=== PATIENT | female | born 1945 | race Caucasian/White ===

== ENCOUNTER 2020-05-22 10:45 | Emergency (ER) | payer OTHER ==
[2020-05-22] MEDS ORDERED: HYDROCODONE/APAP 10/325 TAB ONE (14:13)
[2020-05-22] MEDS ORDERED: predniSONE 20 MG TAB ONE (14:14)
--- NOTE | 2020-05-22 17:17 | EDPHYS ---
Physician Documentation [facility] Name: Doretha Partida Age: 74 yrs Sex: Female : 1945 Arrival Date: 05/22/2020 Time: 10:47 Bed 25 Private MD: ED Physician Aneesh Umaña HPI: 05/22 13:47 This 74 yrs old Female presents to ER via Wheelchair with complaints of Low kb Back Pain, Knee Pain. 13:47 The patient presents with pain that is acute. The symptoms are located in the left low kb back and right low back. The pain radiates to the right leg and left leg. The problem was sustained from a chronic condition. Onset: The symptoms/episode began/occurred 4 day(s) ago. Modifying factors: The patient symptoms are alleviated by nothing, the patient symptoms are aggravated by any movement. Associated signs and symptoms: Pertinent positives: none. Severity of symptoms: At their worst the symptoms were moderate, in the emergency department the symptoms are unchanged. The patient has experienced similar episodes in the past, several times. The patient has not recently seen a physician. Pt states "I've been having sciatic pain since Friday and it keeps getting worse. I can't lay down." Pt reports she has had this pain several times in the past. States pain sometimes travels down legs. No urinary problems, incontinence, numbness, tingling. Denies injury or trauma. Historical: - Allergies: 11:36 No Known Allergies; ca1 - PMHx: 11:36 Hypertension; ca1 - PSHx: 11:36 Knee surgery; ca1 - Immunization history:: Pneumococcal vaccine is up to date, Flu vaccine is not up to date. COVID 1st shot. - Social history:: Smoking status: Patient denies any tobacco usage or history of. ROS: 13:49 Constitutional: Negative for fever, chills, and weight loss, Cardiovascular: Negative kb for chest pain, palpitations, and edema, Respiratory: Negative for shortness of breath, cough, wheezing, and pleuritic chest pain, Abdomen/GI: Negative for abdominal pain, nausea, vomiting, diarrhea, and constipation, MS/Extremity: Negative for injury and deformity, Skin: Negative for injury, rash, and discoloration, Neuro: Negative for headache, weakness, numbness, tingling, and seizure. 13:49 Back: Positive for pain at rest, pain with movement, radiated pain, of the left low back and right low back. Exam: 13:49 Constitutional: This is a well developed, well nourished patient who is awake, alert, kb and in no acute distress. Head/Face: Normocephalic, atraumatic. Chest/axilla: Normal chest wall appearance and motion. Nontender with no deformity. No lesions are appreciated. Cardiovascular: Regular rate and rhythm with a normal S1 and S2. No gallops, murmurs, or rubs. Normal PMI, no JVD. No pulse deficits. Respiratory: Lungs have equal breath sounds bilaterally, clear to auscultation and percussion. No rales, rhonchi or wheezes noted. No increased work of breathing, no retractions or nasal flaring. Abdomen/GI: Soft, non-tender, with normal bowel sounds. No distension or tympany. No guarding or rebound. No evidence of tenderness throughout. Skin: Warm, dry with normal turgor. Normal color with no rashes, no lesions, and no evidence of cellulitis. MS/ Extremity: Pulses equal, no cyanosis. Neurovascular intact. Full, normal range of motion. Neuro: Awake and alert, GCS 15, oriented to person, place, time, and situation. Cranial nerves II-XII grossly intact. Motor strength 5/5 in all extremities. Sensory grossly intact. Cerebellar exam normal. Normal gait. 13:49 Back: pain, that is moderate, of the left low back and right low back, ROM is painful, normal spinal alignment noted, CVA tenderness, is absent, vertebral tenderness, is not appreciated. Vital Signs: 11:31 BP 158 / 61; Pulse 94; Resp 16 S; Temp 99.6(TE); Pulse Ox 98% on R/A; Weight 100.7 kg ca1 (R); Height 5 ft. 4 in. (162.56 cm) (R); Pain 10/10; 14:05 BP 160 / 95; Pulse 82; Resp 17; Pulse Ox 100% on R/A; tw2 11:31 Body Mass Index 38.11 (100.70 kg, 162.56 cm) ca1 MDM: 13:37 Patient medically screened. kb 13:47 Data reviewed: vital signs, nurses notes. Data interpreted: Pulse oximetry: on room air kb is 98 %. Interpretation: normal. Counseling: I had a detailed discussion with the patient and/or guardian regarding: the historical points, exam findings, and any diagnostic results supporting the discharge/admit diagnosis, the need for outpatient follow up, a family practitioner, to return to the emergency department if symptoms worsen or persist or if there are any questions or concerns that arise at home. Administered Medications: 14:00 Drug: [place] 10 mg-325 mg 1 tabs {Note: RASS 0.} Route: PO; tw2 14:07 Follow up: Response: No adverse reaction; RASS: Alert and Calm (0) tw2 14:00 Drug: predniSONE 40 mg Route: PO; tw2 14:09 Follow up: Response: No adverse reaction tw2 Disposition: 18:18 Co-signature as Attending Physician, Aneesh Umaña MD. [facility] Disposition: 05/22/20 13:50 Discharged to Home. Impression: Sciatica, left side, Sciatica, right side. - Condition is Stable. - Discharge Instructions: Sciatica, [id number], Back Exercises, [id number]. - Prescriptions for Prednisone 20 mg Oral Tablet - take 1 tablet by ORAL route once daily for 5 days; 5 tablet. Cyclobenzaprine 10 mg Oral Tablet - take 1 tablet by ORAL route every 8 hours As needed; 21 tablet. - Medication Reconciliation Form, Thank You Letter, Antibiotic Education, Prescription Opioid Use form. - Follow up: Emergency Department; When: As needed; Reason: Worsening of condition. Follow up: Private Physician; When: 2 - 3 days; Reason: Recheck today's complaints, Continuance of care, Re-evaluation by your physician. Signatures: Raquel Cabral, ADAMA-C ADAMA-Agnes Paez, BRANNON RN tw2 Aneesh Uamña MD MD nm2 Tara Ruiz RN RN ca1 Corrections: (The following items were deleted from the chart) 13:51 13:47 Pt states "I've been having sciatic pain since Friday and it keeps getting worse. kb I can't lay down." Pt reports she has had this pain several times in the past. States pain sometimes travels down legs. No urinary problems, incontinence, numbness, tingling. kb 14:08 13:50 05/22/2020 13:50 Discharged to Home. Impression: Sciatica, left side; Sciatica, tw2 right side. Condition is Stable. Forms are Medication Reconciliation Form, Thank You Letter, Antibiotic Education, Prescription Opioid Use. Follow up: Emergency Department; When: As needed; Reason: Worsening of condition. Follow up: Private Physician; When: 2 - 3 days; Reason: Recheck today's complaints, Continuance of care, Re-evaluation by your physician. kb
--- NOTE | 2020-05-22 17:17 | ER ---
Nurse's Notes [facility] Name: Doretha Partida Age: 74 yrs Sex: Female : 1945 Arrival Date: 05/22/2020 Time: 10:47 Bed 25 Private MD: Diagnosis: Sciatica, left side;Sciatica, right side Presentation: 05/22 11:31 Chief complaint: Patient states: I got sciatica, both sides on lower back. Haven't ca1 slept for days, hurt so back. Had this problem for a long time, but worse in the past week. [place]o. lower back radiating to the side of the legs sometimes. Bilateral knee pain, swelling on the R knee, been that way for quite sometime, had knee shots before. Denies injury. Denies urinary S/S. Coronavirus screen: Client denies travel out of the [place] in the last 14 days. At this time, the client does not indicate any symptoms associated with coronavirus-19. Ebola Screen: Patient negative for fever greater than or equal to 101.5 degrees Fahrenheit, and additional compatible Ebola Virus Disease symptoms Patient denies exposure to infectious person. Patient denies travel to an Ebola-affected area in the 21 days before illness onset. No symptoms or risks identified at this time. Initial Sepsis Screen: Does the patient meet any 2 criteria? No. Patient's initial sepsis screen is negative. Does the patient have a suspected source of infection? No. Patient's initial sepsis screen is negative. Risk Assessment: Do you want to hurt yourself or someone else? Patient reports no desire to harm self or others. Onset of symptoms was May 22, 2020. 11:31 Method Of Arrival: Wheelchair ca1 11:31 Acuity: SLY 3 ca1 Historical: - Allergies: 11:36 No Known Allergies; ca1 - PMHx: 11:36 Hypertension; ca1 - PSHx: 11:36 Knee surgery; ca1 - Immunization history:: Pneumococcal vaccine is up to date, Flu vaccine is not up to date. COVID 1st shot. - Social history:: Smoking status: Patient denies any tobacco usage or history of. Screenin:08 Abuse screen: Denies threats or abuse. Nutritional screening: No deficits noted. tw2 Tuberculosis screening: No symptoms or risk factors identified. Fall Risk None identified. Assessment: 13:35 General: Appears in no apparent distress. uncomfortable, obese, well groomed, Behavior tw2 is calm, cooperative, appropriate for age. Pain: Complains of pain in left leg and right leg and right low back and left low back. Neuro: Level of Consciousness is awake, alert, obeys commands, Oriented to person, place, time, situation. Cardiovascular: Patient's skin is warm and dry. Respiratory: Airway is patent Respiratory effort is even, unlabored, Respiratory pattern is regular, symmetrical. Musculoskeletal: Circulation, motion, and sensation intact. Range of motion: intact in all extremities, Reports pain in back, right leg and left leg. 14:07 Reassessment: Patient appears in no apparent distress at this time. No changes from tw2 previously documented assessment. Patient and/or family updated on plan of care and expected duration. Pain level reassessed. Patient is alert, oriented x 3, equal unlabored respirations, skin warm/dry/pink. Vital Signs: 11:31 BP 158 / 61; Pulse 94; Resp 16 S; Temp 99.6(TE); Pulse Ox 98% on R/A; Weight 100.7 kg ca1 (R); Height 5 ft. 4 in. (162.56 cm) (R); Pain 10/10; 14:05 BP 160 / 95; Pulse 82; Resp 17; Pulse Ox 100% on R/A; tw2 11:31 Body Mass Index 38.11 (100.70 kg, 162.56 cm) ca1 ED Course: 10:47 Patient arrived in ED. ag5 11:35 Triage completed. ca1 11:36 Arm band placed on right wrist. ca1 13:30 Raquel Cabral FNP-C is PHCP. kb 13:31 Aneesh Umaña MD is Attending Physician. kb 13:32 Bed in low position. Call light in reach. Pulse ox on. NIBP on. tw2 13:36 Raquel Cabral FNP-C is PHCP. kb 13:36 Aneesh Umaña MD is Attending Physician. kb 13:54 Agnes Rice, BRANNON is Primary Nurse. tw2 14:08 No provider procedures requiring assistance completed. Patient did not have IV access tw2 during this emergency room visit. Administered Medications: 14:00 Drug: [place] 10 mg-325 mg 1 tabs {Note: RASS 0.} Route: PO; tw2 14:07 Follow up: Response: No adverse reaction; RASS: Alert and Calm (0) tw2 14:00 Drug: predniSONE 40 mg Route: PO; tw2 14:09 Follow up: Response: No adverse reaction tw2 Outcome: 13:50 Discharge ordered by . christine 14:06 Discharged to home via wheelchair. tw2 14:06 Condition: stable 14:06 Discharge instructions given to patient, Instructed on discharge instructions, follow up and referral plans. no drinking with medication, no driving heavy equipment, medication usage, Demonstrated understanding of instructions, follow-up care, medications, Prescriptions given X 2. 14:08 Patient left the ED. tw2 Signatures: Raquel Cabral, CARDIAC REHABILITATION SPECIALIST-C ADAMA-Agnes Paez RN RN tw2 Tara Ruiz RN RN ca1 Yelitza Wolfe 5
[2020-05-22 17:39] VITALS: TEMP 99.6
[2020-05-22 17:40] VITALS: BP 160/95; O2SAT 100
== END 2020-05-22 14:08 | disposition home or self-care (01) ==
LOC: ER 10:45
DX: M54.32 Sciatica, left side (principal); M54.31 Sciatica, right side
CPT/HCPCS: 99283; J7512

== ENCOUNTER 2020-06-07 11:30 | Inpatient (IN) | payer OTHER ==
[2020-06-07] MEDS ORDERED: FAMOTIDINE 20 MG/2 ML VIAL IV ONE (13:59)
[2020-06-07] MEDS ORDERED: ONDANSETRON 4 MG/2 ML VIAL ONE ×3 (13:59→20:48)
[2020-06-07 14:00] LABS: Absolute Lymphocytes (CBC) 0.2 K/uL (0.7-4.9); Hematocrit 33.3 % (36.0-45.0); Lymphocytes % 0.7 % (15.3-44.8); RBC Red Blood Cell Count 4.27 M/uL (3.86-4.86)
[2020-06-07 14:02] LABS: Protime INR 1.25
[2020-06-07] MEDS ORDERED: FENTANYL CITR 100 MCG/2 ML ONE (14:29)
[2020-06-07] MEDS ORDERED: NA CHLORIDE 0.9% 500 ML ONE ×2 (14:29→14:50)
[2020-06-07 14:31] LABS: ALT/SGPT 20 U/L (12-78); AST/SGOT 22 U/L (15-37); Albumin 2.3 g/dL (3.4-5.0); Bilirubin Direct 0.7 mg/dL (0-0.2); Glucose Level 172 mg/dL (74-106); Lipase 545 U/L (73-393); NT PRO-BNP 4662 pg/mL (<450); Potassium 4.4 mmol/L (3.5-5.1); Protein, Total 8.8 g/dL (6.4-8.2); Sodium Level 134 mmol/L (136-145); Troponin (Emerg Dept Use Only) < 0.02 ng/mL (0.0-0.045)
[2020-06-07 14:34] LABS: Bicarbonate 7 mmol/L (21-32); Magnesium 3.6 mg/dL (1.8-2.4)
--- NOTE | 2020-06-07 14:39 | RAD REPORT ---
EXAM DESCRIPTION: RAD - Chest Single View - 06/07/2020 2:14 pm CLINICAL HISTORY: difficulty swallowing COMPARISON: None TECHNIQUE: AP portable chest image was obtained 06/07/2020 2:14 pm . FINDINGS: Lung volumes are low. Under penetrated technique and body habitus affects further limit th e examination. Lung base interstitial opacification is present. In the absence of a comparison early right lung base infiltrate cannot be excluded. No significant failure or volume overload. Heart and vasculature are normal. No measurable pleural effusion and no pneumothorax. No acute bony abnormality seen. No acute aortic findings suspected. IMPRESSION: Right base infiltrate verse is shallow inspiration linear atelectasis.
[2020-06-07] MEDS ORDERED: CEFTRIAXONE/SWI 1gm 1 GM/10 ML SYR ONE (14:50)
[2020-06-07] MEDS ORDERED: NA CHLORIDE 0.9% 2,000 ML ONE (14:50)
[2020-06-07 15:11] LABS: Urine Bacteria LOADED /HPF (<20)
[2020-06-07 15:19] LABS: Blood Morphology Comment NOT SEEN (NOT SEEN); Platelet Estimate INCR
[2020-06-07 15:20] LABS: Alkaline Phosphatase 1150 U/L (45-117); BUN Blood Urea Nitrogen 157 mg/dL (7-18)
[2020-06-07 15:22] LABS: Urine Blood 2+ (NEG); Urine Glucose NEGATIVE (NEG); Urine Protein 3+ (NEG); Urine Specific Gravity >1.030 (1.005-1.030); Urine pH 5.5 (5.0-7.0)
--- NOTE | 2020-06-07 15:40 | RAD REPORT ---
EXAM DESCRIPTION: CT - Chest Abd Pelvis Wo Con - 06/07/2020 3:05 pm CLINICAL HISTORY: N/V, acute kidney failure, chest pain, abdominal pain COMPARISON: Chest Single View dated 06/07/2020 TECHNIQUE: During dynamic enhancement using 100 milliliters nonionic IV contrast, axial 5 millimeter thick images of the chest, abdomen and pelvis were obtained. Biphasic technique was utilized through the abdomen. Oral contrast was administered. All CT scans are performed using dose optimization technique as appropriate and may include automated exposure control or mA/KV adjustment according to patient size. FINDINGS: The lungs are clear of mass and infiltrate. Patient has minimal scarring or linear atelect asis in the inferior lingula and right middle lobe base. No pneumothorax or pleural effusion. No david st wall mass or abnormal axillary lymphadenopathy seen. Mediastinal and hilar regions show no mass o r lymphadenopathy. No significant cardiac finding. The liver, spleen and pancreas show no significant findings. Gallbladder is well filled but not dila nichole. Gallstones can be occult. No pericholecystic fluid or definitive gallbladder wall thickening. No biliary tree dilatation. No hydronephrosis of either kidney. No obstructing or nonobstructing calculi. No gross evidence for a renal mass. Isodense masses and pyelonephritis are not excluded on a noncontrast study. No adrenal a bnormalities. Urinary bladder is fully contracted around a Mobley catheter. Uterus is absent. Ovaries are absent or atrophic. No adnexal mass. Pelvic floor laxity is present. No dilated bowel loops or focal ball bowel wall thickening. No free air, free fluid or inflammatory stranding. No hernia, mass or bulky lymphadenopathy. No significant bone or vascular finding. Patient does have disc and bony degenerative changes spanni ng L2-L5. IMPRESSION: CT chest imaging shows no mass, lymphadenopathy or other significant finding. CT abdomen and pelvis imaging shows no acute or emergent finding. Isodense masses and pyelonephritis cannot be excluded on a noncontrast study. Gallbladder is distended but not dilated. Stones can be occult on CT imaging. Biliary tree is normal size. Concerns for an acute gallbladder process can be addressed with follow-up sonography.
[2020-06-07] MEDS ORDERED: PIPER/TAZO/NS 3.375gm 3.375 GM/100 ML BAG ONE (16:16)
[2020-06-07] MEDS ORDERED: METRONIDAZOLE 500mg IVPB 500 MG/100 ML BAG IV ONE ×2 (16:16→21:08)
--- NOTE | 2020-06-07 16:46 | EDPHYS ---
Physician Documentation [facility] Name: Doretha Partida Age: 74 yrs Sex: Female : 1945 Arrival Date: 06/07/2020 Time: 11:32 Bed 5 Private MD: ED Physician Aneesh Umaña HPI: 06/07 13:40 This 74 yrs old Female presents to ER via Wheelchair with complaints of cp Difficulty Swallowing. 13:40 The patient presents to the emergency department with nausea, with "dry heaves", cp vomiting, that is continuous, described as bilious. Onset: The symptoms/episode began/occurred 2 week(s) ago. Possible causes: unknown. Associated signs and symptoms: Pertinent positives: anorexia, Pertinent negatives: constipation, diarrhea, fever, GI bleeding. Severity of symptoms: in the emergency department the symptoms are unchanged despite home interventions. Historical: - Allergies: 11:46 Codeine; ss - PMHx: 11:46 Hypertension; ss - PSHx: 11:46 Knee surgery; Hysterectomy; ss - Immunization history:: Flu vaccine is up to date. - Social history:: Smoking status: Patient denies any tobacco usage or history of. ROS: 13:50 Constitutional: Positive for poor PO intake, Negative for body aches, chills, fever. cp 13:50 Eyes: Negative for injury, pain, redness, and discharge. cp 13:50 ENT: Positive for difficulty swallowing, Negative for ear pain, sore throat, difficulty handling secretions. 13:50 Cardiovascular: Negative for chest pain, edema, palpitations. 13:50 Respiratory: Negative for cough, shortness of breath, wheezing. 13:50 Abdomen/GI: Positive for abdominal pain, nausea and vomiting, anorexia, Negative for diarrhea, constipation, hematemesis, black/tarry stool, rectal bleeding. 13:50 Back: Positive for radiated pain. 13:50 : Negative for urinary symptoms. 13:50 Neuro: Negative for altered mental status, headache. 13:50 All other systems are negative. Exam: 13:54 ECG was reviewed by the Attending Physician. cp 13:57 Constitutional: The patient appears in no acute distress, alert, awake, cp non-diaphoretic, non-toxic, well developed, well nourished, uncomfortable. 13:57 Head/Face: Normocephalic, atraumatic. cp 13:57 Eyes: Periorbital structures: appear normal, Conjunctiva: normal, no exudate, no injection, Sclera: no appreciated abnormality, Lids and lashes: appear normal, bilaterally. 13:57 ENT: External ear(s): are unremarkable, Nose: is normal, Mouth: Lips: moist, Oral mucosa: moist, Posterior pharynx: Airway: no evidence of obstruction, patent. 13:57 Neck: ROM/movement: is normal, is supple, without pain, no range of motions limitations. 13:57 Chest/axilla: Inspection: normal, Palpation: is normal, no crepitus, no tenderness. 13:57 Cardiovascular: Rate: tachycardic, Rhythm: regular, Edema: is not appreciated, JVD: is not appreciated. 13:57 Respiratory: mild respiratory distress is noted, Respirations: labored breathing, that is mild, intercostal retractions, are absent, Breath sounds: are clear throughout, no decreased breath sounds, no stridor, no wheezing. 13:57 Abdomen/GI: Inspection: abdomen appears normal, Bowel sounds: active, all quadrants, Palpation: soft, in all quadrants, moderate abdominal tenderness, in the right upper quadrant, voluntary guarding, is elicited in the right upper quadrant. 13:57 Back: pain, that is moderate, ROM is painful, with all movement. 13:57 Skin: cellulitis, is not appreciated, no rash present. 13:57 Neuro: Orientation: to person, place \\T\\ time. Mentation: is normal, Cerebellar function: is grossly normal, Motor: moves all fours, strength is normal, Sensation: is normal. Vital Signs: 11:47 BP 104 / 56; Pulse 100; Resp 20; Temp 97.6; Pulse Ox 100% ; Weight 98.88 kg; Height 5 ss ft. 4 in. (162.56 cm); Pain 10/10; 14:00 BP 97 / 70; Pulse 100; Resp 24; Pulse Ox 100% on R/A; sv 15:19 BP 136 / 60; Pulse 106; Resp 28; Pulse Ox 98% on 2 lpm NC; sv 16:00 BP 132 / 37; Pulse 98; Resp 19; Pulse Ox 98% on 2 lpm NC; sv 16:05 Pain 7/10; sv 17:19 BP 110 / 45; Pulse 102 MON; Resp 21; Pulse Ox 100% on 2 lpm NC; sv 18:04 BP 104 / 52; Pulse 109; Resp 17; Pulse Ox 100% on R/A; sv 19:00 BP 119 / 96; Pulse 104; Resp 19; Pulse Ox 100% on R/A; wh 11:47 Body Mass Index 37.42 (98.88 kg, 162.56 cm) ss 17:19 Sinus tachycardia sv 15:19 Sony PA wanted pt on O2. sv MDM: 13:27 Patient medically screened. ma2 14:00 Differential diagnosis: Nonspecific abd pain, gastritis, cholecystitis, pancreatitis, cp viral gastroenteritis, gastroenteritis. 17:25 Data reviewed: vital signs, nurses notes, lab test result(s), EKG, radiologic studies, cp CT scan, plain films, ultrasound. 17:25 Test interpretation: by ED physician or midlevel provider: ECG, plain radiologic cp studies. 17:45 Physician consultation: Lamonte Posada MD was contacted at 17:45, regarding consult, cp patient's condition, would like admission per Dr. Fred Pulliam DO. 06/07 13:40 Order name: Basic Metabolic Panel 06/07 13:40 Order name: CBC with Diff cp 06/07 13:40 Order name: LFT's cp 06/07 13:40 Order name: Magnesium cp 06/07 13:40 Order name: NT PRO-BNP; Complete Time: 15:22 cp 06/07 14:39 Interpretation: NT PRO-BNP 4662; Reviewed. 06/07 13:40 Order name: PT-INR; Complete Time: 14:30 cp 06/07 13:40 Order name: Troponin (emerg Dept Use Only); Complete Time: 15:22 cp 06/07 13:40 Order name: XRAY Chest (1 view); Complete Time: 15:22 cp 06/07 13:40 Order name: EKG; Complete Time: 13:40 cp 06/07 13:40 Order name: Cardiac monitoring; Complete Time: 14:08 cp 06/07 13:40 Order name: EKG - Nurse/Tech; Complete Time: 13:48 cp 06/07 13:40 Order name: IV Saline Lock; Complete Time: 13:49 cp 06/07 13:40 Order name: Labs collected and sent; Complete Time: 13:49 cp 06/07 13:40 Order name: O2 Per Protocol; Complete Time: 13:49 06/07 13:40 Order name: O2 Sat Monitoring; Complete Time: 13:49 06/07 13:40 Order name: Lipase; Complete Time: 15:22 06/07 17:23 Interpretation: Abnormal: LIP 545. 06/07 13:40 Order name: Basic Metabolic Panel; Complete Time: 15:22 EDDE 06/07 15:22 Interpretation: Normal except: NA 134; CO2 7; GLUC 172; CRE 8.48; GFR 5; CA 7.5; BUN cp 157. 06/07 13:40 Order name: CBC with Automated Diff EDDE 06/07 14:31 Interpretation: Normal except: WBC 35.40; HGB 10.8; HCT 33.3; MCV 77.9; MCH 25.2; PLT cp 626; RDW 16.0; JOSE% 95.0; LYM% 0.7; NEUT A 33.6; LYMA 0.2. 06/07 13:40 Order name: Liver (Hepatic) Function; Complete Time: 15:22 [facility] 06/07 16:32 Interpretation: Normal except: BILID 0.7; TP 8.8; ALB 2.3; GLOB 6.5; A/G 0.4; ALK 1150. 06/07 13:40 Order name: Magnesium; Complete Time: 15:22 [facility] 06/07 14:11 Order name: Urine Dipstick-Ancillary (obtain specimen); Complete Time: 14:23 06/07 14:11 Order name: Urine Microscopic Only; Complete Time: 15:22 06/07 15:23 Interpretation: Normal except: UBACT LOADED; URBC 5-10; UWBC TNTC. 06/07 14:14 Order name: Manual Differential [facility] 06/07 14:25 Order name: Blood Culture Adult (2) 06/07 14:25 Order name: Procalcitonin 06/07 14:25 Order name: Lactate 06/07 14:25 Order name: Blood Culture [facility] 06/07 14:25 Order name: Procalcitonin; Complete Time: 15:55 EDDE 06/07 15:55 Interpretation: Abnormal: Procalcitonin 5.92. 06/07 14:25 Order name: Lactate; Complete Time: 15:22 EDDE 06/07 15:23 Interpretation: Within normal limits: LAC 1.5. cp 06/07 14:31 Order name: Urine Dipstick--Ancillary (enter results); Complete Time: 15:24 bd 06/07 15:24 Interpretation: Normal except: USPGR >1.030; UKET 1+; UBLD 2+; UPROT 3+; UESTR 3+. 06/07 14:38 Order name: Mobley; Complete Time: 14:39 cp 06/07 14:41 Order name: CT Chest Abdomen Pelvis W/O Contrast; Complete Time: 15:55 cp 06/07 17:40 Interpretation: Report reviewed. 06/07 15:12 Order name: Urine Culture EDDE 06/07 16:01 Order name: US Abdomen Limited; Complete Time: 17:22 cp 06/07 16:01 Order name: NPO; Complete Time: 16:05 06/07 16:44 Order name: COVID-19 : Document "Date of Symptom Onset" if Symptomatic. 06/07 17:31 Order name: ABG 06/07 18:03 Order name: ABG Arterial Blood Gas EDDE 06/07 18:18 Order name: SARS-COV-2 RT PCR EDDE 06/08 04:13 Order name: Glucose, Ancillary Testing EDDE 06/08 05:06 Order name: CBC with Automated Diff EDDE 06/08 05:46 Order name: Comprehensive Metabolic Panel EDDE 06/08 05:46 Order name: Phosphorus EDDE 06/08 07:01 Order name: Gram Stain--Aerobic Bottle EDMS 06/08 07:01 Order name: Gram Stain--Anaerobic Bottle EDMS 06/08 07:05 Order name: Gram Stain--Aerobic Bottle EDMS 06/08 07:05 Order name: Gram Stain--Anaerobic Bottle EDMS 06/08 12:07 Order name: Glucose, Ancillary Testing EDMS EC:54 Rhythm is regular. MN interval is normal. QRS interval is prolonged at 136 msec. QT cp interval is normal. Interpreted by me. Reviewed by me. Administered Medications: 13:49 Drug: Zofran (Ondansetron) 4 mg Route: IVP; Site: right antecubital; hb 14:08 Follow up: Response: No adverse reaction sv 13:49 Drug: Pepcid 20 mg Route: IVP; Site: right antecubital; hb 14:08 Follow up: Response: No adverse reaction sv 14:15 Drug: fentaNYL (PF) 25 mcg Route: IVP; Site: left antecubital; sv 15:20 Follow up: Response: No adverse reaction; No change in condition; Pain is unchanged, sv physician notified; RASS: Agitated (+2) 14:30 CANCELLED (Physician Discretion): NS 0.9% 500 ml IV at 500 ml/hr continuous cp 14:40 Drug: NS 0.9% (30 ml/kg) 30 ml/kg Route: IV; Rate: bolus; Site: right antecubital; sv 19:40 Follow up: Response: No adverse reaction; IV Status: Completed infusion wh 14:40 Drug: Rocephin 1 grams Route: IV; Rate: calculated rate; Site: right antecubital; sv 14:42 Follow up: Response: No adverse reaction; IV Status: Completed infusion; IV Intake: 10mlsv 15:27 Drug: fentaNYL (PF) 50 mcg {Note: rass2.} Route: IVP; Site: right antecubital; sv 16:05 Follow up: Pain 7/10 Adult; Response: No adverse reaction; Pain is decreased; RASS: sv Restless (+1) 16:04 Drug: Flagyl 500 mg Volume: 100 ml; Route: IVPB; Rate: 200 ml/hr; Infused Over: 30 sv mins; Site: right antecubital; 17:00 Follow up: Response: No adverse reaction; IV Status: Completed infusion; IV Intake: sv 100ml 16:40 Drug: Zofran (Ondansetron) 4 mg Route: IVP; Site: right antecubital; sv 17:00 Follow up: Response: No adverse reaction; No change in condition sv 16:58 CANCELLED (Physician Discretion): morphine 2 mg IM once; RASS on ADMIN: Combtv4, Very sv Agttd3, Agttd2, Rstlss1, AlertClm0, Drwsy-1, Lt Sdtn-2, Mod Sdtn-3, Dp Sdtn-4, UnArsble-5 16:59 Drug: Phenergan 25 mg Route: IVP; Site: right antecubital; sv 17:30 Follow up: Response: No adverse reaction; Marked relief of symptoms; Nausea is decreasedsv 16:59 Drug: morphine 2 mg {Note: rass2.} Route: IVP; Site: right antecubital; sv 17:30 Follow up: Response: No adverse reaction; Pain is decreased; RASS: Restless (+1) sv 17:58 Drug: Zosyn 3.375 grams Route: IVPB; Infused Over: 60 mins; Site: right hand; ss 19:40 Follow up: Response: No adverse reaction; IV Status: Completed infusion wh 17:58 Drug: Sodium Bicarbonate 1 amp Route: IVP; Site: right hand; ss 18:40 Follow up: Response: No adverse reaction sv 17:58 Drug: Sodium Bicarbonate 50 mEq Route: IVP; Site: right hand; ss 18:40 Follow up: Response: No adverse reaction sv 21:18 CANCELLED (Physician Discretion): Reglan 10 mg IVP once; over 1 to 2 minutes cp Disposition: 06/07/20 16:46 Hospitalization ordered by Fred Pulliam for Inpatient Admission. Preliminary diagnosis are Acute kidney failure, Other sepsis, Urinary tract infection, site not specified, Dehydration. - Bed requested for Telemetry/MedSurg (Inpatient). - Status is Inpatient Admission. sv - Condition is Fair. - Problem is new. - Symptoms have improved. Addendum: 06/30/2020 02:12 Co-signature as Attending Physician, Aneesh Umaña MD. m a2 Signatures: Dispatcher [employer] EDMS Alyssia Bhatia Stephanie, RN RN Kylah Blevins RN RN ss Sony Marquez PA PA cp Terri Rodgers RN RN Santiago Longoria RN RN ja1 Aneesh Umaña MD MD nd2 Bridget Alegria RN Corrections: (The following items were deleted from the chart) 06/07 14:30 14:11 NS 0.9% 500 ml IV at 500 ml/hr continuous ordered. cp cp 14:31 14:30 Normal except: WBC 35.40; HGB 10.8; HCT 33.3; MCV 77.9; MCH 25.2; PLT 626; RDW cp 16.0; JOSE% 95.0; LYM% 0.7. cp 14:31 14:31 Normal except: WBC 35.40; HGB 10.8; HCT 33.3; MCV 77.9; MCH 25.2; PLT 626; RDW cp 16.0; JOSE% 95.0; LYM% 0.7; NEUT A 33.6. cp 14:39 14:39 Normal except: NA 134; CO2 7; GLUC 172; CRE 8.48; GFR 5. cp cp 15:22 14:39 Normal except: NA 134; CO2 7; GLUC 172; CRE 8.48; GFR 5; CA 7.5. cp cp 16:32 14:40 Normal except: BILID 0.7; TP 8.8; ALB 2.3; GLOB 6.5; A/G 0.4. cp cp 16:58 16:58 morphine 2 mg IM once; RASS on ADMIN: Combtv4, Very Agttd3, Agttd2, Rstlss1, sv AlertClm0, Drwsy-1, Lt Sdtn-2, Mod Sdtn-3, Dp Sdtn-4, UnArsble-5 ordered. sv 17:30 16:46 Hospitalization Ordered by Fred Pulliam DO for Inpatient Admission. Preliminary bd diagnosis is Acute kidney failure; Other sepsis; Urinary tract infection, site not specified; Dehydration. Bed requested for Telemetry/MedSurg (Inpatient). Status is Inpatient Admission. Condition is Fair. Problem is new. Symptoms have improved. cp 21:18 21:09 Reglan 10 mg IVP once; over 1 to 2 minutes ordered. cp cp 06/08 11:45 06/07 17:30 06/07/2020 16:46 Hospitalization Ordered by Fred Pulliam DO for Inpatient ja1 Admission. Preliminary diagnosis is Acute kidney failure; Other sepsis; Urinary tract infection, site not specified; Dehydration. Bed requested for [facility]UST ER HOLD. Status is Inpatient Admission. Condition is Fair. Problem is new. Symptoms have improved. bd 06/08 13:31 11:45 06/07/2020 16:46 Hospitalization Ordered by Fred Pulliam DO for Inpatient sv Admission. Preliminary diagnosis is Acute kidney failure; Other sepsis; Urinary tract infection, site not specified; Dehydration. Bed requested for Telemetry/MedSurg (Inpatient). Status is Inpatient Admission. Condition is Fair. Problem is new. Symptoms have improved. ja1
--- NOTE | 2020-06-07 16:46 | ER ---
Nurse's Notes [facility] Name: Doretha Partida Age: 74 yrs Sex: Female : 1945 Arrival Date: 06/07/2020 Time: 11:32 Bed 5 Private MD: Diagnosis: Acute kidney failure;Other sepsis;Urinary tract infection, site not specified;Dehydration Presentation: 06/07 11:47 Chief complaint: Patient states: 2 weeks of N/V when trying to eat. Feels like ss something is stuck in lower throat area. Vomits all liquids she tries to drink. No fever. Coronavirus screen: Client denies travel out of the [place] in the last 14 days. At this time, the client does not indicate any symptoms associated with coronavirus-19. Ebola Screen: Patient denies travel to an Ebola-affected area in the 21 days before illness onset. Initial Sepsis Screen: Does the patient meet any 2 criteria? HR > 90 bpm. No. Patient's initial sepsis screen is negative. Does the patient have a suspected source of infection? Yes: Other: throat pain/possible blockage. Risk Assessment: Do you want to hurt yourself or someone else? Patient reports no desire to harm self or others. Onset of symptoms was May 25, 2020. 11:47 Method Of Arrival: Wheelchair ss 11:47 Acuity: SLY 3 ss Historical: - Allergies: 11:46 Codeine; ss - PMHx: 11:46 Hypertension; ss - PSHx: 11:46 Knee surgery; Hysterectomy; ss - Immunization history:: Flu vaccine is up to date. - Social history:: Smoking status: Patient denies any tobacco usage or history of. Screenin:34 Abuse screen: Denies threats or abuse. Denies injuries from another. Nutritional sv screening: No deficits noted. Tuberculosis screening: No symptoms or risk factors identified. Fall Risk None identified. Assessment: 13:40 General: Appears uncomfortable, obese, well groomed, well developed, well nourished, sv Behavior is cooperative, appropriate for age, fussy, restless. Pain: Complains of pain in back Pain currently is 10 out of 10 on a pain scale. Quality of pain is described as throbbing, Pain began 2-3 days ago. Is continuous, Aggravated by increased activity, repositioning, Noted to be moaning, restless, grunting. Neuro: Level of Consciousness is awake, alert, obeys commands, Oriented to person, place, time, situation, Moves all extremities. Full function Speech is normal. Cardiovascular: Patient's skin is warm and dry. Rhythm is sinus tachycardia. Respiratory: Reports shortness of breath Airway is patent Respiratory effort is even, unlabored, Respiratory pattern is symmetrical, tachypnea. GI: Abdomen is obese. Derm: Skin is normal. Musculoskeletal: Range of motion: intact in all extremities. 14:15 Reassessment: Patient appears in no apparent distress at this time. No changes from sv previously documented assessment. Patient and/or family updated on plan of care and expected duration. Pain level reassessed. Patient is alert, oriented x 3, equal unlabored respirations, skin warm/dry/pink. 15:27 Reassessment: Patient appears in no apparent distress at this time. No changes from sv previously documented assessment. Patient and/or family updated on plan of care and expected duration. Pain level reassessed. Patient is alert, oriented x 3, equal unlabored respirations, skin warm/dry/pink. 16:04 Reassessment: Patient appears in no apparent distress at this time. Patient and/or sv family updated on plan of care and expected duration. Pain level reassessed. Patient is alert, oriented x 3, equal unlabored respirations, skin warm/dry/pink. 16:35 Reassessment: Pt c/o nausea. Informed Sony IRIZARRY, medication order received. sv 16:46 Reassessment: Ultrasound at the bedside. sv 17:50 Reassessment: Faith and Mary from RT attempted to place pt on BIPAP. Pt not able to sv tolerate it. Sony PA at bedside and said ok to not place it. ABG drawn prior to placement. 18:03 Reassessment: Patient appears in no apparent distress at this time. No changes from sv previously documented assessment. Patient and/or family updated on plan of care and expected duration. Pain level reassessed. Patient is alert, oriented x 3, equal unlabored respirations, skin warm/dry/pink. 19:15 Reassessment: Patient appears in no apparent distress at this time. Patient and/or wh family updated on plan of care and expected duration. Pain level reassessed. Patient is alert, oriented x 3, equal unlabored respirations, skin warm/dry/pink. Vital Signs: 11:47 BP 104 / 56; Pulse 100; Resp 20; Temp 97.6; Pulse Ox 100% ; Weight 98.88 kg; Height 5 ss ft. 4 in. (162.56 cm); Pain 10/10; 14:00 BP 97 / 70; Pulse 100; Resp 24; Pulse Ox 100% on R/A; sv 15:19 BP 136 / 60; Pulse 106; Resp 28; Pulse Ox 98% on 2 lpm NC; sv 16:00 BP 132 / 37; Pulse 98; Resp 19; Pulse Ox 98% on 2 lpm NC; sv 16:05 Pain 7/10; sv 17:19 BP 110 / 45; Pulse 102 MON; Resp 21; Pulse Ox 100% on 2 lpm NC; sv 18:04 BP 104 / 52; Pulse 109; Resp 17; Pulse Ox 100% on R/A; sv 19:00 BP 119 / 96; Pulse 104; Resp 19; Pulse Ox 100% on R/A; wh 11:47 Body Mass Index 37.42 (98.88 kg, 162.56 cm) ss 17:19 Sinus tachycardia sv 15:19 Sony IRIZARRY wanted pt on O2. sv ED Course: 11:32 Patient arrived in ED. rg4 11:46 Arm band placed on. ss 11:50 Triage completed. ss 13:27 Aneesh Umaña MD is Attending Physician. ma2 13:31 Sony Marquez PA is PHCP. cp 13:34 Kristyn Cormier, BRANNON is Primary Nurse. sv 13:34 Patient has correct armband on for positive identification. Bed in low position. Call sv light in reach. Door closed. Head of bed elevated. 13:45 Inserted saline lock: 22 gauge in right antecubital area, using aseptic technique. sv ,using aseptic technique. diffusics Blood collected. Flushed right antecubital with 5 ml normal saline. 14:08 Basic Metabolic Panel Sent. sv 14:08 CBC with Diff Sent. sv 14:08 LFT's Sent. sv 14:08 Magnesium Sent. sv 14:08 XRAY Chest (1 view) Sent. sv 14:14 XRAY Chest (1 view) In Process Unspecified. EDMS 14:23 Mobley cath inserted, using sterile technique, 16 Fr., by al, balloon inflated, to sv gravity drainage, urine specimen collected. returned cloudy urine. Patient tolerated well. 14:40 Lactate Sent. sv 14:40 Procalcitonin Sent. sv 14:40 Blood Culture Adult (2) Sent. sv 15:04 CT Chest Abdomen Pelvis W/O Contrast In Process Unspecified. EDMS 15:19 Awaiting lab results, Awaiting radiology results. sv 16:45 Fred Pulliam DO is Hospitalizing Provider. cp 16:52 US Abdomen Limited In Process Unspecified. EDMS 17:50 Inserted saline lock: 22 gauge in right hand, using aseptic technique. ,using aseptic sv technique. diffusics. 17:58 ABG Sent. ss 18:01 No provider procedures requiring assistance completed. Patient admitted, IV remains in sv place. intact. 19:19 Primary Nurse role handed off by Kristyn Cormier RN sv 19:38 Bridget Alegria RN is Primary Nurse. 06/08 07:25 Primary Nurse role handed off by Bridget Alegria RN em1 Administered Medications: 06/07 13:49 Drug: Zofran (Ondansetron) 4 mg Route: IVP; Site: right antecubital; hb 14:08 Follow up: Response: No adverse reaction sv 13:49 Drug: Pepcid 20 mg Route: IVP; Site: right antecubital; hb 14:08 Follow up: Response: No adverse reaction sv 14:15 Drug: fentaNYL (PF) 25 mcg Route: IVP; Site: left antecubital; sv 15:20 Follow up: Response: No adverse reaction; No change in condition; Pain is unchanged, sv physician notified; RASS: Agitated (+2) 14:30 CANCELLED (Physician Discretion): NS 0.9% 500 ml IV at 500 ml/hr continuous cp 14:40 Drug: NS 0.9% (30 ml/kg) 30 ml/kg Route: IV; Rate: bolus; Site: right antecubital; sv 19:40 Follow up: Response: No adverse reaction; IV Status: Completed infusion 14:40 Drug: Rocephin 1 grams Route: IV; Rate: calculated rate; Site: right antecubital; sv 14:42 Follow up: Response: No adverse reaction; IV Status: Completed infusion; IV Intake: 10mlsv 15:27 Drug: fentaNYL (PF) 50 mcg {Note: rass2.} Route: IVP; Site: right antecubital; sv 16:05 Follow up: Pain 7/10 Adult; Response: No adverse reaction; Pain is decreased; RASS: sv Restless (+1) 16:04 Drug: Flagyl 500 mg Volume: 100 ml; Route: IVPB; Rate: 200 ml/hr; Infused Over: 30 sv mins; Site: right antecubital; 17:00 Follow up: Response: No adverse reaction; IV Status: Completed infusion; IV Intake: sv 100ml 16:40 Drug: Zofran (Ondansetron) 4 mg Route: IVP; Site: right antecubital; sv 17:00 Follow up: Response: No adverse reaction; No change in condition sv 16:58 CANCELLED (Physician Discretion): morphine 2 mg IM once; RASS on ADMIN: Combtv4, Very sv Agttd3, Agttd2, Rstlss1, AlertClm0, Drwsy-1, Lt Sdtn-2, Mod Sdtn-3, Dp Sdtn-4, UnArsble-5 16:59 Drug: Phenergan 25 mg Route: IVP; Site: right antecubital; sv 17:30 Follow up: Response: No adverse reaction; Marked relief of symptoms; Nausea is decreasedsv 16:59 Drug: morphine 2 mg {Note: rass2.} Route: IVP; Site: right antecubital; sv 17:30 Follow up: Response: No adverse reaction; Pain is decreased; RASS: Restless (+1) sv 17:58 Drug: Zosyn 3.375 grams Route: IVPB; Infused Over: 60 mins; Site: right hand; ss 19:40 Follow up: Response: No adverse reaction; IV Status: Completed infusion wh 17:58 Drug: Sodium Bicarbonate 1 amp Route: IVP; Site: right hand; ss 18:40 Follow up: Response: No adverse reaction sv 17:58 Drug: Sodium Bicarbonate 50 mEq Route: IVP; Site: right hand; ss 18:40 Follow up: Response: No adverse reaction sv 21:18 CANCELLED (Physician Discretion): Reglan 10 mg IVP once; over 1 to 2 minutes cp Intake: 14:42 IV: 10ml; Total: 10ml. sv 17:00 IV: 100ml; Total: 110ml. sv Outcome: 16:46 Decision to Hospitalize by Provider. cp 18:02 Admitted to ER Hold. Please see [facility] for further documentation. sv 18:02 Condition: stable 18:02 Instructed on the need for admit. 06/08 13:31 Patient left the ED. sv Signatures: Dispatcher [employer] Kristyn Gamboa RN RN sv Nikko Posada em1 Kylah Blevins RN RN ss Sony Marquez PA PA cp Terri Rodgers RN RN hb Garcia, Rubi rg4 Bridget Alegria RN RN Aneesh Umaña MD MD ma2
[2020-06-07] MEDS: HEPARIN 5000 UNIT/ML 1 ML VIAL SQ SCH (17:00)
--- NOTE | 2020-06-07 17:07 | P.HP ---
Certification for Inpatient With expected LOS: >2 Midnights Practitioner: I am a practitioner with admitting privileges, knowledge of patient current condition, hospital course, and medical plan of care. Services: Services provided to patient in accordance with Admission requirements found in Title 42 Section 412.3 of the Code of Federal Regulations Patient History Date of Service: 06/07/20 Reason for admission: HARSHAD, sepsis, volume depletion, suspected cholecystitis, metabolic acidemia. History of Present Illness: 74 y o female pt who was evaluated in the Ed for episode of n/v and abd pain for the past 2 weeks. she has been unable to keep food and water down for the past 2 weeks and has had severe and diffuse abd pain. she attested to fever chills and malaise. work up in the Ed revealed severe HARSHAD with creatinine of 8.4, metabolic acidemia with bicarb of 7 and she also had elevated WBC of 35 and mod anemia. she was deemed to be septic and she was started on empiric antibiotics and IV fluid as per sepsis protocol. she was admitted for inpt care. Imaging done did show sludge and small stones in the gallbladder depicting gallstone cholecystitis. Review of Systems General: Fever, Chills, Malaise Eyes: Unremarkable ENT: Unremarkable Respiratory: Unremarkable Cardiovascular: Unremarkable Gastrointestinal: Nausea, Vomiting, Abdominal Pain Genitourinary: Unremarkable Musculoskeletal: Unremarkable Neurological: Unremarkable Physical Examination - Physical Exam General: Alert, Oriented x3, Moderate distress HEENT: Atraumatic, Normocephalic, PERRLA Neck: Supple Respiratory: Clear to auscultation bilaterally Cardiovascular: No edema, Regular rate/rhythm, Normal S1 S2 Gastrointestinal: Tenderness (generalized but marked in right upper quadrant.) Musculoskeletal: No clubbing Neurological: Normal speech, Normal strength at 5/5 x4 extr, Sensation intact, Cranial nerves 3-12 intact - Studies Laboratory Data (last 24 hrs) 06/07/20 13:46: PT 14.4 H, INR 1.25 06/07/20 13:46: WBC 35.40 H*, Hgb 10.8 L, Hct 33.3 L, Plt Count 626 H 06/07/20 13:46: Sodium 134 L, Potassium 4.4, BUN 157 H, Creatinine 8.48 H*, Glucose 172 H, Magnesium 3.6 H*, Total Bilirubin 1.0, AST 22, ALT 20, Alkaline Phosphatase 1150 H, Lipase 545 H Assessment and Plan - Plan 1.Abd pain/cholecystitis-imaging with US did show gallstone/sludge in gall bladder. she has been started on empiric antibiotic of flagyl and cefepime. we will also start pain control with morphine. we will monitor her symptomatology. surgeon to be consulted. 2.Metabolic acidemia-bicarb is low at 7. this episode is deemed due to poor bicarb generation from harshad eopisode and loss from n/v episode. we will start sodium bicarb IV and monitor level in am. 3.Sepsis-deemed due to cholecystitis episode. we will continue empiric antibiotics and monitor her sepsis parameters. 4.HARSHAD-severe stage 3 harshad noted on labs. we do not have prior labs.w neymar will hydrate as we think she has ischemic atn/sepsis associated atn. we will contuld nephrology for input. we willd ose meds for eGFR and avoid nephrotoxin exposure. 5.N/V-due to sepsis/cholecystitis episode. we will have prn antiemetics on board. 6.Volume depletion-due to sepsis/cholcystitis. we will hydrate with IV fluid and monitor. - Advance Directives Does patient have a Living Will: No Does patient have a Durable POA for Healthcare: No
[2020-06-07] MEDS ORDERED: PROMETHAZINE INJ 25 MG/ML AMP ONE ×2 (17:08→21:31)
[2020-06-07] MEDS ORDERED: MORPHINE 2 MG/ML SYR ONE (17:09)
--- NOTE | 2020-06-07 17:16 | RAD REPORT ---
EXAM DESCRIPTION: US - Abdomen Exam Limited - 06/07/2020 4:52 pm CLINICAL HISTORY: ABD PAIN COMPARISON: Chest Abd Pelvis Wo Con dated 06/07/2020 FINDINGS: Well filled gallbladder shows small amount of layering sludge and small gallstones. Wall t hickness is upper normal. No pericholecystic fluid. No common duct stone or biliary tree dilatation identified. IMPRESSION: Sludge and small gallstones are seen in the distended but nondilated gallbladder. Wall thickness is upper normal. No pericholecystic fluid. Findings are not definitive for, but are suggestive of, acute cholecystitis. Correlation is needed wi th clinical presentation.
[2020-06-07] MEDS ORDERED: SODIUM BICARB 50 MEQ/50ML VIAL ONE ×2 (17:48→18:09)
[2020-06-07 17:51] LABS: Arterial Blood Carboxyhemoglob 0.8 % (0-1.5); Blood Gas Oxyhemoglobin 95.7 % (94-97); Blood O2 Saturation 97.7 % (92-98.5)
[2020-06-07] MEDS: D5W 1,000 ML with NA BICARB 8.4% 150 MEQ IV SCH ×2 (18:00)
[2020-06-07 18:08] VITALS: BMI 37.0
[2020-06-07] MEDS ORDERED: HEPARIN 5000 UNIT/ML 1 ML VIAL ONE (18:49)
[2020-06-07] MEDS: ONDANSETRON 4 MG/2 ML VIAL IV PRN (20:36)
[2020-06-07] MEDS ORDERED: PANTOPRAZOLE 40 MG INJ IVP ONE (21:20)
[2020-06-07] MEDS ORDERED: PROMETHAZINE INJ 25 MG/ML AMP IV ONE (21:20)
[2020-06-07] MEDS ORDERED: SODIUM CHLORIDE 0.9% 10ML INJ IV PRN (21:20)
[2020-06-07] MEDS ORDERED: PANTOPRAZOLE 40 MG INJ ONE (21:31)
[2020-06-08] MEDS: HEPARIN 5000 UNIT/ML 1 ML VIAL SQ SCH ×3 (01:00→17:00)
[2020-06-08] MEDS: METRONIDAZOLE 500mg IVPB 500 MG/100 ML BAG IV SCH ×3 (01:00→17:00)
[2020-06-08] MEDS ORDERED: HEPARIN 5000 UNIT/ML 1 ML VIAL ONE ×2 (01:04→08:40)
[2020-06-08] MEDS: MORPHINE 2 MG/ML SYR IV PRN ×2 (02:05→17:02)
[2020-06-08] MEDS ORDERED: MORPHINE 2 MG/ML SYR ONE (02:19)
[2020-06-08 05:00] LABS: Absolute Lymphocytes (CBC) 0.4 K/uL (0.7-4.9); Basophils % 0.3 % (0-1.3); Hematocrit 25.9 % (36.0-45.0); Lymphocytes % 1.5 % (15.3-44.8); MPV 8.8 fL (7.6-11.3); RBC Red Blood Cell Count 3.41 M/uL (3.86-4.86)
[2020-06-08] MEDS: D5W 1,000 ML with NA BICARB 8.4% 150 MEQ IV SCH ×6 (05:30→23:05)
[2020-06-08 05:42] LABS: Albumin 1.8 g/dL (3.4-5.0); Bilirubin Total 0.7 mg/dL (0.2-1.0); Potassium 3.1 mmol/L (3.5-5.1); Protein, Total 7.1 g/dL (6.4-8.2)
[2020-06-08 05:45] LABS: Phosphorus 8.6 mg/dL (2.5-4.9)
[2020-06-08] MEDS ORDERED: CALCIUM GLUC 10% INJ 4.65 MEQ in NA CHLORIDE 0.9% 100 ML IV ONE (05:54)
[2020-06-08] MEDS ORDERED: CALCIUM GLUCONATE 1 GM IVPB 0 GM/0 ML BAG IV ONE (06:16)
--- NOTE | 2020-06-08 07:10 | P.PN ---
Subjective Date of Service: 06/08/20 Chief Complaint: HARSHAD, sepsis, volume depletion, suspected cholecystitis, metabolic acidemia. Subjective: Improving Physical Examination - Vital Signs Temperature: 97.6 F Blood Pressure: 114/54 Pulse: 105 Respirations: 16 Pulse Ox (%): 100 - Physical Exam General: Alert, Oriented x3, Moderate distress HEENT: Atraumatic, Normocephalic Neck: Supple Respiratory: Clear to auscultation bilaterally Cardiovascular: Regular rate/rhythm, Normal S1 S2 Gastrointestinal: Tenderness (globally.) Musculoskeletal: No clubbing, No swelling Neurological: Normal speech, Normal strength at 5/5 x4 extr, Cranial nerves 3-12 intact - Studies Laboratory Data (last 24 hrs) 06/07/20 13:46: PT 14.4 H, INR 1.25 06/07/20 13:46: WBC 35.40 H*, Hgb 10.8 L, Hct 33.3 L, Plt Count 626 H 06/07/20 13:46: Sodium 134 L, Potassium 4.4, BUN 157 H, Creatinine 8.48 H*, Glucose 172 H, Magnesium 3.6 H*, Total Bilirubin 1.0, AST 22, ALT 20, Alkaline Phosphatase 1150 H, Lipase 545 H Assessment And Plan - Plan 1.Abd pain/cholecystitis-imaging with US did show gallstone/sludge in gall bladder. she has been started on empiric antibiotic of flagyl and cefepime. we will also start pain control with morphine. we will monitor her symptomatology. surgeon consulted for possible surgical intervention. 2.Metabolic acidemia-bicarb is better at 13 today. this episode is deemed due to poor bicarb generation from harshad episode and loss from n/v episode. we will continue sodium bicarb IV and monitor closely. 3.Sepsis-deemed due to cholecystitis episode. improving clinical parameters. we will continue empiric antibiotics and monitor her sepsis parameters. 4.HARSHAD-severe stage 3 harshad noted on labs. creatinine improved to 7.5 from 8.3 we will hydrate as we think she has ischemic atn/sepsis associated atn. nephrology consulted for input, recommendations noted. we will continue to dose meds for eGFR and avoid nephrotoxin exposure. 5.N/V-Improved. deemed due to sepsis/cholecystitis episode. we will continue prn antiemetics. 6.Volume depletion-due to sepsis/cholecystitis. we will continue to hydrate with IV fluid and monitor volume status closely. awaiting surgeon's input as per possible surgical intervention. Discharge Plan: Home
[2020-06-08] MEDS ORDERED: PNEUMOCOCCAL VACCINE 0.5 ML IMVAC ONE (08:00)
[2020-06-08] MEDS ORDERED: INFLUENZA VACCINE (for 3y+) 0.5 ML DOSE IMVAC ONE (08:00)
[2020-06-08] MEDS ORDERED: METRONIDAZOLE 500mg IVPB 500 MG/100 ML BAG IV ONE (08:23)
[2020-06-08] MEDS ORDERED: CEFEPIME/SWI 1gm 10 ML ONE (08:23)
[2020-06-08] MEDS ORDERED: CALCIUM GLUCONATE 1 GM IVPB 1 GM/50 ML BAG IV ONE (08:23)
[2020-06-08] MEDS ORDERED: CEFEPIME/SWI 1gm 10 ML IVP SCH (09:00)
[2020-06-08] MEDS ORDERED: CEFEPIME 1 GM/VIAL IV SCH (09:00)
[2020-06-08] MEDS: ONDANSETRON 4 MG/2 ML VIAL IV PRN (12:45)
[2020-06-08] MEDS ORDERED: ONDANSETRON 4 MG/2 ML VIAL ONE (12:49)
--- NOTE | 2020-06-08 19:17 | CON ---
Date of Consultation: 06/08/2020 Reason For Consultation: Electrolyte imbalance, acidosis. History Of Present Illness: This is a pleasant 74-year-old female with significant past medical history of hypertension, hyperlipidemia, coronary artery disease status post cardiac cath, peripheral vascular disease, the patient was in her regular state of health till 2 weeks ago when started having nausea and vomiting and chills. For that reason reported to the hospital. Upon arrival to the hospital, the patient was found to have severe acidosis with elevation in creatinine and low bicarb with severe leukocytosis. For that reason, the patient was admitted. The patient admits that she has been taking ibuprofen tablet daily for the last 2 to 3 years. There is no IV contrast. Upon arrival to hospital, the patient was found to have leukocytosis, WBC of 22, and has creatinine of 8.4 with bicarb of 7. Marginal hyperglycemia. For that reason patient was admitted. The workup showed also hyperphosphatemia. The patient was started on IV hydration. The patient had urine output of 400 but milky urine. Past Medical History: Includes, 1. Hypertension since 1997. 2. Coronary artery disease status post cardiac cath x2. Follow up with Dr. Li. 3. PAD status post angioplasty. Reviewing the record for the patient, the patient back in 2016 creatinine 0.7. Again, at that time, GFR within normal limit. According to the patient had lab 1 month ago at [facility]. There is no mention for any kidney disease seen by Cardiology for that. 4. CKD 5. Peripheral vascular disease. Allergies: CODEINE. Family History: Positive for hypertension. Surgical History: Positive for coronary artery, cardiac cath and angiogram. Social History: Denies smoking. Denies drinking. Denies drugs abuse. Home Medications: Include omeprazole, levothyroxine, amlodipine, and hydrochlorothiazide. Current Medications: Include cefepime, metronidazole, heparin, IV fluid. Review of Systems: Head and Neck: No red eye. No ear pain. GI: Has nausea, vomiting. : No polyuria, no dysuria, no hematuria. 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 Respiratory: No shortness of breath. Cardiovascular: No chest pain. Endocrine: No polydipsia. Skin: No rash. Neuro: Has low back pain. Musculoskeletal: Has right knee pain and low back pain. Physical Examination: Vital Signs: When I saw the patient, blood pressure 146/66, pulse of 109 afebrile. The patient had urine output of 400. Chest: Clear to auscultation. Heart: S1, S2 regular. Abdomen: Soft, nontender. Extremities: No edema. Neurologic: Alert and oriented x3. No focal. No tremor. Laboratory Data: For the patient, sodium 143, potassium 3.1, bicarb 13. BUN 142, creatinine 7.5, GFR of 5. Calcium 6.4, phosphorous 8.6. Urinalysis; wbc's packed, +3 protein. ABG; pH 7.16, CO2 14, O2 139, base access -22. CT of abdomen and pelvis were done yesterday without contrast showing no hydronephrosis, no obstruction. Urinary bladder fully contracted. Assessment And Plan: 1. Renal failure, look to me more chronic supported with the hyperphosphatemia and acidosis and anemia and the severe high BUN that did not improve significantly with the IV hydration, possible patient being uremic symptoms. 2. I had long discussion with the patient regarding the etiology of the disease with the absence of any diabetes, mostly the acute kidney injury secondary to progression of disease secondary to contrast-induced nephropathy, secondary to her nonsteroid intake. 3. I am going to go ahead and consult surgery for placement of PermCath to initiate renal replacement therapy. Patient verbalized understanding and agreed if it is needed. We will follow up the lab tomorrow. 4. I am going to start the patient on IV hydration. We will start the patient on bicarb drip and we will follow up. 5. I going to send for full serology including serum protein electrophoresis to evaluate if the patient had any other causes. 6. We will monitor the patient closely. 7. Hold hydrochlorothiazide. Hold PPI. 8. Acidosis secondary to renal failure. We will start the patient on IV bicarb and we will follow up. 9. Anemia of chronic kidney disease with presence of acute kidney injury. We will send for the workup. We will consider start LINDY or IV iron depending on the lab evaluation. 10. Hypocalcemia secondary most to hyperparathyroidism secondary. I am going to go ahead and start the patient on calcium carbonate and we will monitor. We will send for PTH. 11. Cholecystitis. Continue antibiotic. We will follow up with Surgery and Primary. 12. Hypertension, controlled, optimal. Keep holding any hydrochlorothiazide. Thank you Dr. Leon for allowing us to participate in the care of your patient. Time spent discussing with the patient, examining the patient, exam [id number], placing order, discussing with staff and other consulting include including Cardiology and Primary 75 minutes. JESSICA Voice ID: [id number] Report ID: [id number] EDIE
[2020-06-09] MEDS: METRONIDAZOLE 500mg IVPB 500 MG/100 ML BAG IV SCH ×3 (00:22→17:00)
[2020-06-09] MEDS: HEPARIN 5000 UNIT/ML 1 ML VIAL SQ SCH ×3 (00:23→17:00)
[2020-06-09] MEDS: ONDANSETRON 4 MG/2 ML VIAL IV PRN ×3 (02:17→15:08)
[2020-06-09] MEDS: D5W 1,000 ML with NA BICARB 8.4% 150 MEQ IV SCH ×4 (03:34→16:00)
[2020-06-09 06:21] LABS: Absolute Lymphocytes (CBC) 0.5 K/uL (0.7-4.9); Basophils % 0.7 % (0-1.3); Hematocrit 25.1 % (36.0-45.0); Lymphocytes % 2.5 % (15.3-44.8); MPV 8.7 fL (7.6-11.3); RBC Red Blood Cell Count 3.36 M/uL (3.86-4.86)
[2020-06-09 06:34] LABS: Urine Protein/Creatinine Ratio 9.04 ratio (<0.15)
[2020-06-09 07:11] LABS: ALT/SGPT 16 U/L (12-78); AST/SGOT 23 U/L (15-37); Albumin 1.8 g/dL (3.4-5.0); Alkaline Phosphatase 779 U/L (45-117); BUN Blood Urea Nitrogen 146 mg/dL (7-18); Bicarbonate 22 mmol/L (21-32); Bilirubin Total 0.7 mg/dL (0.2-1.0); Creatine Phosphokinase 162 U/L (26-192); Ferritin 321.3 ng/mL (8-388); Glucose Level 183 mg/dL (74-106); Phosphorus 8.4 mg/dL (2.5-4.9); Sodium Level 144 mmol/L (136-145); Thyroid Stimulating Hormone 0.928 uIU/mL (0.360-3.740); Transferrin 107 mg/dL (200-360)
[2020-06-09 07:12] LABS: Folic Acid, (Folate) > 20.0 ng/mL (3.1-17.5); Uric Acid 18.5 mg/dL (2.6-6.0)
[2020-06-09 07:15] LABS: Potassium 2.9 mmol/L (3.5-5.1)
[2020-06-09] MEDS: CALCIUM CARBONATE CHEW 500MG TAB PO SCH ×3 (07:30→16:30)
[2020-06-09] MEDS ORDERED: POTASSIUM CL 40 MEQ in NA CHLORIDE 0.9% 500 ML IV SCH (08:00)
--- NOTE | 2020-06-09 08:16 | P.PN ---
Subjective Date of Service: 06/09/20 Chief Complaint: HARSHAD, sepsis, volume depletion, suspected cholecystitis, metabolic acidemia. Subjective: Improving Physical Examination - Vital Signs Temperature: 97.8 F Blood Pressure: 160/59 Pulse: 95 Respirations: 18 Pulse Ox (%): 95 - Physical Exam General: Alert, Oriented x3 HEENT: Atraumatic, Normocephalic Neck: Supple Respiratory: Clear to auscultation bilaterally Cardiovascular: Regular rate/rhythm, Normal S1 S2 Gastrointestinal: Soft and benign Neurological: Normal speech, Normal strength at 5/5 x4 extr, Cranial nerves 3-12 intact - Studies Microbiology Data (last 24 hrs): 06/07/20 14:27 Clean Catch Urine [place]way Count - Final >100,000 CFU/ML. 06/07/20 14:27 Clean Catch Urine - Final Escherichia Coli Assessment And Plan - Plan 1.Abd pain/cholecystitis-imaging with US did show gallstone/sludge in gall bladder. she has been started on empiric antibiotic of flagyl and cefepime. we will continue pain control with morphine. we will monitor her symptomatology. surgeon consulted for possible surgical intervention. 2.Metabolic acidemia-bicarb is better at 26 today. this episode is deemed due to poor bicarb generation from harshad episode and loss from n/v episode. we will continue sodium bicarb IV and monitor closely. 3.Sepsis-deemed due to cholecystitis episode. improving clinical parameters. we will continue empiric antibiotics and monitor her sepsis parameters. 4.HARSHAD-severe stage 3 harshad noted on labs. creatinine is stuck at 7.5. nephrology consulted for input, recommendations noted. may need dialysis. we will continue to dose meds for eGFR and avoid nephrotoxin exposure. 5.N/V-Improved. deemed due to sepsis/cholecystitis episode. we will continue prn antiemetics. 6.Volume depletion-due to sepsis/cholecystitis. we will continue to hydrate with IV fluid and monitor volume status closely. 7. Hypokalemia: Potassium is very low at 2.9 this am. repletion ordered. we will follow levels closely. awaiting surgeon's input as per possible surgical intervention.
[2020-06-09 08:29] LABS: Rheumatoid Factor POS (NEG)
[2020-06-09] MEDS: CEFEPIME/SWI 1gm 10 ML IVP SCH (09:00)
--- NOTE | 2020-06-09 10:34 | RAD REPORT ---
EXAM DESCRIPTION: US - Renal Ultrasound-Complete - 06/09/2020 9:19 am CLINICAL HISTORY: HARSHAD Flank pain COMPARISON: Abdomen Exam Limited dated 06/07/2020 FINDINGS: Both kidneys are normal in size, shape and echotexture. The right kidney measures 11.3 x 6.8 x 5.2 cm. No hydronephrosis, focal mass or perinephric fluid. The left kidney measures 10.7 x 7.2 x 5.1 cm. No hydronephrosis, focal mass or perinephric fluid. The urinary bladder is incompletely distended without gross abnormality seen. IMPRESSION: Unremarkable renal sonogram.
[2020-06-09] MEDS ORDERED: Ringers Lactate 1,000 ML IV ONE (10:45)
[2020-06-09] MEDS ORDERED: NS 0.9% VIAL 10 ML ONE (10:49)
[2020-06-09] MEDS ORDERED: LIDOCAINE 1% MPF 30 ML VIAL ONE (10:50)
[2020-06-09] MEDS ORDERED: HEPARIN 5000 UNIT/ML 1 ML VIAL ONE (10:50)
[2020-06-09] MEDS ORDERED: NA CHLORIDE 0.9% 100 ML IV ONE (10:50)
[2020-06-09] MEDS ORDERED: propofoL 200 MG/20 ML VIAL IV ONE ×2 (10:52→11:29)
[2020-06-09] MEDS ORDERED: LIDOCAINE 1% MPF 2 ML AMPULE ONE (10:53)
[2020-06-09] MEDS ORDERED: ONDANSETRON 4 MG/2 ML VIAL ONE (11:10)
--- NOTE | 2020-06-09 11:24 | P.BOP ---
Preoperative diagnosis: Acute renal failure Postoperative diagnosis: same Primary procedure: 1. placement of tunneled hemodialysis catheter Secondary procedure: 2. interpretation of fluoroscopy Other procedure(s): 3. right neck ultrasound Estimated blood loss: <10cc Specimen: none Findings: as above Anesthesia: General Complications: None Transferred to: Recovery Room Condition: Good
[2020-06-09] MEDS ORDERED: Phenylephrine HCl 10 MG/ML 1 ML VIAL ONE (11:37)
--- NOTE | 2020-06-09 11:38 | CON ---
Date of Consultation: 06/08/2020 Diagnosis: Acute kidney failure. The patient was seen in the ER on 06/08/2020. History Of Present Illness: This is the case of a 74-year-old patient, comes today to the hospital w ith malaise, nausea, vomiting. She was seen in the ER, diagnosed with an acute renal disease and als o leukocytosis. Also an ultrasound of the abdomen was done and shows gallstones. Surgical consult w as obtained for gallstones. The patient does state she has been like that for about 2 weeks. She nguyen s been nauseous too. She never had any problem with the kidneys before. She denies any hematuria, a lthough she has a history of recurrent UTIs in the past. She denies any jaundice. Denies any recent traveling out of the country. Denies any family member sick at home. Denies eating anything out of the usual. Past Medical History: Includes hypertension; coronary artery disease, status post angioplasty in 201 6. Allergies: CODEINE. Family History: Hypertension. Social History: She does not smoke. She does not drink alcohol. Review of Systems: See H and P. Physical Examination: General: The patient is awake, alert, not vomiting at this moment. HEENT: Pupils are equal and reactive. No jaundice. Neck: Supple. Chest: Clear. Abdomen: Soft and depressible. No guarding or rebound. Mild generalized tenderness, mainly upper a bdomen and lower. No Khoury signs. Rectal: Deferred. Pelvis: Deferred. Breasts: Deferred. Extremities: Good capillary refill. Laboratory Data: Blood work shows a WBC count of 22.7, hemoglobin of 8.6. Platelets of 457. INR is 1.25, potassium 3.1, bicarb is 13.1, creatinine is 7.54, BUN is 142, glucose 128. Total bili is nor mal. AST, ALT normal. Alkaline phosphate 898. Ultrasound of the abdomen interpreted by Dr. Bran as sludge, small gallstones. No pericholecystic fluid. CAT scan of the abdomen and pelvis interpre nichole by Dr. Bran as pyelonephritis cannot be excluded. The gallbladder is distended. Biliary tree normal size. Assessment: 1.A 74-year-old patient comes to us with nausea, malaise, diagnosed with acute renal failure. Renal doctor has not seen the patient yet. I assume that they will call me for placement of a hemodialysi s catheter if they believe it is needed. So, I went ahead and explained to the patient the benefits, alternatives, and risks of hemodialysis catheter placement in case the renal doctor decides to ask f or it with benefits, alternatives, and risks including, but not limited to infection, bleeding, damag e to adjacent structures, anesthesia complication, pneumothorax, hemothorax, DVTs, PE, NE, and even d eath. She also understands this is a temporary catheter, it should be removed as soon as the renal d octor asks them to do so or find a permanent access with vascular surgeons in [place] of they decide to continue hemodialysis thus to number problem. 2.Although she has no Khoury sign, this fluid overload also may change the appearance of the gallbla dder. We did not see any pericholecystic fluid, but at the same time, it is hard to rule out cholecy stitis at the same time at this moment, so we going to keep the patient n.p.o., stabilize the patient clinically and then depending on what the renal doctor state trying to establish some priorities if we are going to the help with the kidneys first and then eventually may have to address the issue of the gallbladder. The patient will be in antibiotics and nothing to eat. MARTI/MODL Voice ID: [id number] Report ID: [id number]
--- NOTE | 2020-06-09 11:54 | OP ---
Date of Procedure: 06/09/2020 Surgeon: Lamonte Posada MD Preoperative Diagnosis: Acute renal failure. Postoperative Diagnosis: Acute renal failure. Procedures: 1.Placement of a tunneled hemodialysis catheter. 2.Interpretation of fluoroscopy. 3.Right neck ultrasound. Estimated Blood Loss: Less than 10 cc. Implant: HemoSplit hemodialysis catheter on the right jugular vein. Anesthesia: MAC plus local. Findings: A compressible right jugular vein. Indications: This is a case of a 74-year-old patient, comes to us with multiple problems, but she ne eded immediate dialysis, so they asked for a hemodialysis catheter right away, so benefits, alternati ves and risks of hemodialysis catheter placement were discussed with the patient with benefit, altern atives and risks including, but not limited to infection, bleeding, damage to adjacent structures, an esthesia complication, DVTs, PEs, pericarditis, breaking of the catheter, pneumothorax, hemothorax, M I and even . She also understands this may not relieve symptoms. She might need more than one surgical intervention. She understood, signed a consent. Description Of Proecdure: The patient was brought to the operating room, placed in supine position. Anesthesia was done without complication. A time-out was called. Right neck and chest were prepped and draped in sterile fashion. We proceeded to do an ultrasound of the right neck area. We noticed the patient to have a compressible jugular vein. So, using that as a guidance, we proceeded to intr oduce an 18-gauge needle in that jugular vein. Guidewire was passed through guiding the fluoroscopy into the superior vena cava. Needle was removed. We proceeded then to make an incision in the upper chest, tunneled the catheter through that area to meet the new incision in the neck region. Under f luoroscopy, we put dilators and introducer sheath, peeled the introducer sheath after the catheter wa s in and the guidewire was out. We checked the area. Excellent backflow and inflow. The line was f lushed with heparinized solution. The subcutaneous tissue was closed with 3-0 chromic. The catheter was fixated to the skin using 3-0 nylon. The patient tolerated the procedure well. The patient bro ught back from Trendelenburg position to normal position. The patient was in stable condition. She is on her way to recovery and a chest x-ray will be ordered stat. HM/MODL Voice ID: [id number] Report ID: [id number]
[2020-06-09] MEDS ORDERED: ALBUTEROL 2.5 MG/3 ML NEB SOL ONE (12:01)
--- NOTE | 2020-06-09 12:10 | RAD REPORT ---
EXAM DESCRIPTION: RAD - Fluoroscopy <1 Hour - 06/09/2020 12:05 pm CLINICAL HISTORY: Venous catheter insertion. DIALYSIS CATH PLACMENT COMPARISON: BREAST/AXILLA, LIMITED dated 03/26/2017 FINDINGS: Fluoroscopic imaging is submitted from placement of a venous catheter. Details of the pro cedure not available. Fluoroscopy time: 0.4 minutes
--- NOTE | 2020-06-09 12:28 | RAD REPORT ---
EXAM DESCRIPTION: RAD - Chest Single View - 06/09/2020 12:19 pm CLINICAL HISTORY: s/p HD cath Chest pain. COMPARISON: Chest Single View dated 06/07/2020 FINDINGS: Portable technique limits examination quality. Right-sided venous catheter has tip in the SVC. No postprocedure pneumothorax. The heart is upper porter it normal in size. Mild interstitial pulmonary edema. IMPRESSION: No postprocedure pneumothorax is evident.
[2020-06-10] MEDS: HEPARIN 5000 UNIT/ML 1 ML VIAL SQ SCH ×3 (00:05→16:52)
[2020-06-10] MEDS: METRONIDAZOLE 500mg IVPB 500 MG/100 ML BAG IV SCH ×2 (00:06→08:36)
[2020-06-10 06:22] LABS: Absolute Lymphocytes (CBC) 0.7 K/uL (0.7-4.9); Basophils % 0.6 % (0-1.3); Hematocrit 29.4 % (36.0-45.0); Lymphocytes % 4.7 % (15.3-44.8); MPV 8.8 fL (7.6-11.3); RBC Red Blood Cell Count 3.85 M/uL (3.86-4.86)
[2020-06-10] MEDS: CALCIUM CARBONATE CHEW 500MG TAB PO SCH ×3 (07:30→16:30)
[2020-06-10 07:36] LABS: Albumin 1.8 g/dL (3.4-5.0); Magnesium 2.5 mg/dL (1.8-2.4); Phosphorus 5.7 mg/dL (2.5-4.9); Potassium 3.1 mmol/L (3.5-5.1)
[2020-06-10] MEDS: ONDANSETRON 4 MG/2 ML VIAL IV PRN ×2 (08:36→15:14)
[2020-06-10] MEDS: CEFEPIME/SWI 1gm 10 ML IVP SCH (09:00)
--- NOTE | 2020-06-10 09:29 | P.PN ---
Subjective Date of Service: 06/10/20 Chief Complaint: HARSHAD, sepsis, volume depletion, suspected cholecystitis, metabolic acidemia. Subjective: Improving, Doing well Physical Examination - Vital Signs Temperature: 99.4 F Blood Pressure: 145/67 Pulse: 105 Respirations: 20 Pulse Ox (%): 95 - Studies Microbiology Data (last 24 hrs): 06/07/20 14:30 Blood - Blood Aerobic Blood Culture - Final Escherichia Coli 06/07/20 14:30 Blood - Blood Blood Culture Gram Stain - Final 06/07/20 14:30 Blood - Blood Anaerobic Blood Culture - Final Escherichia Coli 06/07/20 14:30 Blood - Blood Gram Stain - Final 06/07/20 14:15 Blood - Blood Aerobic Blood Culture - Final Escherichia Coli 06/07/20 14:15 Blood - Blood Blood Culture Gram Stain - Final 06/07/20 14:15 Blood - Blood Anaerobic Blood Culture - Final Escherichia Coli 06/07/20 14:15 Blood - Blood Gram Stain - Final 06/07/20 14:27 Clean Catch Urine [place] Count - Final >100,000 CFU/ML. 06/07/20 14:27 Clean Catch Urine - Final Escherichia Coli Assessment & Plan Discharge Plan: Home Plan to discharge in: Greater than 2 days Physician Review Additional Text: Physical exam: Patient alert, cooperative. No significant distress noted. Heart: Regular rate rhythm Lungs: clear Abdomen: No significant abdominal pain. Extremities: Good aeration motion to the upper lower extremities. No focal deficits noted. Impression: Sepsis secondary to UTI and bacteremia, urine/blood cultures positive for E coli Nausea, vomiting secondary to acute renal failure with metabolic acidosis now end-stage renal disease on hemodialysis Cholelithiasis with possible cholecystitis CAD Hypertension GERD Anemia of chronic disease Plan: Sepsis secondary to UTI and bacteremia, urine/blood cultures positive for E coli: Sepsis resolved. Will deescalate antibiotics. Discontinue Flagyl. Will change cefepime to Rocephin. Obtain repeat blood and urine culture results. If negative will consider D escalating to oral medication. Nausea, vomiting secondary to acute renal failure with metabolic acidosis now end-stage renal disease on hemodialysis: Hemodialysis catheter now in place. Patient received dialysis yesterday. Anticipate dialysis again today. Nausea improved. Will discuss with nephrology. Will start with clear liquid diet today then advance as tolerated. Anticipate no need for surgical intervention of questionable cholecystitis. This was discussed in detail with surgery. Patient will likely require long-term dialysis. Cholelithiasis with possible cholecystitis: Will start clear liquid diet then advance as tolerated. Case discussed with surgery. Anticipate no need for surgical intervention. CAD: Continue aspirin. Patient on DVT prophylaxis. Hypertension: Will start carvedilol with parameters in place. Patient previous ly on hydrochlorothiazide and Norvasc. GERD: Will provide Protonix. Anemia chronic disease: Will monitor closely. Time Spent Managing Pts Care (In Minutes): 55
[2020-06-10] MEDS ORDERED: EPOETIN 4,000 UNIT/ML VIAL IV SCH (11:30)
[2020-06-10] MEDS ORDERED: SOD FERRIC GLUC COMPLX/SUCROSE 125 MG in NA CHLORIDE 0.9% 250 ML IV SCH (12:00)
--- NOTE | 2020-06-10 12:34 | PN ---
Date of Progress Note: 06/10/2020 Subjective: The patient was admitted with acute kidney injury, severe acidosis. The patient was initiated on dialysis. The patient had dialysis yesterday. No event. Scheduled for another dialysis today. Physical Examination: Vital Signs: Blood pressure 145/67, pulse of 105, afebrile. The patient is oliguric, urine output only 250. Chest: Clear to auscultation. Heart: S1, S2. Systolic murmur. Abdomen: Soft, nontender. Extremities: Trace edema. Neurologic: Alert, no focality. Laboratory Data: WBC 15.5, H and H 9.8/29.4, platelet 426. Sodium 144, potassium 3.1, bicarb 24, BUN down to 74, creatinine 4.7, calcium 8.6, phosphorus 5.7, magnesium 2.5, albumin 1.8. Corrected calcium is 10.2. PTH 437. Current urinalysis, PC ratio of 9 g. Rheumatoid factor is positive. Rest of serology is still pending. Serum protein electrophoresis is still pending. Iron saturation of 11, ferritin 322. Current Medications: Include: 1. Ceftriaxone. 2. Heparin. 3. Calcium carbonate 1000 with each meal. 4. Carvedilol. 5. Zofran. 6. Pantoprazole. 7. Tramadol. Assessment And Plan: 1. Acute kidney injury, nephrotic range of proteinuria, normal size kidney, possible secondary to nonsteroidal use to rule out any autoimmune disease given the positive rheumatoid factor, positive history of lupus. I am going to go ahead and discontinue aspirin and we will proceed with the kidney biopsy next week. Discussed with the patient risks, benefits, alternative. I agree. We will follow up serology. 2. Anemia of iron deficiency anemia/chronic kidney disease with the presence of nephrotic range of proteinuria. Light chain disease needs to be ruled out. I am going to go ahead and start the patient on IV iron and we will start the patient on LINDY. We will monitor the patient. 3. Acidosis secondary to renal failure, recovered, resolved. Discontinue bicarb drip. 4. Secondary hyperparathyroidism with the presence of marginal hypercalcemia, decreased calcium carbonate. Start the patient on calcitriol and we will follow up. 5. Nephrotic range of proteinuria. Waiting for the workup. 6. Urinary tract infection secondary to Escherichia coli complicated with bacteremia. We will follow up repeated blood culture before we proceed with the kidney biopsy. Time spent discussing with the patient, examining the patient, exam [id number], placing order, discussing with staff and other consulting include Primary 45 minutes. JESSICA Voice ID: [id number] Report ID: [id number]
[2020-06-10] MEDS: CALCITROL 0.25 MCG CAP PO SCH (15:04)
[2020-06-10] MEDS: TRAMADOL HCL 50 MG TAB PO PRN (15:04)
[2020-06-10] MEDS: carvediloL 3.125 MG TAB PO SCH (18:08)
[2020-06-10] MEDS: MORPHINE 2 MG/ML SYR IV PRN (21:42)
[2020-06-11] MEDS: HEPARIN 5000 UNIT/ML 1 ML VIAL SQ SCH ×3 (00:35→18:29)
[2020-06-11] MEDS: TRAMADOL HCL 50 MG TAB PO PRN (02:36)
[2020-06-11] MEDS: MORPHINE 2 MG/ML SYR IV PRN (04:21)
[2020-06-11 06:34] LABS: Absolute Lymphocytes (CBC) 0.6 K/uL (0.7-4.9); Basophils % 0.5 % (0-1.3); Hematocrit 29.5 % (36.0-45.0); Lymphocytes % 4.8 % (15.3-44.8); MPV 8.3 fL (7.6-11.3); RBC Red Blood Cell Count 3.84 M/uL (3.86-4.86)
[2020-06-11] MEDS: carvediloL 3.125 MG TAB PO SCH (06:34)
[2020-06-11] MEDS: PANTOPRAZOLE 40MG TABLET PO SCH (06:34)
[2020-06-11 06:54] LABS: Magnesium 2.5 mg/dL (1.8-2.4); Phosphorus 3.9 mg/dL (2.5-4.9); Potassium 3.1 mmol/L (3.5-5.1)
--- NOTE | 2020-06-11 07:37 | P.PN ---
Subjective Date of Service: 06/11/20 Primary Care Provider: none, Nephrology-Dr. Keenan Chief Complaint: HARSHAD, sepsis, volume depletion, suspected cholecystitis, metabolic acidemia. Subjective: Improving, Doing well (No significant nausea or vomiting. Tolerated clear liquid diet.) Physical Examination - Vital Signs Temperature: 98.3 F Blood Pressure: 157/70 Pulse: 93 Respirations: 18 Pulse Ox (%): 95 - Studies Microbiology Data (last 24 hrs): 06/07/20 14:30 Blood - Blood Aerobic Blood Culture - Final Escherichia Coli 06/07/20 14:30 Blood - Blood Blood Culture Gram Stain - Final 06/07/20 14:30 Blood - Blood Anaerobic Blood Culture - Final Escherichia Coli 06/07/20 14:30 Blood - Blood Gram Stain - Final 06/07/20 14:15 Blood - Blood Aerobic Blood Culture - Final Escherichia Coli 06/07/20 14:15 Blood - Blood Blood Culture Gram Stain - Final 06/07/20 14:15 Blood - Blood Anaerobic Blood Culture - Final Escherichia Coli 06/07/20 14:15 Blood - Blood Gram Stain - Final Assessment & Plan Discharge Plan: Home Plan to discharge in: Greater than 2 days Physician Review Additional Text: Initial chief complaint: 74-year-old female presented with nausea, vomiting secondary to sepsis- UTI/bacteremia and acute renal failure with metabolic acidosis/nephrotic range proteinuria now end-stage renal disease. Physical exam: Patient alert, cooperative. No significant distress noted. Chest: Dialysis catheter in place Heart: Regular rate rhythm Lungs: Clear to auscultation Abdomen: No significant abdominal pain. Extremities: Good aeration motion to the upper lower extremities. No focal deficits noted. Impression: Sepsis secondary to UTI and bacteremia, urine/blood cultures positive for E coli Nausea, vomiting secondary to acute renal failure with metabolic acidosis, nephrotic range proteinuria, and possible injury related to nonsteroidal anti- inflammatory use now end-stage renal disease on hemodialysis Cholelithiasis with possible cholecystitis CAD Hypertension GERD Positive rheumatoid factor Anemia of chronic disease with iron deficiency Hypothyroidism Plan: Sepsis secondary to UTI and bacteremia, urine/blood cultures positive for E coli: Sepsis appears resolved. White count improved. Antibiotics de escalated yesterday. Now on IV Rocephin. If blood culture and urine culture negative by tomorrow then can transition to oral medication. Patient will need 14 day treatment of antibiotic therapy. Patient now with end-stage renal disease on hemodialysis. Nephrotic range proteinuria. Continue dialysis. Nephrology plans for renal biopsy on Friday to rule out other etiology. Case management to work on outpatient dialysis. Patient tolerate advance as tolerated. Anticipate no further surgical intervention. Possible discharge later this week after biopsy(Friday). I will turn the service over to the hospitalist team tomorrow. I will go plan of care with him. Nausea, vomiting secondary to acute renal failure with metabolic acidosis, nephrotic range proteinuria, and possible injury related to nonsteroidal anti- inflammatory use now end-stage renal disease on hemodialysis : Hemodialysis catheter now in place. Continue dialysis. Spoke with nephrology at length. Acute renal injury may be multifactorial. Patient did use some nonsteroidal anti-inflammatories. Rheumatoid factor positive. Nephrology plans for renal biopsy on Friday. Hold aspirin until that time. Continue outpatient dialysis process. Anticipate discharge after Friday. Continue with Nephrology recommendations. Cholelithiasis with possible cholecystitis: Doubt cholecystitis at this time. Patient tolerated clear liquid diet. Will advance diet to full liquid then GI soft. Case discussed with surgery. Anticipate no need for surgical intervention. This can likely be addressed as an outpatient. CAD: Hold aspirin in anticipation for renal biopsy on Friday. Patient on DVT prophylaxis. Hypertension: Carvedilol started. Increase carvedilol for better blood pressure control. Patient previously on hydrochlorothiazide and Norvasc. GERD: Continue Protonix. Anemia chronic disease: Will monitor closely. Positive rheumatoid factor: Titer 1-16. Workup pending. Patient to have renal biopsy. Anemia of chronic disease with iron deficiency: Patient receiving IV iron. Maintain hemoglobin above 7.0 Hypothyroidism: Continue medication Time Spent Managing Pts Care (In Minutes): 55
[2020-06-11] MEDS ORDERED: CEFTRIAXONE/SWI 1gm 1 GM/10 ML SYR IVP SCH (09:00)
[2020-06-11] MEDS ORDERED: ASPIRIN EC 81 MG TAB PO SCH (09:00)
[2020-06-11] MEDS: CALCIUM CARBONATE CHEW 500MG TAB PO SCH ×3 (10:35→16:30)
[2020-06-11] MEDS: LEVOTHYROXINE SOD 0.075 MG TAB PO SCH (10:35)
[2020-06-11 14:54] LABS: HIV AG/AB 4TH GEN Non-reactive (Non-reactive)
[2020-06-11 16:43] LABS: Hepatitis C Virus RNA (PCR)log <1.18 log IU/mL
[2020-06-11] MEDS: carvediloL 6.25 MG TAB PO SCH (18:28)
[2020-06-11 20:01] LABS: HBsAG Nonreactive (Nonreactive)
--- NOTE | 2020-06-11 22:10 | PN ---
Date of Progress Note: 06/11/2020 Subjective: The patient was admitted with acute kidney injury. The patient had normal kidney function last month. The patient has severe acidosis, was started on dialysis, tolerated very well. Serology showing possibility of rheumatoid arthritis, positive rheumatoid factor. The patient was started on dialysis. Physical Examination: Vital Signs: When I saw the patient, blood pressure of 132/78, pulse of 88, afebrile. Chest: Clear to auscultation. Heart: S1, S2. Systolic murmur. Abdomen: Soft, nontender. Extremities: No edema. Neurologic: Alert and oriented x3. No focality. Laboratory Data: WBC 13, H and H 9.9/29.5. Sodium 142, potassium 3.1, bicarb 25, BUN 45, creatinine 3.4 after dialysis. Current Medications: 1. Ceftriaxone. 2. Heparin. 3. Calcium carbonate. 4. Carvedilol. 5. Zofran. 6. Pantoprazole. 7. Tramadol. Assessment And Plan: 1. Acute kidney injury secondary to nonsteroidal use, nonoliguric with severe acidosis. Continue dialysis 3 times a week. We will monitor the patient. Plan for kidney biopsy given the finding of nephrotic range of proteinuria and positive rheumatoid factor. Plan for biopsy this week as the patient is being on aspirin. We stopped aspirin on Friday. We will follow up. 2. Hypertension, not controlled. Switch the patient on nifedipine. Adjust other blood pressure medications and we will monitor after dialysis. 3. Acidosis secondary to renal failure, recovered, resolved. Discontinue bicarb. 4. Secondary hyperparathyroidism. We will start the patient on calcitriol. 5. Hyperkalemia, recovered, resolved after dialysis. 6. Urinary tract infection. Continue current antibiotic. Time spent discussing with the patient, examining the patient, exam [id number], placing order, discussing with staff and other consulting include Primary 45 minutes. MATTHEW/JEAN PAUL Voice ID: [id number] Report ID: [id number] EDIE
[2020-06-12] MEDS: HEPARIN 5000 UNIT/ML 1 ML VIAL SQ SCH ×3 (01:12→17:06)
[2020-06-12] MEDS: PANTOPRAZOLE 40MG TABLET PO SCH (05:38)
[2020-06-12] MEDS: carvediloL 6.25 MG TAB PO SCH (05:39)
[2020-06-12 06:05] LABS: Absolute Lymphocytes (CBC) 1.2 K/uL (0.7-4.9); Basophils % 1.3 % (0-1.3); Hematocrit 27.1 % (36.0-45.0); Lymphocytes % 7.6 % (15.3-44.8); MPV 8.9 fL (7.6-11.3); RBC Red Blood Cell Count 3.49 M/uL (3.86-4.86)
[2020-06-12 06:20] LABS: Albumin 1.7 g/dL (3.4-5.0); Magnesium 2.3 mg/dL (1.8-2.4); Potassium 3.9 mmol/L (3.5-5.1)
[2020-06-12 07:51] LABS: Blood Morphology Comment NOT SEEN (NOT SEEN); Platelet Estimate ADEQ
--- NOTE | 2020-06-12 08:06 | P.PN ---
Subjective Date of Service: 06/12/20 Primary Care Provider: none, Nephrology-Dr. Keenan Chief Complaint: HARSHAD, sepsis, volume depletion, suspected cholecystitis, metabolic acidemia. Subjective: No new changes, Improving, Doing well Physical Examination - Vital Signs Temperature: 99.3 F Blood Pressure: 193/80 Pulse: 91 Respirations: 18 Pulse Ox (%): 94 Assessment & Plan Discharge Plan: Home Plan to discharge in: Greater than 2 days Physician Review Additional Text: Initial chief complaint: 74-year-old female presented with nausea, vomiting secondary to sepsis-UTI/bacteremia and acute renal failure with metabolic acidosis/nephrotic range proteinuria now end-stage renal disease. Physical exam: Patient alert, cooperative. No significant distress noted. Chest: Dialysis catheter in place Heart: Regular rate rhythm Lungs: Clear to auscultation Abdomen: No significant abdominal pain. Extremities: Good aeration motion to the upper lower extremities. No focal deficits noted. Impression: Sepsis secondary to UTI and bacteremia, urine/blood cultures positive for E coli Nausea, vomiting secondary to acute renal failure with metabolic acidosis, nephrotic range proteinuria, and possible injury related to nonsteroidal anti- inflammatory use now end-stage renal disease on hemodialysis Cholelithiasis with possible cholecystitis CAD Hypertension GERD Positive rheumatoid factor Anemia of chronic disease with iron deficiency Hypothyroidism Plan: Sepsis secondary to UTI and bacteremia, urine/blood cultures positive for E coli: Sepsis resolved. Repeat blood culture an urine culture negative. Will discontinue Rocephin. Change to Augmentin. Will continue with Augmentin for 14 day treatment. Patient now with end-stage renal disease on hemodialysis. Nephrotic range proteinuria noted. Continue dialysis. Nephrology plans for renal biopsy on Friday to rule out other etiology. Case management to work on outpatient dialysis. Continue to advance diet. No evidence of cholecystitis. Anticipate no further surgical intervention. Possible discharge as early as Friday after biopsy and if outpatient dialysis can be arranged. I will turn the service over to the hospitalist team tomorrow. I will go plan of care with him. Nausea, vomiting secondary to acute renal failure with metabolic acidosis, nephrotic range proteinuria, and possible injury related to nonsteroidal anti- inflammatory use now end-stage renal disease on hemodialysis : Hemodialysis catheter now in place. Continue dialysis. Spoke with nephrology at length yesterday. Acute renal injury may be multifactorial. Patient did use some nonsteroidal anti-inflammatories. Rheumatoid factor positive. There is a family history of lupus. Nephrology plans for renal biopsy on Friday. Hold aspirin until that time. Continue outpatient dialysis process. Anticipate discharge Friday after biopsy and if outpatient dialysis arranged. Continue with Nephrology recommendations. Cholelithiasis with possible cholecystitis: Doubt cholecystitis at this time. Advanced diet to GI soft. Case discussed with surgery. Anticipate no need for surgical intervention. This can likely be addressed as an outpatient. CAD: Hold aspirin in anticipation for renal biopsy on Friday. Patient on DVT prophylaxis. Hypertension: Will increase carvedilol for better blood pressure control. Will consider adding Norvasc if blood pressure still not well controlled. GERD: Continue Protonix. Anemia chronic disease: Will monitor closely. Positive rheumatoid factor: Titer 1-16. Family history of lupus. Workup pending. Patient to have renal biopsy. Anemia of chronic disease with iron deficiency: Patient receiving IV iron. Maintain hemoglobin above 7.0 Hypothyroidism: Continue medication Time Spent Managing Pts Care (In Minutes): 55
[2020-06-12] MEDS: AMOX/K CLAV 500 MG TAB PO SCH ×2 (09:23→17:05)
[2020-06-12] MEDS: CALCIUM CARBONATE CHEW 500MG TAB PO SCH ×3 (09:24→17:05)
[2020-06-12] MEDS: LEVOTHYROXINE SOD 0.075 MG TAB PO SCH (09:25)
[2020-06-12] MEDS: TRAMADOL HCL 50 MG TAB PO PRN (11:38)
[2020-06-12 12:36] LABS: Vitamin D 1,25-Dihydroxy Total 20 pg/mL (18-72); Vitamin D,1,25-OH2, D2 <8 pg/mL
[2020-06-12] MEDS: CALCITROL 0.25 MCG CAP PO SCH (14:45)
[2020-06-12] MEDS: carvediloL 12.5 MG TAB PO SCH (17:05)
--- NOTE | 2020-06-12 19:03 | PN ---
Date of Progress Note: 06/12/2020 Reason For Consult: 1.Renal failure. 2.Gallbladder disease. Subjective: Patient is doing well. No complaint. No vomiting. Tolerating liquid diet. No abdomin al pain at this moment. From the renal standpoint, patient is receiving dialysis and the catheter is functional and working well. Objective: CHEST: Clear. ABDOMEN: Soft and depressible. No Khoury signs. EXTREMITIES: Good capillary refill. Laboratory Data: WBC count is still elevated but lower than before. Plan: Continue the diet. Continue medical optimization. She understands the pros and cons of lapar oscopic possible open cholecystectomy. This was explained to her before, although obviously she pref erred, this medical treatment is done first before proceeding with the gallbladder. We will try to d o so as long as clinically she continues improving. HM/MODL Voice ID: [id number] Report ID: [id number]
[2020-06-12 22:22] LABS: Albumin, (SPE) 2.2 g/dL (3.8-4.8); Alpha-1-Globulins 0.7 g/dL (0.2-0.3); Alpha-2-Globulins 0.9 g/dL (0.5-0.9); Gamma Globulins 1.5 g/dL (0.8-1.7); INTERPRETATION REPORT
--- NOTE | 2020-06-12 23:30 | PN ---
Date of Progress Note: 06/12/2020 Chief Complaint: Acute kidney injury, severe. Subjective: The patient developed new onset of acute kidney injury. On previous occasions, she was found to have normal kidney function. The patient is undergoing workup for possible glomerulonephrit is. She was found to have positive rheumatoid factor. The patient is started on dialysis to control severe metabolic changes including hyperazotemia and severe acidosis. Review of Systems: Denies PND or orthopnea. Physical Examination: Lungs: Diminished breath sounds at bases. Heart: S1, S2. Abdomen: Soft, benign. Extremities: No edema. Impression And Plan: 1.Acute on chronic kidney injury. The patient likely developed acute kidney injury due to nonsteroi kirk anti-inflammatory medication. The patient has severe acidosis. Dialysis is started 3 times per week. My plan is to arrange for renal biopsy. The patient was found to have nephrotic range protein uria, positive rheumatoid factor. The patient needs to be rule out for glomerulonephritis and due to the fact that she was taking nonsteroidal anti-inflammatory medications, differential diagnosis will include interstitial acute allergic nephritis and possibly minimal change disease. 2.Hypertension, is not well controlled. The patient was started on nifedipine. Adjust medication a ccording to blood pressure. 3.Acidosis secondary to renal failure, resolving. The patient was started on bicarbonate tablet. C urrently, bicarbonate level has improved in response to dialysis. Continue dialysis and tablets were stopped. 4.Secondary hyperparathyroidism. The patient will start calcitriol. Re-evaluate vitamin D level. 5.Urinary tract infection. Continue antibiotics. ROXY/JEAN PAUL Voice ID: [id number] Report ID: [id number]
[2020-06-13] MEDS: HEPARIN 5000 UNIT/ML 1 ML VIAL SQ SCH ×3 (01:38→16:01)
[2020-06-13 08:07] LABS: Absolute Lymphocytes (CBC) 0.8 K/uL (0.7-4.9); Basophils % 0.6 % (0-1.3); Hematocrit 33.6 % (36.0-45.0); Lymphocytes % 6.9 % (15.3-44.8); MPV 8.6 fL (7.6-11.3); RBC Red Blood Cell Count 4.24 M/uL (3.86-4.86)
[2020-06-13 08:14] LABS: Magnesium 2.3 mg/dL (1.8-2.4); Phosphorus 3.1 mg/dL (2.5-4.9); Potassium 3.5 mmol/L (3.5-5.1)
[2020-06-13] MEDS: PANTOPRAZOLE 40MG TABLET PO SCH (10:34)
[2020-06-13] MEDS: carvediloL 12.5 MG TAB PO SCH ×2 (10:34→18:24)
[2020-06-13] MEDS: AMOX/K CLAV 500 MG TAB PO SCH ×2 (10:35→16:01)
[2020-06-13] MEDS: CALCIUM CARBONATE CHEW 500MG TAB PO SCH ×3 (10:35→16:00)
[2020-06-13] MEDS: LEVOTHYROXINE SOD 0.075 MG TAB PO SCH (10:38)
--- NOTE | 2020-06-13 11:07 | PN ---
Date of Progress Note: 06/13/2020 Diagnosis: Acute cholecystitis. History Of Present Illness: This is a case of a 74-year-old patient with multiple medical problems i ncluding also renal failure, cholecystitis. For the renal failure, she received a catheter. For cho lecystitis she has been receiving IV antibiotics and she is doing better. No nausea, no vomiting. N o abdominal pain at this time. Objective: Chest: Clear. Abdomen: Soft and depressible. No Khoury signs. Neck: Catheter intact with no ecchymosis. Plan: Continue diet. They are still working on the medical workup, so this gallbladder may be done electively or unless clinically she deteriorates. HM/MODL Voice ID: [id number] Report ID: [id number]
--- NOTE | 2020-06-13 14:09 | P.PN ---
Subjective Date of Service: 06/13/20 Chief Complaint: HARSHAD, sepsis, volume depletion, suspected cholecystitis, metabolic acidemia. Subjective: No new changes, Improving Continues to have mild abdominal pain. Is passing gas, having BM, and urinating regularly. Otherwise in no pain and feeling ready for biopsy tomorrow. Review of Systems Gastrointestinal: Abdominal Pain, As per HPI Physical Examination - Vital Signs Temperature: 97.0 F Blood Pressure: 170/71 Pulse: 91 Respirations: 18 Pulse Ox (%): 92 - Physical Exam General: Alert, In no apparent distress, Oriented x3, Cooperative HEENT: Atraumatic, Normocephalic, PERRLA, Mucous membr. moist/pink, EOMI Neck: Supple, 2+ carotid pulse no bruit, JVD not distended, No Thyromegaly, No LAD Respiratory: Clear to auscultation bilaterally, Normal air movement Cardiovascular: No edema, Normal pulses, Regular rate/rhythm, Normal S1 S2, No gallops, No rubs, No murmurs Capillary refill: <2 Seconds Gastrointestinal: Normal bowel sounds, Hypoactive, Soft and benign, Non- distended, No ascites, No masses, No rebound, No guarding Musculoskeletal: No clubbing, No swelling, No contractures, No erythema, No tenderness, No warmth Integumentary: No rashes, No breakdown, No significant lesion, No tendernes s/swelling, No erythema, No warmth, No cyanosis Neurological: Normal speech, Sensation intact, Normal affect Lymphatics: No axilla or inguinal lymphadenopathy Assessment & Plan - Plan Sepsis secondary to UTI and bacteremia: Sepsis resolved. Continue with Augmentin for 14 day treatment. ESRD on hemodialysis with nephrotic range proteinuria: Continue dialysis. Nephrology plans for renal biopsy on Friday to rule out other etiology. Positive rheumatoid factor found. FHx of lupus. Case management to work on outpatient dialysis. Anticipate discharge Friday after biopsy and if outpatient dialysis arranged. Continue with Nephrology recommendations. Cholelithiasis with possible cholecystitis: Doubt cholecystitis at this time. Advanced diet to GI soft. Case discussed with surgery. Anticipate no need for surgical intervention. This can likely be addressed as an outpatient. CAD: Hold aspirin in anticipation for renal biopsy on Friday. Patient on DVT prophylaxis. Hypertension: Continue medications. Add norvasc if not well controlled. GERD: Continue Protonix. Anemia chronic disease: Will monitor closely. Anemia of chronic disease with iron deficiency: Patient received IV iron. Maintain hemoglobin above 7.0 Hypothyroidism: Continue medication Discharge plan: Social work consult placed for home care needs. Physical therapy consult placed for ambulation assessment. Discharge Plan: Home Plan to discharge in: 48 Hours - Advance Directives Does patient have a Living Will: No Does patient have a Durable POA for Healthcare: No Critical Care: No Time Spent Managing PTS Care (In Minutes): 55
[2020-06-13] MEDS ORDERED: SOD FERRIC GLUC COMPLX/SUCROSE 125 MG in NA CHLORIDE 0.9% 250 ML IV SCH (22:00)
[2020-06-14] MEDS: HEPARIN 5000 UNIT/ML 1 ML VIAL SQ SCH ×3 (01:00→17:00)
--- NOTE | 2020-06-14 01:59 | PN ---
Date of Progress Note: 06/13/2020 Subjective: The patient was admitted with acute kidney injury secondary to nonsteroidal, but found to have nephrotic range of proteinuria. The patient's serology is still pending. The patient's last aspirin was Friday. The patient is going to be scheduled for biopsy on Friday. The patient denied any nausea, any vomiting, still has good urine output. Physical Examination: Vital Signs: Blood pressure 135/61, pulse of 84. Earlier today, blood pressure was up to 170. Chest: Clear to auscultation. Heart: S1, S2. Systolic murmur. Abdomen: Soft, nontender. Extremities: No edema. Laboratory Data: WBC 11.2, H and H 10.6/33.6. Sodium 139, potassium 3.5, bicarb 25, BUN 31, creatinine 2.62 and this is after dialysis, calcium 8.5, phosphorus 3.1, magnesium 2.3, albumin of 2. Serum protein electrophoresis negative for monoclonal PTH 403. TSH 0.9. Vitamin D of 20. PC ratio of 9. Serology positive for rheumatoid factor. The rest of the serology was negative. Complement is still pending. Hepatitis was negative. HIV was negative. Current Medications: The patient on include: 1. Amoxicillin. 2. Epogen. 3. Heparin. 4. Calcium carbonate. 5. Carvedilol. 6. Pantoprazole. 7. Levothyroxine. 8. Tramadol. 9. Calcitriol. Assessment And Plan: 1. Acute kidney injury, possible secondary to nonsteroidal use, nonoliguric, no hyperkalemia. Currently was uremic. Tolerated dialysis. Given that, I am going to continue the patient on dialysis. We will arrange for dialysis tomorrow and we will monitor the patient. 2. Hyperkalemia, resolved. 3. Urinary tract infection with bacteremia secondary to Escherichia coli, sensitive to Augmentin. Agree with Augmentin. 4. 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 Plan for biopsy. Light chain disease has been ruled out. 5. Anemia of chronic kidney disease with iron deficiency anemia. Started the patient on LINDY. We will start the patient also on IV iron and we will follow up the patient closely. 6. Hypertension, controlled, optimal. Continue current medication. Keep holding any ISSA inhibitor or ARB given that the patient still in acute state. 7. Secondary hyperparathyroidism with hypocalcemia, corrected. Continue calcitriol. 8. Acidosis secondary to renal failure, recovered, resolved. Time spent discussing with the patient, examining the patient, exam [id number], placing order, discussing with staff and other consulting include Primary 45 minutes. JESSICA Voice ID: [id number] Report ID: [id number] [facility]
[2020-06-14] MEDS: carvediloL 12.5 MG TAB PO SCH ×2 (06:00→18:21)
[2020-06-14] MEDS: PANTOPRAZOLE 40MG TABLET PO SCH (06:30)
[2020-06-14 06:32] LABS: Albumin 2.1 g/dL (3.4-5.0); Potassium 4.2 mmol/L (3.5-5.1)
[2020-06-14] MEDS: CALCIUM CARBONATE CHEW 500MG TAB PO SCH ×3 (07:30→18:21)
[2020-06-14] MEDS: AMOX/K CLAV 500 MG TAB PO SCH ×2 (08:00→18:20)
--- NOTE | 2020-06-14 08:35 | P.PN ---
Subjective Date of Service: 06/14/20 Chief Complaint: HARSHAD, sepsis, volume depletion, suspected cholecystitis, metabolic acidemia. Subjective: No new changes, Improving, Doing well Abdominal pain has resolved. Sleeping well, using restroom, able to ambulate a little with assistance. NPO today for biopsy. Physical Examination - Vital Signs Temperature: 97.7 F Blood Pressure: 134/61 Pulse: 91 Respirations: 18 Pulse Ox (%): 94 - Physical Exam General: Alert, In no apparent distress, Oriented x3, Cooperative HEENT: Atraumatic, Normocephalic, PERRLA, Mucous membr. moist/pink, EOMI Neck: Supple, 2+ carotid pulse no bruit, JVD not distended, No Thyromegaly, No LAD Respiratory: Clear to auscultation bilaterally, Normal air movement Cardiovascular: Normal pulses, Regular rate/rhythm, Normal S1 S2, No gallops, No rubs, No murmurs Capillary refill: <2 Seconds Gastrointestinal: Normal bowel sounds, Soft and benign, Non-distended, No ascite s, No tenderness, No masses, No rebound, No guarding Musculoskeletal: No clubbing, No swelling, No contractures, No erythema, No tenderness, No warmth Integumentary: No rashes, No breakdown, No significant lesion, No tenderness/swelling, No erythema, No warmth, No cyanosis Neurological: Normal speech, Normal tone, Sensation intact, Cranial nerves 3-12 intact, Normal affect, Abnormal gait, Abnormal strength Lymphatics: No axilla or inguinal lymphadenopathy Assessment & Plan - Plan Sepsis secondary to UTI and bacteremia: Sepsis resolved. Continue with Augmentin for 14 day treatment. 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 Positive rheumatoid factor found. FHx of lupus. Case management arranging outpatient dialysis. Discharge dependent on biopsy and arrangement of outpatient dialysis. Continue with Nephrology recommendations. Cholelithiasis: Case discussed with surgery. Anticipate no need for surgical intervention. CAD: Hold aspirin in anticipation for renal biopsy on Friday. Patient on DVT prophylaxis. Hypertension: Continue medications. GERD: Continue Protonix. Anemia of chronic disease with iron deficiency: Patient started on LINDY and will receive IV iron. Continue with nephrology recommendations. Hypothyroidism: Continue medication Discharge plan: Social work consult placed for home care needs. Physical therapy consult placed for ambulation assessment. Discharge Plan: Home Plan to discharge in: 24 Hours - Advance Directives Does patient have a Living Will: No Does patient have a Durable POA for Healthcare: No - Code Status/Comfort Care Code Status Assessed: Yes (full code) Critical Care: No Time Spent Managing PTS Care (In Minutes): 55
[2020-06-14] MEDS: LEVOTHYROXINE SOD 0.075 MG TAB PO SCH (12:28)
[2020-06-14] MEDS: CALCITROL 0.25 MCG CAP PO SCH (12:28)
[2020-06-14] MEDS: TRAMADOL HCL 50 MG TAB PO PRN (13:13)
--- NOTE | 2020-06-14 15:40 | PN ---
Date of Progress Note: 06/14/2020 Subjective: The patient was admitted with acute kidney injury, unknown etiology, positive rheumatoid factor, nephrotic range of proteinuria, only insulting factor. The patient has been on nonsteroid, which does not explain the nephrotic range of proteinuria. The patient was initiated on dialysis. The patient tolerated the dialysis, acidosis resolved, hyperkalemia resolved. The patient is still nonoliguric. The patient's last aspirin dose was Friday, scheduled for kidney biopsy this Friday. Physical Examination: Vital Signs: Blood pressure 134/61, pulse of 91, afebrile. Chest: Clear to auscultation. Heart: S1, S2. Systolic murmur. Abdomen: Soft, nontender. Extremity: No edema. Neurological: Alert and oriented x3. No focal. No tremor. Laboratory Data: WBC 11.2, H and H of 10.6/33.6. Sodium 138, potassium 4.2, bicarb 26, BUN 40, creatinine 3.1, GFR of 40, calcium 8.2, phosphorus 4, albumin 2.1, corrected calcium is 8.8. Current Medications: The patient on include; 1. Augmentin. 2. Heparin. 3. IV iron. 4. Epogen. 5. Carvedilol 12.5 b.i.d. 6. Calcium carbonate. 7. Pantoprazole. 8. Levothyroxine 75 mcg daily. 9. Tramadol. Assessment And Plan: 1. Acute kidney injury, unknown etiology. I am going to continue the patient on dialysis 3 times a week. Waiting for kidney biopsy. 2. Hypertension, controlled, optimal. 3. Acidosis, resolved. No need for sodium bicarb. 4. Secondary hyperparathyroidism with hypocalcemia. Continue calcium carbonate. Calcium normalized. 5. Anemia of chronic kidney disease/iron deficiency anemia. Continue IV iron. Continue LINDY. 6. Nephrotic range of proteinuria, positive for rheumatoid factor. Waiting for kidney biopsy. We will follow up. Time spent discussing with the patient, examining the patient, exam [id number], placing order, discussing with staff and other consulting include Primary 45 minutes. JESSICA Voice ID: [id number] Report ID: [id number] [facility]
[2020-06-15] MEDS: HEPARIN 5000 UNIT/ML 1 ML VIAL SQ SCH ×2 (01:58→09:00)
[2020-06-15 06:00] LABS: Absolute Lymphocytes (CBC) 0.8 K/uL (0.7-4.9); Basophils % 0.9 % (0-1.3); Hematocrit 29.2 % (36.0-45.0); Lymphocytes % 8.6 % (15.3-44.8); MPV 9.2 fL (7.6-11.3); RBC Red Blood Cell Count 3.68 M/uL (3.86-4.86)
[2020-06-15] MEDS: PANTOPRAZOLE 40MG TABLET PO SCH (06:00)
[2020-06-15] MEDS: carvediloL 12.5 MG TAB PO SCH ×2 (06:00→17:16)
[2020-06-15] MEDS: CALCIUM CARBONATE CHEW 500MG TAB PO SCH ×3 (07:30→17:17)
[2020-06-15] MEDS: ONDANSETRON 4 MG/2 ML VIAL IV PRN ×2 (08:13→17:53)
[2020-06-15] MEDS ORDERED: CETIRIZINE HCL 5 MG TABLET PO PRN (08:44)
--- NOTE | 2020-06-15 08:51 | P.PN ---
Subjective Date of Service: 06/15/20 Chief Complaint: HARSHAD, sepsis, volume depletion, suspected cholecystitis, metabolic acidemia. Subjective: No new changes, Doing well Patient reporting 8/10 left flank pain. Also having sinus drainage with a lot of phlegm. Also reports nausea. Review of Systems ENT: Nose Discharge, Nose Congestion, As per HPI Gastrointestinal: Nausea Genitourinary: Other (flank pain ) Physical Examination - Vital Signs Temperature: 97.1 F Blood Pressure: 161/78 Pulse: 96 Respirations: 16 Pulse Ox (%): 95 - Physical Exam General: Alert, In no apparent distress, Oriented x3, Cooperative HEENT: Atraumatic, Normocephalic, PERRLA, Mucous membr. moist/pink, EOMI Neck: Supple, 2+ carotid pulse no bruit, JVD not distended, No Thyromegaly, No LAD Respiratory: Clear to auscultation bilaterally, Normal air movement Cardiovascular: No edema, Normal pulses, Regular rate/rhythm, Normal S1 S2, No gallops, No rubs, No murmurs Capillary refill: <2 Seconds Gastrointestinal: Normal bowel sounds, Soft and benign, Non-distended, No ascite s, No tenderness, No masses, No rebound, No guarding, Other (tenderness over left flank ) Musculoskeletal: No clubbing, No swelling, No contractures, No erythema, No tenderness, No warmth Integumentary: No rashes, No breakdown, No significant lesion, No tenderness/swelling, No erythema, No warmth, No cyanosis Neurological: Normal speech, Normal tone, Cranial nerves 3-12 intact, Normal affect Assessment & Plan - Plan Sepsis secondary to UTI and bacteremia: Sepsis resolved. Continue with Augmentin for 14 day treatment. 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 Positive rheumatoid factor found. FHx of lupus. Case management arranging outpatient dialysis for Friday at 3:45pm. Continue with Nephrology recommendations. Cholelithiasis: Case discussed with surgery. Anticipate no need for surgical intervention. CAD: Hold aspirin in anticipation for renal biopsy on Friday. Patient on DVT prophylaxis. Hypertension: Continue medications. GERD: Continue Protonix. Anemia of chronic disease with iron deficiency: Patient started on LINDY and will receive IV iron. Continue with nephrology recommendations. Hypothyroidism: Continue medication Discharge Plan: Home Plan to discharge in: 24 Hours - Advance Directives Does patient have a Living Will: No Does patient have a Durable POA for Healthcare: No - Code Status/Comfort Care Code Status Assessed: Yes (full code ) Critical Care: No Time Spent Managing PTS Care (In Minutes): 55
[2020-06-15] MEDS: AMOX/K CLAV 500 MG TAB PO SCH ×2 (11:38→17:16)
[2020-06-15] MEDS: LEVOTHYROXINE SOD 0.075 MG TAB PO SCH (11:38)
--- NOTE | 2020-06-15 12:51 | PN ---
Date of Progress Note: 06/15/2020 Subjective: The patient was admitted with acute kidney injury, unknown etiology. The patient found to be nephrotic range proteinuria. The patient was initiated on dialysis. The patient is scheduled for kidney biopsy tomorrow as an explain nephrotic range of proteinuria with acute kidney injury. Objective: Vital Signs: Blood pressure 140/64, pulse of 96, afebrile. Chest: Clear to auscultation. Heart: S1 and S2. Systolic murmur. Abdomen: Soft, nontender. Extremities: No edema. Neurologic: Alert, oriented x3. No focal. Laboratory Data: WBC 9.8, H and H 9.5/29.2, platelet of 253. Sodium 136, potassium 4, bicarb 25, BUN 26, creatinine 2.8 this is after dialysis yesterday. Calcium 8.5, PC ratio of 9 g. Rheumatoid factor was positive. The rest of the serology and immunology was negative. Current Medications: The patient on it's include: 1. Cetirizine. 2. IV iron. 3. Epogen. 4. Carvedilol 12.5 b.i.d. 5. Zofran. 6. Pantoprazole. 7. Levothyroxine. 8. Calcitriol. Assessment/plan: 1. Acute kidney injury with nephrotic range of proteinuria, normal sized kidney, possible secondary to focal segmental glomerulosclerosis secondary to nonsteroidal use. Again, the patient had nephrotic range proteinuria with acute kidney injury. We going to proceed with a biopsy tomorrow. The patient being off aspirin since last Friday. We will follow up the biopsy. The patient is going to be okay from the renal standpoint to be discharged after biopsy if there is no hematuria for the next 4 hours after biopsy. 2. Secondary hyperparathyroidism. We will continue calcitriol. 3. Acidosis secondary to renal failure, resolved. 4. Hypertension, controlled, optimal. Continue current medication. Time spent discussing with the patient, examining the patient, exam [id number], placing order, discussing with staff and other consulting include Primary 45 minutes. JESSICA Voice ID: [id number] Report ID: [id number] [facility]
[2020-06-15] MEDS: MORPHINE 2 MG/ML SYR IV PRN (20:36)
[2020-06-15] MEDS: NEPRO SHAKE 237 ML CAN PO SCH (20:37)
[2020-06-16] MEDS: PANTOPRAZOLE 40MG TABLET PO SCH (05:46)
[2020-06-16] MEDS: carvediloL 12.5 MG TAB PO SCH ×2 (05:46→17:10)
[2020-06-16 08:59] LABS: Protime INR 1.08
[2020-06-16] MEDS ORDERED: MIDAZOLAM HCL 2 MG/2 ML INJ ONE (09:24)
[2020-06-16] MEDS ORDERED: FENTANYL CITR 100 MCG/2 ML ONE (09:24)
[2020-06-16] MEDS ORDERED: NA CHLORIDE 0.9% 500 ML ONE (09:25)
[2020-06-16] MEDS ORDERED: FLUMAZENIL 0.1 MG/ML (5 mL VIAL) IV ONE (09:25)
[2020-06-16] MEDS ORDERED: NALOXONE 0.4 MG/ML VIAL ONE (09:25)
[2020-06-16] MEDS: LEVOTHYROXINE SOD 0.075 MG TAB PO SCH (10:47)
[2020-06-16] MEDS: AMOX/K CLAV 500 MG TAB PO SCH ×2 (10:47→17:08)
[2020-06-16] MEDS: CALCIUM CARBONATE CHEW 500MG TAB PO SCH ×3 (10:47→16:30)
[2020-06-16] MEDS: NEPRO SHAKE 237 ML CAN PO SCH (10:48)
--- NOTE | 2020-06-16 11:40 | P.DS ---
Admission Date: 06/07/20 Discharge Date: 06/16/20 Disposition: ROUTINE DISCHARGE Reason for Admission: HARSHAD, sepsis, volume depletion, suspected cholecystitis, metabolic acidemia. Consultations: nephrology, surgery Procedures: renal biopsy, dialysis catheter placement - Problems (1) Sepsis secondary to UTI Current Visit: Yes Status: Resolved (2) UTI (urinary tract infection) Current Visit: Yes Status: Acute Qualifiers: Urinary tract infection type: acute cystitis Hematuria presence: without hematuria Qualified Code(s): N30.00 - Acute cystitis without hematuria (3) Hypothyroidism Current Visit: Yes Status: Chronic Qualifiers: Hypothyroidism type: acquired Qualified Code(s): E03.9 - Hypothyroidism, unspecified (4) ESRD (end stage renal disease) on dialysis Current Visit: Yes Status: Acute (5) Cholelithiasis Current Visit: Yes Status: Acute Qualifiers: Cholelithiasis location: gallbladder Cholecystitis presence: with cholecystitis Cholecystitis acuity: unspecified acuity Biliary obstruction: without biliary obstruction Qualified Code(s): K80.10 - Calculus of gallbladder with chronic cholecystitis without obstruction (6) CAD (coronary artery disease) Current Visit: Yes Status: Chronic Qualifiers: Coronary Disease-Associated Artery/Lesion type: [place] artery [place] vs. transplanted heart: [place] heart Associated angina: without angina Qualified Code(s): I25.10 - Atherosclerotic heart disease of [place] coronary artery without angina pectoris (7) Hypertension Current Visit: Yes Status: Chronic Qualifiers: Hypertension type: essential hypertension Qualified Code(s): I10 - Essential (primary) hypertension (8) GERD (gastroesophageal reflux disease) Current Visit: Yes Status: Chronic Qualifiers: Esophagitis presence: esophagitis presence not specified Qualified Code(s): K21.9 - Gastro-esophageal reflux disease without esophagitis (9) Rheumatoid factor positive Current Visit: Yes Status: Acute (10) Anemia of chronic disease Current Visit: Yes Status: Chronic Brief History of Present Illness: 74 yo female pt with CAD, HTN, GERd, and hypothyroidism here for nausea vomiting and severe diffuse abdominal pain and unable to tolerate food and water for the past 2 weeks. she reported fever chills and malaise. Labs revealed severe HARSHAD with creatinine of 8.4, metabolic acidemia with bicarb of 7, elevated WBC of 35 and anemia. she was deemed to be septic and she was started on empiric antibiotics and IV fluid as per sepsis protocol. she was admitted for inpt care. Imaging showed sludge and small stones in the gallbladder depicting gallstone cholecystitis. Hospital Course: Sepsis secondary to UTI and bacteremia, urine/blood cultures positive for E coli: Sepsis resolved and repeat blood cultures and urine cultures were negat nancy. Patient is on day 5 of 14 days of Augmentin and will go home with Augmentin ESRD on hemodialysis, nephrotic range proteinuria, positive rheumatoid factor: Patient was noted to have nephrotic range proteinuria. Also found to have positive rheumatoid factor and family history of lupus. Workup pending. Nephrology was consulted and patient had a renal biopsy done on 06/16. Results will be discussed on an outpatient basis. Dialysis catheter was placed by surgery and patient has been receiving dialysis while admitted. Case management has set up outpatient dialysis on a MW schedule. Patient also started on calcitriol for secondary hyperparathyroidism. Cholelithiasis: Saw surgery. Will wait to do anything surgically until patient is medically stable. Will be addressed outpatient with possible elective cholecystectomy. CAD: Aspirin was held for renal biopsy and can be resumed outpatient. Hypertension: Patient's blood pressure currently stable on new carvedilol dose. Will discontinue norvasc. Will discontinue hydrochlorothiazide per nephrology recommendations. GERD: Protonix was held per nephrology recommendations. Can restart outpatient. Anemia of chronic disease with iron deficiency: Patient received IV iron and LINDY while admitted. Hypothyroidism: Continue medication Time Spent Managing Pts Care (In Minutes): 55 Vital Signs/Physical Exam: Temp Pulse Resp BP Pulse Ox 96.9 F 81 16 120/56 L 97 06/16/20 08:00 06/16/20 08:00 06/16/20 08:00 06/16/20 08:00 06/16/20 08:00 General: Alert, In no apparent distress, Oriented x3, Cooperative HEENT: Atraumatic, Normocephalic, PERRLA, Mucous membr. moist/pink, EOMI, Sclerae nonicteric Neck: Supple, 2+ carotid pulse no bruit, JVD not distended, No Thyromegaly, No LAD Respiratory: Clear to auscultation bilaterally, Normal air movement Cardiovascular: No edema, Normal pulses, Regular rate/rhythm, Normal S1 S2, No gallops, No rubs, No murmurs Capillary refill: <2 Seconds Gastrointestinal: Normal bowel sounds, Soft and benign, Non-distended, No ascites, No tenderness, No masses, No rebound, No guarding Musculoskeletal: No clubbing, No swelling, No contractures, No erythema, No tenderness, No warmth Integumentary: No rashes, No breakdown, No significant lesion, No tenderness/swelling, No erythema, No warmth, No cyanosis Neurological: Normal speech, Normal tone, Sensation intact, Cranial nerves 3-12 intact, Normal affect Urinary: Dialysis catheter Laboratory Data at Discharge: WBC 9.80 K/uL (4.3-10.9) 06/15/20 05:10 Hgb 9.5 g/dL (12.0-15.0) L 06/15/20 05:10 Hct 29.2 % (36.0-45.0) L 06/15/20 05:10 Plt Count 253 K/uL (152-406) 06/15/20 05:10 PT 12.4 SECONDS (9.5-12.5) 06/16/20 08:43 INR 1.08 06/16/20 08:43 APTT 23.7 SECONDS (24.3-36.9) L 06/16/20 08:43 Sodium 136 mmol/L (136-145) 06/15/20 05:10 Potassium 4.0 mmol/L (3.5-5.1) 06/15/20 05:10 BUN 26 mg/dL (7-18) H 06/15/20 05:10 Creatinine 2.89 mg/dL (0.55-1.3) H 06/15/20 05:10 Glucose 109 mg/dL (74-106) H 06/15/20 05:10 Uric Acid 18.5 mg/dL (2.6-6.0) H 06/09/20 05:29 Phosphorus 4.0 mg/dL (2.5-4.9) 06/14/20 05:57 Magnesium 2.3 mg/dL (1.8-2.4) 06/13/20 07:40 Total Bilirubin 0.7 mg/dL (0.2-1.0) 06/09/20 05:29 AST 23 U/L (15-37) 06/09/20 05:29 ALT 16 U/L (12-78) 06/09/20 05:29 Alkaline Phosphatase 779 U/L (45-117) H 06/09/20 05:29 Lipase 545 U/L (73-393) H 06/07/20 13:46 Home Medications: Levothyroxine Sodium [Unithroid] 75 mcg PO DAILY 06/07/20 Omeprazole [Prilosec] 40 mg PO DAILY 06/07/20 Amox/Clavulanate [Augmentin 500-125 mg Tab*] 250 mg PO BIDWM #18 tab 06/16/20 Calcitrol [Rocaltrol*] 0.25 mcg PO Q48H #15 cap 06/16/20 Calcium Carbonate [Tums Regular*] 500 mg PO AC #30 tab 06/16/20 Epoetin [Retacrit] 4,000 unit IV EVERY HD vial 06/16/20 Pantoprazole [Protonix Tab*] 40 mg PO DAILYAC tab 06/16/20 carvediloL [Coreg*] 12.5 mg PO BID 6AM 6PM 30 Days tab 06/16/20 New Medications: Amox/Clavulanate [Augmentin 500-125 mg Tab*] 250 mg PO BIDWM #18 tab carvediloL [Coreg*] 12.5 mg PO BID 6AM 6PM 30 Days tab Calcitrol [Rocaltrol*] 0.25 mcg PO Q48H #15 cap Calcium Carbonate [Tums Regular*] 500 mg PO AC #30 tab Physician Discharge Instructions: STOP taking hydrochlorthiazide and norvasc. Continue to monitor blood pressure at home. Follow up with museum security chief. Follow up with nephrology outpatient for renal biopsy results. Hemodialysis scheduled for Friday, Friday, and Fridays. Follow up with surgery outpatient for possible elective removal of gallbladder. Take all doses of Augmentin (the antibiotic) even if feeling better. Diet: Regular Followup: NONE,NONE [Primary Care Provider] - Time spent managing pt's care (in minutes): 70
--- NOTE | 2020-06-16 11:43 | RAD REPORT ---
EXAM DESCRIPTION: CT - Renal Biopsy CT - 06/16/2020 10:21 am CLINICAL HISTORY: HARSHAD COMPARISON: Abdomen Exam Limited dated 06/07/2020; Chest Abd Pelvis Wo Con dated 06/07/2020 TECHNIQUE: Patient presents for image guided renal biopsy due to abnormal renal function. The procedure, risks and alternatives to the procedure were discussed with the patient in detail. Aft er answering all questions both oral and written consent were obtained. Time out procedure was perfor med. The patient had no contraindicated allergy or medication history. Patient had been sufficiently off a nticoagulation to allow the procedure to proceed. IV access and physiologic monitors were in place. Prior imaging studies were reviewed. The patient wa s placed prone on the CT table. Preliminary images were obtained in identified lower pole right kidne y access site. The patient was pre-medicated with 1 milligram Versed and 100 micrograms fentanyl. Posterior right flank skin was prepped and draped in the usual sterile fashion. Skin and deeper tissu es were anesthetized with 1% lidocaine. Under CT guidance a 17 gauge introducer needle was advanced. Tip was placed at the posteroinferior margin of the right kidney. An 18 gauge 2 centimeter long biops y needle was advanced through through the introducer needle. There were two 2 centimeter long core bi opsies obtained. All obtained material was given to pathology for histologic assessment. Introducer n eedle was removed. Direct pressure was applied to the puncture site. Post biopsy imaging showed only minimal amounts of hemorrhage along the posterior margin of the kidney. Vital signs were monitored throughout the procedure. Patient was stable throughout the procedure. Conscious sedation time was 45 minutes. IMPRESSION: CT-guided biopsy of the right kidney was performed as detailed. Patient tolerated procedure well and there were no immediate complications. [facility] for continued care.
[2020-06-16] MEDS: MORPHINE 2 MG/ML SYR IV PRN (14:56)
[2020-06-16] MEDS: CALCITROL 0.25 MCG CAP PO SCH (17:07)
[2020-06-16 17:11] VITALS: BP 110/56
[2020-06-16 17:41] VITALS: TEMP 97
[2020-06-16 17:45] LABS: Urine Appearance TURBID; Urine Blood 3+ (NEG); Urine Color RED; Urine Glucose NEGATIVE (NEG); Urine Protein 3+ (NEG); Urine Specific Gravity 1.015 (1.005-1.030); Urine Urobilinogen 0.2 mg/dL (0.2-1.0)
[2020-06-16 17:57] VITALS: O2SAT 94
[2020-06-16 18:12] LABS: Urine Bilirubin NEGATIVE (NEG)
[2020-06-16 18:13] LABS: Urine Amorphous Sediment 1+ /HPF (NONE SEEN); Urine Bacteria <20 /HPF (<20)
== END 2020-06-16 18:26 | disposition home or self-care (01) | DRG 871 ==
LOC: ER 11:30 → ERHOLD 16:59 → 2ND 06-08 13:07
PROVIDERS: ADMIT Internal Medicine Nephrology; ATTEND Hospitalist
PROC: 02HV33Z Insertion of Infusion Device into Superior Vena Cava, Percutaneous Approach (ICD-10-PCS; 2020-06-09)
PROC: BW4FZZZ Ultrasonography of Neck (ICD-10-PCS; 2020-06-09)
PROC: 5A1D70Z Performance of Urinary Filtration, Intermittent, Less than 6 Hours Per Day (ICD-10-PCS; 2020-06-09)
PROC: 0JH63XZ Insertion of Tunneled Vascular Access Device into Chest Subcutaneous Tissue and Fascia, Percutaneous Approach (ICD-10-PCS; principal; 2020-06-09 11:00)
PROC: 0T903ZX Drainage of Right Kidney, Percutaneous Approach, Diagnostic (ICD-10-PCS; 2020-06-16)
DX: A41.51 Sepsis due to Escherichia coli [E. coli] (principal); N18.6 End stage renal disease; E87.2 Acidosis; I12.0 Hypertensive chronic kidney disease with stage 5 chronic kidney disease or end stage renal disease; N30.00 Acute cystitis without hematuria; K80.10 Calculus of gallbladder with chronic cholecystitis without obstruction; N17.9 Acute kidney failure, unspecified; E86.9 Volume depletion, unspecified; E78.5 Hyperlipidemia, unspecified; I25.10 Atherosclerotic heart disease of native coronary artery without angina pectoris; D63.1 Anemia in chronic kidney disease; E21.1 Secondary hyperparathyroidism, not elsewhere classified; E87.6 Hypokalemia; R73.9 Hyperglycemia, unspecified; K21.9 Gastro-esophageal reflux disease without esophagitis; D63.8 Anemia in other chronic diseases classified elsewhere; D50.9 Iron deficiency anemia, unspecified; E03.9 Hypothyroidism, unspecified; M05.9 Rheumatoid arthritis with rheumatoid factor, unspecified; E87.5 Hyperkalemia; T39.395A Adverse effect of other nonsteroidal anti-inflammatory drugs [NSAID], initial encounter; Z99.2 Dependence on renal dialysis; Z79.899 Other long term (current) drug therapy; Z88.5 Allergy status to narcotic agent; Z90.710 Acquired absence of both cervix and uterus; Z79.890 Hormone replacement therapy; Z20.822 Contact with and (suspected) exposure to COVID-19
CPT/HCPCS: 36415; 51702; 71045; 71250; 74176; 76000; 76705; 76770; 80048; 80053; 80069; 80076; 81001; 81003; 81015; 82550; 82570; 82607; 82652; 82728; 82746; 82805; 82947; 83520; 83540; 83605; 83690; 83735; 83880; 83970; 84100; 84145; 84156; 84165; 84443; 84466; 84484; 84550; 85025; 85610; 85730; 86021; 86038; 86160; 86225; 86317; 86430; 86704; 86706; 87040; 87077; 87086; 87088; 87186; 87205; 87340; 87389; 87522; 88108; 88300; 90935; 93005; 94660; 97116; 97161; 99285; C1752; C9113; J0610; J0692; J0696; J1644; J2001; J2250; J2270; J2310; J2370; J2405; J2543; J2550; J2704; J3010; J3480; J7030; J7040; J7120; Q5105; U0003

== ENCOUNTER 2020-06-21 09:29 | Emergency (ER) | payer OTHER ==
[2020-06-21 10:34] LABS: Absolute Lymphocytes (CBC) 0.9 K/uL (0.7-4.9); Basophils % 1.1 % (0-1.3); MPV 9.6 fL (7.6-11.3); RBC Red Blood Cell Count 3.67 M/uL (3.86-4.86)
[2020-06-21] MEDS ORDERED: ONDANSETRON 4 MG/2 ML VIAL ONE (10:46)
[2020-06-21] MEDS ORDERED: NA CHLORIDE 0.9% 250 ML ONE (10:46)
[2020-06-21] MEDS ORDERED: MORPHINE 2 MG/ML SYR ONE (10:46)
[2020-06-21 12:01] LABS: Albumin 2.7 g/dL (3.4-5.0); Bilirubin Direct 0.2 mg/dL (0-0.2); Bilirubin Total 0.5 mg/dL (0.2-1.0); Protein, Total 8.5 g/dL (6.4-8.2)
[2020-06-21 12:03] LABS: Potassium 5.7 mmol/L (3.5-5.1)
--- NOTE | 2020-06-21 13:01 | RAD REPORT ---
EXAM DESCRIPTION: CT - Abdomen Pelvis W Contrast - 06/21/2020 12:36 pm CLINICAL HISTORY: Abdominal pain. COMPARISON: 06/07/2020 TECHNIQUE: Computed axial tomography of the abdomen and pelvis was obtained. 100 cc Isovue-300 is ad ministered intravenously. Oral contrast was given. All CT scans are performed using dose optimization technique as appropriate and may include automated exposure control or mA/KV adjustment according to patient size. FINDINGS: The liver, spleen, pancreas, adrenals and left kidney appear grossly normal. 3 x 2 centimeter subacute hematoma abuts the inferior aspect of the right kidney. Borderline gallbladder distention Hysterectomy The appendix is normal caliber. There is no evidence of diverticulitis Small hiatal hernia IMPRESSION: 3 x 2 centimeter subacute hematoma abuts the inferior aspect of the right kidney. Patien t is status post renal biopsy. Borderline gallbladder distention
[2020-06-21 14:24] LABS: Urine Bacteria >50 /HPF (<20); Urine RBC 20-50 /HPF (NONE SEEN)
--- NOTE | 2020-06-21 14:44 | ER ---
Nurse's Notes [facility] Name: Doretha Partida Age: 74 yrs Sex: Female : 1945 Arrival Date: 06/21/2020 Time: 09:36 Bed 18 Private MD: Diagnosis: Generalized abdominal pain;Nausea and vomiting Presentation: 06/21 09:37 Chief complaint: EMS states: Pt c/o abdominal and back pain, also reports N/V, ph hospitalized recently for similar complaint, hx of kidney and gall stones, also has hx of kidney failure and is on dialysis, M,W,F, was not dialyzed today, VSS. Coronavirus screen: Client denies travel out of the [place] in the last 14 days. At this time, the client does not indicate any symptoms associated with coronavirus-19. The client reports previous COVID testing was negative. results are located within the EHR/EMR. Ebola Screen: No symptoms or risks identified at this time. Initial Sepsis Screen: Does the patient meet any 2 criteria? No. Patient's initial sepsis screen is negative. Does the patient have a suspected source of infection? No. Patient's initial sepsis screen is negative. Risk Assessment: Do you want to hurt yourself or someone else? Patient reports no desire to harm self or others. Onset of symptoms was June 21, 2020. 09:37 Method Of Arrival: EMS: [facility] 09:37 Acuity: SLY 3 ph Historical: - Allergies: 09:41 Codeine; ph - PMHx: 09:41 Hypertension; Kidney stones; ESRD; Gallstones; Dialysis, M,W,F; ph - Immunization history:: Adult Immunizations unknown. - Social history:: Smoking status: Patient denies any tobacco usage or history of. Screenin:41 Abuse screen: Denies threats or abuse. Denies injuries from another. Nutritional ph screening: No deficits noted. Tuberculosis screening: No symptoms or risk factors identified. Fall Risk None identified. Assessment: 09:41 General: Appears in no apparent distress. uncomfortable, Behavior is calm, cooperative, ph appropriate for age, Denies fever. Pain: Complains of pain in abdomen Pain radiates to low back area Pain currently is 8 out of 10 on a pain scale. Neuro: Level of Consciousness is awake, alert, obeys commands, Oriented to person, place, time, situation. Cardiovascular: Capillary refill < 3 seconds in bilateral fingers Patient's skin is warm and dry. Dialysis shunt: in the anterior aspect of right upper chest. Respiratory: Airway is patent Respiratory effort is even, unlabored. GI: Abdomen is non-distended, Reports lower abdominal pain, upper abdominal pain, nausea, vomiting, Patient currently denies diarrhea. Derm: Skin is intact, is healthy with good turgor, Skin is pink, warm \T\ dry. Musculoskeletal: Circulation, motion, and sensation intact. 10:54 Reassessment: Patient appears in no apparent distress at this time. Patient and/or ph family updated on plan of care and expected duration. Pain level reassessed. Patient is alert, oriented x 3, equal unlabored respirations, skin warm/dry/pink. Pt completed PI contrast at 1050, CT notified. 11:56 Reassessment: Patient appears in no apparent distress at this time. Patient and/or ph family updated on plan of care and expected duration. Pain level reassessed. Patient is alert, oriented x 3, equal unlabored respirations, skin warm/dry/pink. 13:47 Reassessment: Patient appears in no apparent distress at this time. Patient and/or ph family updated on plan of care and expected duration. Pain level reassessed. Patient is alert, oriented x 3, equal unlabored respirations, skin warm/dry/pink. Vital Signs: 09:37 BP 128 / 57; Pulse 88; Resp 18; Temp 98.4; Pulse Ox 100% on R/A; Weight 86.18 kg; ph Height 5 ft. 4 in. (162.56 cm); Pain 8/10; 10:36 BP 132 / 63; Pulse 87; Resp 17; Pulse Ox 100% on R/A; ph 11:57 BP 127 / 98; Pulse 79; Resp 18; Pulse Ox 100% on R/A; ph 13:30 BP 139 / 45; Pulse 97; Resp 18; Pulse Ox 100% on R/A; ph 14:45 BP 137 / 50; Pulse 81; Resp 18; Temp 98.0; Pulse Ox 99% on R/A; ph 09:37 Body Mass Index 32.61 (86.18 kg, 162.56 cm) ph [place] Coma Score: 10:22 Eye Response: spontaneous(4). Verbal Response: oriented(5). Motor Response: obeys jr8 commands(6). Total: 15. ED Course: 09:36 Patient arrived in ED. em1 09:37 Herlinda Velasquez RN is Primary Nurse. ph 09:38 Gabe Mariscal PA is PHCP. jr8 09:38 Kalyan Jacob MD is Attending Physician. jr8 09:40 Triage completed. ph 09:41 Arm band placed on Patient placed in an exam room, on pulse oximetry. ph 09:41 Patient has correct armband on for positive identification. Bed in low position. Call ph light in reach. Side rails up X2. Pulse ox on. NIBP on. Door closed. Noise minimized. Warm blanket given. 10:20 Inserted saline lock: 22 gauge in right forearm, using aseptic technique. ph 13:15 CT Abd/Pelvis - PO Contrast Only Sent. sv 13:58 Urine Dipstick--Ancillary (enter results) Sent. sv 15:04 No provider procedures requiring assistance completed. IV discontinued, intact, ph bleeding controlled, No redness/swelling at site. Pressure dressing applied. Administered Medications: 10:35 Drug: Zofran (Ondansetron) 4 mg Route: IVP; Site: right forearm; ph 12:13 Follow up: Response: No adverse reaction ph 10:35 Drug: NS 0.9% 250 ml Route: IV; Rate: bolus; Site: right forearm; ph 12:12 Follow up: Response: No adverse reaction; IV Status: Completed infusion ph 10:36 Drug: morphine 2 mg Route: IVP; Site: right forearm; ph 12:13 Follow up: Response: No adverse reaction ph Outcome: 14:44 Discharge ordered by . jr8 15:04 Discharged to home ambulatory. ph 15:04 Condition: good 15:04 Discharge instructions given to patient, Instructed on discharge instructions, follow up and referral plans. medication usage, Demonstrated understanding of instructions, follow-up care, medications, Prescriptions given X 2. 15:05 Patient left the ED. ph Signatures: Kristyn Cormier, RN Nikko Ramirez em1 Gabe Mariscal PA PA jr8 Herlinda Velasquez RN RN ph
--- NOTE | 2020-06-21 14:45 | EDPHYS ---
Physician Documentation [facility] Name: Doretha Partida Age: 74 yrs Sex: Female : 1945 Arrival Date: 06/21/2020 Time: 09:36 Bed 18 Private MD: ED Physician Kalyan Jacob HPI: 06/21 10:11 This 74 yrs old Female presents to ER via EMS with complaints of abdominal jr8 pain. 10:11 The patient presents with abdominal pain that is diffuse, Pain most prominent in RLQ jr8 and LLQ. Onset: The symptoms/episode began/occurred 4 day(s) ago. Associated signs and symptoms: Pertinent positives: nausea and vomiting. The symptoms are described as dull, vague. Severity of pain: in the emergency department the pain is a 8 / 10. The patient has experienced a previous episode, last week, Discharged 06/16/20 for same complaint. Patient reports Abd pain with back pain. She states she was admitted to hospital last week (DC 06/16) for similar issue. PMHx: ESRD with dialysis MWF. Last dialysis was Friday. She reports she received a kidney biopsy on Friday but does not have results. Current abd pain more prominent on RLQ and LLQ with green colored vomit. She reports mild dizziness but no LOC. . Historical: - Allergies: 09:41 Codeine; ph - PMHx: 09:41 Hypertension; Kidney stones; ESRD; Gallstones; Dialysis, M,W,F; ph - Immunization history:: Adult Immunizations unknown. - Social history:: Smoking status: Patient denies any tobacco usage or history of. ROS: 10:20 Respiratory: Negative for shortness of breath, cough, wheezing, and pleuritic chest jr8 pain, Neuro: Negative for headache, weakness, numbness, tingling, and seizure. 10:20 Constitutional: Positive for weight loss, Reports 30 pound weight loss in 3 weeks. 10:20 Abdomen/GI: Positive for abdominal pain, nausea and vomiting. 10:20 Back: Positive for flank pain, bilaterally. 10:20 MS/extremity: Positive for tenderness, BLE. Exam: 10:22 Chest/axilla: Normal chest wall appearance and motion. Nontender with no deformity. jr8 No lesions are appreciated. Cardiovascular: Regular rate and rhythm with a normal S1 and S2. No gallops, murmurs, or rubs. Normal PMI, no JVD. No pulse deficits. Respiratory: Lungs have equal breath sounds bilaterally, clear to auscultation and percussion. No rales, rhonchi or wheezes noted. No increased work of breathing, no retractions or nasal flaring. Neuro: Awake and alert, GCS 15, oriented to person, place, time, and situation. Cranial nerves II-XII grossly intact. Motor strength 5/5 in all extremities. Sensory grossly intact. Cerebellar exam normal. Normal gait. 10:22 MS/ Extremity: Pulses equal, no cyanosis. Neurovascular intact. Skin intact Full, normal range of motion. BLE pain elicited with palpation. 10:22 Eyes: Conjunctiva: pale, bilaterally. 10:22 ENT: Mouth: Oral mucosa: Pale, Gums: Pale. 10:22 Chest/axilla: Inspection: normal. 10:22 Cardiovascular: Rate: normal, actual rate is 88 bpm, Rhythm: regular, Pulses: Pulses are 2+ in right radial artery, right dorsalis pedis artery, left radial artery and left dorsalis pedis artery. 10:22 Respiratory: the patient does not display signs of respiratory distress, Respirations: normal, Breath sounds: are clear throughout. 10:22 Abdomen/GI: Inspection: obese Bowel sounds: normal, in all quadrants, Palpation: moderate abdominal tenderness, in the right upper quadrant and left upper quadrant, severe abdominal tenderness, in the right lower quadrant and left lower quadrant, rebound tenderness, is appreciated in the left lower quadrant, Indicators: McBurney's point is tender, Khoury's sign is negative, Rovsing's sign is positive. 10:22 Back: CVA tenderness, that is moderate, is noted on the right. 12:39 ECG was reviewed by the Attending Physician. jr8 Vital Signs: 09:37 BP 128 / 57; Pulse 88; Resp 18; Temp 98.4; Pulse Ox 100% on R/A; Weight 86.18 kg; ph Height 5 ft. 4 in. (162.56 cm); Pain 8/10; 10:36 BP 132 / 63; Pulse 87; Resp 17; Pulse Ox 100% on R/A; ph 11:57 BP 127 / 98; Pulse 79; Resp 18; Pulse Ox 100% on R/A; ph 13:30 BP 139 / 45; Pulse 97; Resp 18; Pulse Ox 100% on R/A; ph 14:45 BP 137 / 50; Pulse 81; Resp 18; Temp 98.0; Pulse Ox 99% on R/A; ph 09:37 Body Mass Index 32.61 (86.18 kg, 162.56 cm) ph [place] Coma Score: 10:22 Eye Response: spontaneous(4). Verbal Response: oriented(5). Motor Response: obeys jr8 commands(6). Total: 15. MDM: 09:38 Patient medically screened. jr8 10:31 Data reviewed: vital signs, nurses notes, old medical records, lab test result(s), jr8 radiologic studies. Data interpreted: surveillance monitor: rate is 88 beats/min, rhythm is normal sinus rhythm, Pulse oximetry: on room air is 100 %. Interpretation: normal. 14:42 ED course: Patient to be dialyzed on Friday. No ECG changes or s/s consistent with jr8 severe hyperkalemia. Patient still on Abx sensative for current UTI. Pain improved and no vomiting at this point. Will d/c home to f/u PCP. Patient good with plan . 06/21 09:59 Order name: Basic Metabolic Panel; Complete Time: 12:07 8 06/21 09:59 Order name: CBC with Diff; Complete Time: 12:01 [facility] 06/21 09:59 Order name: Hepatic Function; Complete Time: 12:07 jr8 06/21 09:59 Order name: Lipase; Complete Time: 12:07 [facility] 06/21 10:01 Order name: Urine Microscopic Only; Complete Time: 14:37 8 06/21 13:53 Order name: Urine Dipstick--Ancillary (enter results) em1 06/21 09:59 Order name: IV Saline Lock; Complete Time: 10:36 jr8 06/21 09:59 Order name: Labs collected and sent; Complete Time: 10:36 8 06/21 10:07 Order name: CT Abd/Pelvis - PO Contrast Only [facility] 06/21 12:01 Order name: EKG; Complete Time: 12:02 jr8 06/21 13:01 Order name: CT; Complete Time: 13:02 EDTX 06/21 10:01 Order name: Urine Dipstick-Ancillary (obtain specimen); Complete Time: 13:52 jr8 06/21 12:01 Order name: EKG - Nurse/Tech; Complete Time: 12:12 jr8 EC:39 Rate is 81 beats/min. Rhythm is regular, Normal Sinus Rhythm. Left axis deviation jr8 noted. ID interval is normal at 134 msec. QRS interval is prolonged at 144 msec. QT interval is normal at 418 msec. No Q waves. T waves are Normal. No ST changes noted. Clinical impression: No evidence of ischemia and LBBB. Interpreted by me. Reviewed by me. Administered Medications: 10:35 Drug: Zofran (Ondansetron) 4 mg Route: IVP; Site: right forearm; ph 12:13 Follow up: Response: No adverse reaction ph 10:35 Drug: NS 0.9% 250 ml Route: IV; Rate: bolus; Site: right forearm; ph 12:12 Follow up: Response: No adverse reaction; IV Status: Completed infusion ph 10:36 Drug: morphine 2 mg Route: IVP; Site: right forearm; ph 12:13 Follow up: Response: No adverse reaction ph Disposition: 15:22 Co-signature as Attending Physician, Kalyan Jacob MD I agree with the assessment and kdr plan of care. Disposition: 06/21/20 14:44 Discharged to Home. Impression: Generalized abdominal pain, Nausea and vomiting. - Condition is Stable. - Discharge Instructions: Abdominal Pain, Adult, Nausea and Vomiting, Adult. - Prescriptions for Zofran 4 mg Oral Tablet - take 1 tablet by ORAL route every 12 hours As needed; 20 tablet. Tramadol 50 mg Oral Tablet - take 1 tablet by ORAL route every 8 hours as needed; 12 tablet. - Medication Reconciliation Form, Thank You Letter, Antibiotic Education, Prescription Opioid Use form. - Follow up: Private Physician; When: 2 - 3 days; Reason: Recheck today's complaints, Continuance of care, Re-evaluation by your physician. - Problem is new. - Symptoms have improved. Signatures: Dispatcher [employer] EDMS Kalyan Jacob MD MD kdr Roszak, Josh, PA PA jr8 Herlinda Velasquez RN RN ph Corrections: (The following items were deleted from the chart) 15:05 14:44 06/21/2020 14:44 Discharged to Home. Impression: Generalized abdominal pain; ph Nausea and vomiting. Condition is Stable. Forms are Medication Reconciliation Form, Thank You Letter, Antibiotic Education, Prescription Opioid Use. Follow up: Private Physician; When: 2 - 3 days; Reason: Recheck today's complaints, Continuance of care, Re-evaluation by your physician. Problem is new. Symptoms have improved. jr8
[2020-06-21 18:11] LABS: Urine Blood 3+ (NEG); Urine Glucose NEGATIVE (NEG); Urine Protein 3+ (NEG); Urine Specific Gravity >1.030 (1.005-1.030); Urine pH 5.5 (5.0-7.0)
[2020-06-22 10:11] VITALS: BP 137/50; TEMP 98; O2SAT 99
== END 2020-06-21 15:05 | disposition home or self-care (01) ==
LOC: ER 09:29
DX: R11.2 Nausea with vomiting, unspecified (principal); I12.0 Hypertensive chronic kidney disease with stage 5 chronic kidney disease or end stage renal disease; N18.6 End stage renal disease; Z99.2 Dependence on renal dialysis; Z88.5 Allergy status to narcotic agent
CPT/HCPCS: 96365; 93005; 87088; 85025; 87086; 80048; 36415; 80076; 83690; 74177; 96375; 99284; 96366; J2270; J7050; J2405; 81003; 81015

== ENCOUNTER 2020-07-16 13:11 | Inpatient (IN) | payer OTHER ==
--- OUTSIDE RECORDS SUMMARY | 2020-07-16 13:13 | XMS REPORT | Continuity of Care Document ---
:1945 Author Organization [facility] t Address [address] [place] [address] Dr. Shahid [address] [place] [id number] Care Team Providers Name Role Phone GWYN Attending Clinician Unavailable YANCI Admitting Clinician Unavailable Problems This patient has no known problems. Allergies, Adverse Reactions, Alerts This patient has no known allergies or adverse reactions. Medications This patient has no known medications. Procedures This patient has no known procedures. Encounters Start End Encounter Admission Attending Care Care Encounter Source Date/Time Date/Time Type Type Clinicians Facility Department ID 2020-06-23 2020-06-26 Outpatient [facility] [id number] [place] 00:00:00 00:00:[address] Results This patient has no known results.
[2020-07-16] MEDS ORDERED: ONDANSETRON 4 MG/2 ML VIAL ONE ×2 (13:49→19:59)
[2020-07-16] MEDS ORDERED: MEPERIDINE HCL 25 MG/ML SYR ONE (13:49)
--- NOTE | 2020-07-16 14:09 | RAD REPORT ---
EXAM DESCRIPTION: CT - Stone Protocol - 07/16/2020 1:57 pm CLINICAL HISTORY: Abdominal pain. COMPARISON: June 21, 2020 TECHNIQUE: Computed axial tomography of the abdomen pelvis was obtained without oral or IV contrast. Lack of IV and oral contrast limits evaluation of solid organs, bowel, and vessels. Coronal reformat nichole images were obtained and reviewed. All CT scans are performed using dose optimization technique as appropriate and may include automated exposure control or mA/KV adjustment according to patient size. FINDINGS: A renal calculus is not seen. An ureteral calculus is not noted. A bladder calculus is not present. No hydronephrosis. The small right perirenal hematoma has mostly resolved. Air is present w ithin the bladder. The liver, spleen, pancreas and adrenals appear grossly normal There is no evidence of diverticulitis. Mild gallbladder distention. Small umbilical hernia. Trace amount of pelvic ascites . Small hiatal hernia IMPRESSION: Negative for a genitourinary calculus Air within the bladder may be secondary to recent instrumentation. Infection can also result this geraldo earance. Mild gallbladder distention
[2020-07-16 15:16] LABS: Urine Blood 3+ (Negative); Urine Glucose NEGATIVE (Negative); Urine Protein 3+ (NEG); Urine Specific Gravity 1.025 (1.005-1.030)
[2020-07-16 15:35] LABS: Urine Bacteria >50 /HPF (<20); Urine RBC >50 /HPF (NONE SEEN)
[2020-07-16 15:38] LABS: Absolute Lymphocytes (CBC) 0.5 K/uL (0.7-4.9); Basophils % 0.9 % (0-1.3); Hematocrit 24.9 % (36.0-45.0); Lymphocytes % 6.5 % (15.3-44.8); MPV 7.8 fL (7.6-11.3); RBC Red Blood Cell Count 3.08 M/uL (3.86-4.86)
[2020-07-16 15:52] LABS: Albumin 2.1 g/dL (3.4-5.0); Bilirubin Direct 0.2 mg/dL (0-0.2); Bilirubin Total 0.4 mg/dL (0.2-1.0); Potassium 3.4 mmol/L (3.5-5.1); Protein, Total 6.9 g/dL (6.4-8.2)
[2020-07-16] MEDS ORDERED: CEFTRIAXONE/SWI 1gm 1 GM/10 ML SYR ONE (16:07)
--- NOTE | 2020-07-16 16:12 | EDPHYS ---
Physician Documentation [facility] Name: Doretha Partida Age: 74 yrs Sex: Female : 1945 Arrival Date: 07/16/2020 Time: 13:21 Bed 18 Private MD: ED Physician Ezequiel Mills HPI: 07/16 13:24 This 74 yrs old Female presents to ER via Unassigned with complaints of left rn flank pain and abd pain. 13:24 The patient complains of pain in the left mid back. The pain radiates to the abdomen. rn Onset: The symptoms/episode began/occurred yesterday. Modifying factors: The symptoms are alleviated by nothing. the symptoms are aggravated by nothing. Associated signs and symptoms: Pertinent positives: dysuria, urinary frequency, nausea, Pertinent negatives: fever. Severity of pain: At its worst the pain was moderate in the emergency department the pain is unchanged. The patient has experienced similar episodes in the past. The patient has not recently seen a physician. Historical: - Allergies: 13:26 Codeine; bw 13:26 Morphine; bw - PMHx: 13:26 Dialysis, M,W,F; ESRD; GALLSTONES; Hypertension; Kidney stones; bw - Immunization history:: Adult Immunizations up to date. - Social history:: Smoking status: Patient denies any tobacco usage or history of. - Family history:: not pertinent. - Hospitalizations: : No recent hospitalization is reported. ROS: 13:24 Constitutional: Negative for fever, chills, and weight loss, Eyes: Negative for injury, rn pain, redness, and discharge, Neck: Negative for injury, pain, and swelling, Cardiovascular: Negative for chest pain, palpitations, and edema, Respiratory: Negative for shortness of breath, cough, wheezing, and pleuritic chest pain, Abdomen/GI: + lower abd pain and nausea Back: + left flank pain : + dysuria and increased frequency MS/Extremity: Negative for injury and deformity, Skin: Negative for injury, rash, and discoloration, Neuro: Negative for headache, weakness, numbness, tingling, and seizure. Exam: 13:24 Constitutional: Overweight woman, moaning Head/Face: Normocephalic, atraumatic. Eyes: rn Periorbital areas with no swelling, redness, or edema. Chest/axilla: + left chest with dialysis catheter Cardiovascular: Regular rate and rhythm. No pulse deficits. Respiratory: + tachypnea Abdomen/GI: soft, + suprapubic and LLQ tenderness, no rebound or masses Skin: Warm, dry MS/ Extremity: Pulses equal, no cyanosis. Neuro: Awake and alert, GCS 15 Vital Signs: 13:21 BP 153 / 61; Pulse 86; Resp 24; Temp 97.8; Pulse Ox 100% on R/A; bw 15:01 BP 153 / 62; Pulse 72; Resp 18; Pulse Ox 97% ; bw 16:30 BP 116 / 41; Pulse 82; Resp 18; Pulse Ox 98% ; bw 19:57 BP 130 / 43; Pulse 89; Resp 17; Temp 98; Pulse Ox 100% on R/A; rv MDM: 13:21 Patient medically screened. rn 16:10 Differential diagnosis: nephrolithiasis, pyelonephritis, UTI, diverticulitis. rn Differential diagnosis: pancreatitis, ruptured AAA, dissecting AAA. Data reviewed: vital signs, nurses notes. Counseling: I had a detailed discussion with the patient and/or guardian regarding: the historical points, exam findings, and any diagnostic results supporting the discharge/admit diagnosis, lab results, radiology results, the need for further work-up and treatment in the hospital. Response to treatment: the patient's symptoms have mildly improved after treatment, and as a result, I will admit patient. Admission orders: after a detailed discussion of the patient's condition and case, the admit orders are written by me. ED course: Pt improved after pain medication, ct shows cystitis, urine confirms that, vitals stable, still with nausea and concerned she would bounce back, and patient do not feel good about going home, will admit to Dr. Walker for IV abx and is supposed to get dialysis tomorrow. . 07/16 13:22 Order name: Basic Metabolic Panel rn 07/16 13:22 Order name: CBC with Diff rn 07/16 13:22 Order name: Hepatic Function rn 07/16 13:22 Order name: Lipase rn 07/16 13:22 Order name: Urine Culture rn 07/16 13:22 Order name: Urine Microscopic Only; Complete Time: 16:00 rn 07/16 13:23 Order name: Basic Metabolic Panel; Complete Time: 16:00 EDMS 07/16 13:23 Order name: CBC with Automated Diff EDTX 07/16 13:23 Order name: Liver (Hepatic) Function; Complete Time: 16:00 EDTX 07/16 13:23 Order name: Lipase; Complete Time: 16:00 EDTX 07/16 14:58 Order name: Urine Dipstick--Ancillary (enter results); Complete Time: 15:29 eb 07/16 16:20 Order name: COVID-19 : Document "Date of Symptom Onset" if Symptomatic. sv 07/16 16:56 Order name: CBC Smear Scan EDTX 07/16 13:22 Order name: IV Saline Lock; Complete Time: 13:57 rn 07/16 13:22 Order name: Labs collected and sent; Complete Time: 15:47 rn 07/16 13:22 Order name: CT Stone Protocol; Complete Time: 14:12 rn 07/16 13:22 Order name: Urine Dipstick-Ancillary (obtain specimen); Complete Time: 15:41 rn 07/16 17:18 Order name: SARS-COV-2 RT PCR EDTX 07/16 18:06 Order name: CONS Physician Consult EDTX 07/16 18:06 Order name: Renal EDTX 07/16 18:06 Order name: CBC with Automated Diff EDTX 07/16 18:06 Order name: CBC with Automated Diff [facility] 07/16 18:06 Order name: Comprehensive Metabolic Panel EDTX 07/16 18:06 Order name: Comprehensive Metabolic Panel [facility] Administered Medications: 13:55 Drug: Demerol 25 mg Route: IVP; Site: right antecubital; bw 16:48 Follow up: Response: No adverse reaction bw 13:56 Drug: Zofran (Ondansetron) 4 mg Route: IVP; Site: right antecubital; bw 16:48 Follow up: Response: No adverse reaction bw 16:00 Drug: Rocephin (cefTRIAXone) 1 grams Route: IV; Rate: calculated rate; Site: right bw antecubital; 16:32 Follow up: IV Status: Completed infusion bw 16:47 Follow up: Response: No adverse reaction bw Disposition: 07/16/20 16:12 Hospitalization ordered by Luiz Walker for Observation. Preliminary diagnosis are Urinary tract infection, site not specified, End stage renal disease. - Bed requested for Telemetry/MedSurg (observation). - Status is Observation. rv - Condition is Stable. - Problem is new. - Symptoms have improved. Signatures: Dispatcher [employer] EDTX Jacque Lopez, RN Ezequiel Villanueva MD MD rn Vicente, Ronaldo, RN RN rv John, BRANNON Herzog RN Corrections: (The following items were deleted from the chart) 16:36 16:20 CORONAVIRUS ordered. EDTX EDTX 19:06 16:12 Hospitalization Ordered by Luiz Walker MD for Observation. Preliminary diagnosis is Urinary tract infection, site not specified; End stage renal disease. Bed requested for Telemetry/MedSurg (observation). Status is Observation. Condition is Stable. Problem is new. Symptoms have improved. rn 19:58 19:06 07/16/2020 16:12 Hospitalization Ordered by Luiz Walker MD for Observation. rv Preliminary diagnosis is Urinary tract infection, site not specified; End stage renal disease. Bed requested for Telemetry/MedSurg (observation). Status is Observation. Condition is Stable. Problem is new. Symptoms have improved. mw
--- NOTE | 2020-07-16 16:12 | ER ---
Nurse's Notes [facility] Name: Doretha Partida Age: 74 yrs Sex: Female : 1945 Arrival Date: 07/16/2020 Time: 13:21 Bed 18 Private MD: Diagnosis: Urinary tract infection, site not specified;End stage renal disease Presentation: 07/16 13:21 Chief complaint: EMS states: pt presents with severe abd pain beginning this AM. bw Urinary pain with upper and lower abd pain. N/V. Coronavirus screen: At this time, unable to obtain information related to travel outside the [place] At this time, the client does not indicate any symptoms associated with coronavirus-19. Ebola Screen: No symptoms or risks identified at this time. Initial Sepsis Screen: Does the patient meet any 2 criteria? No. Patient's initial sepsis screen is negative. Does the patient have a suspected source of infection? No. Patient's initial sepsis screen is negative. Risk Assessment: Do you want to hurt yourself or someone else? Patient reports no desire to harm self or others. Onset of symptoms was July 16, 2020 at 09:00. 13:21 Method Of Arrival: EMS: [facility] 13:21 Acuity: SLY 3 bw Triage Assessment: 13:26 General: Appears distressed, uncomfortable, Behavior is cooperative, appropriate for bw age. Pain: Complains of pain in abdomen and left mid back. EENT: No signs and/or symptoms were reported regarding the EENT system. Neuro: No deficits noted. Cardiovascular: No deficits noted. Respiratory: No deficits noted. GI: Abdomen is flat, non-distended, Bowel sounds present X 4 quads. Abd is soft Abdomen is tender to palpation. : Reports inability to void, pain urgency. Derm: No signs and/or symptoms reported regarding the dermatologic system. Historical: - Allergies: 13:26 Codeine; bw 13:26 Morphine; bw - PMHx: 13:26 Dialysis, M,W,F; ESRD; GALLSTONES; Hypertension; Kidney stones; bw - Immunization history:: Adult Immunizations up to date. - Social history:: Smoking status: Patient denies any tobacco usage or history of. - Family history:: not pertinent. - Hospitalizations: : No recent hospitalization is reported. Screenin:01 Abuse screen: Denies threats or abuse. Nutritional screening: No deficits noted. bw Tuberculosis screening: No symptoms or risk factors identified. Fall Risk None identified. Assessment: 13:30 GI:. bw 15:01 Reassessment: Patient appears in no apparent distress at this time. Patient and/or bw family updated on plan of care and expected duration. Pain level reassessed. Patient is alert, oriented x 3, equal unlabored respirations, skin warm/dry/pink. see Triage Assessment. 16:30 Reassessment: Patient appears in no apparent distress at this time. Patient and/or bw family updated on plan of care and expected duration. Pain level reassessed. Patient is alert, oriented x 3, equal unlabored respirations, skin warm/dry/pink. no needs or concerns voiced at this time. Vital Signs: 13:21 BP 153 / 61; Pulse 86; Resp 24; Temp 97.8; Pulse Ox 100% on R/A; bw 15:01 BP 153 / 62; Pulse 72; Resp 18; Pulse Ox 97% ; bw 16:30 BP 116 / 41; Pulse 82; Resp 18; Pulse Ox 98% ; bw 19:57 BP 130 / 43; Pulse 89; Resp 17; Temp 98; Pulse Ox 100% on R/A; rv ED Course: 13:21 Patient arrived in ED. bw 13:21 Ezequiel Mills MD is Attending Physician. rn 13:26 Triage completed. bw 13:47 Arm band placed on right wrist. bw 13:52 Rosenda Lopez, RN is Primary Nurse. bw 13:57 CT Stone Protocol In Process Unspecified. EDMS 15:01 Patient has correct armband on for positive identification. Bed in low position. Call bw light in reach. Side rails up X2. Pulse ox on. NIBP on. Warm blanket given. 15:01 No provider procedures requiring assistance completed. Inserted saline lock: 20 gauge bw in right antecubital area, using aseptic technique. 15:47 Basic Metabolic Panel Sent. bw 15:47 CBC with Diff Sent. bw 15:47 Hepatic Function Sent. bw 15:47 Lipase Sent. bw 16:11 Luiz Walker MD is Hospitalizing Provider. rn 16:28 COVID-19 : Document "Date of Symptom Onset" if Symptomatic. Sent. bw 16:35 COVID swab sent to lab. jp3 19:58 IV is patent, with fluids infusing freely, with good blood return, Patient admitted, IV rv remains in place. Administered Medications: 13:55 Drug: Demerol 25 mg Route: IVP; Site: right antecubital; bw 16:48 Follow up: Response: No adverse reaction bw 13:56 Drug: Zofran (Ondansetron) 4 mg Route: IVP; Site: right antecubital; bw 16:48 Follow up: Response: No adverse reaction bw 16:00 Drug: Rocephin (cefTRIAXone) 1 grams Route: IV; Rate: calculated rate; Site: right bw antecubital; 16:32 Follow up: IV Status: Completed infusion bw 16:47 Follow up: Response: No adverse reaction Outcome: 16:12 Decision to Hospitalize by Provider. rn 19:58 Admitted to Med/surg accompanied by tech, via stretcher, room 229, Other sbar Report rv called to [facility] 19:58 Condition: good 19:58 Instructed on the need for admit. 19:58 Patient left the ED. rv Signatures: Dispatcher [employer] EDEzequiel Tom MD MD rn Vicente, Ronaldo, RN RN Reese Neely 3 Rosenda Lopez RN RN
--- NOTE | 2020-07-16 16:43 | P.HP ---
Certification for Inpatient With expected LOS: >2 Midnights Patient will require the following post-hospital care: None Practitioner: I am a practitioner with admitting privileges, knowledge of patient current condition, hospital course, and medical plan of care. Services: Services provided to patient in accordance with Admission requirements found in Title 42 Section 412.3 of the Code of Federal Regulations Patient History Date of Service: 07/16/20 Reason for admission: Abdominal pain History of Present Illness: 74 yr old female with hx of HTN , , Recent ARF on CKD intiated on dialysis since 2 months , on HD MWF , last dialysis was 2 days ago , follows with [facility] , Anemia of CKD, presented for worsneing right lower quadrant abdominal pain , with nausea and vomiting , + flank pain , no dysuria or hematuria . Denies any recent instrumentation or carter placement except for hospitalization more than 1 month ago +fever and chills , no cough Noted with cystitis from presumed recent instrumentation on CT abdomen . she is being admitted for cystitis with intractable vomiting Allergies codeine Allergy (Verified 06/07/20 18:12) Hives Home Medications: Levothyroxine Sodium [Unithroid] 75 mcg PO DAILY 06/07/20 Omeprazole [Prilosec] 40 mg PO DAILY 06/07/20 Amox/Clavulanate [Augmentin 500-125 mg Tab*] 250 mg PO BIDWM #18 tab 06/16/20 Calcitrol [Rocaltrol*] 0.25 mcg PO Q48H #15 cap 06/16/20 Calcium Carbonate [Tums Regular*] 500 mg PO AC #30 tab 06/16/20 Epoetin [Retacrit] 4,000 unit IV EVERY HD vial 06/16/20 Pantoprazole [Protonix Tab*] 40 mg PO DAILYAC tab 06/16/20 carvediloL [Coreg*] 12.5 mg PO BID 6AM 6PM 30 Days tab 06/16/20 - Past Medical/Surgical History -: HTN -: Knee surgery -: Hysterectomy Physical Examination - Physical Exam General: Alert, In no apparent distress, Oriented x3 HEENT: Atraumatic, Normocephalic, PERRLA Respiratory: Clear to auscultation bilaterally, Diminished Cardiovascular: No edema, Normal pulses, Regular rate/rhythm, Normal S1 S2 Gastrointestinal: Normal bowel sounds, Soft and benign, Non-distended, Tenderness (RLQ, no suprapubic tenderness) Musculoskeletal: No clubbing, No swelling Integumentary: No rashes, No breakdown Neurological: Normal gait, Normal speech, Cranial nerves 3-12 intact External genitalia: No edema, No lesions - Studies Laboratory Data (last 24 hrs) 07/16/20 15:20: WBC 7.30, Hgb 8.5 L, Hct 24.9 L, Plt Count 262 07/16/20 15:20: Sodium 137, Potassium 3.4 L, BUN 12, Creatinine 1.94 H, Glucose 80, Total Bilirubin 0.4, AST 14 L, ALT 10 L, Alkaline Phosphatase 295 H, Lipase 110 Imagings Data: All CT scans are performed using dose optimization technique as appropriate and may include automated exposure control or mA/KV adjustment according to patient size. FINDINGS: A renal calculus is not seen. An ureteral calculus is not noted. A bladder calculus is not present. No hydronephrosis. The small right perirenal hematoma has mostly resolved. Air is present within the bladder. The liver, spleen, pancreas and adrenals appear grossly normal There is no evidence of diverticulitis. Mild gallbladder distention. Small umbilical hernia. Trace amount of pelvic ascites . Small hiatal hernia IMPRESSION: Negative for a genitourinary calculus Air within the bladder may be secondary to recent instrumentation. Infection can also result this appearance. Mild gallbladder distention Assessment and Plan - Problems (Diagnosis) (1) ESRD (end stage renal disease) on dialysis Current Visit: No Status: Acute (2) UTI (urinary tract infection) Current Visit: No Status: Acute Qualifiers: (3) Anemia of chronic disease Current Visit: No Status: Chronic (4) CAD (coronary artery disease) Current Visit: No Status: Chronic Qualifiers: (5) Hypertension Current Visit: No Status: Chronic Qualifiers: - Advance Directives Does patient have a Living Will: No Does patient have a Durable POA for Healthcare: No Physician Review: Patient Assessed, Agree with Above Assessment and Plan Physician Review Additional Text: PLAN -Admit to observation -IV anti-emetics as needed -start empirical antibiotics with Rocephin -follow urine cx -volume status controlled , -follow plan for weaning off dialysis per her renal team -Reid baird today Time Spent Managing Pts Care (In Minutes): 55
[2020-07-16 16:56] LABS: Blood Morphology Comment NOT SEEN (NOT SEEN); Platelet Estimate ADEQ; White Blood Cell Scan OK (OK)
[2020-07-16] MEDS ORDERED: ACETAMINOPHEN 500 MG TAB PO PRN (18:01)
[2020-07-16] MEDS ORDERED: ALBUTEROL 2.5 MG/3 ML NEB SOL NEB PRN (18:01)
[2020-07-16] MEDS ORDERED: LORAZEPAM 0.5 MG TABLET PO PRN (18:03)
[2020-07-16] MEDS ORDERED: HYDRALAZINE HCL 20 MG/ML VIAL IV PRN (18:03)
[2020-07-16] MEDS ORDERED: POTASSIUM CL SA 10 MEQ TAB PO ONE (18:09)
[2020-07-16] MEDS ORDERED: EPOETIN 4,000 UNIT/ML VIAL IV SCH (18:15)
[2020-07-16] MEDS: MORPHINE 2 MG/ML SYR IV PRN (19:48)
[2020-07-16] MEDS: ONDANSETRON 4 MG/2 ML VIAL IV PRN (19:49)
[2020-07-16] MEDS ORDERED: MORPHINE 2 MG/ML SYR ONE (19:59)
[2020-07-16] MEDS: HEPARIN 5000 UNIT/ML 1 ML VIAL SQ SCH (21:19)
[2020-07-16] MEDS ORDERED: CALCITROL 0.25 MCG CAP PO ONE (22:00)
[2020-07-16] MEDS: FAMOTIDINE 20 MG TAB PO SCH (22:20)
[2020-07-17 00:27] VITALS: BMI 28.4
[2020-07-17] MEDS: PANTOPRAZOLE 40MG TABLET PO SCH (05:36)
[2020-07-17 06:21] LABS: Albumin 1.8 g/dL (3.4-5.0); Bilirubin Total 0.3 mg/dL (0.2-1.0); Potassium 3.5 mmol/L (3.5-5.1); Protein, Total 6.5 g/dL (6.4-8.2)
[2020-07-17] MEDS ORDERED: CEFTRIAXONE 1 GM/NS 50 ML 1 GM/50 ML BAG IV SCH (09:00)
[2020-07-17] MEDS: HEPARIN 5000 UNIT/ML 1 ML VIAL SQ SCH ×2 (09:02→20:16)
[2020-07-17] MEDS: ASPIRIN EC 81 MG TAB PO SCH (09:02)
[2020-07-17] MEDS: CEFTRIAXONE/SWI 1gm 1 GM/10 ML SYR IV SCH (09:02)
[2020-07-17] MEDS: FAMOTIDINE 20 MG TAB PO SCH (09:02)
[2020-07-17] MEDS: MORPHINE 2 MG/ML SYR IV PRN ×2 (09:03→23:12)
[2020-07-17 09:11] LABS: Absolute Lymphocytes (CBC) 0.9 K/uL (0.7-4.9); Basophils % 0.8 % (0-1.3); Hematocrit 22.9 % (36.0-45.0); Lymphocytes % 13.9 % (15.3-44.8); MPV 8.1 fL (7.6-11.3); RBC Red Blood Cell Count 2.82 M/uL (3.86-4.86)
[2020-07-17] MEDS: NA CHLORIDE 0.9% 1,000 ML IV SCH ×3 (09:11→23:05)
[2020-07-17 09:33] VITALS: O2SAT 93
--- NOTE | 2020-07-17 10:12 | RAD REPORT ---
EXAM DESCRIPTION: RAD - Chest Single View - 07/17/2020 10:03 am CLINICAL HISTORY: htn, shortness of breath COMPARISON: June 09 TECHNIQUE: AP portable chest image was obtained 07/17/2020 10:03 am . FINDINGS: Lung volumes are low, similar to comparison. Stranding in each base could be atelectasis, scarring or a combination. Pattern is not substantially different. No measurable failure or volume ov erload findings. Since the prior examination the right-sided dialysis catheter has been replaced with a left-sided catheter. Long and short arm of the catheter in the distal SVC. Heart and vasculature are normal. No measurable pleural effusion and no pneumothorax. No acute bony abnormality seen. No acute aortic findings suspected. IMPRESSION: Chronic lung parenchymal changes are present similar to June 09. No acute cardiopulmonary finding seen.
--- NOTE | 2020-07-17 15:10 | P.PN ---
Subjective Date of Service: 07/17/20 Chief Complaint: Abdominal pain Subjective: Improving, Doing well Physical Examination - Vital Signs Temperature: 97.7 F Blood Pressure: 100/39 Pulse: 79 Respirations: 20 Pulse Ox (%): 93 - Studies Laboratory Data (last 24 hrs) 07/16/20 15:20: WBC 7.30, Hgb 8.5 L, Hct 24.9 L, Plt Count 262 07/16/20 15:20: Sodium 137, Potassium 3.4 L, BUN 12, Creatinine 1.94 H, Glucose 80, Total Bilirubin 0.4, AST 14 L, ALT 10 L, Alkaline Phosphatase 295 H, Lipase 110 Assessment & Plan Discharge Plan: Home Plan to discharge in: 24 Hours Physician Review Additional Text: Physical exam: Patient alert, cooperative. No significant distress noted. Heart: Regular rate and rhythm Lungs: Clear to auscultation Abdomen: Soft nontender nondistended Extremities: Good range of motion Impression: UTI, gram-negative rods noted on culture End-stage renal disease on hemodialysis Anemia of chronic disease CAD Plan: UTI, gram-negative rods noted on culture: Continue antibiotic therapy. Await urine culture results. Will monitor closely. Nephrology plans for 12-hour urine collection. Anticipate improvement over the next 24 hours. Likely home tomorrow once culture results have finalized. End-stage renal disease on hemodialysis: Patient to have dialysis today. Spoke with nephrology. Nephrology wants 12-hour urine collection. We will start this as soon as possible. Likely home discharge tomorrow. Anemia of chronic disease: We will monitor closely. CAD : Continue medication. Time Spent Managing Pts Care (In Minutes): 55
[2020-07-17] MEDS ORDERED: EPOETIN ALFA 10,000 UNIT/ML VIAL SQ SCH (22:00)
[2020-07-17] MEDS ORDERED: EPOETIN ALFA-EPBX 10,000 UNIT/ML VIAL ONE (23:19)
[2020-07-17] MEDS: ONDANSETRON 4 MG/2 ML VIAL IV PRN (23:21)
--- NOTE | 2020-07-18 02:02 | CON ---
Date of Consultation: 07/17/2020 Chief Complaint: Acute on chronic kidney injury. History Of Present Illness: The patient has been dialysis dependent and last dialysis was done on Friday. The patient has had progressively worse weakness and urinary discomfort, dysuria. She came to emergency room and was found to have urinary tract infection. Creatinine level is ranging from 1.8 to 2.1. The patient is due for dialysis today, although lab work reveals some improvement of renal function and new baseline creatinine at this point is ranging up to 2.2. Dialysis is on hold. 24-hours urine collection was ordered and plan is to check 12 hours urine collection as well as creatinine clearance. The patient is on antibiotics for urinary tract infection. She denies hematuria. She had episodes of dysuria and back pain associated with malaise and low-grade fever. She denies cough or chills. Review of Systems: Constitutional: Denies syncope. Eyes: Denies vision changes. Ears, Nose, Mouth, and Throat: Denies sore throat or earache. Respiratory: Denies PND or orthopnea. Cardiovascular: Denies chest pain or palpitation. GI: Denies nausea or vomiting. : She has some lower urinary tract symptoms. Denies hematuria. All other systems reviewed and all are negative. Past Medical History: Acute kidney injury, chronic kidney disease stage 3, hypertension, osteoarthritis, knee surgery, hysterectomy, secondary hyperparathyroidism, hypothyroidism, anemia in CKD . Physical Examination: General: The patient is awake, alert, follows commands. Eyes: Anicteric sclerae. EOMI. Ears, Nose, Mouth, and Throat: Oral mucosa moist. No pallor. Neck: Supple. No bruits. Lungs: Diminished breath sounds at bases. Heart: S1, S2. Abdomen: Soft, benign. Extremities: No edema. Laboratory Data: WBC 7.3, hemoglobin 8.5, platelet count 262. Sodium 137, potassium 3.4, BUN is 12, creatinine 1.94, glucose 80. CT scan was performed to assess for obstructive uropathy. Renal calculus is not seen and ureteral calculus is not noted. Bladder calculus is not present. There is no hydronephrosis. Impression And Plan: 1. CT scan is negative for calculus. Continue treatment for urinary tract infection according to urine culture. 2. End-stage renal disease/ HARSHAD on CKD. Dialysis on hold. The patient at this point is recovering from acute kidney injury. Previously, she was diagnosed with end-stage renal disease, although renal function is improving and acute kidney injury is resolving. The patient will have blood work tomorrow morning and plan is to hold dialysis. The patient may need to have procedure done to remove the hemodialysis catheter during this admission and to check blood culture for possible line infection. 3. Coronary artery disease. The patient is asymptomatic. The patient has chronic coronary artery disease. Continue cholesterol-lowering medications. Monitor blood pressure and adjust pressure medication accordingly. 4. Anemia in chronic kidney disease. Continue LINDY. The patient may need to be screened for GI bleeding. ROXY/JEAN PAUL Voice ID: [id number] Report ID: [id number] EDIE
[2020-07-18 05:55] LABS: Absolute Lymphocytes (CBC) 0.7 K/uL (0.7-4.9); Basophils % 0.8 % (0-1.3); Hematocrit 21.6 % (36.0-45.0); Lymphocytes % 8.9 % (15.3-44.8); MPV 7.8 fL (7.6-11.3); RBC Red Blood Cell Count 2.64 M/uL (3.86-4.86)
[2020-07-18] MEDS: PANTOPRAZOLE 40MG TABLET PO SCH (05:59)
[2020-07-18 06:07] LABS: Magnesium 1.7 mg/dL (1.8-2.4); Potassium 3.3 mmol/L (3.5-5.1)
[2020-07-18] MEDS: FAMOTIDINE 20 MG TAB PO SCH (07:44)
[2020-07-18] MEDS: ASPIRIN EC 81 MG TAB PO SCH (08:44)
[2020-07-18] MEDS: CEFTRIAXONE/SWI 1gm 1 GM/10 ML SYR IV SCH (08:44)
[2020-07-18] MEDS: HEPARIN 5000 UNIT/ML 1 ML VIAL SQ SCH (08:45)
[2020-07-18] MEDS ORDERED: NEPRO SHAKE 237 ML CAN PO SCH (09:00)
[2020-07-18] MEDS ORDERED: AMOX/K CLAV 500 MG TAB PO SCH (09:00)
--- NOTE | 2020-07-18 09:04 | P.DS ---
Admission Date: 07/18/20 Discharge Date: 07/18/20 Primary Care Provider: none; Nephrology-Dr. Henriquez Disposition: ROUTINE DISCHARGE Discharge Condition: GOOD Reason for Admission: Abdominal pain Consultations: Nephrology-Dr. Henriquez Procedures: COVID: Negative CT AB: FINDINGS: A renal calculus is not seen. An ureteral calculus is not noted. A bladder calculus is not present. No hydronephrosis. The small right perirenal hematoma has mostly resolved. Air is present within the bladder. The liver, spleen, pancreas and adrenals appear grossly normal There is no evidence of diverticulitis. Mild gallbladder distention. Small umbilical hernia. Trace amount of pelvic ascites . Small hiatal hernia IMPRESSION: Negative for a genitourinary calculus Air within the bladder may be secondary to recent instrumentation. Infection can also result this appearance. Mild gallbladder distention CXR: FINDINGS: Lung volumes are low, similar to comparison. Stranding in each base could be atelectasis, scarring or a combination. Pattern is not substantially different. No measurable failure or volume overload findings. Since the prior examination the right-sided dialysis catheter has been replaced with a left- sided catheter. Long and short arm of the catheter in the distal SVC. Heart and vasculature are normal. No measurable pleural effusion and no pneumothorax. No acute bony abnormality seen. No acute aortic findings suspected. IMPRESSION: Chronic lung parenchymal changes are present similar to June 09. No acute cardiopulmonary finding seen. Medical Problem List: UTI, urine culture positive for Klebseilla oyxtoca End-stage renal disease on hemodialysis Anemia of chronic disease with iron deficiency CAD GERD with Hiatal hernia Brief History of Present Illness: 74-year-old female with history of hypertension, end-stage renal disease on hemodialysis, anemia of chronic disease presented with right quadrant abdominal pain with nausea and vomiting. Flank pain noted. Patient found to have UTI. Patient was admitted for treatment. Hospital Course: Patient presented with abdominal pain, nausea and vomiting. Patient found to have a UTI. Urine culture was positive for Klebsiella. Patient responded to IV antibiotic therapy. At discharge she is without significant abdominal pain, nausea and vomiting. This has been transitioned to oral medication. At discharge she will continue with Augmentin 500 mg daily for 5 more days. UTI prevention will be provided. Patient with end-stage renal disease on hemodialysis. 12-hour urine collection obtained. Patient will continue with hemodialysis as directed. Patient with anemia of chronic disease. Iron deficiency also noted. At discharge patient will continue with multivitamin with iron daily. Recommend to recheck CBC in 1 to 2 weeks to monitor her progress. Further adjustment in medication can be done by nephrology. At discharge she will continue with her current medications of Calcitrol 0.25 mcg daily. Patient with GERD and hiatal hernia. At discharge she may continue with Prilosec 40 mg daily. Patient with chronic pain. At discharge she may continue with tramadol 50 mg 3 times a day as needed for pain. Vital Signs/Physical Exam: Temp Pulse Resp BP Pulse Ox 99.9 F 88 18 134/60 93 07/18/20 04:00 07/18/20 04:00 07/18/20 04:00 07/18/20 04:00 07/18/20 04:00 General: Alert, In no apparent distress, Oriented x3, Cooperative HEENT: Atraumatic Neck: Supple Respiratory: Clear to auscultation bilaterally, Normal air movement Cardiovascular: Normal pulses, Regular rate/rhythm Gastrointestinal: Normal bowel sounds, Soft and benign, Non-distended, No tenderness, No masses, No rebound, No guarding Musculoskeletal: No erythema, No tenderness, No warmth Integumentary: No tenderness/swelling Neurological: Normal speech, Normal strength at 5/5 x4 extr, Normal tone, Normal affect Laboratory Data at Discharge: WBC 8.10 K/uL (4.3-10.9) D 07/18/20 05:36 Hgb 7.3 g/dL (12.0-15.0) L* 07/18/20 05:36 Hct 21.6 % (36.0-45.0) L 07/18/20 05:36 Plt Count 283 K/uL (152-406) 07/18/20 05:36 Sodium 133 mmol/L (136-145) L 07/18/20 05:36 Potassium 3.3 mmol/L (3.5-5.1) L 07/18/20 05:36 BUN 15 mg/dL (7-18) 07/18/20 05:36 Creatinine 2.18 mg/dL (0.55-1.3) H 07/18/20 05:36 Glucose 74 mg/dL (74-106) 07/18/20 05:36 Magnesium 1.7 mg/dL (1.8-2.4) L D 07/18/20 05:36 Total Bilirubin 0.3 mg/dL (0.2-1.0) 07/17/20 05:40 AST 13 U/L (15-37) L 07/17/20 05:40 ALT 8 U/L (12-78) L 07/17/20 05:40 Alkaline Phosphatase 272 U/L (45-117) H 07/17/20 05:40 Lipase 110 U/L (73-393) 07/16/20 15:20 Home Medications: Omeprazole [Prilosec] 40 mg PO DAILY 07/16/20 Promethazine HCl 25 mg PO Q6H PRN 07/16/20 calcitrioL [Rocaltrol] 1 tab PO DAILY 07/16/20 traMADol HCL [Ultram*] 50 mg PO Q8H PRN 07/16/20 Amox/Clavulanate [Augmentin 500-125 mg Tab*] 500 mg PO DAILY #5 tab 07/18/20 Multivitamin with Iron [Daily Vitamin + Iron] 1 each PO DAILY #90 tablet 07/18/20 New Medications: Amox/Clavulanate [Augmentin 500-125 mg Tab*] 500 mg PO DAILY #5 tab Multivitamin with Iron [Daily Vitamin + Iron] 1 each PO DAILY #90 tablet Physician Discharge Instructions: Patient presented with abdominal pain, nausea and vomiting. Patient found to have a UTI. Urine culture was positive for Klebsiella. Patient responded to IV antibiotic therapy. At discharge she is without significant abdominal pain, nausea and vomiting. This has been transitioned to oral medication. At discharge she will continue with Augmentin 500 mg daily for 5 more days. UTI prevention will be provided. Patient with end-stage renal disease on hemodialysis. 12-hour urine collection obtained. Patient will continue with hemodialysis as directed. Patient with anemia of chronic disease. Iron deficiency also noted. At discharge patient will continue with multivitamin with iron daily. Recommend to recheck CBC in 1 to 2 weeks to monitor her progress. Further adjustment in medication can be done by nephrology. At discharge she will continue with her current medications of Calcitrol 0.25 mcg daily. Patient with GERD and hiatal hernia. At discharge she may continue with Prilosec 40 mg daily. Patient with chronic pain. At discharge she may continue with tramadol 50 mg 3 times a day as needed for pain. Diet: Renal Activity: Ad reji Followup: NONE,NONE [Primary Care Provider] - Time spent managing pt's care (in minutes): 55
[2020-07-18] MEDS: NA CHLORIDE 0.9% 1,000 ML IV SCH (09:40)
[2020-07-18] MEDS ORDERED: POTASSIUM CL SA 10 MEQ TAB PO ONE (12:14)
[2020-07-18] MEDS ORDERED: EPOETIN ALFA-EPBX 10,000 UNIT/ML VIAL SQ ONE (13:00)
[2020-07-18 14:30] VITALS: BP 138/62; TEMP 97.3
--- NOTE | 2020-07-18 15:28 | PN ---
Date of Progress Note: 07/18/2020 Subjective: The patient was admitted with acute kidney injury, required dialysis. The patient start ed weaning of dialysis. The patient did not receive dialysis on Friday. The patient came with nause a and vomiting, gastroenteritis. Physical Examination: Vital Signs: Blood pressure 115/53, pulse of 89, afebrile. The patient had good urine output of 500 . Chest: Clear to auscultation. Heart: S1, S2. Regular. Abdomen: Soft. Mild tenderness. No guarding or rebound. Extremities: No edema. Neuro: Alert. No focality. Laboratory Data: WBC 8.1, H and H 7.3/21.6. Sodium 133, potassium 3.3, bicarb 24, BUN 15, creatinin e 2.1, GFR of 22, calcium 7.2, magnesium 1.7. Current Medications: The patient on include; 1.Aspirin. 2.Augmentin. 3.Epogen. 4.Heparin. 5.Hydralazine. 6.Tylenol. 7.Lorazepam. Assessment And Plan: 1.Acute kidney injury, on recovery. We will keep holding dialysis, discontinue IV fluid. The patie nt cleared from the Renal standpoint for discharge planning. We will hold dialysis even on Friday. We will repeat lab on Friday. If kidney function continued to be stable, we will remove hemodialysis catheter. 2.Hypokalemia. We will supplement. 3.Gastroenteritis. Continue symptomatic treatment. 4.Hypertension, controlled, optimal. Continue current medication. The patient cleared from the Renal standpoint for discharge planning. MATTHEW/JEAN PAUL Voice ID: [id number] Report ID: [id number]
[2020-07-18] MEDS ORDERED: CALCITROL 0.25 MCG CAP PO SCH (19:00)
== END 2020-07-18 13:01 | disposition home or self-care (01) | DRG 689 ==
LOC: ER 13:11 → ERHOLD 18:02 → 2ND 19:49 → OBSVTOIN 07-18 08:19
PROVIDERS: ADMIT Internal Medicine; ATTEND Family Medicine
DX: N39.0 Urinary tract infection, site not specified (principal); N18.6 End stage renal disease; I12.0 Hypertensive chronic kidney disease with stage 5 chronic kidney disease or end stage renal disease; N17.9 Acute kidney failure, unspecified; E44.0 Moderate protein-calorie malnutrition; K52.9 Noninfective gastroenteritis and colitis, unspecified; I25.10 Atherosclerotic heart disease of native coronary artery without angina pectoris; K21.9 Gastro-esophageal reflux disease without esophagitis; K44.9 Diaphragmatic hernia without obstruction or gangrene; E87.6 Hypokalemia; D50.9 Iron deficiency anemia, unspecified; D63.1 Anemia in chronic kidney disease; B96.89 Other specified bacterial agents as the cause of diseases classified elsewhere; Z88.5 Allergy status to narcotic agent; Z99.2 Dependence on renal dialysis; Z79.890 Hormone replacement therapy; Z68.28 Body mass index [BMI] 28.0-28.9, adult; Z79.899 Other long term (current) drug therapy; Z90.710 Acquired absence of both cervix and uterus; Z20.822 Contact with and (suspected) exposure to COVID-19
CPT/HCPCS: 36415; 71045; 74176; 76377; 80048; 80053; 80076; 81003; 81015; 83690; 83735; 85025; 87077; 87086; 87088; 87186; 96365; 96375; 99285; G0378; J0696; J1644; J2175; J2270; J2405; J7030; Q5105; Q5106; U0003

== ENCOUNTER 2020-08-11 09:20 | Day surgery (SDC) | payer OTHER ==
[2020-08-11 09:42] VITALS: O2SAT 100
[2020-08-11] MEDS ORDERED: Ringers Lactate 1,000 ML IV ONE (09:47)
[2020-08-11] MEDS ORDERED: LIDOCAINE 1% W/EPI 1:100,000 10 ML VIAL ONE (10:46)
[2020-08-11] MEDS: BUPIVACAINE 0.5% PF 10 ML VIAL ONE ×2 (10:48→11:33)
--- NOTE | 2020-08-11 11:39 | P.OP ---
Preoperative diagnosis: Return of Renal Function Postoperative diagnosis: Return of Renal Function Primary procedure: Removal of LEFT IJ tunnelled hemodialysis catheter Anesthesia: MAC + Local Estimated blood loss: <1cc Specimen: catheter for ID only Findings: as above Complications: None Transferred to: Recovery Room Condition: Good
[2020-08-11] MEDS ORDERED: FENTANYL CITR 100 MCG/2 ML ONE (11:40)
[2020-08-11] MEDS ORDERED: MIDAZOLAM HCL 2 MG/2 ML INJ ONE (11:41)
[2020-08-11] MEDS ORDERED: propofoL 200 MG/20 ML VIAL IV ONE (11:41)
[2020-08-11] MEDS ORDERED: LIDOCAINE 1% MPF 5 ML VIAL ONE (11:41)
[2020-08-11 15:03] VITALS: BP 120/49; TEMP 97.2
--- NOTE | 2020-08-11 22:08 | OP ---
Date of Procedure: 08/11/2020 Surgeon: Mustapha Hernandez MD, Preoperative Diagnosis: Return and mandaen of renal function and no longer needing hemodialysis. Postoperative Diagnosis: Return and mandaen of renal function and no longer needing hemodialysis . Procedure Performed: Removal of a left internal jugular tunneled hemodialysis catheter. Anesthesia: MAC plus local with 1% lidocaine with epinephrine. Estimated Blood Loss: Less than 1 cc. Specimen: Catheter for ID. Findings: As above. Complications: None. Disposition: The patient was transferred to the recovery room in good condition. Procedure In Detail: After informed consent was obtained, the patient was brought to the operating r oom, prepped and draped in the usual sterile fashion after adequate anesthesia was achieved. All sut ures were removed from previous insertion and at the insertion site of the previously placed left int ernal jugular tunneled hemodialysis catheter. Gentle traction was applied and I used an iris scissor to dissect the cuff circumferentially around the exit site of the catheter on the chest wall. The c atheter was then brought into the field and pressure was held. Patient was placed in steep Trendelen vivien position. Catheter was removed. At this point, pressure was held for 3 minutes. Patient was p ositioned back in neutral position and a single interrupted suture was placed into the exit site afte r irrigating the area copiously with warm saline, and then a sterile dressing was placed over top. T he patient was placed in the sitting up position. Pressure was held for an additional 2 minutes. No evidence of bleeding was appreciated. Sterile dressing was inspected and found to have good hemosta sis without additional pressure. There were no hemostatic measures required. The patient tolerated the procedure well without any evidence of complication and transferred to PACU in good condition. A ll counts were correct at the end of the case. TK/MODL Voice ID: [id number] Report ID: [id number]
== END 2020-08-11 13:20 | disposition home or self-care (01) ==
LOC: OR 09:20
PROVIDERS: ATTEND Surgery
PROC: 05PYX3Z Removal of Infusion Device from Upper Vein, External Approach (ICD-10-PCS; principal; 2020-08-11 11:00)
DX: Z45.2 Encounter for adjustment and management of vascular access device (principal); Z20.822 Contact with and (suspected) exposure to COVID-19
CPT/HCPCS: 36415; 84132; 88300; 36589; U0003; J2704; J2250; J3010; J7120

== ENCOUNTER 2020-08-19 08:04 | Emergency (ER) | payer OTHER ==
--- OUTSIDE RECORDS SUMMARY | 2020-08-19 08:06 | XMS REPORT | Continuity of Care Document ---
:1945 Author Organization [facility] t Address [address] [place] [address] Care Team Providers Name Role Phone Janine VILLA Primary Care Physician Lita Attending Clinician Unavailable Nicholas VILLA, T. Attending Clinician Yanci VILLA Attending Clinician Starr VILLA Attending Clinician Balaji Lind Attending Clinician Dayron VILLA Attending Clinician Jose Antonio VILLA, V. Attending Clinician Christie Le Attending Clinician Lyssa VILLA Attending Clinician YANCI Admitting Clinician Unavailable Payers Payer Name Policy Type Policy Effective Date Expiration Date Sour ce Number MEDICAREMEDICARE PART [id number] 2008 Landen Sherman AND 00:00:00 Alevism [id number] 2008- [place], [place] [id number] 2017 [place] MEDICARE 00:00:00 Alevism [id number] 04/[address] Condition Condition Condition Status Onset Resolution Last Treating Co mments Source Name Details Category Date Date Treatment Clinician Date Complicati Complicati Disease Active 2020- H robbie on of on of 06-23 [facility] vascular vascular 00:00: st dialysis dialysis 00 catheter catheter Hyponatrem Hyponatrem Disease Active H robbie ia ia 06-23 Methodi 00:00: st 00 Mechanical Mechanical Disease Active Overview : [facility] complicati complicati 06-23 Formattin Methodi on of on of 00:00: g of this st vascular vascular 00 note dialysis dialysis might be catheter catheter different from the original. Added automatic ally from request for surgery [id number] Allergies, Adverse Reactions, Alerts Allergy Allergy Status Severity Reaction(s) Onset Inactive Treating Comm ents Source Name Type Date Date Clinician Sully Wright Active Itching [place] ty to 06-23 [facility] adverse 00:00: st reaction 00 s to drug Social History Social Habit Start Date Stop Date Quantity Comments Source History SDOH [facility] Alcohol Std Drinks History SDOH [facility] Alcohol Binge Tobacco use and 2020-06-27 2020-06-27 Never used Jose R Zhao ethodist exposure 00:00:00 00:00:00 Alcohol intake 2020-06-27 2020-06-27 Lifetime Odell Me thodist 00:00:00 00:00:00 non-drinker (finding) History SDOH 2020-06-23 2020-06-23 1 [facility] Alcohol Frequency 00:00:00 00:00:00 [birth year] Jose R Zhao ethodist 00:00:00 00:00:00 Smoking Status Start Date Stop Date Source Never smoker [facility] Methodis t Medications Ordered Filled Start Stop Current Ordering Indication Dosage Frequency Signature Comments Components Source Medication Medication Date Date Medication? Clinician (SIG) Name Name amLODIPine No 10mg QD Take 1 [place] (NORVASC) 06-27-08 tablet (10 Met hodi 10 mg 00:00: 23:59 mg total) st tablet 00 :00 by mouth daily for 30 days. ondansetron No 4mg Q12H Take 4 mg Jose R (ZOFRAN) 4 06-26- by mouth Meth shyam MG tablet 20:27: 00:[address] 48 :00 (twelve) hours as needed for nausea or vomiting. carvediloL No 12.5mg Q.5D Take 12.5 Odell (COREG) 06-26-08 mg by Methodi 12.5 MG 20:27: 00:[address] tablet 48 :00 (two) times a day with meals. amoxicillin 2020-2020- No 1{tbl} Q.5D Take 1 [place] -pot 06-26-08 tablet by [facility] clavulanate 20:27: 00:[address] (AUGMENTIN) 48 :00 (two) 250-125 mg times a per tablet day. levothyroxi 0 Yes 75ug QD Take 75 [place] ston ne 3-08 mcg by Methodi (SYNTHROID) 20:27: mouth st 75 mcg 44 daily. tablet omeprazole Yes 40mg QD Take 40 mg [place] (PriLOSEC) 3-08 by mouth Metho di 40 MG 20:27: daily. st capsule 44 metoclopram Yes 5mg Q.[id number] Take 5 mg Odell regino 06-26 [id number] by mouth 3 Met hodi (REGLAN) 5 20:27: 3D (three) st MG tablet 44 times a day. meclizine 0 Yes 25mg Q.25D Take 25 mg [place] (ANTIVERT) 3-08 by mouth 4 Met hodi 25 mg 20:27: (four) st tablet 44 times a day as needed for dizziness. calcitrioL Yes .25ug QD Take 0.25 [place] (ROCALTROL) 3-08 mcg by Method i 0.25 MCG 20:27: mouth st capsule 44 daily. traMADoL 0 2020- No acute pain 50mg Q8H Take 50 mg Odell (ULTRAM) 50 06-26- by mouth Met hodi mg tablet 17:49: 00:[address] 18 :00 (eight) hours as needed for moderate pain .acute pain. amLODIPine 2020-0 2020- No 5mg QD Take 5 mg [place] (NORVASC) 5 06-26-05 by mouth Met hodi mg tablet 11:50: 00:[address] 49 :00 amoxicillin 2020-0 2020- No 500mg Q.[id number] Take 500 Odell (AMOXIL) 06-26-05 [id number] mg by Met hodi 500 MG 11:50: 00:[address] capsule 49 :00 (three) times a day. amoxicillin 2020- No 1{tbl} QD Take 1 [place] -pot 06-26-05 tablet by Methodi clavulanate 11:50: 00:[address] (AUGMENTIN) 49 :00 daily. 500-125 mg Disp per tablet 06/18/20 18 day supply calcitrioL 2020- No .25ug QD Take 0.25 Odell (ROCALTROL) 06-26 03-05 mcg by Metho di 0.25 MCG 11:50: 00:[address] capsule 49 :00 daily. carvediloL 2020- No 12.5mg Q.5D Take 12.5 Odell (COREG) - 03-05 mg by Methodi 12.5 MG 11:50: 00:[address] tablet 49 :00 (two) times a day with meals. hydroCHLORO 2020- No 25mg QD Take 25 mg Odell thiazide 06-26-05 by mouth Method i (HYDRODIURI 11:50: 00:[address] L) 25 MG 49 :00 tablet losartan 2020- No 100mg QD Take 100 [place] (COZAAR) 06-26-05 mg by Methodi 100 MG 11:50: 00:[address] tablet 49 :00 daily. metoclopram 2020- No 5mg Q.25D Take 5 mg Odell regino 06-26-05 by mouth 4 [facility] (REGLAN) 5 11:50: 00:00 (four) st MG tablet 49 :00 times a day. metoprolol 2020- No 100mg QD Take 100 [place] succinate 06-26 03-05 mg by Methodi XL 11:50: 00:[address] (TOPROL-XL) 49 :00 daily. 100 mg 24 hr tablet prochlorper 2020- No 10mg Q8H Take 10 mg Odell azine 06-26-05 by mouth Methodi (COMPAZINE) 11:50: 00:[address] 10 MG 49 :00 (eight) tablet hours as needed for nausea or vomiting. carvediloL 2020-2020- No 25mg Q.5D Take 1 [place] (COREG) 25 3-08 04-07 tablet (25 Me thodi MG tablet 00:00: 23:59 mg total) st 00 :00 by mouth 2 (two) times a day with meals for 30 days. traMADoL 2020- No acute pain 50mg Q8H Take 1 Odell (ULTRAM) 50 06-26 tablet (50 M ethodi mg tablet 00:00: 23:59 mg total) st 00 :00 by mouth every 8 (eight) hours as needed for moderate pain for up to 10 days .acute pain. Vital Signs Vital Name Observation Time Observation Value Comments Source Systolic blood 2020-06-26 17:45:00 133 mm[Hg] Zarina n Alevism pressure Diastolic blood 2020-06-26 17:45:00 64 mm[Hg] Katiana Martinez pressure Heart rate 2020-06-26 17:45:00 79 /min Jose R Martinez Respiratory rate 2020-06-26 17:45:00 24 /min Britney Martinez Body temperature 2020-06-26 14:40:00 36.5 Claudine Britney Martinez Oxygen saturation in 2020-06-26 11:49:18 95 /min Jose R Martinez Arterial blood by Pulse oximetry Body weight 2020-06-26 07:00:00 83.915 kg Jose R Martinez BMI 2020-06-26 07:00:00 31.76 kg/m2 Jose R Martinez Body height 2020-06-23 21:00:00 162.6 cm Jose R Martinez Procedures Procedure Date / Time Performing Clinician Source Performed OR [place] < 1 HOUR 2020-06-26 10:36:00 David Omalley NC AN ELECTIVE 2020-06-26 10:20:38 Octavio Le ethodist SUPRAGLOTTIC AIRWAY INSERTION, TUNNELED 2020-06-26 09:37:00 David Omalley CENTRAL VENOUS CATHETER WITH PORT, WITHOUT FLUOROSCOPIC GUIDANCE HEMODIALYSIS 2020-06-26 09:32:43 David Omalley PROTHROMBIN TIME WITH INR 2020-06-26 04:26:00 David Omalley PARTIAL THROMBOPLASTIN 2020-06-26 04:26:00 David Omalley Alevism TIME (PTT) BASIC METABOLIC PANEL 2020-06-26 04:26:00 Chucky Lind Alevism Balaji HC COMPLETE BLD COUNT 2020-06-26 04:26:00 Chucky Lind Alevism W/AUTO DIFF Balaji ABO AND RH CONFIRMATION 2020-06-26 04:26:00 David Omalley Alevism ESTIMATED GFR 2020-06-26 04:26:00 Chucky Lind Pavel ethodist Balaji TYPE AND SCREEN 2020-06-25 14:17:00 David Omalley Meth odist XR NECK SOFT TISSUE 2020-06-25 09:00:00 Celso Keenan Alevism BASIC METABOLIC PANEL 2020-06-25 04:05:00 Chucky Lind Alevism Balaji HC COMPLETE BLD COUNT 2020-06-25 04:05:00 Chucky Lind Alevism W/AUTO DIFF Balaji ESTIMATED GFR 2020-06-25 04:05:00 Chucky Lind Pavel ethodist Balaji HEPATITIS B SURFACE 2020-06-24 14:22:00 Niurka Mccord Alevism ANTIGEN HEPATITIS B SURFACE 2020-06-24 14:22:00 Niurka Mccord Alevism ANTIBODY HEMODIALYSIS 2020-06-24 13:48:38 Niurka Mccord Met hodist XR CHEST 1 VW PORTABLE 2020-06-23 23:27:43 David Omalley on Alevism AMYLASE LEVEL 2020-06-23 21:54:00 Shreya Jordan Alevism LIPASE LEVEL 2020-06-23 21:54:00 Shreya Jordan Alevism COMPREHENSIVE METABOLIC 2020-06-23 21:54:00 Shreya Jordan Alevism PANEL ESTIMATED GFR 2020-06-23 21:54:00 Shreya Jordan Alevism COVID-19 QUALITATIVE PCR 2020-06-23 19:00:00 Maninder Petersonist HC COMPLETE BLD COUNT 2020-06-23 17:09:00 Maninder Peterson Alevism W/AUTO DIFF PROTHROMBIN TIME WITH INR 2020-06-23 17:09:00 Maninder Peterson PARTIAL THROMBOPLASTIN 2020-06-23 17:09:00 Maninder Peterson TIME (PTT) BASIC METABOLIC PANEL 2020-06-23 17:09:00 Maninder Peterson ESTIMATED GFR 2020-06-23 17:09:00 Maninder Peterson ethodist ECG 12-LEAD 2020-06-23 17:05:40 Maninder Peterson ethodist ECG ED PRELIMINARY 2020-06-23 16:57:05 Maninder Peterson INTERPRETATION Plan of Care Planned Activity Planned Date Details Comments Source Future Scheduled 2020-11-19 INFLUENZA VACCINE Zarina shook Alevism Test 00:00:00 [code = INFLUENZA VACCINE] Future Scheduled 1993-11-02 COLONOSCOPY SCREENING Landen garcia Alevism Test 00:00:00 [code = COLONOSCOPY SCREENING] Future Scheduled 1993-11-02 SHINGLES VACCINES (#1) H robbie Alevism Test 00:00:00 [code = SHINGLES VACCINES (#1)] Future Scheduled 1961-11-02 Hepatitis C screening Landen garcia Alevism Test 00:00:00 (procedure) [code = 235752212] Future Scheduled 1961 COVID-19 VACCINE (1) Chito cruz Alevism Test 00:00:00 [code = COVID-19 VACCINE (1)] Future Scheduled 1949[birth year]11-02 65+ PNEUMOCOCCAL Jose R Alevism Test 00:00:00 VACCINE (1 of 4 - PCV13) [code = 65+ PNEUMOCOCCAL VACCINE (1 of 4 - PCV13)] Encounters Start End Encounter Admission Attending Care Care Encounter Source Date/Time Date/Time Type Type Clinicians Facility Department ID 2020-06-23 2020-06-26 Outpatient [facility] [id number] [facility] 00:00:00 00:00:[address] Results Test Description Test Time Test Comments Results Result Sourc e Comments OR [place] < 1 Hour [facility] [address] 13:51:00 06/26/2020 1:54 PM CST EXAMINATION: OR [place] < 1 HOURCLINICAL HISTORY: Intraoperative fluoroscopyIMPRESSION: Fluoroscopy was provided. No radiologist present. Please see procedure report for discussion of procedure, findings and fluoroscopic time.[facility] [id number] Airway Octavio Le n 8 06/26/2020 10:20 Alevism 10:20:38 AMAirway Location: OR Performed by: SBA BUSINESS DEVELOPMENT OFFICER/AAAnesthesiologis t: Garett Brady V., MDResident/SBA BUSINESS DEVELOPMENT OFFICER/AA: Octavio Le RAuthorized by: Garett Brady MD Urgency: ElectiveDifficult Airway: No Preoxygenated with 100% O2: Yes C-spine Precautions Maintained Throughout: Yes Mask Ventilation: Not attemptedFinal Airway Type: Supraglottic airwayFinal LMA: UniqueLMA Size: 4Number of Attempts at Approach: 1 Soft Tissue Intact, able to ventilate with no leak and minimal peak inspiratory pressures XR Neck Soft Interface, [facility] Tissue [address] 10:15:23 Incoming - 06/25/2020 10:18 AM CST EXAMINATION: XR NECK SOFT TISSUECLINICAL HISTORY: location of the dialysis cathCOMPARISON: NoneIMPRESSION:2 views were obtained.Right jugular dialysis catheter with tips in the superior vena cava.No prevertebral soft tissue thickening.There is 1 to 2 mm degenerative anterolisthesis of C3 on C4, C4 on C5, and C5 on C6, with mild disc height loss at C4-5 and C5-6 with small anterior endplate osteophytes.[id number] 2 XR Chest 1 Vw Interface, [facility] Portable [address] 00:02:34 Incoming - 06/24/2020 12:05 AM CST EXAMINATION: XR CHEST 1 PORTABLEINDICATION: ESRD evaluate for fluid overloadCOMPARISON: NoneIMPRESSION:Heart is enlarged.Right-sided central venous catheter tips overlie the SVC.Mild central vascular congestion.No visible effusion or pneumothorax.[facility] ECG 12 lead 2020-06-23 17:45:47 Test Item Value Reference Range Interpretation Comme nts Ventricular rate (test code = 253) 88 Atrial rate (test code = 255) 88 NC interval (test code = 266) 120 QRSD interval (test code = 260) 142 QT interval (test code = 264) 400 QTC interval (test code = 265) 484 P axis 1 (test code = 267) -50 QRS axis 1 (test code = 268) -15 T wave axis (test code = 270) 92 EKG impression (test code = 273) Unusual P axis, possible ectopic a trial rhythm-Left bundle branch block-No previous ECGs available- Jose R [facility] [place] Preliminary Interpretation - Not an [id number] 16:57:05 Test Item Value Reference Range Interpretation Comments STEPHANIE (test code = STEPHANIE) Maninder Peterson III, MD 06/24/2020 1:43 AMECG ED Preliminary Interpretation - Not an OrderPerformed by: Maninder Peterson III, MDAuthorized by: Maninder Peterson III, MD ECG reviewed by ED Physician in the absence of a community relations coordinator: yes Interpretation: Interpretation: abnormal Quality: Tracing quality: Limited by artifactRate: ECG rate: 88 ECG rate assessment: normal Rhythm: Rhythm: sinus rhythm Ectopy: Ectopy: none QRS: QRS axis: Normal QRS intervals: WideConduction: Conduction: abnormal Abnormal conduction: complete LBBB ST segments: ST segments: Non-specificT waves: T waves: non-specific Lab Interpretation Abnormal (test code = 50918-3) Jose R Martinez
[2020-08-19] MEDS ORDERED: MORPHINE 4 MG/ML SYR ONE ×2 (10:51→16:55)
[2020-08-19] MEDS ORDERED: ONDANSETRON 4 MG/2 ML VIAL ONE ×2 (10:51→16:55)
[2020-08-19 11:16] LABS: Absolute Lymphocytes (CBC) 0.8 K/uL (0.7-4.9); Basophils % 0.5 % (0-1.3); Lymphocytes % 9.4 % (15.3-44.8); MPV 8.3 fL (7.6-11.3); RBC Red Blood Cell Count 3.08 M/uL (3.86-4.86)
[2020-08-19 11:35] LABS: Albumin 2.3 g/dL (3.4-5.0); Bilirubin Direct 0.2 mg/dL (0-0.2); Bilirubin Total 0.4 mg/dL (0.2-1.0); Protein, Total 6.9 g/dL (6.4-8.2)
--- NOTE | 2020-08-19 13:33 | RAD REPORT ---
EXAM DESCRIPTION: US - Abdomen Exam Limited - 08/19/2020 12:55 pm CLINICAL HISTORY: RUQ pain COMPARISON: Stone Protocol dated 07/16/2020 FINDINGS: No gallstones are identified. Patient has a small to moderate amount of sludge layering in the dependent portion of the gallbladder. Small punctate stones or polyps could be masked by the slu dge. There is no wall thickening or pericholecystic fluid. No common duct stone or biliary tree dilatation identified. IMPRESSION: Small to moderate amount of sludge layering in the gallbladder lumen. The sludge could p otentially mask small stones or polyps. No other gallbladder or biliary tree finding.
--- NOTE | 2020-08-19 14:52 | RAD REPORT ---
EXAM DESCRIPTION: CT - Stone Protocol - 08/19/2020 2:29 pm CLINICAL HISTORY: FLANK PAIN COMPARISON: Stone Protocol dated 07/16/2020; Abdomen Pelvis W Contrast dated 06/21/2020 TECHNIQUE: Axial 5 mm thick images were obtained without oral or IV contrast. The [id number] span s the entirety of the system including uppermost abdomen and lung bases. All CT scans are performed using dose optimization technique as appropriate and may include automated exposure control or mA/KV adjustment according to patient size. FINDINGS: No hydronephrosis is present and no obstructing ureteral calculi. No suspicious renal mass es. Isodense masses and pyelonephritis are not excluded on a stone protocol CT scan. No significant a drenal finding. Partially filled urinary bladder shows no wall thickening. No suspicion for mass. No abnormal perinephric stranding seen. Liver and spleen show no suspicious findings. No gallbladder or biliary tree abnormality. No mass of the pancreas seen. There is a trace amount of stranding in the peripancreatic fat of the body and paris l. No suspicious bowel findings. Atrophic uterus or uterine remnant shows no suspicious findings. Ovarie s are atrophic or absent. No evidence for ovarian mass. No hernia, mass or bulky lymphadenopathy noted. No free air, free fluid or inflammatory stranding. No significant bony abnormality. IMPRESSION: No hydronephrosis, obstructing calculus or acute abnormality seen. Isodense masses, cystitis and pyelonephritis are not excluded on stone protocol technique. There is a trace amount of stranding adjacent to the pancreatic body and tail suggesting mild pancrea titis. Pancreatitis does not match the provided clinical history but correlation can be made with any relevant laboratory abnormalities and clinical findings.
[2020-08-19] MEDS ORDERED: NA CHLORIDE 0.9% 1,000 ML ONE (15:37)
[2020-08-19 15:45] LABS: Urine Blood Trace-intact (Negative); Urine Glucose Negative (Negative); Urine Protein 2+ (Negative); Urine pH 5.5 (5.0-7.0)
--- NOTE | 2020-08-19 16:11 | ER ---
Nurse's Notes [facility] Name: Doretha Partida Age: 74 yrs Sex: Female : 1945 Arrival Date: 08/19/2020 Time: 08:06 Bed 17 Private MD: Diagnosis: Other acute pancreatitis-Gallstone pancreatitis;Urinary tract infection, site not specified Presentation: 08/19 08:13 Chief complaint: Patient states: burning with urination and urgency that began today at aa5 0400. Pt also c/o right low back pain radiating to RLQ. 08:13 Coronavirus screen: At this time, the client does not indicate any symptoms associated aa5 with coronavirus-19. Ebola Screen: Patient negative for fever greater than or equal to 101.5 degrees Fahrenheit, and additional compatible Ebola Virus Disease symptoms. Initial Sepsis Screen: Does the patient meet any 2 criteria? No. Patient's initial sepsis screen is negative. Does the patient have a suspected source of infection? No. Patient's initial sepsis screen is negative. Risk Assessment: Do you want to hurt yourself or someone else? Patient reports no desire to harm self or others. Onset of symptoms was August 19, 2020. 08:13 Acuity: SLY 3 aa5 08:13 Method Of Arrival: Wheelchair aa5 Historical: - Allergies: 08:13 Codeine; aa5 - PMHx: 08:13 ESRD; GALLSTONES; Hypertension; Kidney stones; aa5 08:17 Hx of Dialysis but no longer needs dialysis.; aa5 - PSHx: 08:19 Dialysis catheter placed and removed; aa5 - Immunization history:: Adult Immunizations unknown. - Social history:: Smoking status: Patient denies any tobacco usage or history of. Screenin:07 Abuse screen: Denies threats or abuse. Nutritional screening: decreased appetite . rb3 Tuberculosis screening: No symptoms or risk factors identified. Fall Risk None identified. Assessment: 09:07 General: Appears in no apparent distress. comfortable, Behavior is calm, cooperative, rb3 Denies fever. Pain: Complains of pain in right low back Pain radiates to right lower quadrant. Neuro: Level of Consciousness is awake, alert, obeys commands, Oriented to person, place, time, situation. Cardiovascular: Patient's skin is warm and dry. Respiratory: Airway is patent Respiratory effort is even, unlabored, Respiratory pattern is regular, symmetrical. GI: Reports nausea, vomiting. : Reports burning with urination, urgency. 10:00 Reassessment: Patient appears in no apparent distress at this time. No changes from rb3 previously documented assessment. 11:00 Reassessment: Patient appears in no apparent distress at this time. Patient and/or rb3 family updated on plan of care and expected duration. Pain level reassessed. Patient is alert, oriented x 3, equal unlabored respirations, skin warm/dry/pink. 11:40 Reassessment: Patient appears in no apparent distress at this time. Pt. resting with rb3 eyes closed, respirations are even, unlabored. 12:39 Reassessment: Patient appears in no apparent distress at this time. Patient and/or rb3 family updated on plan of care and expected duration. Pain level reassessed. Patient is alert, oriented x 3, equal unlabored respirations, skin warm/dry/pink. US is at the pt. bedside. Patient states feeling better. 13:30 Reassessment: Patient appears in no apparent distress at this time. No changes from rb3 previously documented assessment. 14:08 Reassessment: Assisted to the bedside commode. rb3 14:15 Reassessment: Pt. unable to urinate at this time. Was given water to drink. Provider rb3 notified. No new orders received at this time. 15:00 Reassessment: Patient appears in no apparent distress at this time. Asked the pt. to rb3 try to urinate but she asked if she could have a little more time because she just finished drinking water. Provider notified. 16:00 Reassessment: Patient appears in no apparent distress at this time. Patient and/or rb3 family updated on plan of care and expected duration. Pain level reassessed. Patient is alert, oriented x 3, equal unlabored respirations, skin warm/dry/pink. 16:30 Reassessment: Pt. requested pain medication. Provider notified. Received verbal order rb3 for Morphine 4 mg IVP x once and Zofran 4 mg IVP x once. 100% verbal read back. 17:30 Reassessment: Patient appears in no apparent distress at this time. Patient and/or rb3 family updated on plan of care and expected duration. Pain level reassessed. Patient is alert, oriented x 3, equal unlabored respirations, skin warm/dry/pink. Patient states feeling better. 18:29 Reassessment: Patient appears in no apparent distress at this time. No changes from rb3 previously documented assessment. 21:22 Reassessment: REPORT GIVEN TO [facility]. rv Vital Signs: 08:13 BP 121 / 94; Pulse 71; Resp 18 S; Temp 97.8(O); Pulse Ox 99% on R/A; Weight 74.84 kg aa5 (R); Height 5 ft. 4 in. (162.56 cm) (R); 10:57 BP 124 / 70; Pulse 96; Resp 16; Pulse Ox 99% ; rb3 11:41 BP 130 / 58; Pulse 85; Resp 14; Pulse Ox 100% ; rb3 12:30 BP 127 / 54; Pulse 83; Resp 15; Pulse Ox 100% ; rb3 13:30 BP 131 / 68; Pulse 86; Resp 13; Pulse Ox 100% ; rb3 15:00 BP 125 / 53; Pulse 92; Resp 15; Pulse Ox 100% ; rb3 16:00 BP 126 / 51; Pulse 87; Resp 13; Pulse Ox 100% ; rb3 17:00 BP 127 / 51; Pulse 89; Resp 13; Pulse Ox 100% ; rb3 18:00 BP 137 / 67; Pulse 97; Resp 16; Pulse Ox 100% ; rb3 19:00 BP 115 / 41; Pulse 96; Resp 14; Pulse Ox 97% on R/A; rv 20:00 BP 108 / 64; Pulse 99; Resp 15; Pulse Ox 99% on R/A; rv 21:00 BP 133 / 56; Pulse 97; Resp 16; Pulse Ox 100% on R/A; rv 08:13 Body Mass Index 28.32 (74.84 kg, 162.56 cm) aa5 ED Course: 08:06 Patient arrived in ED. am2 08:13 Arm band placed on. aa5 08:19 Triage completed. aa5 09:07 Patient has correct armband on for positive identification. Bed in low position. Call rb3 light in reach. Side rails up X 1. cafeteria monitor on. Pulse ox on. NIBP on. Warm blanket given. 09:08 Ramiro Parry NP is PHCP. pm1 09:08 Ezequiel Mills MD is Attending Physician. pm1 09:12 Ngoc De Los Santos is Primary Nurse. kg 09:40 Missed attempt(s): 22 gauge in right antecubital area. Bleeding controlled, band aid rb3 applied, catheter tip intact. 10:40 Inserted saline lock: 20 gauge in right forearm, using aseptic technique. ,using rb3 aseptic technique. inserted by Edward HendersonCash Controller. Unable to collect the labs from the IV, lab has been contacted to come. 10:52 Bladder scan completed. 162 ml noted. Provider notified, no new orders received at this rb3 time. 12:55 US Abdomen Limited In Process Unspecified. EDMS 14:29 CT Stone Protocol In Process Unspecified. EDMS 15:46 Straight cath inserted, using sterile technique, 16 Fr. Specimen obtained. Returned rb3 cloudy urine. Patient tolerated well. 16:20 [facility]'s [facility] to [phone]. 18:12 Dr. Hernandez called to do Doc to Doc with EDIE Wilcox, pt provider. tt3 20:43 Followed up to check on admin approval information. Spoke with Angela and she stated tt3 she would look into it and call back. 20:55 [facility] Supervisor at [facility] called back and gave admin tt3 approval. She stated it was okay to use [facility] as the approval provider. The pt is going to [facility] Room 684. The accepting physician is Dr. Hernandez. Nurse to call report to . Information was passed on to Mukul Gayle RN, primary nurse and ADAMA Wilcox, pt provider. 21:23 No provider procedures requiring assistance completed. IV is patent, with fluids rv infusing freely, Patient transferred, IV remains in place. Administered Medications: 10:47 Drug: morphine 4 mg Route: IVP; Site: right forearm; rb3 11:00 Follow up: Response: No adverse reaction rb3 10:47 Drug: Zofran (Ondansetron) 4 mg Route: IVP; Site: right forearm; rb3 11:00 Follow up: Response: No adverse reaction rb3 15:30 Drug: NS 0.9% 1000 ml Route: IV; Rate: 100 ml/hr; Site: right forearm; rb3 21:23 Follow up: IV Status: Infusion continued upon transfer rv 16:34 Drug: Zosyn (piperacillin-tazobactam) 3.375 grams Route: IVPB; Infused Over: 60 mins; rb3 Site: right forearm; 17:02 Follow up: Response: No adverse reaction; IV Status: Completed infusion rb3 16:43 Drug: morphine 4 mg Route: IVP; Site: right forearm; rb3 17:02 Follow up: Response: No adverse reaction; Pain is decreased rb3 16:43 Drug: Zofran (Ondansetron) 4 mg Route: IVP; Site: right forearm; rb3 17:02 Follow up: Response: No adverse reaction rb3 Outcome: 16:10 ER care complete, transfer ordered by . pm1 21:23 Transferred by ground EMS to [facility], Transfer form completed. X-rays rv sent w/ patient. 21:23 Condition: good 21:23 Instructed on the need for transfer. 21:53 Patient left the ED. rv Addendum: 08/28/2020 11:25 Addendum: Culture Results: Positive urine culture. Pt was d/c'd from [facility] a a5 08/24/20, pt denies urinary s/s and reports she received antibiotics at [facility]. No need for prescription of antibiotics per [employer]. Signatures: Dispatcher [employer] EDMS Sandra Kee RN RN aa5 Ramiro Parry NP [employer] pm1 Alina Barron am2 Daniela Chen Ronaldo, RN RN rv Aron Galicia tt3 Alessandra Emmanuel RN RN rb3 Ngoc De Los Santos kg Corrections: (The following items were deleted from the chart) 08/19 08:17 08:13 PMHx: Dialysis, M,W,F; aa5 aa5 08:19 08:13 Allergies: Morphine; aa5 aa5
--- NOTE | 2020-08-19 16:11 | EDPHYS ---
Physician Documentation [facility] Name: Doretha Partida Age: 74 yrs Sex: Female : 1945 Arrival Date: 08/19/2020 Time: 08:06 Bed 17 Private MD: ED Physician Ezequiel Mills HPI: 08/19 09:16 This 74 yrs old Female presents to ER via Wheelchair with complaints of Flank pm1 Pain, Dysuria. 09:16 The patient complains of pain in the right mid back. The pain radiates to the right pm1 lower quadrant. Onset: The symptoms/episode began/occurred this morning, at 04:00. Modifying factors: The symptoms are alleviated by nothing. the symptoms are aggravated by nothing. Associated signs and symptoms: Pertinent positives: dysuria, nausea, vomiting, Pertinent negatives: diarrhea, fever. Severity of pain: in the emergency department the pain is actually worse. The patient has experienced similar episodes in the past, a few times, today's symptoms are similar, to previous to pain with her gallbladder and UTIs. The patient has not recently seen a physician. Historical: - Allergies: 08:13 Codeine; aa5 - PMHx: 08:13 ESRD; GALLSTONES; Hypertension; Kidney stones; aa5 08:17 Hx of Dialysis but no longer needs dialysis.; aa5 - PSHx: 08:19 Dialysis catheter placed and removed; aa5 - Immunization history:: Adult Immunizations unknown. - Social history:: Smoking status: Patient denies any tobacco usage or history of. ROS: 09:16 Constitutional: Negative for fever, chills, and weight loss, Neck: Negative for injury, pm1 pain, and swelling, Cardiovascular: Negative for chest pain, palpitations, and edema, Respiratory: Negative for shortness of breath, cough, wheezing, and pleuritic chest pain. 09:16 MS/Extremity: Negative for injury and deformity, Skin: Negative for injury, rash, and discoloration, Neuro: Negative for headache, weakness, numbness, tingling, and seizure. 09:16 Abdomen/GI: Positive for abdominal pain, nausea and vomiting, of the right lower quadrant, Negative for diarrhea, constipation. 09:16 Back: Positive for flank pain, on the right. 09:16 : Positive for burning with urination. Exam: 09:16 Constitutional: This is a well developed, well nourished patient who is awake, alert, pm1 and in no acute distress. Head/Face: Normocephalic, atraumatic. 09:16 Back: No spinal tenderness. No costovertebral tenderness. Full range of motion. Skin: Warm, dry with normal turgor. Normal color with no rashes, no lesions, and no evidence of cellulitis. MS/ Extremity: Pulses equal, no cyanosis. Neurovascular intact. Full, normal range of motion. 09:16 Cardiovascular: Exam negative for acute changes, Rate: normal, Rhythm: regular, Pulses: no pulse deficits are appreciated, Edema: is not appreciated. 09:16 Respiratory: Exam negative for acute changes, respiratory distress, shortness of breath. 09:16 Abdomen/GI: Inspection: abdomen appears normal, Palpation: soft, in all quadrants, mild abdominal tenderness, in the epigastric area. 09:16 Neuro: Exam negative for acute changes, Orientation: is normal, Mentation: is normal, Motor: is normal, moves all fours, Sensation: is normal, no obvious gross deficits. Vital Signs: 08:13 BP 121 / 94; Pulse 71; Resp 18 S; Temp 97.8(O); Pulse Ox 99% on R/A; Weight 74.84 kg aa5 (R); Height 5 ft. 4 in. (162.56 cm) (R); 10:57 BP 124 / 70; Pulse 96; Resp 16; Pulse Ox 99% ; rb3 11:41 BP 130 / 58; Pulse 85; Resp 14; Pulse Ox 100% ; rb3 12:30 BP 127 / 54; Pulse 83; Resp 15; Pulse Ox 100% ; rb3 13:30 BP 131 / 68; Pulse 86; Resp 13; Pulse Ox 100% ; rb3 15:00 BP 125 / 53; Pulse 92; Resp 15; Pulse Ox 100% ; rb3 16:00 BP 126 / 51; Pulse 87; Resp 13; Pulse Ox 100% ; rb3 17:00 BP 127 / 51; Pulse 89; Resp 13; Pulse Ox 100% ; rb3 18:00 BP 137 / 67; Pulse 97; Resp 16; Pulse Ox 100% ; rb3 19:00 BP 115 / 41; Pulse 96; Resp 14; Pulse Ox 97% on R/A; rv 20:00 BP 108 / 64; Pulse 99; Resp 15; Pulse Ox 99% on R/A; rv 21:00 BP 133 / 56; Pulse 97; Resp 16; Pulse Ox 100% on R/A; rv 08:13 Body Mass Index 28.32 (74.84 kg, 162.56 cm) aa5 MDM: 09:09 Patient medically screened. pm1 15:15 Counseling: I had a detailed discussion with the patient and/or guardian regarding: the pm1 historical points, exam findings, and any diagnostic results supporting the discharge/admit diagnosis, lab results, radiology results, the need to transfer to another facility, [facility] does not immediately have the required specialist, No GI present to address patient's gallbladder pancreatitis. 15:15 Data reviewed: vital signs. pm1 18:22 Physician consultation: Rufina Hernandez was contacted at 18:23, regarding regarding pm1 transfer, patient's condition, and will see patient. 08/19 08:37 Order name: Urine Culture rn 08/19 08:37 Order name: Urine Microscopic Only; Complete Time: 16:48 rn 08/19 09:15 Order name: Basic Metabolic Panel; Complete Time: 11:48 pm1 08/19 09:15 Order name: CBC with Diff; Complete Time: 11:48 pm1 08/19 09:15 Order name: Hepatic Function; Complete Time: 11:48 pm1 08/19 09:15 Order name: Lipase; Complete Time: 11:48 pm1 08/19 11:51 Order name: US Abdomen Limited; Complete Time: 13:42 pm1 08/19 13:51 Order name: CT Stone Protocol; Complete Time: 15:02 pm1 08/19 15:45 Order name: Urine Dipstick-Ancillary; Complete Time: 15:56 EDAR 08/19 17:30 Order name: SARS-COV-2 RT PCR; Complete Time: 17:38 EDAR 08/19 08:37 Order name: Urine Dipstick-Ancillary (obtain specimen); Complete Time: 15:49 rn 08/19 09:15 Order name: IV Saline Lock; Complete Time: 10:52 pm1 08/19 09:15 Order name: Labs collected and sent; Complete Time: 11:21 pm1 08/19 09:21 Order name: Bladder Scanner; Complete Time: 10:51 pm1 05/01 15:15 Order name: NPO; Complete Time: 15:49 pm1 Administered Medications: 10:47 Drug: morphine 4 mg Route: IVP; Site: right forearm; rb3 11:00 Follow up: Response: No adverse reaction rb3 10:47 Drug: Zofran (Ondansetron) 4 mg Route: IVP; Site: right forearm; rb3 11:00 Follow up: Response: No adverse reaction rb3 15:30 Drug: NS 0.9% 1000 ml Route: IV; Rate: 100 ml/hr; Site: right forearm; rb3 21:23 Follow up: IV Status: Infusion continued upon transfer rv 16:34 Drug: Zosyn (piperacillin-tazobactam) 3.375 grams Route: IVPB; Infused Over: 60 mins; rb3 Site: right forearm; 17:02 Follow up: Response: No adverse reaction; IV Status: Completed infusion rb3 16:43 Drug: morphine 4 mg Route: IVP; Site: right forearm; rb3 17:02 Follow up: Response: No adverse reaction; Pain is decreased rb3 16:43 Drug: Zofran (Ondansetron) 4 mg Route: IVP; Site: right forearm; rb3 17:02 Follow up: Response: No adverse reaction rb3 Disposition: 08/19/20 16:10 Transfer ordered to Other Acute Care Facility. Diagnosis are Other acute pancreatitis - Gallstone pancreatitis, Urinary tract infection, site not specified. - Reason for transfer: Specialty. - Accepting physician is MD. - Condition is Stable. - Problem is new. - Symptoms have improved. Addendum: 08/21/2020 19:58 Co-signature as Attending Physician, Ezequiel Mills MD. r n Signatures: Dispatcher [employer] EDMS Ezequiel Mills MD MD rn Calderon, Audri, RN RN aa5 Ramiro Parry, BRUSH FILLER HAND BRUSH FILLER HAND pm1 Diego Gayle RN RN rv Alessandra Emmanuel, RN RN rb3 Corrections: (The following items were deleted from the chart) 08/19 08:17 08:13 PMHx: Dialysis, M,W,F; aa5 aa5 08:19 08:13 Allergies: Morphine; aa5 aa5 09:40 09:15 Stone Protocol+CT.RAD.BRZ ordered. EDMS EDMS 16:49 15:33 CORONAVIRUS+MR.LAB.BRZ ordered. EDMS EDMS 16:50 16:10 08/19/2020 16:10 Transfer ordered to Other Acute Care Facility. Diagnosis is pm1 Other acute pancreatitis - Gallstone pancreatitis. Reason for transfer: Specialty. Accepting physician is MD. Condition is Stable. Problem is new. Symptoms have improved. pm1 21:53 16:50 08/19/2020 16:10 Transfer ordered to Other Acute Care Facility. Diagnosis is rv Other acute pancreatitis - Gallstone pancreatitis; Urinary tract infection, site not specified. Reason for transfer: Specialty. Accepting physician is MD. Condition is Stable. Problem is new. Symptoms have improved. pm1
[2020-08-19] MEDS ORDERED: PIPER/TAZO/NS 3.375gm 3.375 GM/100 ML BAG ONE (16:31)
[2020-08-19 16:48] LABS: Urine Amorphous Sediment 3+ /HPF (NONE SEEN); Urine Bacteria >50 /HPF (<20)
[2020-08-19 22:10] VITALS: TEMP 97.8
[2020-08-19 22:26] VITALS: BP 133/56; O2SAT 100
== END 2020-08-19 21:53 ==
LOC: ER 08:04
DX: K85.10 Biliary acute pancreatitis without necrosis or infection (principal); N39.0 Urinary tract infection, site not specified; Z20.822 Contact with and (suspected) exposure to COVID-19; I12.0 Hypertensive chronic kidney disease with stage 5 chronic kidney disease or end stage renal disease; N18.6 End stage renal disease; Z88.5 Allergy status to narcotic agent; Z87.442 Personal history of urinary calculi
CPT/HCPCS: 96365; 96361; 87088; 85025; 87086; 80048; 36415; 80076; 83690; 76377; 74176; 76705; 51702; 96375; 99285; U0003; J2543; J7030; J2405 ×2; 81003; 81015; 87077; 87186

== ENCOUNTER 2020-09-06 06:54 | Emergency (ER) | payer OTHER ==
--- OUTSIDE RECORDS SUMMARY | 2020-09-06 06:58 | XMS REPORT | Continuity of Care Document ---
:1945 Author Organization [facility] t Address [address] [place] [address] Care Team Providers Name Role Phone Janine VILLA Primary Care Physician David VILLA, Domingo Attending Clinician Aly Norton MD Attending Clinician Blessing Mars MD Attending Clinician Ankit VILLA, AKristen Attending Clinician Joey Longoria CRNA Attending Clinician Lita Attending Clinician Unavailable Nicholas VILLA, T. Attending Clinician Yanci VILLA Attending Clinician Starr VILLA Attending Clinician Balaji Lind Attending Clinician Dayron VILLA Attending Clinician Jose Antonio VILLA, VKristen Attending Clinician Christie Le Attending Clinician Lyssa VILLA Attending Clinician DAVID Admitting Clinician Unavailable YANCI Admitting Clinician Unavailable Payers Payer Name Policy Type Policy Effective Date Expiration Date Sour ce Number MEDICAREMEDICARE PART [id number] 2008 Landen Sherman AND 00:00:00 Yazdanism [id number] 2008- [place] [facility] [place] COMM[facility]CIAL MISCMISC [id number] 2017 [place] MEDICARE 00:00:00 Yazdanism [id number] 04/2017-PresentCommerc ial Problems Condition Condition Condition Status Onset Resolution Last Treating Co mments Source Name Details Category Date Date Treatment Clinician Date Severe Severe Disease Active [place] acute acute 08-20 [facility] pancreatit pancreatit 00:00: st is is 00 Complicati Complicati Disease Active [place] on of on of 06-23 [facility] vascular vascular 00:00: st dialysis dialysis 00 catheter catheter Hyponatrem Hyponatrem Disease Active [place] ia ia 06-23 Method[facility] 00:00: st 00 Mechanical Mechanical Disease Active Overview : [place] complicati complicati 06-23 Formattin [facility] on of on of 00:00: g of this st vascular vascular 00 note dialysis dialysis might be catheter catheter different from the original. Added automatic ally from request for surgery [id number] Allergies, Adverse Reactions, Alerts Allergy Allergy Status Severity Reaction(s) Onset Inactive Treating Comm ents Source Name Type Date Date Clinician Sully Wright Active Itching [place] ty to 06-23 [facility] adverse 00:00: st reaction 00 s to drug Social History Social Habit Start Date Stop Date Quantity Comments Source History SDOH [place] Meth odist Alcohol Std Drinks History [facility] Meth odist Alcohol Binge Exposure to Not sure [place] Metho dist SARS-CoV-2 (event) Tobacco use and 2020-08-24 2020-08-24 Never used Joes R Zhao ethodist exposure 00:00:00 00:00:00 Alcohol intake 2020-08-24 2020-08-24 Lifetime [place] Me thodist 00:00:00 00:00:00 non-drinker (finding) History SDOH 2020-06-23 2020-06-23 1 [place] Meth odist Alcohol Frequency 00:00:00 00:00:00 Sex [birth year] Jose R Zhao ethodist 00:00:00 00:00:00 Smoking Status Start Date Stop Date Source Never smoker [place] Methodis t Medications Ordered Filled Start Stop Current Ordering Indication Dosage Frequency Signature Comments Components Source Medication Medication Date Date Medication? Clinician (SIG) Name Name levothyroxi Yes 75ug QD Take 75 Chito ston ne 5-06 mcg by Methodi (SYNTHROID) 13:57: mouth st 75 mcg 26 daily. tablet omeprazole 0 Yes 40mg QD Take 40 mg [place] (PriLOSEC) 5-06 by mouth Metho di 40 MG 13:57: daily. st capsule 26 metoclopram 0 Yes 5mg Q.[id number] Take 5 mg [place] regino 5-06 [id number] by mouth 3 Met [facility] (REGLAN) 5 13:57: 3D (three) st MG tablet 26 times a day. meclizine 0 Yes 25mg Q.25D Take 25 mg [place] (ANTIVERT) 5-06 by mouth 4 Met hodi 25 mg 13:57: (four) st tablet 26 times a day as needed for dizziness. calcitrioL 0 Yes .25ug Q48H Take 0.25 [place] (ROCALTROL) 5-06 mcg by Method i 0.25 MCG 13:57: mouth st capsule 26 every other day. traMADoL Yes acute pain 50mg Q6H Take 50 mg [place] (ULTRAM) 50 5-06 by mouth Meth shyam mg tablet 13:57: every 6 st 26 (six) hours as needed for moderate pain .acute pain. promethazin Yes 25mg Q6H Take 25 mg [place] e 5-06 by mouth Methodi (PHENERGAN) 13:57: every 6 st 25 MG 26 (six) tablet hours as needed for nausea or vomiting. hydrALAZINE Yes 100mg Q.5D Take 100 [place] (APRESOLINE 5-06 mg by Methodi ) 100 MG 13:57: mouth 2 st tablet 26 (two) times a day. amLODIPine 2020- No 10mg QD Take 1 [place] (NORVASC) - 04-08 tablet (10 Met hodi 10 mg 00:00: 23:59 mg total) st tablet 00 :00 by mouth daily for 30 days. ondansetron 0 2020- No 4mg Q12H Take 4 mg [place] (ZOFRAN) 4 - 03-08 by mouth Meth shyam MG tablet 20:27: 00:[address] 48 :00 (twelve) hours as needed for nausea or vomiting. carvediloL 2020- No 12.5mg Q.5D Take 12.5 [place] (COREG) 3-08 03-08 mg by Methodi 12.5 MG 20:27: 00:[address] tablet 48 :00 (two) times a day with meals. amoxicillin 2020- No 1{tbl} Q.5D Take 1 [place] -pot 3-11 21-08 tablet by Methodi clavulanate 20:27: 00:[address] (AUGMENTIN) 48 :00 (two) 250-125 mg times a per tablet day. traMADoL 2020- No acute pain 50mg Q8H Take 50 mg [place] (ULTRAM) 50 -11 21-08 by mouth Met hodi mg tablet 17:49: 00:[address] 18 :00 (eight) hours as needed for moderate pain .acute pain. amLODIPine 2020- No 5mg QD Take 5 mg [place] (NORVASC) 5 06-26-05 by mouth Met hodi mg tablet 11:50: 00:[address] 49 :00 amoxicillin 2020- No 500mg Q.[id number] Take 500 [place] (AMOXIL) 3- 03-05 [id number] mg by Met hodi 500 MG 11:50: 00:[address] capsule 49 :00 (three) times a day. amoxicillin 2020- No 1{tbl} QD Take 1 [place] -pot -11 21-05 tablet by Methodi clavulanate 11:50: 00:[address] (AUGMENTIN) 49 :00 daily. 500-125 mg Disp per tablet 06/18/20 18 day supply calcitrioL 2020- No .25ug QD Take 0.25 [place] (ROCALTROL) 3-08 03-05 mcg by Metho di 0.25 MCG 11:50: 00:[address] capsule 49 :00 daily. carvediloL 2020- No 12.5mg Q.5D Take 12.5 [place] (COREG) 3-08 03-05 mg by Methodi 12.5 MG 11:50: 00:[address] tablet 49 :00 (two) times a day with meals. hydroCHLORO No 25mg QD Take 25 mg [place] thiazide 06-26-05 by mouth Method i (HYDRODIURI 11:50: 00:[address] L) 25 MG 49 :00 tablet losartan No 100mg QD Take 100 Ch[place] ston (COZAAR) 06-26-05 mg by Methodi 100 MG 11:50: 00:[address] tablet 49 :00 daily. metoclopram No 5mg Q.25D Take 5 mg [place] regino 06-26-05 by mouth 4 Methodi (REGLAN) 5 11:50: 00:00 (four) st MG tablet 49 :00 times a day. metoprolol No 100mg QD Take 100 [place] succinate 06-26-05 mg by Methodi XL 11:50: 00:[address] (TOPROL-XL) 49 :00 daily. 100 mg 24 hr tablet prochlorper 10mg Q8H Take 10 mg [place] azine 06-26-05 by mouth Methodi (COMPAZINE) 11:50: 00:[address] 10 MG 49 :00 (eight) tablet hours as needed for nausea or vomiting. carvediloL No 25mg Q.5D Take 1 Britney ton (COREG) 25 06-26-07 tablet (25 Me thodi MG tablet 00:00: 23:59 mg total) st 00 :00 by mouth 2 (two) times a day with meals for 30 days. traMADoL acute pain 50mg Q8H Take 1 [place] (ULTRAM) 50 06-26 03-18 tablet (50 M ethodi mg tablet 00:00: 23:59 mg total) st 00 :00 by mouth every 8 (eight) hours as needed for moderate pain for up to 10 days .acute pain. Vital Signs Vital Name Observation Time Observation Value Comments Source Oxygen saturation in 2020-08-24 08:15:00 95 /min Jose R Martinez Arterial blood by Pulse oximetry Systolic blood 2020-08-24 07:37:48 146 mm[Hg] Zarina shook Yazdanism pressure Diastolic blood 2020-08-24 07:37:48 62 mm[Hg] Katiana on Yazdanism pressure Heart rate 2020-08-24 07:37:48 92 /min Jose R Martinez Body temperature 2020-08-24 07:37:48 36.5 Claudine Britney ton Yazdanism Respiratory rate 2020-08-24 07:37:48 16 /min Britney nestor Yazdanism Body weight 2020-08-24 05:48:00 75.932 kg Jose R Martinez BMI 2020-08-24 05:48:00 28.73 kg/m2 Jose R Martinez Body height 2020-08-20 00:05:44 162.6 cm Jose R Martinez Procedures Procedure Date / Time Performing Clinician Source Performed HC COMPLETE BLD COUNT 2020-08-24 05:35:00 Marbin Mars W/AUTO DIFF COMPREHENSIVE METABOLIC 2020-08-24 05:35:00 Marbin Mars Yazdanism PANEL ESTIMATED GFR 2020-08-24 05:35:00 Marbin Mars BILIRUBIN DIRECT 2020-08-24 05:35:00 Marbin Mars on Yazdanism PHOSPHORUS LEVEL 2020-08-24 05:35:00 Dorys Garrett Met hodmichelle Xie MAGNESIUM LEVEL 2020-08-24 05:35:00 Dorys Garrett Meth odist Rojas SURGICAL PATHOLOGY REQUEST 2020-08-23 12:50:00 Meme Nortonadeburt IN AN ELECTIVE 2020-08-23 10:51:43 Tom Longoria Yazdanism ENDOTRACHEAL AIRWAY CHOLECYSTECTOMY, 2020-08-23 10:02:00 Marbin Mars on Yazdanism LAPAROSCOPIC BASIC METABOLIC PANEL 2020-08-23 04:21:00 Meme Norton on Yazdanism Sarafadeen HEPATIC FUNCTION PANEL 2020-08-23 04:21:00 Marbin Mars HC COMPLETE BLD COUNT 2020-08-23 04:21:00 Marbin Mars W/AUTO DIFF TYPE AND SCREEN 2020-08-23 04:21:00 Marbin Mars ESTIMATED GFR 2020-08-23 04:21:00 EstevanjaniceMeme dinero Met hodmichelle Lu COVID-19 QUALITATIVE PCR 2020-08-22 22:20:00 Marbin Mars Yazdanism BASIC METABOLIC PANEL 2020-08-22 04:01:00 Celso Keenan Yazdanism ESTIMATED GFR 2020-08-22 04:01:00 Celso Keenan Meth odist PHOSPHORUS LEVEL 2020-08-22 04:01:00 Tami, Dorys Odell Met hodist Gargollo MAGNESIUM LEVEL 2020-08-22 04:01:00 Tami, Dorys [facility] Meth odist [place]argollo BASIC METABOLIC PANEL 2020-08-21 18:36:00 Tami, Dorys shook Yazdanism [place] MAGNESIUM LEVEL 2020-08-21 18:36:00 Tami, Dorys [facility]ell Meth odist [place] PHOSPHORUS LEVEL 2020-08-21 18:36:00 Tami, Dorys Odell Met hodist [place] ALBUMIN LEVEL 2020-08-21 18:36:00 [facility] [place] IONIZED CALCIUM 2020-08-21 18:36:00 [facility] [place] ESTIMATED GFR 2020-08-21 18:36:00 Tami, Dorys [facility] Meth odist [place] VENIPUNC NEED PHYS 2020-08-21 14:03:00 Reed May[place] on Yazdanism SKILL,DX OR RX BASIC METABOLIC PANEL 2020-08-21 04:32:00 Celso Keenan Yazdanism PHOSPHORUS LEVEL 2020-08-21 04:32:00 Celso Keenan Met hodist PARATHYROID HORMONE 2020-08-21 04:32:00 Celso Keenan Yazdanism VITAMIN D 25 HYDROXY LEVEL 2020-08-21 04:32:00 Celso Keenan Yazdanism ESTIMATED GFR 2020-08-21 04:32:00 Celso Keenan Meth odist PROTHROMBIN TIME WITH INR 2020-08-21 04:32:00 Rufina Hernandez Yazdanism MAGNESIUM LEVEL 2020-08-21 04:32:00 Dorys Garrett Kimani decker Camerongollo XR CHEST 1 VW PORTABLE 2020-08-20 06:21:29 DavidRufina boogie Chito cruz Yazdanism COMPREHENSIVE METABOLIC 2020-08-20 04:40:00 DavidRufina boogie Landen garcia Yazdanism PANEL HC COMPLETE BLD COUNT 2020-08-20 04:40:00 David, Ibrahimaian Cotobrian baez Yazdanism W/AUTO DIFF MAGNESIUM LEVEL 2020-08-20 04:40:00 DavidRufina boogiebrian [facility] Me thodist LIPASE LEVEL 2020-08-20 04:40:00 David, Ibrahimaian Domingo [facility] Me thodist AMYLASE LEVEL 2020-08-20 04:40:00 DavidRufina boogiebebelupe Jose R Me thodist ESTIMATED GFR 2020-08-20 04:40:00 David, Ibrahimaian Cotobrian Odell Me thodist HC COMPLETE BLD COUNT 2020-08-20 00:27:00 DavidRufina boogiebrian baez Yazdanism W/AUTO DIFF COMPREHENSIVE METABOLIC 2020-08-20 00:27:00 DavidRufina boogiebrian garcia Yazdanism PANEL MAGNESIUM LEVEL 2020-08-20 00:27:00 DavidRufina boogiebebelupe Jose R Me thodist AMYLASE LEVEL 2020-08-20 00:27:00 DavidRufina boogiebebelupe Jose R Me thodist LIPASE LEVEL 2020-08-20 00:27:00 DavidRufinabebelupe Jose R Me thodist LIPID PANEL 2020-08-20 00:27:00 DavidRufina boogiebebelupe Jose R Me thodist ESTIMATED GFR 2020-08-20 00:27:00 David Ibrahimaian Cotobrian Odell Me thodist HEMOGLOBIN A1C 2020-08-20 00:27:00 Rufina Hernandez Me thodist OR [place] < 1 HOUR 2020-06-26 10:36:00 David Omalley odmichelle IN AN ELECTIVE 2020-06-26 10:20:38 Octavio Le ethodist SUPRAGLOTTIC AIRWAY INSERTION, TUNNELED 2020-06-26 09:37:00 David Omalley CENTRAL VENOUS CATHETER WITH PORT, WITHOUT FLUOROSCOPIC GUIDANCE HEMODIALYSIS 2020-06-26 09:32:43 David Omalley odmichelle PROTHROMBIN TIME WITH INR 2020-06-26 04:26:00 David Omalley PARTIAL THROMBOPLASTIN 2020-06-26 04:26:00 David Omalley Yazdanism TIME (PTT) BASIC METABOLIC PANEL 2020-06-26 04:26:00 Chucky Lind Yazdanism Balaji HC COMPLETE BLD COUNT 2020-06-26 04:26:00 Chucky Lind W/AUTO DIFF Balaji ABO AND RH CONFIRMATION 2020-06-26 04:26:00 David Omalley ESTIMATED GFR 2020-06-26 04:26:00 Chucky Lind ethodist Balaji TYPE AND SCREEN 2020-06-25 14:17:00 David Omalley XR NECK SOFT TISSUE 2020-06-25 09:00:00 Celso Keenan BASIC METABOLIC PANEL 2020-06-25 04:05:00 Chucky Lind Yazdanism Balaji HC COMPLETE BLD COUNT 2020-06-25 04:05:00 Chucky Lind W/AUTO DIFF Balaji ESTIMATED GFR 2020-06-25 04:05:00 Chucky Lind ethodist Balaji HEPATITIS B SURFACE 2020-06-24 14:22:00 Niurka Mccord ANTIGEN HEPATITIS B SURFACE 2020-06-24 14:22:00 Niurka Mccord ANTIBODY HEMODIALYSIS 2020-06-24 13:48:38 Niurka Mccord Met hodist XR CHEST 1 VW PORTABLE 2020-06-23 23:27:43 David Omalley Yazdanism ESTIMATED GFR 2020-06-23 21:54:00 Shreya Jordan AMYLASE LEVEL 2020-06-23 21:54:00 Shreya Jordanist LIPASE LEVEL 2020-06-23 21:54:00 Shreya Jordan COMPREHENSIVE METABOLIC 2020-06-23 21:54:00 Shreya Jordan PANEL COVID-19 QUALITATIVE PCR 2020-06-23 19:00:00 Maninder Peterson HC COMPLETE BLD COUNT 2020-06-23 17:09:00 Maninder Peterson W/AUTO DIFF PROTHROMBIN TIME WITH INR 2020-06-23 [...] Future Scheduled 2020-11-19 INFLUENZA VACCINE Zarina shook Yazdanism Test 00:00:00 [code = INFLUENZA VACCINE] Future Scheduled 1993-11-02 COLONOSCOPY SCREENING Ho jose Yazdanism Test 00:00:00 [code = COLONOSCOPY SCREENING] Future Scheduled 1993-11-02 SHINGLES VACCINES (#1) H [place]anthony Yazdanism Test 00:00:00 [code = SHINGLES VACCINES (#1)] Future Scheduled 1961-11-02 Hepatitis C screening [place] Yazdanism Test 00:00:00 (procedure) [code = 059791737] Future Scheduled 1955 COVID-19 VACCINE (1) Chito cruz Yazdanism Test 00:00:00 [code = COVID-19 VACCINE (1)] Future Scheduled 1949-11-02 65+ PNEUMOCOCCAL Jose R Yazdanism Test 00:00:00 VACCINE (1 of 4 - PCV13) [code = 65+ PNEUMOCOCCAL VACCINE (1 of 4 - PCV13)] Encounters Start End Encounter Admission Attending Care Care Encounter Source Date/Time Date/Time Type Type Clinicians Facility Department ID 2020-08-19 2020-08-24 Inpatient MIREYA [facility] [id number] 06 [place] 00:00:00 00:00:[address] 2020-06-23 2020-06-26 Outpatient INGRIS PASCAL [facility] [id number] [place] 00:00:00 00:00:[address] Results Test Description Test Time Test Comments Results Result Comments Source Surgical pathology request 2020-08-25 12:08:01 Test Item Value Reference Range Interpretation Comme nts Case number (test code = [id number]) [id number] Surgical pathology report (test code = See link below for PDF Lab R eport 1673) Result status (test code = [id number]) This is Final Report for [id number] [place] [id number] 10:51:43Tom Longoria CRNA 08/23/2020 10:52 AMAirway Location: OR Performed by: CAMILA/AAAuthorized by: Jeni Pham MD Urgency: ElectiveDifficult Airway: No Preoxygenated with 100% O2: Yes C-spine Precautions Maintained Throughout: Yes Mask Ventilation: Not attemptedFinal Airway Type: Endotracheal airwayFinal Endotracheal Airway: ETTCuffed: Yes Technique Used: Direct laryngoscopyD evices/Methods Used in Placement: Intubating styletBlade Type: MillerLaryngoscope Blade/Videolaryngoscope Blade Size: 2ETT Size (mm): 7.0Cuff at minimum occlusion pressure: Yes Measured from: GumsETT to Gums (cm): 20Placement Verified by: CO2 detection, direct visualization and equal breath sounds Laryngoscopic view: Grade I - full view of glottisRapid Sequence Induction (RSI): Yes ModifiedRSI: No Number of Attempts at Approach: 1[facility] NEED [facility]YS SKILL,DX OR [id number] 14:03:00Reed [place] RN 08/21/2020 2:15 PMMidline Insertion Date/Time: 08/21/2020 2:03 PMPerformed by: Reed Mayers, RNAuthorized by: Rufina Hernandez MD Consent: Consent obtained: Written Consent given by: Patient Risks discussed: Arterial puncture, incorrect placement, nerve damage, bleeding, infection, superficial thrombus and deep vein thrombus Alternatives discussed: No treatment and delayed treatmentUniversal protocol: Procedure explained and questions answered to patientor proxy's satisfaction: yes Relevant documents present and verified: yes Test results available and properly labeled: yes Imaging studies available: yes Required blood products, implants, devices, and special equipment available: yes Site/side marked: yes Immediately prior to procedure, a time out was called: yes Patient identity confirmed: Verbally with patient, arm band, provided demographic data and hospital-assigned identification numberPre-procedure details: Hand hygiene: Hand hygiene performed prior to insertion Sterile barrier technique: All elements of maximal sterile technique followed Skin preparation: ChloraPrep Skin preparation agent: Dried prior to procedure Anesthesia (see MAR for exact dosages): Anesthesia method: Local infiltration Local anesthetic: Lidocaine 1% w/o epi Route administered: SubcutaneousMidLine Placement Details (Will createan LDA): Extremity Circumference Upper (cm): 36 Extremity Circumference Site: 36 Patient position: Flat Vessel Size (mm): 3 Indication: Poor venous access Location: Left brachial Device Type: Non- valved Catheter Lumen(s): Single lumen Catheter size: 3 Fr Catheter to vein ratio: 36MidLine Characteristics: Catheter Brand: [employer] External Catheter Length (cm): 0 Internal Catheter Length (cm): 12 Total Catheter Length (cm): 12 Catheter Lot Number: [id number] Catheter Expiration Date: 06/18/2021 Micro-Introducer Lot Number: Procedure details: Landmarks identified: yes Ultrasound guidance: yes Sterile ultrasound techniques: Sterile gel and sterile probe covers were used Number of attempts: 1 Number of MidLine kits used during procedure: 1 Extra guide wire required?: No Purpose of procedure: Midline Placement Patency/Placement: Flushes without difficulty, flushed with 10 mL normal saline, positive blood return, injection cap placed and ultrasound MidLine placed utilizing ultrasound-guided Modified Seldinger Technique: Yes Dressing/Securement: Antimicrobial dressing dry and intact, antimicrobial dressing applied and catheter securement deviceBlood Loss Amount: Less than 20 mLPost-procedure details: Post-procedure: Dressing applied Patient tolerance of procedure: Tolerated well, no immediate complications [facility] MethodistXR [facility] 1 [facility] [id number] 07:31:35Hm Interface, Radiology Results Incoming 08/20/2020 7:34 AM CDT Examination: XR CHEST 1 VW PORTABLEClinical history: pneumoniaComparison: 06/23/2020IMPRESSION: Lungs are clear and appear unchanged. Right IJ lines have been removed.No pneumothoraces are identified. There are no apparent pleural effusions.The cardiomediastinal silhouette and the remainder of the chest appear essentially unchanged.[id number] MethodistOR [place] < 1 [id number] 13:51:00Hm Interface, Radiology Results Incoming - 06/26/2020 1:54 PM CST EXAMINATION: OR [place] < 1 HOURCLINICAL HISTORY: Intraoperative fluoroscopyIMPRESSION:Fluoroscopy was provided. No radiologist present. Please see procedure report for discussion of procedure, findings and fluoroscopic time.[facility] PURCELLL-[id number] MethodistAirway 2020-06-26 10:20:38Octavio Le 06/26/2020 10:20 AMAirway Location: OR Performed by: RETAIL SHIFT LEADER/AAAnesthesiologist: Garett Brady MDResident/RETAIL SHIFT LEADER/AA: Octavio Le RAuthorized by: Garett Brady MD Urgency: ElectiveDifficult Airway: No Preoxygenated with 100% O2: Yes C-spine Precautions Maintained Throughout: Yes Mask Ventilation: Not attemptedFinal Airway Type: Supraglottic airwayFinal LMA: UniqueLMA Size: 4Number of Attempts at Approach: 1 Soft Tissue Intact, able to ventilate with no leak and minimal peak inspiratory pressuresSaint Mary'S Hospital Of Blue Springsanthony MethodistXR Neck Soft [id number] 10:15:23Hm Interface, Radiology Results 06/25/2020 10:18 AM CST EXAMINATION: XR NECK SOFT TISSUECLINICAL HISTORY: location of the dialysiscathCOMPARISON: NoneIMPRESSION:2 views were obtained.Right jugular dialysis catheter with tips in the superior vena cava.No prevertebral soft tissue thickening.There is 1 to 2 mm degenerative anterolisthesis of C3 on C4, C4 on C5, and C5 on C6, with mild disc height loss at C4-5 and C5-6 with small anterior endplate osteophytes.[id number] MethodistEC 12 [id number] 17:45:47 Test Item Value Reference Range Interpretation Comments Ventricular rate (test 88 code = 253) Atrial rate (test code = 88 255) IN interval (test code = 120 266) QRSD interval (test code 142 = 260) QT interval (test code = 400 264) QTC interval (test code 484 = 265) P axis 1 (test code = -50 267) QRS axis 1 (test code = -15 268) T wave axis (test code = 92 270) EKG impression (test Unusual P axis, code = 273) possible ectopic atrial rhythm-Left bundle branch block-No previous ECGs available-Electronica lly Signed By Jere No MD (2024) on 06/23/2020 5:45:46 PM [facility] ED Preliminary Interpretation - Not an [id number] 16:57:05 Test Item Value Reference Range Interpretation Comments STEPHANIE (test code = STEPHANIE) Maninder Peterson III, MD 06/24/2020 1:43 [facility] ED Preliminary Interpretation - Not an OrderPerformed by: Maninder Peterson III, MDAuthorized by: Maninder Peterson III, MD ECG reviewed by ED Physician in the absence of a special systems technician: yes Interpretation: Interpretation: abnormal Quality: Tracing quality: Limited by artifactRate: ECG rate: 88 ECG rate assessment: normal Rhythm: Rhythm: sinus rhythm Ectopy: Ectopy: none QRS: QRS axis: Normal QRS intervals: WideConduction: Conduction: abnormal Abnormal conduction: complete LBBB ST segments: ST segments: Non-specificT waves: T waves: non-specific Lab Interpretation Abnormal (test code = 32389-0) Jose R Martinez
[2020-09-06 07:51] LABS: Urine Blood Negative (Negative); Urine Glucose Negative (Negative); Urine Protein 1+ (Negative); Urine Specific Gravity 1.015 (1.005-1.030)
[2020-09-06 08:33] LABS: Basophils % 0.9 % (0-1.3); Hematocrit 28.8 % (36.0-45.0); Lymphocytes % 11.8 % (15.3-44.8); MPV 8.1 fL (7.6-11.3); RBC Red Blood Cell Count 3.34 M/uL (3.86-4.86)
--- NOTE | 2020-09-06 08:48 | RAD REPORT ---
EXAM DESCRIPTION: CT - Stone Protocol - 09/06/2020 8:11 am CLINICAL HISTORY: lower abd pain, dysuria COMPARISON: Stone Protocol dated 08/19/2020 TECHNIQUE: Axial 3 mm thick images were obtained without oral or IV contrast. The [id number] span s the entirety of the system including uppermost abdomen and lung bases. All CT scans are performed using dose optimization technique as appropriate and may include automated exposure control or mA/KV adjustment according to patient size. FINDINGS: Mild hydronephrosis is present in the left collecting system to the UVJ level. There is no obstructing calculus identifiable. No obstructing or nonobstructing calculi seen in this patient. Th ere is no right-sided hydronephrosis. Trace amount of perinephric stranding is present symmetric righ t versus left. No suspicious renal masses. Isodense masses and pyelonephritis are not excluded on a s tone protocol CT scan. No significant adrenal finding. Urinary bladder is fully contracted limiting a ssessment. No bladder calculus is identifiable. Pelvic phleboliths are present. Uterus is absent or a trophic. Ovaries are atrophic or obscured by adjacent bowel. No evidence for an ovarian process. Imaged portions of the liver, spleen and pancreas show no suspicious findings on non-contrast imaging . Cholecystectomy clips are present. No biliary tree dilatation. No suspicious bowel findings. Patient has a very minimal hiatal hernia. Rare diverticula seen. No hernia, mass or bulky lymphadenopathy noted. No free air, pneumatosis or focal inflammatory strand ing. A trace amount of free fluid is seen in the dependent portion of the pelvis. No acute bone finding. Patient has advanced degenerative change at L2-3 through L4-5. IMPRESSION: Mild left-sided hydronephrosis down to the UVJ level. There is no obstructing calculus. Patient has no nonobstructing calculi. Hydronephrosis is new from the August 19 examination. Patient may have recently passed a stone. Blood or inflammatory debris within the ureter can cause hydronephrosis. A small obstructing mass is possible though would be lower in likelihood given normal appearance to the ureter 2 weeks earlier. Isodense masses and pyelonephritis are not excluded on stone protocol technique.
[2020-09-06 09:05] LABS: Potassium 2.7 mmol/L (3.5-5.1)
--- NOTE | 2020-09-06 09:29 | EDPHYS ---
Physician Documentation [facility] Name: Doretha Partida Age: 74 yrs Sex: Female : 1945 Arrival Date: 09/06/2020 Time: 07:03 Bed 4 Private MD: ED Physician Ezequiel Mills HPI: 09/06 07:30 This 74 yrs old Female presents to ER via Wheelchair with complaints of rn Urinary Problem. 07:30 The patient presents with urinary symptoms, dysuria, frequency, urgency. rn 07:31 Onset: The symptoms/episode began/occurred yesterday. Modifying factors: The symptoms rn are alleviated by nothing, the symptoms are aggravated by urinating. Associated signs and symptoms: Pertinent positives: dysuria, Pertinent negatives: fever, vaginal discharge. Severity of symptoms: At their worst the symptoms were moderate, in the emergency department the symptoms are unchanged. The patient has experienced similar episodes in the past. The patient has not recently seen a physician. Reports dysuria, began yesterday, also with urgency and dribbling urine, similar to when had UTI in past. NO trauma. Also not eating/drinking much since gallbladder surgery a couple of weeks ago. No hematuria. No back pain, no hx of kidney stones, no fever. . Historical: - Allergies: 07:25 Codeine; aa5 - PMHx: 07:25 ESRD; GALLSTONES; Hx of Dialysis but no longer needs dialysis.; Hypertension; Kidney aa5 stones; - PSHx: 07:25 Dialysis catheter placed and removed; aa5 - Immunization history:: Adult Immunizations unknown. - Social history:: Smoking status: Patient denies any tobacco usage or history of. - Family history:: not pertinent. - Hospitalizations: : Patient was recently seen at. ROS: 07:31 Constitutional: Negative for fever, chills, and weight loss, Eyes: Negative for injury, rn pain, redness, and discharge, Neck: Negative for injury, pain, and swelling, Cardiovascular: Negative for chest pain, palpitations, and edema, Respiratory: Negative for shortness of breath, cough, wheezing, and pleuritic chest pain, Abdomen/GI: Negative for nausea, vomiting, diarrhea, and constipation, Back: Negative for injury and pain, : Negative for injury, bleeding, discharge, and swelling, MS/Extremity: Negative for injury and deformity, Skin: Negative for injury, rash, and discoloration, Neuro: Negative for headache, weakness, numbness, tingling, and seizure. Exam: 07:31 Constitutional: This is a well developed, well nourished patient who is awake, alert, rn and in no acute distress. Head/Face: Normocephalic, atraumatic. ENT: dry MM Cardiovascular: Regular rate and rhythm. No pulse deficits. Respiratory: No increased work of breathing, no retractions or nasal flaring. Abdomen/GI: soft, mild suprapubic tenderness, no rebound, no masses Skin: Warm, dry MS/ Extremity: Pulses equal, no cyanosis. Neurovascular intact. Full, normal range of motion. Equal circumference. Neuro: Awake and alert, GCS 15, oriented to person, place, time, and situation. Cranial nerves II-XII grossly intact. Motor strength 5/5 in all extremities. Sensory grossly intact. Vital Signs: 07:19 BP 146 / 72; Pulse 98; Resp 16 S; Temp 98.7(O); Pulse Ox 98% on R/A; Weight 74.84 kg aa5 (R); Height 5 ft. 4 in. (162.56 cm) (R); 08:26 BP 104 / 46 Supine; Pulse 100; Resp 17; Pulse Ox 100% ; tw2 09:20 BP 150 / 77; Pulse 100; Resp 17; Pulse Ox 100% on R/A; tw2 07:19 Body Mass Index 28.32 (74.84 kg, 162.56 cm) aa5 MDM: 07:19 Patient medically screened. rn 09:26 Differential diagnosis: nonspecific abdominal pain, urinary tract infection, rn hydronephrosis, kidney stone. Data reviewed: vital signs, nurses notes, lab test result(s), radiologic studies, CT scan, and as a result, I will discharge patient. Counseling: I had a detailed discussion with the patient and/or guardian regarding: the historical points, exam findings, and any diagnostic results supporting the discharge/admit diagnosis, lab results, radiology results, the need for outpatient follow up, to return to the emergency department if symptoms worsen or persist or if there are any questions or concerns that arise at home. Response to treatment: the patient's symptoms have markedly improved after treatment, and as a result, I will discharge patient. Special discussion: I discussed with the patient/guardian in detail that at this point there is no indication for admission to the hospital. It is understood, however, that if the symptoms persist or worsen the patient needs to return immediately for re-evaluation. Based on the history and exam findings, there is no indication for further emergent testing or inpatient evaluation. I discussed with the patient/guardian the need to see the urologist for further evaluation of the symptoms. ED course: Pt feels better, new finding of left sided hydro, could be 2/2 infection or stricture or recently passes stone. Will cove with abx and pain meds and have her f/u with urology given normal renal function. Return precautions given and understood.. 09/06 07:30 Order name: Urine Culture 09/06 07:30 Order name: Urine Microscopic Only 09/06 07:51 Order name: Urine Dipstick-Ancillary; Complete Time: 07:57 EDNE 09/06 07:58 Order name: Basic Metabolic Panel 09/06 07:58 Order name: CBC with Diff 09/06 08:34 Order name: CBC with Automated Diff; Complete Time: 09:04 [facility] 09/06 07:30 Order name: Urine Dipstick-Ancillary (obtain specimen); Complete Time: 08:06 rn 09/06 07:58 Order name: CT Stone Protocol 09/06 08:48 Order name: CT; Complete Time: 09:04 [facility] 09/06 09:05 Order name: Basic Metabolic Panel; Complete Time: 09:21 [facility] 09/06 09:52 Order name: Urine Microscopic Only [facility] 09/06 07:35 Order name: Straight Cath - Urine; Complete Time: 08:06 [facility] 09/06 07:58 Order name: IV Saline Lock; Complete Time: 08:25 rn 09/06 07:58 Order name: Labs collected and sent; Complete Time: 08:25 rn Administered Medications: 09:14 Drug: Zofran (Ondansetron) 4 mg Route: IVP; Site: left antecubital; tw2 10:17 Follow up: Response: No adverse reaction tw2 09:16 Drug: Demerol (meperidine) 25 mg {Note: rass 0.} Route: IVP; Site: left antecubital; tw2 09:45 Follow up: Response: No adverse reaction; Pain is decreased; RASS: Alert and Calm (0) tw2 10:00 Drug: Potassium Chloride 40 mEq Route: PO; tw2 10:16 Follow up: Response: No adverse reaction tw2 Disposition: 09/06/20 09:29 Discharged to Home. Impression: Urinary tract infection, site not specified, Hydronephrosis, left side. - Condition is Stable. - Discharge Instructions: Urinary Tract Infection, Adult, Hydronephrosis. - Prescriptions for Tramadol 50 mg Oral Tablet - take 1 tablet by ORAL route every 8 hours as needed; 15 tablet. cefpodoxime 100 mg Oral Tablet - take 2 tablet by ORAL route every 12 hours for 10 days take with food; 40 tablet. - Medication Reconciliation Form, Thank You Letter, Antibiotic Education, Prescription Opioid Use form. - Follow up: Kenneth Bronson MD; When: 2 - 3 days; Reason: Recheck today's complaints, Re-evaluation by your physician. - Problem is new. - Symptoms have improved. Signatures: Dispatcher [employer] EDMS Ezequiel Mills MD MD rn Calderon, Audri RN RN aa5 Agnes Rice RN RN tw2 Corrections: (The following items were deleted from the chart) 09:29 09:29 09/06/2020 09:29 Discharged to Home. Impression: Urinary tract infection, site rn not specified; Hydronephrosis with ureteral stricture, not elsewhere classified. Condition is Stable. Forms are Medication Reconciliation Form, Thank You Letter, Antibiotic Education, Prescription Opioid Use. Follow up: Kenneth Bronson; When: 2 - 3 days; Reason: Recheck today's complaints, Re-evaluation by your physician. Problem is new. Symptoms have improved. rn 10:18 09:29 09/06/2020 09:29 Discharged to Home. Impression: Urinary tract infection, site tw2 not specified; Hydronephrosis, left side. Condition is Stable. Forms are Medication Reconciliation Form, Thank You Letter, Antibiotic Education, Prescription Opioid Use. Follow up: Kenneth Bronson; When: 2 - 3 days; Reason: Recheck today's complaints, Re-evaluation by your physician. Problem is new. Symptoms have improved. rn
--- NOTE | 2020-09-06 09:29 | ER ---
Nurse's Notes [facility] Name: Doretha Partida Age: 74 yrs Sex: Female : 1945 Arrival Date: 09/06/2020 Time: 07:03 Bed 4 Private MD: Diagnosis: Urinary tract infection, site not specified;Hydronephrosis, left side Presentation: 09/06 07:19 Chief complaint: Patient states: "I feel like I can't pee and it hurts". Pt reports aa5 symptoms began today at 0400. 07:19 Coronavirus screen: At this time, the client does not indicate any symptoms associated aa5 with coronavirus-19. Ebola Screen: Patient negative for fever greater than or equal to 101.5 degrees Fahrenheit, and additional compatible Ebola Virus Disease symptoms. Initial Sepsis Screen: Does the patient meet any 2 criteria? No. Patient's initial sepsis screen is negative. Does the patient have a suspected source of infection? No. Patient's initial sepsis screen is negative. Risk Assessment: Do you want to hurt yourself or someone else? Patient reports no desire to harm self or others. Onset of symptoms was September 06, 2020. 07:19 Method Of Arrival: Wheelchair aa5 07:19 Acuity: SLY 3 aa5 Historical: - Allergies: 07:25 Codeine; aa5 - PMHx: 07:25 ESRD; GALLSTONES; Hx of Dialysis but no longer needs dialysis.; Hypertension; Kidney aa5 stones; - PSHx: 07:25 Dialysis catheter placed and removed; aa5 - Immunization history:: Adult Immunizations unknown. - Social history:: Smoking status: Patient denies any tobacco usage or history of. - Family history:: not pertinent. - Hospitalizations: : Patient was recently seen at. Screenin:07 Abuse screen: Denies threats or abuse. Nutritional screening: No deficits noted. tw2 Tuberculosis screening: No symptoms or risk factors identified. Fall Risk None identified. Assessment: 07:30 General: Appears in no apparent distress. Behavior is cooperative, appropriate for age, tw2 fussy. Pain: Complains of pain in urgency to urinate. Neuro: Level of Consciousness is awake, alert, obeys commands, Oriented to person, place, time, situation. Cardiovascular: Patient's skin is warm and dry. Respiratory: Airway is patent Respiratory effort is even, unlabored, Respiratory pattern is regular, symmetrical. GI: No signs and/or symptoms were reported involving the gastrointestinal system. : Reports burning with urination, since this morning inability to void, urgency. Musculoskeletal: Range of motion: intact in all extremities. 08:26 Reassessment: No changes from previously documented assessment. Patient and/or family tw2 updated on plan of care and expected duration. Pain level reassessed. Patient is alert, oriented x 3, equal unlabored respirations, skin warm/dry/pink. 09:15 Reassessment: pt c/o of pain, provider notified. medicated as ordered. tw2 10:17 Reassessment: Patient appears in no apparent distress at this time. Patient and/or tw2 family updated on plan of care and expected duration. Pain level reassessed. Patient is alert, oriented x 3, equal unlabored respirations, skin warm/dry/pink. Patient states feeling better. Vital Signs: 07:19 BP 146 / 72; Pulse 98; Resp 16 S; Temp 98.7(O); Pulse Ox 98% on R/A; Weight 74.84 kg aa5 (R); Height 5 ft. 4 in. (162.56 cm) (R); 08:26 BP 104 / 46 Supine; Pulse 100; Resp 17; Pulse Ox 100% ; tw2 09:20 BP 150 / 77; Pulse 100; Resp 17; Pulse Ox 100% on R/A; tw2 07:19 Body Mass Index 28.32 (74.84 kg, 162.56 cm) aa5 ED Course: 07:03 Patient arrived in ED. am4 07:19 Ezequiel Mills MD is Attending Physician. rn 07:19 Arm band placed on. aa5 07:19 Bed in low position. Call light in reach. Adult w/ patient. Pulse ox on. NIBP on. Warm tw2 blanket given. 07:25 Triage completed. aa5 07:31 Gaurang Velarde RN is Primary Nurse. jd3 07:48 Straight cath inserted, using sterile technique, 18 Fr. Specimen obtained. BRANNON Flores tw2 served as gauge operator. 08:06 Urine Microscopic Only Sent. tw2 08:06 Urine Culture Sent. tw2 08:08 Primary Nurse role handed off by Gaurang Velarde, BRANNON tw2 08:08 Agnes Rice, RN is Primary Nurse. tw2 08:23 Inserted saline lock: 20 gauge in left antecubital area, using aseptic technique. Blood tw2 collected. 09:28 Kenneth Bronson MD is Referral Physician. rn 10:17 No provider procedures requiring assistance completed. IV discontinued, intact, tw2 bleeding controlled, No redness/swelling at site. Pressure dressing applied. Administered Medications: 09:14 Drug: Zofran (Ondansetron) 4 mg Route: IVP; Site: left antecubital; tw2 10:17 Follow up: Response: No adverse reaction tw2 09:16 Drug: Demerol (meperidine) 25 mg {Note: rass 0.} Route: IVP; Site: left antecubital; tw2 09:45 Follow up: Response: No adverse reaction; Pain is decreased; RASS: Alert and Calm (0) tw2 10:00 Drug: Potassium Chloride 40 mEq Route: PO; tw2 10:16 Follow up: Response: No adverse reaction tw2 Outcome: 09:29 Discharge ordered by . rn 10:17 Discharged to home via wheelchair, with friend. tw2 10:17 Condition: stable 10:17 Discharge instructions given to patient, significant other, Instructed on medication usage, Demonstrated understanding of instructions, follow-up care, medications, Prescriptions given X 2. 10:18 Patient left the ED. tw2 Signatures: Ezequiel Mills MD MD rn Calderon, Audri, RN RN aa5 Agnes Rice RN RN tw2 Gaurang Velarde RN RN jd3 Svitlana Posada [facility]
[2020-09-06] MEDS ORDERED: MEPERIDINE HCL 25 MG/ML SYR ONE (09:32)
[2020-09-06] MEDS ORDERED: ONDANSETRON 4 MG/2 ML VIAL ONE (09:32)
[2020-09-06 09:51] LABS: Urine Bacteria 20-50 /HPF (<20); Urine RBC NONE SEEN /HPF (NONE SEEN)
[2020-09-06 10:24] VITALS: TEMP 98.7
[2020-09-06] MEDS ORDERED: POTASSIUM CL SA 10 MEQ TAB PO ONE (10:24)
[2020-09-06 10:26] VITALS: O2SAT 100
[2020-09-06 10:27] VITALS: BP 150/77
== END 2020-09-06 10:18 | disposition home or self-care (01) ==
LOC: ER 06:54
DX: N39.0 Urinary tract infection, site not specified (principal); N13.30 Unspecified hydronephrosis; I12.0 Hypertensive chronic kidney disease with stage 5 chronic kidney disease or end stage renal disease; N18.6 End stage renal disease; Z88.5 Allergy status to narcotic agent
CPT/HCPCS: 87088; 85025; 87086; 80048; 36415; 76377; 74176; J2175; J2405; 51702; 81003; 81015; 96374; 96375; 99284

== ENCOUNTER 2021-02-13 12:40 | Inpatient (IN) | payer OTHER ==
[2021-02-13 13:19] LABS: Protime INR 1.28
[2021-02-13 13:37] LABS: Absolute Lymphocytes (CBC) 0.9 K/uL (0.7-4.9); Basophils % 0.3 % (0-1.3); Lymphocytes % 5.4 % (15.3-44.8); MPV 8.9 fL (7.6-11.3); RBC Red Blood Cell Count 3.91 M/uL (3.86-4.86)
[2021-02-13 13:48] LABS: ALT/SGPT 48 U/L (12-78); AST/SGOT 32 U/L (15-37); Albumin 3.3 g/dL (3.4-5.0); Alkaline Phosphatase 963 U/L (45-117); BUN Blood Urea Nitrogen 102 mg/dL (7-18); Bicarbonate 16 mmol/L (21-32); Glucose Level 125 mg/dL (74-106); NT PRO-BNP 22101 pg/mL (<450); Potassium 4.9 mmol/L (3.5-5.1); Sodium Level 132 mmol/L (136-145); Troponin (Emerg Dept Use Only) < 0.02 ng/mL (0.0-0.045)
--- NOTE | 2021-02-13 13:51 | RAD REPORT ---
EXAM DESCRIPTION: RAD - Chest Single View - 02/13/2021 1:26 pm CLINICAL HISTORY: DYSPNEA COMPARISON: Chest Single View dated 07/17/2020; Chest Single View dated 06/09/2020; Chest Single View dated 06/07/2020; Stone Protocol dated 09/06/2020 FINDINGS: Lines: None. Lungs: Pulmonary vascular congestion. Left lung base is not well visualized. Pleural: Cannot exclude a left-sided pleural effusion. Cardiac: Cardiomegaly. Bones: No acute fractures. Other: IMPRESSION: Increased cardiomegaly. Consider correlating with echocardiography or CT to exclude nicolasa cardial effusion. Basilar opacities noted which could reflect atelectasis and/or pneumonia.
[2021-02-13] MEDS ORDERED: METOPROLOL TARTRATE 5 MG/5 ML INJ IV ONE (14:06)
[2021-02-13 14:16] LABS: Thyroid Stimulating Hormone 1.33 uIU/mL (0.360-3.740)
[2021-02-13] MEDS ORDERED: FUROSEMIDE 100 MG/10 ML VIAL IV ONE (14:41)
--- NOTE | 2021-02-13 16:13 | EDPHYS ---
Physician Documentation [facility] Name: Doretha Partida Age: 75 yrs Sex: Female : 1945 Arrival Date: 02/13/2021 Time: 12:42 Bed 28 Private MD: ED Physician Sony Figueroa HPI: 02/13 14:15 This 75 yrs old Female presents to ER via EMS with complaints of jr8 palpitations/shortness of breath. 14:15 The patient presents with a history of heart racing. Context: The symptoms occur at jr8 rest. Onset: The symptoms/episode began/occurred acutely, today. Duration: The patient or guardian reports a single episode, that is still ongoing. Modifying factors: The symptoms are aggravated by light activity. Associated signs and symptoms: Pertinent positives: SOB. Severity of symptoms: At their worst the symptoms were moderate in the emergency department the symptoms are unchanged. It is unknown whether or not the patient has had similar symptoms in the past. The patient has not recently seen a physician. Historical: - Allergies: 12:44 Codeine; ap3 - Home Meds: 12:44 aspirin 81 mg Oral tab 81 mg daily [Active]; levothyroxine 75 mcg tab 1 tab once daily ap3 [Active]; gabapentin 600 mg oral tab 1 tab [Active]; omeprazole 40 mg Oral cpDR 1 cap once daily [Active]; furosemide 40 mg Oral tab 1 tab once daily [Active]; furosemide 80 mg Oral tab 1 tab once daily [Active]; metoprolol tartrate 25 mg Oral tab 1 tab 2 times per day [Active]; spironolactone 25 mg Oral tab 1 tab once daily [Active]; promethazine 25 mg Oral tab as needed [Active]; tramadol 50 mg Oral tab 1 tab as needed for pain [Active]; acetaminophen 500 mg oral tab [Active]; Centrum Silver Women 8 mg iron-400 mcg-300 mcg oral tab [Active]; - PMHx: 12:44 ESRD; GALLSTONES; Hx of Dialysis but no longer needs dialysis.; Hypertension; Kidney ap3 stones; - Immunization history:: Client reports receiving the 2nd dose of the Covid vaccine. - Social history:: Smoking status: Patient denies any tobacco usage or history of. ROS: 16:13 Eyes: Negative for injury, pain, redness, and discharge, ENT: Negative for injury, jr8 pain, and discharge, Neck: Negative for injury, pain, and swelling, Abdomen/GI: Negative for abdominal pain, nausea, vomiting, diarrhea, and constipation, Back: Negative for injury and pain, MS/Extremity: Negative for injury and deformity, Skin: Negative for injury, rash, and discoloration, Neuro: Negative for headache, weakness, numbness, tingling, and seizure. 16:13 Cardiovascular: Positive for edema, orthopnea, palpitations. 16:13 Respiratory: Positive for shortness of breath. Exam: 16:13 Neck: Trachea midline, no thyromegaly or masses palpated, and no cervical jr8 lymphadenopathy. Supple, full range of motion without nuchal rigidity, or vertebral point tenderness. No Meningismus. 16:13 Abdomen/GI: Soft, non-tender, with normal bowel sounds. No distension or tympany. No guarding or rebound. No evidence of tenderness throughout. Back: No spinal tenderness. No costovertebral tenderness. Full range of motion. Skin: Warm, dry with normal turgor. Normal color with no rashes, no lesions, and no evidence of cellulitis. MS/ Extremity: Pulses equal, no cyanosis. Neurovascular intact. Full, normal range of motion. Neuro: Awake and alert, GCS 15, oriented to person, place, time, and situation. Cranial nerves II-XII grossly intact. Motor strength 5/5 in all extremities. Sensory grossly intact. 16:13 Cardiovascular: Rate: tachycardic, Rhythm: irregularly irregular, Pulses: Pulses are 2+ in right radial artery and left radial artery. Heart sounds: normal, normal S1and S2, Edema: 1+ edema to level of left midcalf, left ankle, left foot, right midcalf, right ankle and right foot. 16:13 Respiratory: mild respiratory distress is noted, Respirations: tachypnea, that is mild, Breath sounds: rales, that are mild, are located in both bases. Vital Signs: 12:42 BP 122 / 85; Pulse 130; Resp 22; Temp 98.8(O); Pulse Ox 99% on R/A; Weight 76.66 kg; ap3 Height 5 ft. 4 in. (162.56 cm); 13:42 BP 104 / 62; Pulse 120; vg1 13:47 BP 109 / 73; Pulse 111; vg1 13:54 BP 113 / 64; Pulse 114; vg1 14:02 BP 95 / 70; Pulse 113; vg1 14:05 BP 100 / 74; Pulse 99; Resp 22; Pulse Ox 100% on R/A; vg1 14:30 BP 113 / 91; Pulse 113; Resp 24; Pulse Ox 100% on R/A; vg1 15:30 BP 116 / 87; Pulse 106; Resp 24; Pulse Ox 100% on 4 lpm NC; vg1 16:00 BP 100 / 72; Pulse 115; Resp 20; Pulse Ox 100% on 4 lpm NC; vg1 16:42 BP 100 / 76; Pulse 115; Resp 24; Pulse Ox 100% on 3 lpm NC; vg1 17:00 BP 126 / 97; Pulse 109; Resp 24; Pulse Ox 100% on 3 lpm NC; vg1 17:30 BP 114 / 65; Pulse 119; Resp 24; Pulse Ox 100% on 3 lpm NC; vg1 18:00 BP 119 / 65; Pulse 118; Resp 22; Pulse Ox 100% on 3 lpm NC; vg1 12:42 Body Mass Index 29.01 (76.66 kg, 162.56 cm) ap3 Procedures: 02/14 06:35 Central Line: the site was prepped with Betadine, in sterile fashion, a triple lumen mimi catheter was inserted, in the right femoral vein, in 4 attempts. placement was verified, by blood return, the site was dressed with using sterile technique, the patient tolerated the procedure, well. MDM: 02/13 12:49 Patient medically screened. [facility] 16:11 Data reviewed: vital signs, nurses notes, lab test result(s), EKG, radiologic studies, jr8 plain films. Data interpreted: Pulse oximetry: on 4L(s) per nasal canula, is 100 %. Interpretation: normal. Counseling: I had a detailed discussion with the patient and/or guardian regarding: the historical points, exam findings, and any diagnostic results supporting the discharge/admit diagnosis, lab results, radiology results, the need for further work-up and treatment in the hospital. 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 Unfortunately we are unable to transfer to his location at this time as their facility is on no transfer orders. Patient will remain at our facility and be treated by cardiology, medicine and nephrology. Patient and family good with this at this time.. 02/13 12:49 Order name: Basic Metabolic Panel; Complete Time: 13:55 [facility] 02/13 12:49 Order name: CBC with Diff; Complete Time: 14:10 [facility] 02/13 12:49 Order name: LFT's; Complete Time: 13:55 [facility] 02/13 12:49 Order name: Magnesium; Complete Time: 13:55 [facility] 02/13 12:49 Order name: NT PRO-BNP; Complete Time: 13:55 [facility] 02/13 12:49 Order name: PT-INR; Complete Time: 13:33 [facility] 02/13 12:49 Order name: Troponin (emerg Dept Use Only); Complete Time: 13:55 [facility] 02/13 13:29 Order name: TSH; Complete Time: 14:18 [facility] 02/13 13:29 Order name: T4 Free; Complete Time: 14:18 [facility] 02/13 14:18 Order name: COVID-19 SARS RT PCR (Document "Date of Onset" if Symptomatic): pt bp hospitalization,procedure; Complete Time: 15:51 02/13 14:23 Order name: Blood Culture Adult (2) [facility] 02/13 19:16 Order name: Procalcitonin; Complete Time: 02:35 EDMS 02/14 03:58 Order name: CMP em 02/14 04:29 Order name: Glucose, Ancillary Testing; Complete Time: 07:02 EDMS 02/14 04:33 Order name: Glucose, Ancillary Testing; Complete Time: 07:02 EDMS 02/14 05:11 Order name: CBC with Automated Diff EDWY 02/14 05:31 Order name: Glucose, Ancillary Testing; Complete Time: 07:02 EDMS 02/14 05:33 Order name: Comprehensive Metabolic Panel; Complete Time: 07:02 EDMS 02/14 06:11 Order name: Renal Panel; Complete Time: 07:02 EDMS 02/14 06:11 Order name: Troponin I; Complete Time: 07:02 EDMS 02/14 06:11 Order name: Thyroid Stimulating Hormone; Complete Time: 07:02 EDMS 02/14 07:02 Order name: ABG Arterial Blood Gas EDMS 02/14 08:07 Order name: Manual Differential EDMS 02/14 09:36 Order name: Glucose, Ancillary Testing EDMS 02/14 09:37 Order name: PTH Intact EDMS 02/14 10:39 Order name: ABG Arterial Blood Gas EDMS 02/14 11:56 Order name: Urinalysis EDMS 02/14 11:57 Order name: Urine Microscopic Only EDMS 02/14 12:35 Order name: Glucose, Ancillary Testing EDMS 02/14 13:31 Order name: Troponin I EDMS 02/13 12:49 Order name: XRAY Chest (1 view); Complete Time: 13:55 jr8 02/13 18:55 Order name: US; Complete Time: 02:35 EDMS 02/14 02:58 Order name: Chest Single View XRAY la1 02/14 17:17 Order name: ABG Arterial Blood Gas EDMS 02/14 19:03 Order name: Glucose, Ancillary Testing EDMS 02/14 19:35 Order name: Comprehensive Metabolic Panel EDMS 02/15 05:46 Order name: CBC with Automated Diff EDMS 02/15 05:53 Order name: Renal Panel EDMS 02/15 05:53 Order name: Liver (Hepatic) Function EDMS 02/15 05:53 Order name: Magnesium EDMS 02/15 06:42 Order name: Manual Differential EDMS 02/15 06:56 Order name: Urine Culture EDMS 02/15 12:43 Order name: Glucose, Ancillary Testing EDMS 02/16 04:01 Order name: CBC with Automated Diff EDMS 02/16 04:06 Order name: Vancomycin Level Trough EDMS 02/16 04:08 Order name: Lactate EDMS 02/16 04:28 Order name: Renal Panel EDMS 02/16 04:28 Order name: Liver (Hepatic) Function EDMS 02/16 04:28 Order name: Magnesium EDMS 02/16 12:40 Order name: Amylase EDMS 02/16 12:40 Order name: Lipase EDMS 02/17 05:51 Order name: Phosphorus EDMS 02/17 06:01 Order name: CBC with Automated Diff EDMS 02/17 06:05 Order name: Renal Panel EDMS 02/17 06:05 Order name: Liver (Hepatic) Function EDMS 02/17 06:05 Order name: Magnesium EDMS 02/17 07:03 Order name: Lipase EDMS 02/18 03:56 Order name: CBC with Automated Diff EDMS 02/18 04:06 Order name: Renal Panel EDMS 02/18 04:06 Order name: Magnesium EDWY 02/18 06:46 Order name: Ur Protein EDMS 02/18 06:59 Order name: Liver (Hepatic) Function EDMS 02/13 12:49 Order name: EKG; Complete Time: 12:49 8 02/13 12:49 Order name: Cardiac monitoring; Complete Time: 12:58 [facility] 02/13 12:49 Order name: EKG - Nurse/Tech; Complete Time: 12:58 8 02/13 12:49 Order name: IV Saline Lock; Complete Time: 13:10 8 02/13 12:49 Order name: Labs collected and sent; Complete Time: 13:10 [facility] 02/13 12:49 Order name: O2 Per Protocol; Complete Time: 12:49 8 02/13 12:49 Order name: O2 Sat Monitoring; Complete Time: 12:49 [facility] 02/13 14:27 Order name: CONS Physician Consult; Complete Time: 15:55 EDWY 02/14 07:09 Order name: RAD MS 02/14 10:53 Order name: RAD MS 02/14 12:40 Order name: RAD EDMS 02/15 07:50 Order name: US EDMS 02/15 16:42 Order name: CT EDMS 02/17 10:38 Order name: RAD MS 02/17 21:56 Order name: RAD EDMS Administered Medications: 13:42 Drug: Metoprolol 5 mg Route: IVP; Site: left antecubital; vg1 13:50 Drug: Metoprolol 5 mg Route: IVP; Site: left antecubital; vg1 13:57 Drug: Metoprolol 5 mg Route: IVP; Site: left antecubital; vg1 15:47 Follow up: Response: No adverse reaction; No change in condition vg1 14:18 Drug: Lasix (furosemide) 60 mg Route: IVP; Site: left antecubital; vg1 15:47 Follow up: Response: No adverse reaction vg1 16:18 Drug: Lasix (furosemide) 20 mg Route: IVP; Site: left antecubital; vg1 18:12 Follow up: Response: No adverse reaction vg1 18:19 Drug: traMADol 50 mg Route: PO; vg1 18:24 CANCELLED (Physician Discretion): Zofran (Ondansetron) 2 mg IVP once; over 2 minutes vg1 18:24 Drug: Zofran (Ondansetron) 4 mg Route: IVP; Site: left antecubital; vg1 02/14 03:55 Drug: Sodium Bicarbonate 50 mEq Route: IVP; Site: left antecubital; em 03:55 Drug: Sodium Bicarbonate 1 amp Route: IVP; Site: left antecubital; em 04:00 Drug: D5W 1000 ml, Sodium Bicarbonate 150 mEq Route: IV; Rate: 75 ml/hr; Site: left em jugular; 04:03 Drug: D50W 50 ml Route: IVP; Site: left jugular; em Disposition: 02/13 18:23 Co-signature as Attending Physician, Ezequiel Mills MD I agree with the assessment and rn plan of care. Attestation: The patient's history, exam findings, diagnostics, and a summary of any interventions or procedures was reviewed in detail with Gabe IRIZARRY. 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 vg1 vg1 18:24 18:23 Zofran (Ondansetron) 2 mg IVP once; over 2 minutes given. vg1 vg1 18:24 18:23 Zofran (Ondansetron) 2 mg IVP once; over 2 minutes ordered. vg1 vg1 18:24 17:54 420 bd 19:38 16:13 Telemetry/MedSurg (Inpatient) jr8 19:38 18:24 [facility]
--- NOTE | 2021-02-13 16:13 | ER ---
Nurse's Notes [facility] Name: Doretha Partida Age: 75 yrs Sex: Female : 1945 Arrival Date: 02/13/2021 Time: 12:42 Bed 28 Private MD: Diagnosis: Unspecified atrial fibrillation-with RVR;Acute on chronic combined systolic (congestive) and diastolic (congestive) heart failure;Acute kidney failure, unspecified Presentation: 02/13 12:42 Chief complaint: EMS states: they were called to the patients home by her Home Health ap3 nurse. Home Health nurse reported to EMS that the patient had a sudden onset of tachycardia along with difficulty breathing. Upon arrival, EMS states that the patient was 99% on room air and was not requiring O2. Coronavirus screen: Client presents with at least one sign or symptom that may indicate coronavirus-19. Standard/surgical mask placed on the client. Provider contacted for isolation considerations. Ebola Screen: No symptoms or risks identified at this time. Initial Sepsis Screen: Does the patient meet any 2 criteria? RR > 20 per min. HR > 90 bpm. Yes Does the patient have a suspected source of infection? No. Patient's initial sepsis screen is negative. Risk Assessment: Do you want to hurt yourself or someone else? Patient reports no desire to harm self or others. Onset of symptoms was February 13, 2021. 12:42 Method Of Arrival: EMS: [facility] ap3 12:42 Acuity: SLY 3 ap3 Triage Assessment: 12:52 General: Appears distressed, Behavior is anxious. Pain: Denies pain. EENT: No signs ap3 and/or symptoms were reported regarding the EENT system. Neuro: Level of Consciousness is awake, alert, obeys commands, Oriented to person, place, time, situation, Speech is normal. Cardiovascular: Patient's skin is warm and dry. Respiratory: Airway is patent Respiratory effort is even, unlabored, Respiratory pattern is regular, symmetrical. Respiratory: Parent/caregiver reports the patient having shortness of breath. Historical: - Allergies: 12:44 Codeine; ap3 - Home Meds: 12:44 aspirin 81 mg Oral tab 81 mg daily [Active]; levothyroxine 75 mcg tab 1 tab once daily ap3 [Active]; gabapentin 600 mg oral tab 1 tab [Active]; omeprazole 40 mg Oral cpDR 1 cap once daily [Active]; furosemide 40 mg Oral tab 1 tab once daily [Active]; furosemide 80 mg Oral tab 1 tab once daily [Active]; metoprolol tartrate 25 mg Oral tab 1 tab 2 times per day [Active]; spironolactone 25 mg Oral tab 1 tab once daily [Active]; promethazine 25 mg Oral tab as needed [Active]; tramadol 50 mg Oral tab 1 tab as needed for pain [Active]; acetaminophen 500 mg oral tab [Active]; Centrum Silver Women 8 mg iron-400 mcg-300 mcg oral tab [Active]; - PMHx: 12:44 ESRD; GALLSTONES; Hx of Dialysis but no longer needs dialysis.; Hypertension; Kidney ap3 stones; - Immunization history:: Client reports receiving the 2nd dose of the Covid vaccine. - Social history:: Smoking status: Patient denies any tobacco usage or history of. Screenin:44 Abuse screen: Denies threats or abuse. Nutritional screening: No deficits noted. vg1 Tuberculosis screening: No symptoms or risk factors identified. Fall Risk No fall in past 12 months (0 pts). No secondary diagnosis (0 pts). Ambulatory Aid- None/Bed Rest/Nurse Assist (0 pts). Gait- Normal/Bed Rest/Wheelchair (0 pts) Mental Status- Oriented to own ability (0 pts). Total Long Fall Scale indicates No Risk (0-24 pts). Assessment: 12:43 General: Appears in no apparent distress. uncomfortable, Behavior is calm, cooperative. vg1 Pain: Denies pain. Neuro: Level of Consciousness is awake, alert, obeys commands, Oriented to person, place, time, situation. Cardiovascular: Patient's skin is warm and dry. Respiratory: Reports shortness of breath at rest labored breathing Airway is patent Respiratory effort is even, unlabored, Breath sounds are clear bilaterally. GI: Reports nausea. : No signs and/or symptoms were reported regarding the genitourinary system. EENT: No signs and/or symptoms were reported regarding the EENT system. Derm: Skin is intact, is healthy with good turgor. Musculoskeletal: Circulation, motion, and sensation intact. 13:00 Reassessment: pt has 'life vest' in place APPLICATION SERVICES MANAGER. vg1 14:00 Reassessment: Patient appears in no apparent distress at this time. No changes from vg1 previously documented assessment. Patient and/or family updated on plan of care and expected duration. Pain level reassessed. Patient is alert, oriented x 3, equal unlabored respirations, skin warm/dry/pink. Provider at bedside with Ultrasound. 15:05 Reassessment: Patient appears in no apparent distress at this time. No changes from vg1 previously documented assessment. Patient and/or family updated on plan of care and expected duration. Pain level reassessed. Patient is alert, oriented x 3, equal unlabored respirations, skin warm/dry/pink. 16:06 Reassessment: Patient appears in no apparent distress at this time. No changes from vg1 previously documented assessment. Patient and/or family updated on plan of care and expected duration. Pain level reassessed. Patient is alert, oriented x 3, equal unlabored respirations, skin warm/dry/pink. Patient denies pain at this time. 16:37 Reassessment: Dr Mills, hospitalist, at pt bedside. vg1 17:00 Reassessment: Patient appears in no apparent distress at this time. pt resting with vg1 eyes closed. 18:04 Reassessment: Patient appears in no apparent distress at this time. Patient and/or vg1 family updated on plan of care and expected duration. Pain level reassessed. Patient is alert, oriented x 3, equal unlabored respirations, skin warm/dry/pink. Pt states back pain, rates 9/10. Provider notified. US at bedside. Vital Signs: 12:42 BP 122 / 85; Pulse 130; Resp 22; Temp 98.8(O); Pulse Ox 99% on R/A; Weight 76.66 kg; ap3 Height 5 ft. 4 in. (162.56 cm); 13:42 BP 104 / 62; Pulse 120; vg1 13:47 BP 109 / 73; Pulse 111; vg1 13:54 BP 113 / 64; Pulse 114; vg1 14:02 BP 95 / 70; Pulse 113; vg1 14:05 BP 100 / 74; Pulse 99; Resp 22; Pulse Ox 100% on R/A; vg1 14:30 BP 113 / 91; Pulse 113; Resp 24; Pulse Ox 100% on R/A; vg1 15:30 BP 116 / 87; Pulse 106; Resp 24; Pulse Ox 100% on 4 lpm NC; vg1 16:00 BP 100 / 72; Pulse 115; Resp 20; Pulse Ox 100% on 4 lpm NC; vg1 16:42 BP 100 / 76; Pulse 115; Resp 24; Pulse Ox 100% on 3 lpm NC; vg1 17:00 BP 126 / 97; Pulse 109; Resp 24; Pulse Ox 100% on 3 lpm NC; vg1 17:30 BP 114 / 65; Pulse 119; Resp 24; Pulse Ox 100% on 3 lpm NC; vg1 18:00 BP 119 / 65; Pulse 118; Resp 22; Pulse Ox 100% on 3 lpm NC; vg1 12:42 Body Mass Index 29.01 (76.66 kg, 162.56 cm) ap3 ED Course: 12:42 Patient arrived in ED. ap3 12:43 Regine Conroy RN is Primary Nurse. vg1 12:44 Triage completed. ap3 12:44 Patient has correct armband on for positive identification. Bed in low position. Call vg1 light in reach. Side rails up X2. 12:44 Oxygen administration via nasal cannula \T\ 2L/min. vg1 12:45 Arm band placed on. vg1 12:48 Gabe Mariscal PA is PHCP. jr8 12:48 Ezequiel Mills MD is Attending Physician. jr8 13:10 Initial lab(s) drawn, by co, sent to lab. Inserted saline lock: 22 gauge in left vg1 antecubital area, using aseptic technique. Blood collected. 13:29 XRAY Chest (1 view) In Process Unspecified. EDMS 14:40 First set of blood cultures drawn by co. vg1 14:45 initiated transfer to [facility]. bd 14:50 Mobley cath inserted, using sterile technique, 16 Fr., by co, balloon inflated, to vg1 gravity drainage, returned clear yellow urine. Patient tolerated well. 14:55 Second set of blood cultures drawn. vg1 16:12 Shayan Mills MD is Hospitalizing Provider. jr8 16:16 transfer cancelled by Gabe Mariscal. bd 19:17 Report given to [facility]. vg1 19:33 Primary Nurse role handed off by Regine Conroy RN cs9 02/14 06:34 Attending Physician role handed off by Ezequiel Mills MD [facility] 06:34 Sony Figueroa MD is Attending Physician. mimi 18:[address] [facility] transfer center. Spoke to Wayne. Wayne advised transfer could not mb4 be initiated due to insufficient reasoning. Administered Medications: 02/13 13:42 Drug: Metoprolol 5 mg Route: IVP; Site: left antecubital; vg1 13:50 Drug: Metoprolol 5 mg Route: IVP; Site: left antecubital; vg1 13:57 Drug: Metoprolol 5 mg Route: IVP; Site: left antecubital; vg1 15:47 Follow up: Response: No adverse reaction; No change in condition vg1 14:18 Drug: Lasix (furosemide) 60 mg Route: IVP; Site: left antecubital; vg1 15:47 Follow up: Response: No adverse reaction vg1 16:18 Drug: Lasix (furosemide) 20 mg Route: IVP; Site: left antecubital; vg1 18:12 Follow up: Response: No adverse reaction vg1 18:19 Drug: traMADol 50 mg Route: PO; vg1 18:24 CANCELLED (Physician Discretion): Zofran (Ondansetron) 2 mg IVP once; over 2 minutes vg1 18:24 Drug: Zofran (Ondansetron) 4 mg Route: IVP; Site: left antecubital; vg1 02/14 03:55 Drug: Sodium Bicarbonate 50 mEq Route: IVP; Site: left antecubital; em 03:55 Drug: Sodium Bicarbonate 1 amp Route: IVP; Site: left antecubital; em 04:00 Drug: D5W 1000 ml, Sodium Bicarbonate 150 mEq Route: IV; Rate: 75 ml/hr; Site: left em jugular; 04:03 Drug: D50W 50 ml Route: IVP; Site: left jugular; em Outcome: 02/13 16:13 Decision to Hospitalize by Provider. jr8 02/18 10:12 Patient left the ED. ss Signatures: Dispatcher [employer] EDMS Alyssia Bhatia Corey, MD MD cha Munoz, Edgar, RN BRANNON em Kylah Blevins RN RN Gabe Mariscal, EDIE IRIZARRY jr8 Alina Desai RN RN [email or web address] Maryellen Rodgers mb4 Regine Conroy RN RN vg1 Hanane Vargas cs9 Corrections: (The following items were deleted from the chart) 02/13 12:46 12:43 Pain: Denies pain. vg1 vg1 13:12 13:11 Reassessment: pt has 'life vest' in place APPLICATION SERVICES MANAGER vg1 vg1 14:09 13:42 BP 104 / 62; Pulse 120bpm; ap3 ap3 14:09 13:47 BP 109 / 73; Pulse 111bpm; ap3 ap3 14:09 13:54 BP 113 / 64; Pulse 114bpm; ap3 ap3 14:09 14:02 BP 95 / 70; Pulse 113bpm; ap3 ap3 14:09 14:05 BP 100 / 74; Pulse 120bpm; ap3 ap3 14:13 14:07 Metoprolol 5 mg IVP in left antecubital ap3 vg1 14:13 14:12 Metoprolol 5 mg IVP in left antecubital vg1 vg1 18:23 18:23 Zofran (Ondansetron) 2 mg IVP in left antecubital vg1 vg1
[2021-02-13] MEDS ORDERED: FUROSEMIDE 20 MG/ 2ML VIAL ONE (16:38)
--- NOTE | 2021-02-13 17:25 | P.HP ---
Certification for Inpatient Patient admitted to: Inpatient With expected LOS: >2 Midnights Practitioner: I am a practitioner with admitting privileges, knowledge of patient current condition, hospital course, and medical plan of care. Services: Services provided to patient in accordance with Admission requirements found in Title 42 Section 412.3 of the Code of Federal Regulations Patient History Date of Service: 02/13/21 Reason for admission: HARSHAD, new onset A. fib History of Present Illness: 75-year-old female, PMH: CHF, CKD (previously needed dialysis for short period), hypertension. Presents to the ED due to not feeling well with cough, shortness of breath, nausea, and generalized weakness. She was recently hospitalized for CHF exacerbation and placed on a LifeVest approximately 2 months ago. She reports nonproductive cough, no fever/chills, associated with shortness of breath, and a sense of panic when laying flat. In the ED, she was noted to be in atrial fibri llation with a heart rate [id number], chest x-ray with cardiomegaly and pulmonary edema, creatinine elevated above her baseline, and no leukocytosis. ER provider spoke with patient's automobile salesman recommended transfer to hospital he stops, however, they did not have any availability. Patient will be admitted here. Allergies codeine Allergy (Verified 08/09/20 09:32) Itching Home Medications: Omeprazole [Prilosec] 40 mg PO DAILY 07/16/20 Promethazine HCl 25 mg PO Q6H PRN 07/16/20 calcitrioL [Rocaltrol] 1 tab PO DAILY 07/16/20 traMADol HCL [Ultram*] 50 mg PO Q8H PRN 07/16/20 Multivitamin with Iron [Daily Vitamin + Iron] 1 each PO DAILY #90 tablet 07/18/20 Cranberry 500 mg PO DAILY 08/09/20 Hydralazine HCl 100 mg PO DAILY 08/09/20 Levothyroxine Sodium [Unithroid] 75 mcg PO DAILY 08/09/20 - Past Medical/Surgical History Diabetic: No -: HTN -: CKD, temporarily needed dialysis -: CHF, systolic -: Knee surgery -: Hysterectomy -: HD placement - Family History Brother -: Heart disease Mother -: Heart disease Sister -: Heart disease - Social History Smoking Status: Never smoker Alcohol use: No CD- Drugs: No Caffeine use: Yes Place of Residence: Home Review of Systems 10-point ROS is otherwise unremarkable Physical Examination - Physical Exam General: Alert, In no apparent distress, Oriented x3 HEENT: PERRLA, Mucous membr. moist/pink, Sclerae nonicteric Neck: Supple Respiratory: Diminished, Crackles/rales Cardiovascular: Edema (trace b/l pedal edema), Irregular heart rate/rhythm (HR: 110) Capillary refill: <2 Seconds Gastrointestinal: Soft and benign, Non-distended, No tenderness Musculoskeletal: No swelling, No tenderness Integumentary: No rashes, No significant lesion Neurological: Normal speech, Normal strength at 5/5 x4 extr, Normal affect Urinary: Mobley catheter (placed in ED) - Studies Laboratory Data (last 24 hrs) 02/13/21 13:07: PT 14.8 H, INR 1.28 02/13/21 13:07: WBC 16.70 H, Hgb 10.4 L, Hct 32.0 L, Plt Count 354 02/13/21 13:07: Sodium 132 L, Potassium 4.9, BUN 102 H, Creatinine 3.25 H, Glucose 125 H, Magnesium 3.0 H D, Total Bilirubin 4.0 H, AST 32, ALT 48, Alkaline Phosphatase 963 H Assessment and Plan - Advance Directives Does patient have a Living Will: No Does patient have a Durable POA for Healthcare: No Physician Review Additional Text: Problem list Atrial fibrillation with RVR, new onset Acute on chronic CHF exacerbation, systolic; with LifeVest HARSHAD on CKD. Previously needed dialysis temporarily Hypertension Hypothyroidism GERD Neuropathy Patient notes heart rate improved with metoprolol in the ED Patient takes 25 mg metoprolol twice daily at home, will increase to 50 mg twice daily Cardiology consulted Blood pressure borderline, metoprolol with hold parameters Start Eliquis Chest x-ray concerning for volume overload, no significant lower extremity edema on exam Nephrology consulted in the ER, recommended diuresis with Lasix, renal ultraso und ordered Suspect this is more cardiorenal syndrome Trend labs Telemetry VTE: Eliquis Code: Full Dispo: Anticipate DC home in 2-3 days Time Spent Managing Pts Care (In Minutes): 60
[2021-02-13] MEDS ORDERED: AMIODARONE HCL 150 MG in D5W 100 ML IV STA (17:55)
[2021-02-13] MEDS ORDERED: TRAMADOL HCL 50 MG TAB ONE (18:38)
[2021-02-13] MEDS ORDERED: ONDANSETRON 4 MG/2 ML VIAL ONE ×2 (18:45→20:31)
--- NOTE | 2021-02-13 18:53 | RAD REPORT ---
EXAM DESCRIPTION: US - Renal Ultrasound-Complete - 02/13/2021 6:20 pm CLINICAL HISTORY: HARSHAD COMPARISON: Stone Protocol dated 09/06/2020 FINDINGS: Both kidneys are normal in size, shape and echotexture. The right kidney measures 8.3. No hydronephrosis, focal mass or perinephric fluid. The left kidney measures 8.7. No hydronephrosis, focal mass or perinephric fluid. The bladder is decompressed. IMPRESSION: Unremarkable renal sonogram. No hydronephrosis.
[2021-02-13] MEDS: AMIODARONE HCL 900 MG in Dextrose 5%-Water 482 ML IV SCH (19:14)
--- NOTE | 2021-02-13 19:52 | CON ---
Date of Consultation: 02/13/2021 Reason For Consultation: Elevated BUN and creatinine, fluid management. History Of Present Illness: This is a pleasant 75-year-old female, well known to me from the office with significant past medical history of hypertension, hyperlipidemia, CAD status post cardiac cath, PAD, congestive heart failure, chronic kidney disease with baseline creatinine 1.9, status post acute kidney injury required dialysis, weaned from dialysis back in June 2020, the patient had acute kidney injury, seen in the office back in December with creatinine jumped to 2.3 from 1.7. At that time, Lasix has been decreased to 80/40 every other day. The patient was doing well till a few days ago. Patient developed chest tightness with shortness of breath. Today has atrial fibrillation with RVR, approached to the hospital, found to have creatinine 3.2 with elevation in BUN and creatinine with over volume. For that reason, we have been consulted. The patient denied taking any nonsteroidal, no IV contrast. Past Medical History: 1. Hypertension since 1997, coronary artery disease status post cardiac cath x2 to follow up with Dr. Li. 2. CAD, status post angioplasty. 3. Chronic kidney disease, baseline creatinine 1.7 to 1.9 secondary to hypertension, nephrosclerosis, cardiorenal, status post acute kidney injury, required dialysis, weaned from dialysis back in June 2020. 4. PAD. Family History: Positive for hypertension. Social History: Denies smoking. Denies drinking. Denies drugs abuse. Past Surgical History: Include angioplasty, cardiac cath. Allergies: TO CODEINE. Current Medications: At home include: 1. Tramadol. 2. Omeprazole. 3. Metoprolol. 4. Levothyroxine. 5. Aspirin. 6. Lasix 80/40. 7. Calcitriol. 8. Multivitamin. Review of Systems: Head and Neck: No red eye. No ear pain. GI: No nausea, no vomiting. : No polyuria, no dysuria, no hematuria. [employer]: No vaginal discharge. Respiratory: Has shortness of breath. Cardiovascular: Has orthopnea, has palpitation. Endocrine: No polydipsia. Skin: No rash. Neuro: Has neuropathy. Musculoskeletal: Low back pain. Physical Examination: General: When I saw the patient, the patient lying in bed. Vital Signs: Blood pressure of 154/70, pulse of 122. Chest: Crackles bilateral. Heart: S1, S2. Tachycardic. Abdomen: Soft, nontender. Extremity: Trace edema. Neurological: Alert, oriented x3. No focal. Laboratory Data: WBC 16.7, H and H 10.4/32. Sodium 132, potassium 4.9, bicarb 16, BUN 102, creatinine 3.2, GFR of 14, calcium 9.7, magnesium of 3. Albumin 3.3. Assessment And Plan: 1. Acute kidney injury secondary to cardiorenal over volume with hyponatremia. No hyperkalemia. Nonoliguric. I am going to start the patient on aggressive diuresis 80 mg t.i.d. and we will monitor the patient. We will send for workup and we will follow up. if kidny function continue to decelin m=pt may need to start isma on [employer] with her condtion it will be need CRRT // Slid 2. Acidosis non-anion gap metabolic acidosis secondary to renal failure. No need for bicarb. 3. Hyponatremia dilutional secondary to above cardiorenal dilultional , we will diurese. 4. Hypertension, we will utilize blood pressure for more diuresis. 5. Atrial fibrillation with RVR by Cardiology. 6. Coronary artery disease with congestive heart failure with exacerbation. We will optimize the fluid with the diuresis. f/u with cardiology possibke need cardiac cath mostly with doing that will require to place back on HD Thank you Dr. Mills for allowing us to participate in the care of your patient. time spent exam the patient face to face placing order , reviewing the date lab and radiology , discussing with nursing stafe and discussing the case with other field service consultant ICU and hospitalist [employer]Min JESSICA Voice ID: [id number] Report ID: [id number] MTDD
[2021-02-13] MEDS: ONDANSETRON 4 MG/2 ML VIAL IV PRN (20:21)
[2021-02-13] MEDS ORDERED: APIXABAN 2.5 MG TABLET PO SCH (21:00)
[2021-02-13] MEDS ORDERED: FUROSEMIDE 40 MG/4 ML VIAL IV SCH (21:00)
[2021-02-13] MEDS ORDERED: METOPROLOL TAR 50 MG TAB PO SCH (21:00)
[2021-02-13] MEDS ORDERED: PROMETHAZINE INJ 25 MG/ML AMP ONE (21:10)
[2021-02-13] MEDS: PROMETHAZINE INJ 25 MG/ML AMP IV PRN (22:00)
[2021-02-14] MEDS ORDERED: NA CHLORIDE 0.9% 2,000 ML ONE (03:01)
[2021-02-14] MEDS ORDERED: VANCOMYCIN 1 GM/VIAL ONE (03:26)
[2021-02-14] MEDS ORDERED: CEFEPIME 1 GM/VIAL ONE (03:26)
[2021-02-14] MEDS ORDERED: NA CHLORIDE 0.9% 250 ML ONE (03:27)
[2021-02-14] MEDS ORDERED: NA CHLORIDE 0.9% 50 ML ONE (03:27)
[2021-02-14] MEDS ORDERED: SODIUM BICARB 50 MEQ/50ML VIAL ONE ×2 (04:12→09:24)
[2021-02-14] MEDS ORDERED: D5W 1,000 ML IV ONE (04:13)
[2021-02-14] MEDS ORDERED: D50W 50 ML IV ONE (04:17)
[2021-02-14] MEDS ORDERED: NOREPINEPHRINE 4 MG/4 ML VIAL ONE ×2 (04:53)
[2021-02-14] MEDS ORDERED: D5W 250 ML IV ONE (04:54)
[2021-02-14] MEDS ORDERED: NA CHLORIDE 0.9% 500 ML ONE (04:56)
[2021-02-14 05:08] LABS: Absolute Lymphocytes (CBC) 0.8 K/uL (0.7-4.9); Basophils % 0.2 % (0-1.3); Hematocrit 31.9 % (36.0-45.0); Lymphocytes % 4.5 % (15.3-44.8); MPV 8.9 fL (7.6-11.3); RBC Red Blood Cell Count 3.69 M/uL (3.86-4.86)
[2021-02-14 05:32] LABS: Albumin 2.8 g/dL (3.4-5.0); Bilirubin Total 4.7 mg/dL (0.2-1.0); Potassium 5.5 mmol/L (3.5-5.1); Protein, Total 7.6 g/dL (6.4-8.2)
[2021-02-14 06:06] LABS: Albumin 2.8 g/dL (3.4-5.0); BUN Blood Urea Nitrogen 114 mg/dL (7-18); Glucose Level 150 mg/dL (74-106); Sodium Level 135 mmol/L (136-145); Thyroid Stimulating Hormone 0.993 uIU/mL (0.360-3.740); Troponin I < 0.02 ng/mL (0.0-0.045)
[2021-02-14 06:10] LABS: Bicarbonate 8 mmol/L (21-32); Phosphorus 9.9 mg/dL (2.5-4.9); Potassium 5.6 mmol/L (3.5-5.1)
[2021-02-14 07:00] LABS: Blood O2 Saturation 98.4 % (92-98.5)
[2021-02-14 07:01] LABS: Arterial Blood Carboxyhemoglob 0.1 % (0-1.5)
--- NOTE | 2021-02-14 07:08 | RAD REPORT ---
EXAM DESCRIPTION: RAD - Chest Single View - 02/14/2021 5:14 am CLINICAL HISTORY: SOB COMPARISON: Chest Single View dated 02/13/2021; Chest Single View dated 07/17/2020; Chest Single View dated 06/09/2020; Chest Single View dated 06/07/2020; Renal Ultrasound-Complete dated 02/13/2021 FINDINGS: Lines: None. Lungs: Basilar airspace disease is noted. Pleural: No significant pleural effusions or pneumothorax. Cardiac: Cardiomegaly. Bones: No acute fractures. Other: IMPRESSION: Basilar airspace disease again noted which could reflect atelectasis and/or pneumonia. C ardiomegaly.
[2021-02-14 08:06] LABS: Anisocytosis SLIGHT; Blood Morphology Comment NOTED (NOT SEEN); Platelet Estimate ADEQ; Poikilocytosis SLIGHT; Polychromasia SLIGHT
[2021-02-14] MEDS ORDERED: NOREPINEPHRINE 4mg/D5W 250mL 4 MG/250 ML BAG IV ONE ×3 (08:39→16:28)
[2021-02-14] MEDS ORDERED: FUROSEMIDE 40 MG/4 ML VIAL IV SCH ×2 (09:00→17:00)
[2021-02-14] MEDS ORDERED: D5W 1,000 ML with NA BICARB 8.4% 150 MEQ IV SCH ×2 (09:00)
[2021-02-14] MEDS ORDERED: HEPARIN 5000 UNIT/ML 1 ML VIAL ONE (09:31)
[2021-02-14] MEDS ORDERED: LIDOCAINE 1% MPF 30 ML VIAL ONE (09:32)
[2021-02-14] MEDS ORDERED: NS 0.9% VIAL 10 ML ONE (09:32)
[2021-02-14] MEDS ORDERED: NA CHLORIDE 0.9% 100 ML IV ONE (09:32)
[2021-02-14] MEDS ORDERED: NA CHLORIDE 0.9% 1,000 ML ONE (10:05)
[2021-02-14] MEDS ORDERED: CEFAZOLIN/NS 1gm 1 GM/50 ML BAG ONE (10:05)
--- NOTE | 2021-02-14 10:25 | P.OP ---
Red Cap: NONE,NONE Preoperative diagnosis: ARF, Hyperkalemia Postoperative diagnosis: same Primary procedure: Right Subclavian Adolfo Catheter Secondary procedure: Fluoroscopy Anesthesia: MAC Estimated blood loss: min Specimen: none Findings: as above Complications: None Transferred to: Recovery Room Condition: Fair
[2021-02-14 10:35] LABS: Blood O2 Saturation 98.4 % (92-98.5)
[2021-02-14 10:36] LABS: Arterial Blood Carboxyhemoglob 0.6 % (0-1.5); Blood Gas Oxyhemoglobin 96.7 % (94-97)
--- NOTE | 2021-02-14 10:52 | RAD REPORT ---
EXAM DESCRIPTION: RAD - Chest Single View - 02/14/2021 10:46 am CLINICAL HISTORY: POST OP COMPARISON: Chest Single View dated 02/14/2021; Chest Single View dated 02/13/2021; Chest Single Vie w dated 07/17/2020; Chest Single View dated 06/09/2020; Fluoroscopy <1 Hour dated 02/14/2021 FINDINGS: Lines: Interval placement of a right subclavian approach dialysis catheter. The tip overli es right atrium. Lungs: Increased vascular congestion with similar basilar opacities bilaterally. Pleural: No significant pleural effusions or pneumothorax. Cardiac: Cardiomegaly. Bones: No acute fractures. Other: IMPRESSION: Right subclavian approach dialysis catheter has been placed with tip overlying the right atrium. No pneumothorax. Increased vascular congestion with similar appearing basilar opacities that may represent a combination of atelectasis and/or pneumonia.
[2021-02-14] MEDS: WATER FOR INJ,STERILE 1,000 ML with NA BICARB 8.4% 150 MEQ IV SCH ×2 (11:00)
[2021-02-14 11:29] LABS: Urine Appearance CLEAR (Clear); Urine Bilirubin NEGATIVE (Negative); Urine Blood 3+ (Negative); Urine Color YELLOW (Yellow); Urine Glucose NEGATIVE (Negative); Urine Protein NEGATIVE (Negative); Urine pH 5.5 (5.0-7.0)
--- NOTE | 2021-02-14 11:53 | OP ---
Date of Procedure: 02/14/2021 Surgeon: Howard Khanna MD Baby Formula Mixer: None. Preoperative Diagnosis: Acute renal failure, hyperkalemia, over volume. Postoperative Diagnosis: Acute renal failure, hyperkalemia, over volume. Procedures: 1.Right subclavian Adolfo catheter placement. 2.Interpretation of fluoroscopy. Estimated Blood Loss: Minimal. Specimen: None. Findings: Normal anatomy. Anesthesia: MAC. Complications: None. Disposition: The patient tolerated the procedure in stable condition and taken to Recovery in good g eneral condition. Procedure In Detail: The patient was brought to the OR and placed in supine position. MAC anesthesi a was begun. The patient and was unable to lay flat and was prepped and draped in the standing up po sition and then lidocaine 1% was infiltrated. The patient had a very difficult anatomy to reach the IJ. She had a superficial vein crossing the anterior neck and also the catheter we had wou ld have been very uncomfortable for me to put the catheter in her neck of her face, so the refore I opted to use the subclavian approach, which was done easily. An 18-gauge needle was used to access the subclavian vein was confirmed with fluoroscopy. Seldinger technique was used. Vein was dilated and then a Adolfo catheter was placed and secured with 3-0 nylon. Sterile dressi ng applied. Catheter was flushed with heparin and packed with heparin with good blood flow. Sterile dressing applied. The patient was awakened and taken to Recovery in good general condition. Chest x-ray has been ordered . /MODL Voice ID: [id number] Report ID: [id number]
--- NOTE | 2021-02-14 11:53 | PREOPCON ---
Date of Consultation: 02/14/2021 This is a stat consultation for catheter placement. Reason For Consultation: The patient needs emergent dialysis. History Of Present Illness: The patient is a 75-year-old female, who came in with some chest tightne ss and shortness of breath that started a few days ago and now has AFib with RVR with elevated BUN an d creatinine with volume overload and the patient requires urgent dialysis and I was consulted. She is awake, alert, on a Levophed drip which is being slowly weaned off. She did drop her pressure in t he middle of night and was coded. Now, she is a little bit more stable. She is still in the Levophe d drip, however. No sore throat, runny nose, cough, headaches, or dizziness. No fever or chills. Review of Systems: Otherwise unremarkable. Past Medical History: Hypertension, coronary artery disease, chronic kidney disease. Her baseline c reatinine was 1.7 to 1.9 and she required temporary dialysis back in June 2020. She has also had pe ripheral arterial disease, congestive heart failure, and coronary artery disease, status post cardiac cath. Past Surgical History: Angioplasty and cardiac cath. Allergies: CODEINE. Social History: The patient does not smoke or drink. Family History: Significant for hypertension. Physical Examination: Vital Signs: Currently pulse rate of 105, respiratory rate of 22, blood pressure 94/60 and O2 satura tion are 98% on 40% inspired FiO2. General: She is awake, alert. Head and Neck: Somewhat distended. JVD. No neck masses. Throat clear. Neck is supple. Chest: Clear. Heart: S1 and S2. Abdomen: Soft. Extremities: Neurovascularly intact. Neuro: Nonfocal. Laboratory Data: Potassium is 5.6, CO2 is 8, BUN is 114, creatinine is 3.97, and phosphorus is 9.9. White count is 17.9, H and H are 9.9 and 31.9, platelets of 235. INR is 1.28. Blood gas reviewed. Assessment: A 75-year-old female with acute renal failure with multiple medical problems and hyperka lemia and volume overload. Recommendation: We will proceed with Adolfo catheter placement after discussion with Dr. Keenan, and the patient and understand the risks, benefits, and alternatives, and agreed to procedure . /MODL Voice ID: [id number] Report ID: [id number]
[2021-02-14 11:56] LABS: Urine Bacteria <20 /HPF (<20); Urine Microscopic Reflex ORDER UMIC
--- NOTE | 2021-02-14 12:40 | RAD REPORT ---
EXAM DESCRIPTION: RAD - Fluoroscopy <1 Hour - 02/14/2021 10:36 am CLINICAL HISTORY: Venous catheter insertion. JIMBO CATH INSERT COMPARISON: Fluoroscopy <1 Hour dated 06/09/2020 FINDINGS: Fluoroscopic imaging is submitted from placement of a venous catheter. Details of the pro cedure not available. Fluoroscopy time: 0.2 minutes
[2021-02-14] MEDS ORDERED: ACETAMINOPHEN 500 MG TAB PO PRN (12:43)
[2021-02-14] MEDS: NOREPINEPHRINE 4 MG in D5W 250 ML IV SCH ×2 (13:01→18:47)
--- NOTE | 2021-02-14 13:23 | PN ---
Date of Progress Note: 02/14/2021 Subjective: The patient was admitted with AFib with RVR, acute kidney injury secondary to cardiorena l, over volume. The patient had marginal acidosis, yesterday we started on diuresis. Her acidosis h as been worse. The patient was waiting for transfer, unfortunately could not transfer for capacity. The patient is still weak because of the worsening kidney function. I discussed with the family reg arding the need to resume dialysis, the family in agreement, the . Physical Examination: Vital Signs: When I saw the patient; blood pressure 116/90, pulse of 100, afebrile. Chest: Crackles bilateral. Heart: S1, S2. Irregular, tachy. Abdomen: Soft, nontender. Extremity: Trace edema. Neuro: Alert. No focality. Laboratory Data: WBC 17.9, H and H 9.9/31.9, platelet 335. Sodium 135, potassium 5.6, bicarb 8, BUN 114, creatinine 3.9, GFR of 11, phosphorus 9.9, calcium 8.8. Assessment And Plan: 1.Acute kidney injury on advanced chronic kidney disease, over volume, hyperkalemia with acidosis wi th the start being uremic. I am going to go ahead and proceed with dialysis. Discussed with the fam deborah, agreed. We will place dialysis catheter and we will start the patient on dialysis today. We wi ll do dialysis today and tomorrow and we will follow up. 2.Hyperkalemia. The patient is going to be dialyzed on low-potassium bath. 3.Acidosis. We will switch bicarb to sterile water with 3 amps of bicarb and we will follow up. Th is bicarb can be discontinued after initiating dialysis. 4.Congestive heart failure with exacerbation. We will try to establish better volume control with d ialysis today and tomorrow. Continue diuresis. 5.Secondary hyperparathyroidism with severe hyperphosphatemia. We will follow up phosphorus after t he daily dialysis. The patient will be started on Tums. No need for calcitriol for the time being. 6.Diabetes as by primary. MATTHEW/MODL Voice ID: [id number] Report ID: [id number]
[2021-02-14] MEDS ORDERED: ACETAMINOPHEN 500 MG TAB ONE (13:34)
[2021-02-14] MEDS: AMIODARONE HCL 900 MG in Dextrose 5%-Water 482 ML IV SCH ×2 (15:04→23:37)
--- NOTE | 2021-02-14 15:43 | P.PN ---
Date of Service: 02/14/21 Subjective: Patient worsened overnight, became hypotensive Amiodarone discontinued, started on Levophed Patient was hypoxic and tachypneic, ABG consistent with metabolic acidosis Less responsive somewhat confused overnight as well Patient feeling little bit better this morning ROS: 10 point ROS as noted above, otherwise negative Physical exam GEN: Alert, oriented x2, appears fatigued, ill HEENT: Normal conjunctiva, sclera anicteric CV: Irregularly irregular rhythm, HR: 100-110s, no edema may Pulm: Slight tachypnea on BiPAP ABD: Soft, nontender, nondistended Integumentary: No rashes Neuro: Normal speech, normal affect Problem list Atrial fibrillation with RVR, new onset Acute on chronic CHF exacerbation, systolic; with LifeVest HARSHAD on CKD. Previously needed dialysis temporarily Hypertension Hypothyroidism GERD Neuropathy HR with some improvement after metoprolol in ER, however patient was borderline hypotensive. Given her systolic CHF, likely EF of 15-20%, cardiology recommended amiodarone Amiodarone discontinued overnight 02/13, due to patient becoming very acidotic and hypotensive. Levophed started overnight on 02/13 Chest x-ray concerning for volume overload, no significant lower extremity edema on exam Suspect acute on chronic congestive heart failure exacerbation. Patient with low reserve. Cardiology consulted, recommends transfer to tertiary care center. 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 severe systolic CHF diagnosis, bottle sorter was considering cardiac catheterization Nephrology consulted for acute renal failure, managed with worsening renal function overnight General surgery consulted for temporary dialysis catheter, patient to have dialysis urgently today Suspect her acute renal failure this more of a cardiorenal syndrome, but unclear In further discussion, patient does report feeling like she could not completely empty her bladder, and felt like she was having the beginning symptoms of a UTI UA pending Continue cefepime and vancomycin Telemetry Confirm home medications, restart as appropriate. VTE: Eliquis Code: Full Dispo: Continue ICU level of care Attempting to transfer to tertiary care center updated at bedside Time Spent Managing Pts Care (In Minutes): 45
--- NOTE | 2021-02-14 16:09 | EKG ---
Test Date: 2021-02-13 Test Time: 12:54:09 Chief Fundraising Officer: DALTON MEASUREMENT RESULTS: Intervals: Rate: 125 SC: QRSD: 140 QT: 366 QTc: 528 [place]: P: SC: QRS: 161 T: 67 INTERPRETIVE STATEMENTS: Atrial fibrillation with rapid ventricular response Right axis deviation Nonspecific intraventricular block Abnormal ECG Compared to ECG 06/21/2020 12:16:42 Right-axis deviation now present Sinus rhythm no longer present Left-axis deviation no longer present Left bundle-branch block no longer present Electronically Signed On 02-14-21 16:07:14 CDT by Jasiel Yañez
[2021-02-14] MEDS: FUROSEMIDE 80 MG in NA CHLORIDE 0.9% 50 ML IV SCH (17:07)
[2021-02-14 17:11] LABS: Blood O2 Saturation 96.8 % (92-98.5)
[2021-02-14 17:12] LABS: Blood Gas Oxyhemoglobin 94.6 % (94-97)
[2021-02-14] MEDS ORDERED: ENOXAPARIN 100 MG/ML SYR SQ SCH (18:05)
[2021-02-14] MEDS ORDERED: HYDROCODONE/APAP 5/325 MG TAB ONE (18:26)
[2021-02-14] MEDS ORDERED: ENOXAPARIN 100 MG/ML SYR SQ ONE (18:38)
[2021-02-14] MEDS ORDERED: ENOXAPARIN 30 MG/0.3 ML SQ SCH (19:00)
[2021-02-14 19:33] LABS: Albumin 3.1 g/dL (3.4-5.0); Alkaline Phosphatase 869 U/L (45-117); BUN Blood Urea Nitrogen 60 mg/dL (7-18); Bicarbonate 19 mmol/L (21-32); Glucose Level 127 mg/dL (74-106); Potassium 3.9 mmol/L (3.5-5.1); Protein, Total 8.2 g/dL (6.4-8.2); Sodium Level 137 mmol/L (136-145)
[2021-02-14] MEDS: PROMETHAZINE INJ 25 MG/ML AMP IV PRN (22:09)
[2021-02-14] MEDS ORDERED: PROMETHAZINE INJ 25 MG/ML AMP ONE (22:34)
[2021-02-14] MEDS ORDERED: ALPRAZOLAM 0.5 MG TABLET PO ONE (22:34)
[2021-02-14] MEDS ORDERED: ALPRAZOLAM 0.5 MG TABLET ONE (23:09)
[2021-02-15] MEDS ORDERED: NOREPINEPHRINE 4mg/D5W 250mL 4 MG/250 ML BAG IV ONE ×3 (00:44→12:25)
[2021-02-15] MEDS: NOREPINEPHRINE 4 MG in D5W 250 ML IV SCH ×3 (01:39→22:10)
[2021-02-15 05:22] LABS: Basophils % 0.3 % (0-1.3); Hematocrit 28.8 % (36.0-45.0); Lymphocytes % 4.8 % (15.3-44.8); MPV 8.7 fL (7.6-11.3); RBC Red Blood Cell Count 3.49 M/uL (3.86-4.86)
[2021-02-15 05:50] LABS: Bilirubin Direct 3.4 mg/dL (0-0.2); Bilirubin Total 4.6 mg/dL (0.2-1.0); Magnesium 2.4 mg/dL (1.8-2.4); Phosphorus 5.7 mg/dL (2.5-4.9); Protein, Total 7.7 g/dL (6.4-8.2)
[2021-02-15 06:41] LABS: Anisocytosis SLIGHT; Platelet Estimate ADEQ; Platelets, Giant NOTED
[2021-02-15 06:42] LABS: Blood Morphology Comment NOTED (NOT SEEN)
[2021-02-15] MEDS ORDERED: FAMOTIDINE 20 MG/2 ML VIAL IV ONE (07:39)
--- NOTE | 2021-02-15 07:49 | RAD REPORT ---
EXAM DESCRIPTION: US - Liver Only - 02/15/2021 6:54 am CLINICAL HISTORY: evaluate Liver COMPARISON: Stone Protocol dated 09/06/2020 TECHNIQUE: Sonographic evaluation of the right upper quadrant was performed as a dedicated liver ult rasound study. FINDINGS: Liver is 17 cm in maximum dimension. No focal liver lesion is identifiable. No capsular no dularity confirmed. Echogenicity of the liver parenchyma is slightly increased. This is a borderline to mild fatty infiltration pattern. Doppler evaluation shows no portal vein abnormality. No ascites seen in the upper abdomen. Patient was unable fully cooperate with the examination. Theref ore, the spleen could not be visualized. No gross splenic abnormality seen on the August 2020 CT study. IMPRESSION: Borderline to mild fatty infiltration pattern of the liver. No focal liver lesions seen.
[2021-02-15] MEDS: FUROSEMIDE 80 MG in NA CHLORIDE 0.9% 50 ML IV SCH (08:31)
[2021-02-15] MEDS: ONDANSETRON 4 MG/2 ML VIAL IV PRN (08:31)
[2021-02-15] MEDS: ENOXAPARIN 30 MG/0.3 ML SQ SCH (08:32)
[2021-02-15] MEDS: CEFEPIME 1 GM in NA CHLORIDE 0.9% 100 ML IV SCH (08:32)
[2021-02-15] MEDS ORDERED: ENOXAPARIN 30 MG/0.3 ML SQ ONE (08:50)
[2021-02-15] MEDS ORDERED: CEFEPIME 1 GM/VIAL ONE (08:51)
[2021-02-15] MEDS ORDERED: NA CHLORIDE 0.9% 100 ML ONE (08:51)
[2021-02-15] MEDS ORDERED: ONDANSETRON 4 MG/2 ML VIAL ONE (08:51)
[2021-02-15] MEDS ORDERED: CEFEPIME 1 GM/VIAL IV SCH (09:00)
[2021-02-15] MEDS ORDERED: NA CHLORIDE 0.9% 250 ML ONE (09:09)
[2021-02-15] MEDS: WATER FOR INJ,STERILE 1,000 ML with NA BICARB 8.4% 150 MEQ IV SCH ×2 (10:00)
[2021-02-15] MEDS ORDERED: MORPHINE 2 MG/ML SYR IV ONE ×2 (10:56→16:15)
[2021-02-15] MEDS ORDERED: MORPHINE 2 MG/ML SYR ONE ×2 (11:34→16:40)
--- NOTE | 2021-02-15 12:59 | P.CNS ---
Date of Consult: 02/15/21 Reason for Consult: Acidosis Chief Complaint: HARSHAD, new onset A. fib History of Present Illness: Patient is 75 years of age with chronic renal disease and hypertension scented to the hospital with cough shortness of breath generalized weakness found to be in severe acute renal failure severe metabolic acidosis seen by operative supervisor only stable hemodialysis catheter Allergies codeine Allergy (Verified 08/09/20 09:32) Itching Home Medications: Omeprazole [Prilosec] 40 mg PO DAILY 07/16/20 Promethazine HCl 25 mg PO Q6H PRN 07/16/20 calcitrioL [Rocaltrol] 1 tab PO DAILY 07/16/20 traMADol HCL [Ultram*] 50 mg PO Q8H PRN 07/16/20 Multivitamin with Iron [Daily Vitamin + Iron] 1 each PO DAILY #90 tablet 07/18/20 Cranberry 500 mg PO DAILY 08/09/20 Hydralazine HCl 100 mg PO DAILY 08/09/20 Levothyroxine Sodium [Unithroid] 75 mcg PO DAILY 08/09/20 - Past Medical/Surgical History Diabetic: No -: HTN -: CKD, temporarily needed dialysis -: CHF, systolic -: Knee surgery -: Hysterectomy -: HD placement - Family History Brother Medical History: Heart disease Mother Medical History: Heart disease Sister Medical History: Heart disease - Social History Alcohol use: No CD- Drugs: No Caffeine use: Yes Place of Residence: Home Review of Systems General: Weakness Respiratory: Shortness of Breath Physical Examination Temp Pulse Resp BP Pulse Ox 99.0 F 85 20 118/84 95 02/15/21 07:00 02/15/21 10:00 02/15/21 10:00 02/15/21 10:00 02/15/21 10:00 General: Alert, Cooperative, Mild distress Respiratory: Clear to auscultation bilaterally, Friction rub Cardiovascular: Regular rate/rhythm - Problems (1) ESRD (end stage renal disease) on dialysis Current Visit: No Status: Acute Plan: Patient is 75 years of age admitted to the hospital with end-stage renal disease currently on dialysis severe acidosis which has been corrected white count is elevated hemoglobin has mildly decreased cultures are negative can DC vancomycin chest x-ray shows prominent cardiomegaly cannot exclude pneumonia changed to Rocephin oxygenation satisfactory
--- NOTE | 2021-02-15 13:06 | PN ---
Date of Progress Note: 02/15/2021 Subjective: The patient was admitted with acute kidney injury secondary to cardiorenal, AFib with RVR. The patient has severe congestive heart failure with ejection fraction of 15%. The patient was placed on Levophed, currently on 16 mcg. The patient complaining from abdominal pain. The patient had dialysis yesterday, tolerated well with Levophed. Physical Examination: Vital Signs: Blood pressure 118/84, pulse of 85. Chest: Crackles bilateral base. Heart: Tachycardic, irregular. Abdomen: Tenderness. No guarding or rebound. Extremities: No edema. Neurologic: Alert. No focality. Laboratory Data: WBC 21.2, H and H 9.4/28.8. Sodium 130, potassium 4, bicarb 19, BUN 67, creatinine 3.3, calcium 8.4, phosphorus 5.7. LFT, AST and ALT above 7000, alkaline phosphatase 834. Current Medications: The patient on include; 1. Cefepime. 2. Vancomycin. 3. Promethazine. 4. Levophed. 5. Amiodarone. 6. Zofran. Assessment And Plan: 1. Acute kidney injury on advanced chronic kidney disease secondary to poor perfusion, ATN, cardiorenal, over volume. I am going to do another session of dialysis today and we will follow up the patient. The patient is schedule to be transfer. We will follow up after. 2. Hyperkalemia, resolved. 3. Acidosis high anion gap with the presence of abdominal pain. Acidosis has been recovered on the dialysis, but the patient to rule out any intraabdominal ischemia, we will proceed with CT with angio. Discussed with the hospitalist. The patient is already on Lovenox. We will follow up if the patient is going to need to be full anticoagulate with heparin drip. 4. Cardiogenic shock and atrial fibrillation with rapid ventricular response. Continue Levophed. We will follow up with Cardiology. 5. Congestive heart failure exacerbation. We will try to optimize fluid status for the patient. time spent exam the patient face to face placing order , reviewing the date lab and radiology , discussing with nursing stafe and discussing the case with other oracle fusion consultant ICU and hospitalist 45Min MATTHEW/JEAN PAUL Voice ID: [id number] Report ID: [id number] MTDSeble
--- NOTE | 2021-02-15 14:49 | ECHO ---
HEIGHT: 5 ft 4 in WEIGHT: 140 lb 0 oz DATE OF STUDY: 02/15/[address]: Jasiel Yañez MD 2-DIMENSIONAL: YES M.MODE: YES DOPPLER: YES COLOR FLOW: YES TDS: NO PORTABLE: NO DEFINITY: NO BUBBLE STUDY: NO DIAGNOSIS: CONGESTIVE HEART FAILURE CARDIAC HISTORY: CATHERIZATION: SURGERY: PROSTHETIC VALVE: PACEMAKER: MEASUREMENTS (cm) DIASTOLIC (NORMALS) SYSTOLIC (NORMALS) IVSd 1.2 (0.6-1.2) LA Diam 5.0 (1.9-4.0) LVEF 26% LVIDd 5.0 (3.5-5.7) LVIDs 4.4 (2.0-3.5) %FS 12% LVPWd 1.1 (0.6-1.2) Ao Diam 2.5 (2.0-3.7) 2 DIMENSIONAL ASSESSMENT: RIGHT ATRIUM: NORMAL LEFT ATRIUM: ENLARGED RIGHT VENTRICLE: NORMAL LEFT VENTRICLE: DEPRESSED TRICUSPID VALVE: MILD TRICUSPID REGURGITATION MITRAL VALVE: MILD MITRAL REGURGITATION PULMONIC VALVE: NORMAL AORTIC VALVE: NORMAL PERICARDIAL EFFUSION: SMALL PERICARDIAL EFFUSION AORTIC ROOT: NORMAL LEFT VENTRICULAR WALL MOTION: SEVERE GLOBAL HYPOKINESIS. DOPPLER/COLOR FLOW: SEE BELOW. COMMENTS: SEVERELY DEPRESSED LEFT VENTRICULAR EJECTION FRACTION OF 25-30%. SEVERE GLOBAL HYPOKINESIS. MILD TRICUSPID REGURGITATION, MILD MITRAL REGURGITATION. SMALL TO MODERATE PERICARDIAL EFFUSION. PULMONARY HYPERTENSION WITH RIGHT VENTRICULAR SYSTOLIC PRESSURE 55-60%mmHg. TECHNOLOGIST: ASA SAAVEDRA
--- NOTE | 2021-02-15 16:42 | RAD REPORT ---
EXAM DESCRIPTION: CTAbdomen Pelvis Wo Contrast - 02/15/2021 4:33 pm CLINICAL HISTORY: pain COMPARISON: Stone Protocol dated 09/06/2020; Stone Protocol dated 08/19/2020; Stone Protocol dated 07/16; Abdomen Pelvis W Contrast dated 06/21/2020; Chest Single View dated 02/14/2021; Chest Single V iew dated 02/14/2021; Chest Single View dated 02/13/2021 TECHNIQUE: CT of the abdomen and pelvis was performed. All CT scans are performed using dose optimization technique as appropriate and may include automated exposure control or mA/KV adjustment according to patient size. FINDINGS: Lower chest: Small bilateral effusions with underlying atelectasis and/or pneumonia. Moder ate pericardial effusion. Cardiomegaly. Tip of the dialysis catheter identified. Coronary artery calc ifications. Liver: No acute abnormality or suspicious lesions. Biliary: Cholecystectomy Stomach: No significant focal abnormality. Duodenum: No significant focal abnormality. Pancreas: No significant abnormality. Spleen: No significant abnormality. Adrenal: No suspicious lesions. Kidney/ureter: No hydronephrosis. Nonobstructing stones left kidney. Retroperitoneum: No retroperitoneal adenopathy. Vascular: No aneurysm. Bowel: No significant focal abnormality. Peritoneum: Small volume of ascites. Bladder: Mobley catheter in bladder. Reproductive: No adnexal masses. Bones: No acute fracture. Multilevel degenerative changes are present in the spine. Other: Body wall edema. Right femoral vein catheter. IMPRESSION: No definite acute intra-abdominal abnormality. No pneumatosis or free air identified. No portal venous gas. Anasarca present including a moderate pericardial effusion. Basilar airspace dise ase may represent atelectasis and/or pneumonia.
--- NOTE | 2021-02-15 18:05 | P.PN ---
Date of Service: 02/15/21 Subjective: No acute events overnight. Patient was restarted on amiodarone yesterday Continues on Levophed. Tolerated dialysis yesterday No new complaints this morning, feels about the same ROS: 10 point ROS as noted above, otherwise negative Physical exam GEN: Alert, oriented x2, appears fatigued HEENT: Normal conjunctiva, sclera anicteric CV: Irregularly irregular rhythm, HR: 100-120s Pulm: Slight tachypnea on BiPAP ABD: Soft, nontender, nondistended Integumentary: No rashes Neuro: Normal speech, normal affect Problem list Atrial fibrillation with RVR, new onset Acute on chronic CHF exacerbation, systolic; with LifeVest HARSHAD on CKD. Requiring dialysis Shock liver Hypertension Hypothyroidism GERD Neuropathy HR with some improvement after metoprolol in ER, however patient was borderline hypotensive. Given her systolic CHF, likely EF of 15-20%, cardiology recommended amiodarone Amiodarone discontinued overnight 02/13, due to patient becoming very acidotic and hypotensive. Levophed started overnight on 02/13. amio subsequently restarted on 02/14 CXR: Concern for volume overload, no significant lower extremity edema seen on exam Suspect acute on chronic congestive heart failure exacerbation. Patient with low reserve. Cardiology consulted, recommends transfer to tertiary care center. 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 severe systolic CHF diagnosis, track helper was considering cardiac catheterization Nephrology consulted for acute renal failure General surgery consulted for temporary dialysis catheter, placed 02/14 Patient received urgent dialysis on 02/14, plan for dialysis today as well Patient accepted for transfer to [facility], pending bed availability Patient did report feeling like she was unable to completely empty her bladder, UA ordered Continue cefepime and vancomycin for possible infection, unknown source Telemetry Confirm home medications, restart as appropriate. VTE: Lovenox Code: Full Dispo: Continue ICU level of care Accepted to [facility], pending bed availability updated at bedside Time Spent Managing Pts Care (In Minutes): 45
[2021-02-15] MEDS: DOCUSATE NA 100 MG CAP PO SCH (21:00)
[2021-02-16] MEDS ORDERED: NOREPINEPHRINE 4mg/D5W 250mL 4 MG/250 ML BAG IV ONE (02:57)
[2021-02-16 03:59] LABS: Absolute Lymphocytes (CBC) 0.6 K/uL (0.7-4.9); Basophils % 0.2 % (0-1.3); Lymphocytes % 4.2 % (15.3-44.8); MPV 8.5 fL (7.6-11.3); RBC Red Blood Cell Count 3.52 M/uL (3.86-4.86)
[2021-02-16] MEDS ORDERED: VANCOMYCIN 1 GM in NA CHLORIDE 0.9% 250 ML IVPB SCH (04:00)
[2021-02-16] MEDS: NOREPINEPHRINE 4 MG in D5W 250 ML IV SCH ×3 (04:01→17:42)
[2021-02-16 04:27] LABS: Albumin 2.9 g/dL (3.4-5.0); Bilirubin Direct 3.2 mg/dL (0-0.2); Bilirubin Total 4.1 mg/dL (0.2-1.0); Magnesium 2.2 mg/dL (1.8-2.4); Phosphorus 3.1 mg/dL (2.5-4.9); Potassium 3.3 mmol/L (3.5-5.1); Protein, Total 7.4 g/dL (6.4-8.2)
[2021-02-16] MEDS ORDERED: MORPHINE 2 MG/ML SYR IV ONE (05:52)
[2021-02-16] MEDS ORDERED: MORPHINE 2 MG/ML SYR ONE (06:24)
--- NOTE | 2021-02-16 06:24 | P.PN ---
Date of Service: 02/16/21 Subjective: No acute events overnight. Yesterday patient had abdominal pain, concern for ischemic bowel given her episode of hypotension and metabolic acidosis. Unable to obtain peripheral IV to perform CTA. And recurrent abdominal pain, CT abdomen/pelvis without contrast performed, no significant findings in the abdomen. Abdominal pain improved, but still remains diffusely tender, most severe in the epigastrium. This morning reports pain/discomfort all over, overall does not feel well, but does feel better than she did last day Remains on amiodarone, sinus rhythm this morning, remains on Levophed ROS: 10 point ROS as noted above, otherwise negative Physical exam GEN: Alert, oriented x3, appears fatigued HEENT: Normal conjunctiva, sclera anicteric CV: Sinus rhythm, HR: 90s Pulm: Slight tachypnea on NC ABD: Soft, nondistended, tender diffusely, most in epigastrium Integumentary: No rashes Neuro: Normal speech, normal affect Problem list Atrial fibrillation with RVR, new onset Acute on chronic CHF exacerbation, systolic; with LifeVest Suspect cardiogenic shock Abdominal pain HARSHAD on CKD. Requiring dialysis Shock liver Hypertension Hypothyroidism GERD Neuropathy HR with some improvement after metoprolol in ER, however patient was borderline hypotensive. Given her systolic CHF, likely EF of 15-20%, cardiology recommended amiodarone Amiodarone discontinued overnight 02/13, due to patient becoming very acidotic and hypotensive. Levophed started overnight on 02/13. amio subsequently restarted on 02/14 CXR: Concern for volume overload, no significant lower extremity edema seen on exam Suspect acute on chronic congestive heart failure exacerbation. Patient with low reserve. Cardiology consulted, recommends transfer to tertiary care center. 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 No obvious inflammation of the pancreas, however CT was without contrast. Not visualized/commented on right upper quadrant ultrasound VTE: Lovenox Code: Full Dispo: Continue ICU level of care Accepted to [facility], pending bed availability updated at bedside Time Spent Managing Pts Care (In Minutes): 45
[2021-02-16] MEDS: CEFEPIME 1 GM in NA CHLORIDE 0.9% 100 ML IV SCH ×2 (09:00→09:39)
[2021-02-16] MEDS ORDERED: ENOXAPARIN 30 MG/0.3 ML SQ ONE (09:01)
--- NOTE | 2021-02-16 09:04 | P.PN ---
Subjective Date of Service: 02/16/21 Chief Complaint: HARSHAD, new onset A. fib Physical Examination - Vital Signs Temperature: 98.3 F Blood Pressure: 134/75 Pulse: 80 Respirations: 18 Pulse Ox (%): 97 Assessment And Plan - Plan # HARSHAD 2/2 CRS1, on CKD No sig renal recovery HD again today Strict I/O Monitor renal panel # Acute on chronic systolic HF c/b cardiogenic shock LVEF 15-20% On lifeVest Vasopressor +/- inotrope support per Cardiology # Ischemic hepatopathy Monitor # Abdominal pain ? mesenteric ischemia No clear acute pathology on CT A/P non-contrast Lactate wnl Amylase & lipase elevated On empiric abx # Afib w/ RVR Rate controlled Per Cardiology # Dispo Transfer to [facility] when bed available, for further advanced HF therapies
[2021-02-16] MEDS: ENOXAPARIN 30 MG/0.3 ML SQ SCH (09:40)
[2021-02-16] MEDS: DOCUSATE NA 100 MG CAP PO SCH ×2 (10:13→21:00)
[2021-02-16] MEDS ORDERED: DOCUSATE NA 100 MG CAP PO ONE (10:34)
[2021-02-16 12:40] LABS: Amylase 136 U/L (25-115); Lipase 997 U/L (73-393)
[2021-02-16] MEDS: PROMETHAZINE INJ 25 MG/ML AMP IV PRN (20:53)
[2021-02-16] MEDS ORDERED: PROMETHAZINE INJ 25 MG/ML AMP ONE (21:14)
[2021-02-17] MEDS ORDERED: PROMETHAZINE INJ 25 MG/ML AMP ONE (02:09)
[2021-02-17] MEDS: PROMETHAZINE INJ 25 MG/ML AMP IV PRN (02:31)
--- NOTE | 2021-02-17 05:04 | P.PN ---
Subjective Date of Service: 02/17/21 Chief Complaint: HARSHAD, new onset A. fib Subjective: Other (she reports no increase in shortness of breath. She received dialysis yesterday.) Physical Examination - Vital Signs Temperature: 98 F Blood Pressure: 120/53 Pulse: 76 Respirations: 25 Pulse Ox (%): 97 - Physical Exam General: Other (appears chronically ill) HEENT: Atraumatic, Normocephalic Neck: Supple Respiratory: Other (symmetric chest expansion) Cardiovascular: No rubs, No murmurs Gastrointestinal: Soft and benign Musculoskeletal: No clubbing, Swelling Integumentary: Other (normal skin temperature) Neurological: Normal speech, Normal tone Urinary: Other (no bladder distention) External genitalia: Other Rectal: Other Assessment And Plan - Plan # HARSHAD 2/2 CRS1, on CKD No sig renal recovery HD received yesterday No acute indication for HD today Strict I/O Monitor renal panel # Acute on chronic systolic HF c/b cardiogenic shock LVEF 15-20%; C pending On lifeVest Start inotrope via dobutamine or milrinone gtt if MAP drops below 65 # Ischemic hepatopathy Monitor # Abdominal pain ? mesenteric ischemia No clear acute pathology on CT A/P non-contrast Lactate wnl Amylase & lipase elevated On empiric abx # Afib w/ RVR Rate controlled Per Cardiology # Dispo Transfer to [facility] when bed available, for further advanced HF therapies
[2021-02-17 05:49] LABS: Absolute Lymphocytes (CBC) 0.4 K/uL (0.7-4.9); Basophils % 0.2 % (0-1.3); Hematocrit 27.6 % (36.0-45.0); Lymphocytes % 3.8 % (15.3-44.8); MPV 8.4 fL (7.6-11.3); RBC Red Blood Cell Count 3.33 M/uL (3.86-4.86)
[2021-02-17 06:03] LABS: Albumin 2.6 g/dL (3.4-5.0); Bilirubin Direct 2.8 mg/dL (0-0.2); Bilirubin Total 3.7 mg/dL (0.2-1.0); Magnesium 2.1 mg/dL (1.8-2.4); Phosphorus 2.1 mg/dL (2.5-4.9); Potassium 3.1 mmol/L (3.5-5.1); Protein, Total 7.2 g/dL (6.4-8.2)
[2021-02-17] MEDS: AMIODARONE HCL 900 MG in Dextrose 5%-Water 482 ML IV SCH (08:38)
[2021-02-17] MEDS: DOCUSATE NA 100 MG CAP PO SCH ×2 (09:08→20:43)
[2021-02-17] MEDS: ENOXAPARIN 30 MG/0.3 ML SQ SCH (09:09)
[2021-02-17] MEDS: CEFEPIME 1 GM in NA CHLORIDE 0.9% 100 ML IV SCH (09:09)
[2021-02-17] MEDS ORDERED: CEFEPIME 1 GM/VIAL ONE (09:19)
[2021-02-17] MEDS ORDERED: ENOXAPARIN 30 MG/0.3 ML SQ ONE (09:19)
[2021-02-17] MEDS ORDERED: NA CHLORIDE 0.9% 100 ML ONE (09:21)
[2021-02-17] MEDS ORDERED: POTASSIUM CL SA 10 MEQ TAB PO ONE (10:16)
--- NOTE | 2021-02-17 10:37 | RAD REPORT ---
EXAM DESCRIPTION: Anirudh Single View02/17/2021 6:56 am CLINICAL HISTORY: Shortness of breath COMPARISON: February 15, 2021 FINDINGS: No significant change in mild to moderate bilateral pulmonary opacities, cardiomegaly and small pleural effusions. Central venous line with its tip in the right atrium
[2021-02-17] MEDS: GUAIFENESIN 600 MG SA TAB PO SCH ×2 (12:21→20:43)
[2021-02-17] MEDS ORDERED: MORPHINE 2 MG/ML SYR IV ONE (13:32)
--- NOTE | 2021-02-17 14:52 | P.PN ---
Date of Service: 02/17/21 Subjective: No acute events overnight. seems to be improving off levophed ~2-3 am sinus rhythm yesterday, seems to be flipping back and forth abdominal pain much improved ROS: 10 point ROS as noted above, otherwise negative Physical exam GEN: Alert, oriented x3, appears somewhat uncomfortable / fatigued HEENT: Normal conjunctiva, sclera anicteric CV: Sinus rhythm, HR: 90s Pulm: Slight tachypnea on NC, +b/l crackles ABD: Soft, nondistended, mild-mod tenderness diffusely Neuro: Normal speech, normal affect Problem list Atrial fibrillation with RVR, new onset Acute on chronic CHF exacerbation, systolic; with LifeVest Suspect cardiogenic shock small-moderate pericardial effusion Abdominal pain HARSHAD on CKD. Requiring dialysis Shock liver Hypertension Hypothyroidism GERD Neuropathy CXR: Concern for volume overload, no significant lower extremity edema seen on exam HR with some improvement after metoprolol in ER, however patient was borderline hypotensive. Given her systolic CHF, likely EF of 15-20%, cardiology recommended amiodarone Amiodarone discontinued overnight 02/13, due to patient becoming very acidotic and hypotensive. Levophed started overnight on 02/13. amio subsequently restarted on 02/14 overall improving, levophed off early am of 02/17 Suspect acute on chronic congestive heart failure exacerbation. Patient with low reserve. Cardiology consulted, recommends transfer to tertiary care center. 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 Having occasional short runs of Bennett zamora, unsustained Nephrology consulted for acute renal failure Dialysis catheter placed on 02/14 by general surgery, received urgent dialysis, and has been receiving this daily Patient accepted for transfer to [facility] on 02/14, pending bed availability Continue cefepime and vancomycin for possible infection, unknown source Telemetry Negative lactic acidosis 02/16, do not suspect ischemic bowel at this point Most tender in the epigastrium, will obtain lipase. No obvious inflammation of the pancreas, however CT was without contrast. Not visualized/commented on right upper quadrant ultrasound lipase was elevated and now improved Discussed with nephrology and cardiology, if patient becomes hypotensive again, will start milrinone to maintain MAP> 65 VTE: Lovenox Code: Full Dispo: Continue ICU level of care Accepted to [facility] on 02/14, pending ICU bed availability updated at bedside Time Spent Managing Pts Care (In Minutes): 45
[2021-02-17] MEDS: MORPHINE 2 MG/ML SYR IV PRN (21:43)
--- NOTE | 2021-02-17 21:56 | RAD REPORT ---
EXAM DESCRIPTION: Anirudh Single View02/17/2021 9:42 pm CLINICAL HISTORY: Shortness of breath COMPARISON: February 15, 2021 FINDINGS: Enlargement of the cardiac silhouette represents combination of cardiomegaly and pericardi al effusion Small pleural effusions. Bilateral pulmonary opacities which represent pulmonary edema or pneumonia
[2021-02-17] MEDS: ONDANSETRON 4 MG/2 ML VIAL IV PRN (21:59)
[2021-02-17] MEDS ORDERED: MORPHINE 2 MG/ML SYR ONE (22:36)
[2021-02-17] MEDS ORDERED: ONDANSETRON 4 MG/2 ML VIAL ONE (22:58)
[2021-02-18] MEDS: MORPHINE 2 MG/ML SYR IV PRN (02:03)
[2021-02-18] MEDS ORDERED: MORPHINE 2 MG/ML SYR ONE (02:57)
[2021-02-18 03:55] LABS: Absolute Lymphocytes (CBC) 0.6 K/uL (0.7-4.9); Basophils % 0.6 % (0-1.3); Hematocrit 27.9 % (36.0-45.0); Lymphocytes % 5.5 % (15.3-44.8); MPV 8.1 fL (7.6-11.3); RBC Red Blood Cell Count 3.36 M/uL (3.86-4.86)
[2021-02-18 04:06] LABS: Albumin 2.7 g/dL (3.4-5.0); Phosphorus 2.8 mg/dL (2.5-4.9)
[2021-02-18] MEDS ORDERED: BENZONATATE 100 MG CAP PO PRN (05:09)
[2021-02-18] MEDS ORDERED: BENZONATATE 100 MG CAP PO ONE (06:11)
[2021-02-18 06:46] LABS: UR PROTEIN 236.9 mg/dL (<11.9); Urine Protein/Creatinine Ratio 1.74 ratio (<0.15)
[2021-02-18 06:58] LABS: Albumin 2.7 g/dL (3.4-5.0); Bilirubin Direct 2.9 mg/dL (0-0.2); Bilirubin Total 3.8 mg/dL (0.2-1.0); Protein, Total 7.3 g/dL (6.4-8.2)
--- NOTE | 2021-02-18 07:33 | P.PN ---
Subjective Date of Service: 02/18/21 Chief Complaint: HARSHAD, new onset A. fib Physical Examination - Vital Signs Temperature: 97.2 F Blood Pressure: 113/52 Pulse: 69 Respirations: 16 Pulse Ox (%): 97 Assessment And Plan - Plan # HARSHAD 2/2 CRS1, on CKD No sig renal recovery HD received yesterday No acute indication for HD today Strict I/O Monitor renal panel # Acute on chronic systolic HF c/b cardiogenic shock LVEF 15-20%; LHC pending On lifeVest Start inotrope via dobutamine or milrinone gtt if MAP drops below 65 # Ischemic hepatopathy Monitor # Abdominal pain ? mesenteric ischemia No clear acute pathology on CT A/P non-contrast Lactate wnl Amylase & lipase elevated On empiric abx # Afib w/ RVR Rate controlled Per Cardiology # Dispo Transfer to [facility] when bed available, for further advanced HF therapies Physician Review Additional Text: Problem list Atrial fibrillation with RVR, new onset Acute on chronic CHF exacerbation, systolic; with LifeVest HARSHAD on CKD. Previously needed dialysis temporarily Hypertension Hypothyroidism GERD Neuropathy Patient notes heart rate improved with metoprolol in the ED Patient takes 25 mg metoprolol twice daily at home, will increase to 50 mg twice daily Cardiology consulted Blood pressure borderline, metoprolol with hold parameters Start Eliquis Chest x-ray concerning for volume overload, no significant lower extremity edema on exam Nephrology consulted in the ER, recommended diuresis with Lasix, renal ultrasound ordered Suspect this is more cardiorenal syndrome Trend labs Telemetry VTE: Eliquis Code: Full Dispo: Anticipate DC home in 2-3 days
[2021-02-18] MEDS ORDERED: POTASSIUM CL SA 10 MEQ TAB PO ONE ×3 (07:52→09:23)
[2021-02-18 08:26] VITALS: O2SAT 92
[2021-02-18] MEDS: CEFEPIME 1 GM in NA CHLORIDE 0.9% 100 ML IV SCH (08:49)
[2021-02-18] MEDS: ENOXAPARIN 30 MG/0.3 ML SQ SCH (08:49)
[2021-02-18] MEDS: DOCUSATE NA 100 MG CAP PO SCH (08:50)
[2021-02-18] MEDS ORDERED: CEFEPIME 1 GM/VIAL ONE (09:22)
[2021-02-18] MEDS ORDERED: ENOXAPARIN 30 MG/0.3 ML SQ ONE (09:23)
--- NOTE | 2021-02-18 09:28 | PN ---
Subjective: Ms. Partida came in with acute on chronic systolic congestive heart failure, acute henri l failure. Echocardiogram showed an ejection fraction of 26%, mild mitral regurgitation, small-to-mo derate pericardial effusion, pulmonary hypertension with right ventricular pressure of 55% to 60% mmH g. She remains in atrial fibrillation at a rate of 0.5 cc a minute. I would increase her amiodarone dose. Ms. Partida had multiorgan failure with congestive heart failure, liver failure, renal failu re, resistant atrial fibrillation, slightly hypotensive. I would really make effort to try to transf er to the congestive heart failure team in [place]. She may need some kind of left ventricular travis t device help. Nephrology is following her case. I think she is going to be dialyzed, which would h elp as far as her fluid management is concerned. Again, if she does not convert as far as atrial fib rillation is concern, I will consider direct current cardioversion as well as I stated earlier, I thi nk she will need to be transferred to a tertiary care center for better heart and kidney failure supp ort. Case was discussed with Dr. Mills. We will continue to follow her. YARI/JEAN PAUL Voice ID: [id number] Report ID: [id number]
[2021-02-18 09:52] VITALS: BP 119/79
--- NOTE | 2021-02-18 12:34 | CON ---
Date of Consultation: 02/14/2021 Reason For Consultation: The patient was admitted on 02/07/[address] Mills with congestive heart f ailure. I saw the patient on 02/14/2021. History Of Present Illness: Ms. Partida is a 75-year-old woman who just left the [facility] in [place] after being admitted over there for congestive heart failure. She had end-stage renal disease, gallstones. She was on dialysis in the past. She has hypertension. She nguyen s kidney stones. She has a history of gastroesophageal reflux disease. She has a history of low eje ction fraction that was unknown, but when she came into the hospital here, she was basically hypotens nancy and she was in rapid atrial fibrillation at a rate of 130. Initial blood pressure was 122/85. W brady Horn was consulted, IV amiodarone was started after a bolus at 0.5 cc a minute and she remained in a trial fibrillation, but she became hypotensive and is requiring some Levophed. Echocardiogram was pe nding at the time that I saw her. Past Medical History: As stated above. Allergies: CODEINE. Review of Systems: Negative. Social History: Negative. Family History: Negative. Medications At Home: Include aspirin, levothyroxine, gabapentin, omeprazole, Lasix, metoprolol, and spironolactone. Physical Examination: Vital Signs: Listed earlier. Afebrile. HEENT: Negative. Neck: Supple. No bruit. Chest: Reveals bibasilar rales. Cardiac: Revealed atrial fibrillation. Abdomen: Benign. Extremities: Revealed 1+ edema. Diagnostic Data: Showed a creatinine of 3.19, hemoglobin 8.7. Her white count was 11.7. Her potass ium was 3.1. AST was 1470, ALT was 1624. Her BNP was elevated. Her amylase was elevated. Her lipa se was elevated. Chest x-ray showed atelectasis versus pneumonia versus pleural effusion. EKG showe d atrial fibrillation with rapid ventricular response. Impression And Plan: 1.Acute on chronic systolic congestive heart failure. 2.Acute atrial fibrillation, new onset. 3.Renal failure, acute. 4.History of hypertension. 5.Hypothyroidism. 6.Hypotension, requiring Levophed. I think we will need to obtain an echocardiogram before making further decision. If the amiodarone d id not work, we will consider direct current cardioversion. Nephrology is involved in her care. She may need dialysis for us to be able to take care of her heart. She really should be eventually on c arvedilol, Aldactone, Lasix. I am not so sure she has had an invasive cardiac workup as far as her c oronary anatomy is concerned. We will continue to follow her and we will see what her echocardiogram shows. YARI/JEAN PAUL Voice ID: [id number] Report ID: [id number]
--- NOTE | 2021-02-18 13:13 | P.DS ---
Admission Date: 02/13/21 Discharge Date: 02/18/21 Disposition: TRANSFER TO [facility] Discharge Condition: FAIR Reason for Admission: HARSHAD, new onset A. fib Consultations: Cardiology - Dr. Yañez Nephrology - Dr. Keenan, Dr. Garrett Pulmonology - Dr. Ritter General Surgery - Dr. Khanna Procedures: CXR (02/13): IMPRESSION: Increased cardiomegaly. Consider correlating with echocardiography or CT to exclude pericardial effusion. Basilar opacities noted which could reflect atelectasis and/or pneumonia. Renal ultrasound (02/13): FINDINGS: Both kidneys are normal in size, shape and echotexture. The right kidney measures 8.3. No hydronephrosis, focal mass or perinephric fluid. The left kidney measures 8.7. No hydronephrosis, focal mass or perinephric fluid. The bladder is decompressed. IMPRESSION: Unremarkable renal sonogram. Temporary dialysis catheter placement (02/14): Right subclavian Adolfo catheter placed by Dr. Yañez CXR (02/14): Right subclavian approach dialysis catheter has been placed with tip overlying the right atrium. No pneumothorax. Increased vascular congestion with similar appearing basilar opacities that may represent a combination of atelectasis and/or pneumonia. Liver ultrasound (02/15): FINDINGS: Liver is 17 cm in maximum dimension. No focal liver lesion is identifiable. No capsular nodularity confirmed. Echogenicity of the liver parenchyma is slightly increased. This is a borderline to mild fatty infiltration pattern. Doppler evaluation shows no portal vein abnormality. No ascites seen in the upper abdomen. Patient was unable fully cooperate with the examination. Therefore, the spleen could not be visualized. No gross splenic abnormality seen on the August 2020 CT study. IMPRESSION: Borderline to mild fatty infiltration pattern of the liver. No focal liver lesions seen. CT abdomen/pelvis without contrast (02/07): FINDINGS: Lower chest: Small bilateral effusions with underlying atelectasis and/or pneumonia. Moderate pericardial effusion. Cardiomegaly. Tip of the dialysis catheter identified. Coronary artery calcifications. Liver: No acute abnormality or suspicious lesions. Biliary: Cholecystectomy Stomach: No significant focal abnormality. Duodenum: No significant focal abnormality. Pancreas: No significant abnormality. Spleen: No significant abnormality. Adrenal: No suspicious lesions. Kidney/ureter: No hydronephrosis. Nonobstructing stones left kidney. Retroperitoneum: No retroperitoneal adenopathy. Vascular: No aneurysm. Bowel: No significant focal abnormality. Peritoneum: Small volume of ascites. Bladder: Mobley catheter in bladder. Reproductive: No adnexal masses. Bones: No acute fracture. Multilevel degenerative changes are present in the spine. Other: Body wall edema. Right femoral vein catheter. IMPRESSION: No definite acute intra-abdominal abnormality. No pneumatosis or free air identified. No portal venous gas. Anasarca present including a moderate pericardial effusion. Basilar airspace disease may represent atelectasis and/or pneumonia. CXR (02/17): FINDINGS: No significant change in mild to moderate bilateral pulmonary opacities, cardiomegaly and small pleural effusions. Central venous line with its tip in the right atrium CXR (02/17): FINDINGS: Enlargement of the cardiac silhouette represents combination of cardiomegaly and pericardial effusion Small pleural effusions. Bilateral pulmonary opacities which represent pulmonary edema or pneumonia Echo (02/15): Severely depressed LVEF (25-30%). Severe global hypokinesis. Mild tricuspid regurgitation, mild mitral regurgitation. Small to moderate pericardial effusion. Pulmonary hypertension with a RVSP 55-60 mmHg Problem list Atrial fibrillation with RVR, new onset Acute on chronic CHF exacerbation, systolic; with LifeVest Suspect cardiogenic shock small-moderate pericardial effusion Abdominal pain HARSHAD on CKD. now requiring dialysis Shock liver Hypertension Hypothyroidism GERD Neuropathy Brief History of Present Illness: 75-year-old female, PMH: CHF, CKD (previously needed dialysis for short period), hypertension. Presents to the ED due to not feeling well with cough, shortness of breath, nausea, and generalized weakness. She was recently hospitalized for CHF exacerbation and placed on a LifeVest approximately 2 months ago. She reports nonproductive cough, no fever/chills, associated with shortness of breath, and a sense of panic when laying flat. In the ED, she was noted to be in atrial fibrillation with a heart rate 205713g, chest x-ray with cardiomegaly and pulmonary edema, creatinine elevated above her baseline, and no leukocytosis. ER provider spoke with patient's rental car porter recommended transfer to [facility] - where he works; however, they did not have any bed availability. Patient will be admitted here. Hospital Course: By problem list Atrial fibrillation, new onset Patient was initially treated with metoprolol in the ER, and had moderate improvement of her rate, but and borderline low blood pressure, 110s/60s. This was discussed with cardiology, and given her low EF of 15-20%, they recommended stopping the metoprolol and treating the patient with amiodarone. Amiodarone was held on 02/14. Discontinued due to hypotensive episode. This was subsequently restarted the evening of 02/14 and patient cardioverted to sinus rhythm on 02/16. She continued to have a few unsustained runs of atrial fibrillation, but seem to be more stable in sinus rhythm on 02/18. She was anticoagulated with Lovenox. Acute on chronic systolic CHF exacerbation (HFrEF) -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 diagnosis of HFrEF approximately 2 months ago, and placed on LifeVest. At that time her rental car porter was considering cardiac catheterization, however this was not done due to patient's renal function and prior history of requiring dialysis. Plan was to reevaluate in February, and try to optimize the patient's renal function for possible cardiac catheterization. There was concern for some ischemic cardiomyopathy. Cardiology was consulted, and given her multiorgan involvement, and severity of her EF, was recommended the patient be transferred to tertiary care center for further evaluation and treatment by heart failure specialist team and would have backup if patient required further procedures. Mildmoderate pericardial effusion Noted on echocardiogram and CT. Unable to obtain prior records, unclear if this has been ongoing for last 2 months. She did report chest pressure/panic when laying flat, was more comfortable sitting up and leaning forward. There is no evidence of cardiac tamponade, no evidence of pericarditis. HARSHAD on CKD -Patient has prior history of renal failure requiring dialysis temporarily earlier this year. Nephrology was consulted, patient required dialysis catheter placement by general surgery and subsequently underwent dialysis. There was some difficulty to remove fluid due to low blood pressure. It is suspected that this worsening renal function was secondary to cardiorenal syndrome On the evening after admission on 02/13. Patient reported feeling very ill and was found to be significantly hypotensive. ABG with significant acidosis (pH: 6.98). Patient was noted to be tachycardic, tachypneic. Patient was started on a bicarb drip, Levophed, BiPAP, and continued on vancomycin and cefepime empirically. She had some improvement in her acidosis and her respirations. Patient was on Levophed until 23 AM on 02/17. Afterwards her blood pressure remained stable, with MAPs greater than 70 Abdominal pain -On 02/15 patient reported significant/severe abdominal pain. She was noted to have diffuse abdominal tenderness, severe in the upper abdomen (RUQ, epigastric, LUQ). She stated the pain occurred immediately after the liver ultrasound was performed. There was initial concern for possible ischemic bowel due to her hypotensive episode the night prior to the severity of her pain. Unfortunately peripheral IV was unable to be obtained and patient was unable to have a CTA done. CT abdomen/pelvis was done without contrast in the interim, did not visualize any acute processes. Her lipase was noted to be elevated to 900. Likely the results of her hypotensive episode. She was also noted to have elevated LFTs after her hypotensive episode. LFTs are secondary to shock liver and continue to improve daily. Sputum, urine, blood cultures all remained negative. She was maintained on bank and cefepime empirically. Patient was initially accepted at [facility] on 02/14, however an ICU bed was unavailable. Patient eventually improved and was stable enough to be downgraded to telemetry bed. She was eventually transferred to [facility] and on 02/18 when a telemetry bed was available. Vital Signs/Physical Exam: Physical exam GEN: Alert, oriented x3, appears uncomfortable / restless HEENT: Normal conjunctiva, sclera anicteric CV: Sinus rhythm, HR: 90s, distant heart sounds Pulm: Slight tachypnea on 2L NC, +b/l crackles at bases ABD: Soft, nondistended, mild-mod tenderness diffusely Neuro: Normal speech, normal affect Temp Pulse Resp BP Pulse Ox 97.2 F 72 20 119/79 98 02/18/21 07:33 02/18/21 09:00 02/18/21 09:00 02/18/21 09:00 02/18/21 09:00 Laboratory Data at Discharge: WBC 10.80 K/uL (4.3-10.9) 02/18/21 03:42 Hgb 9.0 g/dL (12.0-15.0) L 02/18/21 03:42 Hct 27.9 % (36.0-45.0) L 02/18/21 03:42 Plt Count 158 K/uL (152-406) 02/18/21 03:42 PT 14.8 SECONDS (9.5-12.5) H 02/13/21 13:07 INR 1.28 02/13/21 13:07 Sodium 136 mmol/L (136-145) 02/18/21 03:42 Potassium 3.0 mmol/L (3.5-5.1) L 02/18/21 03:42 BUN 38 mg/dL (7-18) H 02/18/21 03:42 Creatinine 3.19 mg/dL (0.55-1.3) H 02/18/21 03:42 Glucose 110 mg/dL (74-106) H 02/18/21 03:42 Phosphorus 2.8 mg/dL (2.5-4.9) 02/18/21 03:42 Magnesium 2.1 mg/dL (1.8-2.4) 02/18/21 03:42 Total Bilirubin 3.8 mg/dL (0.2-1.0) H 02/18/21 03:42 AST 760 U/L (15-37) H* D 02/18/21 03:42 ALT 1203 U/L (12-78) H* D 02/18/21 03:42 Alkaline Phosphatase 658 U/L (45-117) H 02/18/21 03:42 Troponin I < 0.02 ng/mL (0.0-0.045) 02/14/21 12:46 Amylase 136 U/L (25-115) H 02/16/21 12:23 Lipase 271 U/L (73-393) 02/17/21 06:44 Home Medications: Omeprazole [Prilosec] 40 mg PO DAILY 07/16/20 Promethazine HCl 25 mg PO Q6H PRN 07/16/20 calcitrioL [Rocaltrol] 1 tab PO DAILY 07/16/20 traMADol HCL [Ultram*] 50 mg PO Q8H PRN 07/16/20 Multivitamin with Iron [Daily Vitamin + Iron] 1 each PO DAILY #90 tablet 07/18/20 Cranberry 500 mg PO DAILY 08/09/20 Hydralazine HCl 100 mg PO DAILY 08/09/20 Levothyroxine Sodium [Unithroid] 75 mcg PO DAILY 08/09/20 Followup: Carlos Mehta MD [Primary Care Provider] - Time spent managing pt's care (in minutes): 60
[2021-02-18 21:52] VITALS: TEMP 98
[2021-02-19 04:37] LABS: HBsAG Nonreactive (Nonreactive)
[2021-02-19 10:27] LABS: Hepatitis C Virus RNA (PCR)log <1.18 log IU/mL
== END 2021-02-18 11:00 | disposition short-term general hospital (02) | DRG 308 ==
LOC: ER 12:40 → ERHOLD 14:45
PROVIDERS: ADMIT Hospitalist; ATTEND Hospitalist
PROC: 5A1D70Z Performance of Urinary Filtration, Intermittent, Less than 6 Hours Per Day (ICD-10-PCS; 2021-02-13)
PROC: 5A09457 Assistance with Respiratory Ventilation, 24-96 Consecutive Hours, Continuous Positive Airway Pressure (ICD-10-PCS; 2021-02-13)
PROC: 06HY33Z Insertion of Infusion Device into Lower Vein, Percutaneous Approach (ICD-10-PCS; 2021-02-13)
PROC: B5181ZA Fluoroscopy of Superior Vena Cava using Low Osmolar Contrast, Guidance (ICD-10-PCS; 2021-02-14)
PROC: 02H633Z Insertion of Infusion Device into Right Atrium, Percutaneous Approach (ICD-10-PCS; principal; 2021-02-14 09:30)
DX: I48.91 Unspecified atrial fibrillation (principal); I50.23 Acute on chronic systolic (congestive) heart failure; N18.6 End stage renal disease; N17.0 Acute kidney failure with tubular necrosis; R57.0 Cardiogenic shock; K72.00 Acute and subacute hepatic failure without coma; E87.1 Hypo-osmolality and hyponatremia; E87.2 Acidosis; N25.81 Secondary hyperparathyroidism of renal origin; I13.2 Hypertensive heart and chronic kidney disease with heart failure and with stage 5 chronic kidney disease, or end stage renal disease; I31.3 Pericardial effusion (noninflammatory); E03.9 Hypothyroidism, unspecified; K21.9 Gastro-esophageal reflux disease without esophagitis; G62.9 Polyneuropathy, unspecified; E78.5 Hyperlipidemia, unspecified; I25.10 Atherosclerotic heart disease of native coronary artery without angina pectoris; E87.5 Hyperkalemia; E83.39 Other disorders of phosphorus metabolism; R10.9 Unspecified abdominal pain; I95.9 Hypotension, unspecified; I25.5 Ischemic cardiomyopathy; Z79.899 Other long term (current) drug therapy; Z79.890 Hormone replacement therapy; Z79.82 Long term (current) use of aspirin; Z90.710 Acquired absence of both cervix and uterus; Z88.5 Allergy status to narcotic agent; Z20.822 Contact with and (suspected) exposure to COVID-19
CPT/HCPCS: 36415; 51702; 71045; 74176; 76000; 76705; 76770; 80048; 80053; 80069; 80076; 80202; 81003; 81015; 82150; 82570; 82805; 82947; 83605; 83690; 83735; 83880; 83970; 84100; 84145; 84156; 84439; 84443; 84484; 85025; 85610; 86317; 86704; 86706; 87040; 87086; 87088; 87340; 87522; 90935; 93005; 93306; 94660; 94760; 99285; J0282; J0690; J0692; J1644; J1650; J1940; J2270; J2405; J2550; J3370; J7030; J7040; J7050; J7060; U0003

== ENCOUNTER 2021-05-24 06:05 | Day surgery (SDC) | payer OTHER ==
[2021-05-23 09:51] LABS: Absolute Lymphocytes (CBC) 1.2 K/uL (0.7-4.9); Hematocrit 37.3 % (36.0-45.0); Lymphocytes % 20.5 % (15.3-44.8); MPV 9.2 fL (7.6-11.3); RBC Red Blood Cell Count 4.21 M/uL (3.86-4.86)
[2021-05-23 10:01] LABS: Potassium 3.4 mmol/L (3.5-5.1)
[2021-05-23 12:12] LABS: Blood Morphology Comment NOT SEEN (NOT SEEN); Platelet Estimate DECR
[2021-05-24] MEDS ORDERED: NA CHLORIDE 0.9% 500 ML ONE (06:20)
[2021-05-24] MEDS ORDERED: CEFAZOLIN/NS 1gm 1 GM/50 ML BAG ONE (06:21)
[2021-05-24] MEDS ORDERED: ONDANSETRON 4 MG/2 ML VIAL ONE (07:16)
[2021-05-24] MEDS ORDERED: FENTANYL CITR 100 MCG/2 ML ONE (07:16)
[2021-05-24] MEDS ORDERED: LIDOCAINE 2% MPF 5 ML VIAL ONE (07:16)
[2021-05-24] MEDS ORDERED: propofoL 200 MG/20 ML VIAL IV ONE (07:16)
[2021-05-24] MEDS ORDERED: MIDAZOLAM HCL 2 MG/2 ML INJ ONE (07:16)
[2021-05-24] MEDS ORDERED: LIDOCAINE 1% MPF 30 ML VIAL ONE (07:27)
[2021-05-24] MEDS ORDERED: BUPIVACAINE 0.5% PF 10 ML VIAL ONE ×2 (07:46→08:18)
[2021-05-24 08:53] VITALS: BP 168/53
--- NOTE | 2021-05-24 09:00 | OP ---
Date of Procedure: 05/24/2021 Surgeon: Howard Khanna MD Rn Care Transition: Geoff Samayoa, surgical instrument mechanic certified. Preoperative Diagnosis: History of renal failure, status post right chest tube catheter. Postoperative Diagnosis: History of renal failure, status post right chest tube catheter. Procedure: Removal of right chest tube catheter. Estimated Blood Loss: Minimal. Specimen: Chest tube catheter. Finding: As above. Anesthesia: MAC. Complications: None. Disposition: The patient tolerated the procedure in stable condition and taken to Recovery in good g eneral condition. Procedure In Detail: The patient was brought to the OR and placed in supine position. MAC anesthesi a was begun. The patient was prepped and draped in usual sterile fashion. Marcaine 0 5% infiltrated locally. The cuff of the catheter was very close to the epidermis. Ellipse of skin around the inse rtion site was made. Subcutaneous tissue was divided and the cuff was pulled towards the wound and e xcised and it took a little bit of the skin in the right base of the neck as well because it was clos e to the epidermis and left approximately 1.5 cm defect. Subsequently, both wounds were irrigated. Bleeding controlled with cautery. The catheter was sent for identification only and then 3-0 chromic used to reapproximate subcutaneous tissue and 4-0 nylon used to close the skin. Sterile dressing ap plied. The patient was awakened and taken to Recovery in good general condition. Discharge Note: The patient will go to Day Surgery and home when stable. Disposition: Home. Condition: Stable. Discharge Instructions: Resume home medications and diet. Activity as tolerated. No heavy lifting. Remove outer dressing in 2 days. Shower. Neosporin to wound and gauze and Band-Aid as well. Foll owup in my office in 2 weeks. Call for appointment. Ultracet 1 tablet p.o. q.4 p.r.n. /MODL Voice ID: [id number] Report ID: [id number]
[2021-05-24] MEDS ORDERED: TRAMADOL 37.5mg/APAP 325mg PER TAB ONE (09:18)
[2021-05-24 09:49] VITALS: TEMP 97; O2SAT 100
== END 2021-05-24 09:36 | disposition home or self-care (01) ==
LOC: OR 06:05
PROVIDERS: ATTEND Surgery
PROC: 0JPT0WZ Removal of Totally Implantable Vascular Access Device from Trunk Subcutaneous Tissue and Fascia, Open Approach (ICD-10-PCS; principal; 2021-05-24 07:30)
DX: Z45.2 Encounter for adjustment and management of vascular access device (principal); N18.6 End stage renal disease; Z20.822 Contact with and (suspected) exposure to COVID-19
CPT/HCPCS: 85025; 80048; 36415; 88300; 36590; U0003; J2704; J2250; J3010; J0690; J7040; J2405

== ENCOUNTER 2022-03-10 14:55 | Inpatient (IN) | payer OTHER ==
--- OUTSIDE RECORDS SUMMARY | 2022-03-10 15:02 | XMS REPORT | Continuity of Care Document ---
:[address] [facility] t Address [address] [place] [address] Care Team Providers Name Role Phone EMELIA MEHTA Primary Care Physician Unavailable Alison Small (Svetlana) Attending Clinician Unavailable Jason Li Attending Clinician Unavailable Kelsi Sullivan MD Attending Clinician KELSI SULLIVAN Attending Clinician Unavailable KARAN CRISOSTOMO Attending Clinician Unavailable SABRINA LAW Attending Clinician Unavailable Edward Partida Attending Clinician Unavailable Rufina Hernandez MD Attending Clinician Errol VILLA, Jez Lu Attending Clinician [phone] Marbin Mars MD Attending Clinician Jeni Pham MD Attending Clinician Tom Longoria CRNA Attending Clinician [phone] Sony London Attending Clinician Unavailable Nicholas VILLA, Maninder Kearns Attending Clinician Raj Pete MD Attending Clinician Madhu Clements MD Attending Clinician Chucky Lind Attending Clinician Dayron VILLA, Latesha Attending Clinician Jose Antonio VILLA, Garett Barragan Attending Clinician Octavio Le Attending Clinician David Omalley MD Attending Clinician Rajmark_P Attending Clinician Unavailable Emelia Mehta Admitting Clinician Unavailable SABRINA LAW Admitting Clinician Unavailable Edward Partida Admitting Clinician Unavailable RUFINA HERNANDEZ Admitting Clinician Unavailable RAJ PETE Admitting Clinician Unavailable Robyn Admitting Clinician Unavailable Payers Payer Name Policy Type Policy Number Effective Date Expiration Date S ource MEDICARE A B [id number] 2008 00:00:00 [id number] 2017 00:00:00 Problems Condition Condition Condition Status Onset Resolution Last Treating Co mments Source Name Details Category Date Date Treatment Clinician Date Acute Acute Disease Active 2020-[address] [facility] [address] decompensa decompensa 0-31 Lyssa barrientos nichole heart nichole heart 00:00: Medi renea failure failure 00 Center Severe Severe Disease Active Methodi acute acute [address] [facility] pancreatit pancreatit 00:00: Ho spita is is 00 l Complicati Complicati Disease Active M ethodi on of on of 06-23 st vascular vascular 00:00: Hospit a dialysis dialysis 00 l catheter catheter Hyponatrem Hyponatrem Disease Active M ethodi ia ia 06-23 st 00:00: Hospita 00 l Mechanical Mechanical Disease Active Overview : Methodi complicati complicati - Formattin [facility] on of on of 00:00: g of this Hospita vascular vascular 00 note l dialysis dialysis might be catheter catheter different from the original. Added automatic ally from request for surgery [id number] HARSHAD (acute HARSHAD (acute Disease Active [facility]) injury) [facility] ESRD (end ESRD (end Disease Active [facility] stage stage [facility] renal renal Medical disease) disease) Center on on dialysis dialysis Allergies, Adverse Reactions, Alerts Allergy Allergy Status Severity Reaction(s) Onset Inactive Treating Comm ents Source Name Type Date Date Clinician Sully Propensi Active Itching Method i ty to [facility] st adverse 00:00: Hospita reaction 00 l s to drug Codeine Propensi Active Itching [facility] ty to 2-17 College adverse 00:00: of reaction 00 Medicin s to e drug No Known DA Active [facility] Allergie 312 Clear s 00:00: Abdalla 00 [facility] NO KNOWN Allergy [facility] Social History Social Habit Start Date Stop Date Quantity Comments Source History SDOH [facility] Alcohol Comment Medical C enter History SDOH [facility] Alcohol Std Drinks Hospit al History SDOH [facility] Alcohol Binge Hospital Cigarette 2021-10-08 2021-10-08 [facility] of pack-years 00:00:00 00:00:00 Medicine Tobacco use and 2021-02-18 2021-02-[address] [facility] [address] Lyssa kes exposure 00:00:00 00:00:00 Medical Center Alcohol intake 2020-08-24 2020-08-24 Lifetime [facility] 00:00:00 00:00:00 non-drinker Hospital (finding) History SDOH 2020-06-23 2020-06-23 1 [facility] Alcohol Frequency 00:00:00 00:00:00 Hospita l Sex [birth year] At [birth year] [facility] 00:00:00 00:00:00 Hospital Smoking Status Start Date Stop Date Source Tobacco smoking consumption unknown [facility] Never smoked tobacco [facility] Medications Ordered Filled Start Stop Current Ordering Indication Dosage Frequency Signature Comments Components Source Medication Medication Date Date Medication? Clinician (SIG) Name Name gabapentin Yes 600mg Take 600 [facility] (NEURONTIN) 6-20 mg by College 600 MG 11:20: mouth of tablet 15 daily. Medicin e omeprazole Yes daily. [facility] (PRILOSEC) 6-20 College 40 MG 11:20: of capsule 15 Medicin e ondansetron 2021- No daily as [facility] (ZOFRAN) 4 6-20 06-20 needed. Colle ge MG tablet 11:20: 00:00 of 08 :00 Medicin e metoprolol 2021-0 Yes [id number] 50mg Take 1 [facility] (TOPROL XL) 6-20 Tablet by Col lege 50 MG XL 00:00: mouth of tablet 00 every 12 Medicin hours. e hydrALAZINE 2021-0 Yes [id number] 50mg Take 1 [facility] (APRESOLINE 6-20 Tablet by Col lege ) 50 MG 00:00: mouth of tablet 00 every 12 Medicin hours. e furosemide 2021-0 Yes 20mg Take 20 mg [facility] (LASIX) 20 3-14 by mouth Colle ge MG tablet 00:00: two times of 00 daily. Medicin e furosemide 0 Yes 20mg Take 20 mg [facility] (LASIX) 20 3-14 by mouth Colle ge MG tablet 00:00: two times of 00 daily. Medicin e levothyroxi Yes [facility] 3-09 [place] (SYNTHROID) 00:00: of 75 MCG 00 Medicin tablet e levothyroxi 0 Yes [facility] 3-09 [place] (SYNTHROID) 00:00: of 75 MCG 00 Medicin tablet e ELIQUIS 2.5 0 Yes Devan MG TABS 2-21 [place] 00:00: of 00 Medicin e ELIQUIS 2.5 2021-0 Yes Devan MG TABS 2-21 [place] 00:00: of 00 Medicin e gabapentin 2020-04 Yes 600mg Take 600 [facility] (NEURONTIN) 1-29 mg by [place] 600 MG 14:06: mouth of tablet 23 daily. Medicin e omeprazole 2020-04 Yes daily. [facility] (PRILOSEC) 05-19 College 40 MG 14:06: of capsule 23 Medicin e ondansetron 2020-04 Yes daily as [facility] (ZOFRAN) 4 -29 needed. Colleg e MG tablet 14:06: of 23 Medicin e gabapentin 2020-04 Yes 600mg Take 600 [facility] (NEURONTIN) 1-29 mg by [place] 600 MG 14:06: mouth of tablet 23 daily. Medicin e omeprazole 2020-04 Yes daily. [facility] (PRILOSEC) 05-19 College 40 MG 14:06: of capsule 23 Medicin e ondansetron 2020-04 Yes daily as [facility] (ZOFRAN) 4 -29 needed. Colleg e MG tablet 14:06: of 23 Medicin e famotidine 2020-04 Yes 20mg QD Take 1 [facility] (PEPCID) 20 -16 tablet (20 Lyssa kes MG tablet 00:00: mg total) Med ical 00 by mouth Center daily. amiodarone 2020-04- No 400mg QD Take [address] (PACERONE) 1-16 11-16 tablet [facility] 400 MG 00:00: 23:59 (400 mg Medical tablet 00 :00 total) by Center mouth daily. gabapentin 2020-04 Yes 600mg QD Take [address] (NEURONTIN) 1-15 mg by [facility] 600 MG 14:09: mouth Medical tablet 12 daily. [place] levothyroxi 2020-04 Yes 75ug Take [address] ne 1-15 mcg by [facility] (SYNTHROID, 14:09: mouth Medic al LEVOTHROID) 12 Every Center 75 MCG morning on tablet an empty stomach. omeprazole 2020-04 Yes 40mg QD Take [address] (PriLOSEC) 1-15 by mouth [facility] 40 MG 14:09: daily. Medical capsule 12 [place] cetirizine 2020-04 Yes 10mg Take [address] (ZyrTEC) 10 1-15 by mouth Luke s MG tablet 14:09: as needed Med ical 12 for Center Allergies. multivitami 2020-04 Yes 1{capsu QD Take [address] n capsule 1-15 le} capsule by Luke s 14:09: mouth Medical 12 daily. [place] hydrocodone 2020-04 Yes daily as [facility] -acetaminop 1-15 needed. Colle ge hen (NORCO) 00:00: of 7.5-325 MG 00 Medicin per tablet e amiodarone 2020-04 Yes daily. [facility] [facility] (PACERONE) 1-15 College 200 MG 00:00: of tablet 00 Medicin e hydrocodone 2020-04 Yes daily as [facility] -acetaminop 1-15 needed. Colle ge hen (NORCO) 00:00: of 7.5-325 MG 00 Medicin per tablet e amiodarone 2020-04 Yes daily. [facility] (PACERONE) 1-15 College 200 MG 00:00: of tablet 00 Medicin e amiodarone 2020-04 Yes daily. [facility] [facility] (PACERONE) 1-15 College 200 MG 00:00: of tablet 00 Medicin e hydrocodone 2020-04 Yes daily as [facility] -acetaminop -15 needed. Colle ge hen (NORCO) 00:00: of 7.5-325 MG 00 Medicin per tablet e metoprolol 2020-04- No 25mg Take 25 mg [facility] (TOPROL-XL) -15 11-16 by mouth Col lege 25 MG XL 00:00: 05:59 two times of tablet 00 :00 daily. Medicin e metoprolol 2020-04 No 25mg Take 25 mg [facility] (TOPROL-XL) 15 11-16 by mouth Col lege 25 MG XL 00:00: 05:59 two times of tablet 00 :00 daily. Medicin e ferrous 2020-04 No 325mg QD Take [address] sulfate 325 05-05 11-15 tablet [facility] (65 FE) MG 00:00: 23:59 (325 mg Med ical tablet 00 :00 total) by Center mouth daily. metoprolol 2020-04 No 25mg Q.5D Take [address] succinate 05-05-15 tablet (25 Rafaela es (TOPROL-XL) 00:00: 23:59 mg total) Medical 25 MG 24 hr 00 :00 by mouth 2 Ce nter tablet (two) times daily. metoprolol 2020-04 No 25mg Take 25 mg [facility]an (TOPROL-XL) -15 06-20 by mouth Col lege 25 MG XL 00:00: 00:00 two times of tablet 00 :00 daily. Medicin e Apixaban 2020-04- No 2.5mg Take 2.5 [place] miguel 2.5 MG TABS -15 12-16 mg by Colleg e 00:00: 05:59 mouth two of 00 :00 times Medicin daily. e apixaban 2020-04 No 2.5mg Q.5D Take 1 [facility] (ELIQUIS) 1-15 12-15 tablet [facility] 2.5 mg Tab 00:00: 23:59 (2.5 mg Med ical tablet 00 :00 total) by Center mouth 2 (two) times daily for 30 days. HYDROcodone 2020-04- No 1{tbl} Take [address] -acetaminop 1-15 11-25 tablet by Lyssa abreu (NORCO 00:00: 23:59 mouth Medic al 7.5-325) 00 :00 every 6 Center 7.5-325 mg (six) per tablet hours as needed for up to 10 days. Max Daily Amount: 4 tablets levofloxaci 0 Yes daily. [facility] [facility] 12-20 [place] [facility] 00:00: of 250 MG 00 Medicin tablet e levofloxaci 0 Yes daily. [facility] 12-20 [place] [facility] 00:00: of 250 MG 00 Medicin tablet e levofloxaci 0 2021- No daily. [place] miguel n 12-20 [place] [facility] 00:00: 00:00 of 250 MG 00 :00 Medicin tablet e levothyroxi Yes 75ug QD Take 75 Met hodi ne 5-[address] (SYNTHROID) 18:57: mouth Hospi ta 75 mcg 26 daily. l tablet omeprazole Yes 40mg QD Take 40 mg M ethodi (PriLOSEC) 5-[address] 40 MG 18:57: daily. Hospita capsule 26 l metoclopram 0 Yes 5mg Q.[id number] Take 5 mg Methodi regino 5-06 [id number] by mouth [address] (REGLAN) 5 18:57: 3D (three) Hosp ajay MG tablet 26 times a l day. meclizine 0 Yes 25mg Q.25D Take 25 mg M ethodi (ANTIVERT) 5-[address] 25 mg 18:57: (four) Hospita tablet 26 times a l day as needed for dizziness. calcitrioL 0 Yes .25ug Q48H Take 0.25 M ethodi (ROCALTROL) 5-[address] 0.25 MCG 18:57: mouth Hospita capsule 26 every l other day. traMADoL 2021-0 Yes [id number] 50mg Q6H Take 50 mg Me thodi (ULTRAM) 50 5-[address] mg tablet 18:57: every 6 Hospi ta 26 (six) l hours as needed for moderate pain .acute pain. promethazin 2020-0 Yes 25mg Q6H Take 25 mg Methodi e 5-[address] (PHENERGAN) 18:57: every 6 Hos agueda 25 MG 26 (six) l tablet hours as needed for nausea or vomiting. hydrALAZINE 0 Yes 100mg Q.5D Take 100 M ethodi (APRESOLINE 5-[address] ) 100 MG 18:57: mouth 2 Hospit a tablet 26 (two) l times a day. levothyroxi 2020-0 Yes 75ug QD Take 75 Met hodi ne 5-[address] (SYNTHROID) 13:57: mouth Hospi ta 75 mcg 26 daily. l tablet omeprazole 0 Yes 40mg QD Take 40 mg M ethodi (PriLOSEC) 5-[address] 40 MG 13:57: daily. Hospita capsule 26 l metoclopram 0 Yes 5mg Q.[id number] Take 5 mg Methodi regino 5-06 [id number] by mouth [address] (REGLAN) 5 13:57: 3D (three) Hosp ajay MG tablet 26 times a l day. meclizine 0 Yes 25mg Q.25D Take 25 mg M ethodi (ANTIVERT) 5-[address] 25 mg 13:57: (four) Hospita tablet 26 times a l day as needed for dizziness. calcitrioL 2020-0 Yes .25ug Q48H Take 0.25 M ethodi (ROCALTROL) 5-[address] 0.25 MCG 13:57: mouth Hospita capsule 26 every l other day. traMADoL 2020-0 Yes [id number] 50mg Q6H Take 50 mg Me thodi (ULTRAM) 50 5-[address] mg tablet 13:57: every 6 Hospi ta 26 (six) l hours as needed for moderate pain .acute pain. promethazin 2020-0 Yes 25mg Q6H Take 25 mg Methodi e 5-[address] (PHENERGAN) 13:57: every 6 Hos agueda 25 MG 26 (six) l tablet hours as needed for nausea or vomiting. hydrALAZINE Yes 100mg Q.5D Take 100 M ethodi (APRESOLINE 5-[address] ) 100 MG 13:57: mouth 2 Hospit a tablet 26 (two) l times a day. tramadol Yes as needed. [place] [facility] (ULTRAM) 50 3-28 College MG tablet 00:00: of 00 Medicin e tramadol Yes as needed. [place] miguel (ULTRAM) 50 3-28 College MG tablet 00:00: of 00 Medicin e tramadol Yes as needed. [place] miguel (ULTRAM) 50 3-28 College MG tablet 00:00: of 00 Medicin e ondansetron 2020- No 4mg Q12H Take 4 mg [facility]i (ZOFRAN) 4 06-27-[address] MG tablet 02:27: 00:00 every 12 Hos agueda 48 :00 (twelve) l hours as needed for nausea or vomiting. carvediloL 2020- No 12.5mg Q.5D Take 12.5 Methodi (COREG) 06-27-[address] 12.5 MG 02:27: 00:00 mouth 2 Hospit a tablet 48 :00 (two) l times a day with meals. amoxicillin 2020- No 1{tbl} Q.5D Take 1 M ethodi -pot 06-27-[address] clavulanate 02:27: 00:00 mouth 2 Ho spita (AUGMENTIN) 48 :00 (two) l 250-125 mg times a per tablet day. amLODIPine 2020- No 10mg QD Take 1 Meth shyam (NORVASC) 06-27-09 tablet (10 st 10 mg 00:00: 04:59 mg total) Hospit a tablet 00 :00 by mouth l daily for 30 days. traMADoL 2020-2020- [place] [id number] 50mg Q8H Take 50 mg M ethodi (ULTRAM) 50 06-26-[address] mg tablet 23:49: 00:00 every 8 Hosp ajay 18 :00 (eight) l hours as needed for moderate pain .acute pain. amLODIPine 2020- No 5mg QD Take 5 mg M ethodi (NORVASC) 5 06-26-[address] mg tablet 17:50: 00:00 daily. Hospi ta 49 :00 l amoxicillin 2020- No 500mg Q.[id number] Take 500 Methodi (AMOXIL) 06-26-[id number] 500 MG 17:50: 00:00 3D mouth 3 Hospita capsule 49 :00 (three) l times a day. amoxicillin 2020- No 1{tbl} QD Take 1 M ethodi -pot 06-26-[address] clavulanate 17:50: 00:00 mouth Hosp ajay (AUGMENTIN) 49 :00 daily. l 500-125 mg Disp per tablet 06/18/20 18 day supply calcitrioL No .25ug QD Take 0.25 Methodi (ROCALTROL) 06-26-[address] 0.25 MCG 17:50: 00:00 mouth Hospita capsule 49 :00 daily. l carvediloL 2020- No 12.5mg Q.5D Take 12.5 Methodi (COREG) 06-26-[address] 12.5 MG 17:50: 00:00 mouth 2 Hospit a tablet 49 :00 (two) l times a day with meals. hydroCHLORO 2020- No 25mg QD Take 25 mg Methodi thiazide 06-26-[address] (HYDRODIURI 17:50: 00:00 daily. Hos agueda L) 25 MG 49 :00 l tablet losartan 2020- No 100mg QD Take 100 Met hodi (COZAAR) 06-26 03-[address] 100 MG 17:50: 00:00 mouth Hospita tablet 49 :00 daily. l metoclopram 2020- No 5mg Q.25D Take 5 mg Methodi regino 06-26-[address] (REGLAN) 5 17:50: 00:00 (four) Hosp ajay MG tablet 49 :00 times a l day. metoprolol 2020- No 100mg QD Take 100 M ethodi succinate 06-26 03-[address] XL 17:50: 00:00 mouth Hospita (TOPROL-XL) 49 :00 daily. l 100 mg 24 hr tablet prochlorper No 10mg Q8H Take 10 mg Methodi azine 06-[address] (COMPAZINE) 17:50: 00:00 every 8 Ho spita 10 MG 49 :00 (eight) l tablet hours as needed for nausea or vomiting. carvediloL No 25mg Q.5D Take 1 Meth shyam (COREG) 25 06-26-08 tablet (25 st MG tablet 00:00: 04:59 mg total) Ho spita 00 :00 by mouth 2 l (two) times a day with meals for 30 days. traMADoL [id number] 50mg Q8H Take 1 Metho di (ULTRAM) 50 06-26 tablet (50 s t mg tablet 00:00: 04:59 mg total) Ho spita 00 :00 by mouth l every 8 (eight) hours as needed for moderate pain for up to 10 days .acute pain. Immunizations Ordered Immunization Filled Immunization Date Status Commen ts Source Name Name Moderna SARS-CoV-2 2020-06-02 Completed [facility] Vaccination 00:00:00 of Medicine Moderna SARS-CoV-2 2020-06-02 Completed [facility] Vaccination 00:00:00 of Medicine Moderna SARS-CoV-2 2020-05-05 Completed [facility] Vaccination 00:00:00 of Medicine Moderna SARS-CoV-2 2020-05-05 Completed [facility] Vaccination 00:00:00 of Medicine Vital Signs Vital Name Observation Time Observation Value Comments Source Systolic blood 2021-10-08 16:22:00 187 mm[Hg] [facility] pressure Medicine Diastolic blood 2021-10-08 16:22:00 80 mm[Hg] [facility] of pressure Medicine Heart rate 2021-10-08 16:20:00 50 /min [facility] Body height 2021-10-08 16:20:00 162.6 cm [facility] Body weight 2021-10-08 16:20:00 82.101 kg [facility] BMI 2021-10-08 16:20:00 31.07 kg/m2 [facility] of Medicine Oxygen saturation in 2021-10-08 16:20:00 96 /min [facility] of Arterial blood by Medicine Pulse oximetry Diastolic blood 2021-07-02 16:28:00 80 mm[Hg] [facility] of pressure Medicine Heart rate 2021-07-02 16:28:00 54 /min [facility] Systolic blood 2021-07-02 16:28:00 175 mm[Hg] [facility] Medicine Respiratory rate 2021-07-02 16:27:00 16 /min [facility] Body height 2021-07-02 16:27:00 162.6 cm [facility] ol[facility] of [facility] Body weight 2021-07-02 16:27:00 72.122 kg [facility] BMI 2021-07-02 16:27:00 27.29 kg/m2 [facility] of [facility] Oxygen saturation in 2021-07-02 16:27:00 100 /min [facility] of Arterial blood by Medicine Pulse oximetry Systolic blood 2021-03-19 19:57:00 152 mm[Hg] [facility] Medicine Diastolic blood 2021-03-19 19:57:00 81 mm[Hg] [facility] Medicine Heart rate 2021-03-19 19:57:00 69 /min [facility] Respiratory rate 2021-03-19 19:57:00 16 /min [facility] Body height 2021-03-19 19:57:00 162.6 cm [facility] of [facility] Body weight 2021-03-19 19:57:00 74.844 kg [facility] BMI 2021-03-19 19:57:00 28.32 kg/m2 [facility] Oxygen saturation in 2021-03-19 19:57:00 99 /min [facility] College of Arterial blood by Medicine Pulse oximetry WEIGHT 2021-03-05 05:33:00 69.3 kg WEIGHT 2021-03-04 04:00:00 67.1 kg WEIGHT 2021-03-03 13:35:00 61.1 kg WEIGHT 2021-03-01 16:22:00 67.2 kg WEIGHT 2021-02-24 01:30:00 69.4 kg WEIGHT 2021-02-23 21:30:00 71.9 kg WEIGHT 2021-02-23 03:14:00 71.895 kg WEIGHT 2021-02-21 20:45:00 72.4 kg WEIGHT 2021-02-21 18:45:00 74.9 kg WEIGHT 2021-02-21 03:44:00 74.889 kg WEIGHT 2021-02-20 18:45:00 76 kg WEIGHT 2021-02-20 16:45:00 78.5 kg HEIGHT 2021-02-18 11:43:00 162.6 cm WEIGHT 2021-02-18 11:43:00 78.518 kg WEIGHT 2021-03-05 05:33:00 69.3 kg WEIGHT 2021-03-04 04:00:00 67.1 kg WEIGHT 2021-03-03 13:35:00 61.1 kg WEIGHT 2021-03-01 16:22:00 67.2 kg WEIGHT 2021-02-24 01:30:00 69.4 kg WEIGHT 2021-02-23 21:30:00 71.9 kg WEIGHT 2021-02-23 03:14:00 71.895 kg WEIGHT 2021-02-21 20:45:00 72.4 kg WEIGHT 2021-02-21 18:45:00 74.9 kg WEIGHT 2021-02-21 03:44:00 74.889 kg WEIGHT 2021-02-20 18:45:00 76 kg WEIGHT 2021-02-20 16:45:00 78.5 kg HEIGHT 2021-02-18 11:43:00 162.6 cm WEIGHT 2021-02-18 11:43:00 78.518 kg Oxygen saturation in 2020-08-24 13:15:00 95 [facility] Pulse oximetry Systolic blood 2020-08-24 12:37:48 146 mm[Hg] Method ist [facility] pressure Diastolic blood 2020-08-24 12:37:48 62 mm[Hg] Metho [facility] pressure Heart rate 2020-08-24 12:37:48 92 /min [facility] Body temperature 2020-08-24 12:37:48 36.5 Claudine [facility] Res[facility] 2020-08-24 12:37:48 16 /min [facility] Body weight 2020-08-24 10:48:00 75.932 kg [facility] BMI 2020-08-24 10:48:00 28.73 kg/m2 [facility] Body height 2020-08-20 05:05:44 162.6 cm [facility] Procedures Procedure Date / Time Performing Clinician Source Performed ELECTROCARDIOGRAM COMPLETE 2021-03-19 21:28:00 Kelsi Sullivan [facility] HC COMPLETE BLD COUNT 2020-08-24 10:35:00 Jerad [facility] W/AUTO DIFF Aziz COMPREHENSIVE METABOLIC 2020-08-24 10:35:[address] [facility] PANEL Aziz ESTIMATED GFR 2020-08-24 10:35:00 Jerad [facility] ospital Aziz BILIRUBIN DIRECT 2020-08-24 10:35:00 [facility] 2020-08-24 10:35:00 Dorys Garrett ospital [place] MAGNESIUM LEVEL 2020-08-24 10:35:00 Dorys Garrett spital [place] SURGICAL PATHOLOGY REQUEST 2020-08-23 17:50[facility]ACHEAL 2020-08-23 15:51:43 Tom Longoria [facility] AIRWAY Joey CHOLECYSTECTOMY, 2020-08-23 15:02:00 Jerad [facility] LAPAROSCOPIC Aziz BASIC METABOLIC PANEL 2020-08-23 09:21:00 [facility] 2020-08-23 09:21:00 Jerad [facility] Aziz HC COMPLETE BLD COUNT 2020-08-23 09:21:00 [facility] Aziz TYPE AND SCREEN 2020-08-23 09:21:00 Jerad [facility] ospital Aziz ESTIMATED GFR 2020-08-23 09:21:00 Jez [facility]ital Aly COVID-19 QUALITATIVE RT-PCR 2020-08-23 03:20:00 Marbin Mars [facility] Aziz BASIC METABOLIC PANEL 2020-08-22 09:01:00 Celso Keenan [facility] ESTIMATED GFR 2020-08-22 09:01:00 Celso Keenan Ho spital PHOSPHORUS LEVEL 2020-08-22 09:01:00 Tami, Dorys [facility] H [facility]spital [place] MAGNESIUM LEVEL 2020-08-22 09:01:00 Tami, Dorys Martinez Ho spital [place] BASIC METABOLIC PANEL 2020-08-21 23:36:00 [facility] [place] MAGNESIUM LEVEL 2020-08-21 23:36:00 TamiDorys Ho spital [place] PHOSPHORUS LEVEL 2020-08-21 23:36:00 Tami, Dorys Martinez H ospital [place] ALBUMIN LEVEL 2020-08-21 23:36:00 Tami, Dorys Martinez Ho spital [place] IONIZED CALCIUM 2020-08-21 23:36:00 Tami, Dorys Martinez Ho spital [place] ESTIMATED GFR 2020-08-21 23:36:00 Tami, Dorys Martinez Ho spital [place] VENIPUNC NEED PHYS SKILL,DX 2020-08-21 19:03:00 Jeanette Mayers [facility] OR RX BASIC METABOLIC PANEL 2020-08-21 09:32:00 Celso Keenan [facility] PHOSPHORUS LEVEL 2020-08-21 09:32:00 Celso Keenan H ospital PARATHYROID HORMONE 2020-08-21 09:32:00 Celso Keenan [facility] VITAMIN D 25 HYDROXY LEVEL 2020-08-21 09:32:00 Celso Keenan [facility] ESTIMATED GFR 2020-08-21 09:32:00 Celso Keenan Ho spital PROTHROMBIN TIME WITH INR 2020-08-21 09:32:00 [facility] MAGNESIUM LEVEL 2020-08-21 09:32:00 Dorys Garrett XR CHEST 1 VW PORTABLE 2020-08-20 11:21[facility] 2020-08-20 09:40:00 [facility] PANEL HC COMPLETE BLD COUNT 2020-08-20 09:40:00 [facility]/AUTO DIFF MAGNESIUM LEVEL 2020-08-20 09:40:00 [facility] 2020-08-20 09:40:00 [facility] AMYLASE LEVEL 2020-08-20 09:40:00 [facility] ESTIMATED GFR 2020-08-20 09:40:00 [facility] HC COMPLETE BLD COUNT 2020-08-20 05:27:00 [facility] W/AUTO DIFF COMPREHENSIVE METABOLIC 2020-08-20 05:27:00 [facility] PANEL MAGNESIUM LEVEL 2020-08-20 05:27:00 [facility] AMYLASE LEVEL 2020-08-20 05:27:00 [facility] LIPASE LEVEL 2020-08-20 05:27:00 [facility] LIPID PANEL 2020-08-20 05:27:00 [facility] ESTIMATED GFR 2020-08-20 05:27:00 [facility] [facility] HEMOGLOBIN A1C 2020-08-20 05:27:00 [facility] OR [place] < 1 HOUR 2020-06-26 16:36:00 David Omalley DC AN ELECTIVE SUPRAGLOTTIC 2020-06-26 16:20:38 Octavio Le [facility] AIRWAY INSERTION, TUNNELED CENTRAL 2020-06-26 15:37:00 Lyssa, David [facility] VENOUS CATHETER WITH PORT, WITHOUT FLUOROSCOPIC GUIDANCE HEMODIALYSIS 2020-06-26 15:32:43 [facility] PROTHROMBIN TIME WITH INR 2020-06-26 10:26:00 David Omalley [facility] PARTIAL THROMBOPLASTIN TIME 2020-06-26 10:26:00 [facility] (PTT) BASIC METABOLIC PANEL 2020-06-26 10:26:00 [facility] Balaji HC COMPLETE BLD COUNT 2020-06-26 10:26:00 [facility] W/AUTO DIFF Balaji ABO AND RH CONFIRMATION 2020-06-26 10:26:00 [facility] ESTIMATED GFR 2020-06-26 10:26:00 [facility] Balaji TYPE AND SCREEN 2020-06-25 20:17:00 [facility] XR NECK SOFT TISSUE 2020-06-25 15:00:00 [facility] BASIC METABOLIC PANEL 2020-06-25 10:05:00 [facility] Balaji HC COMPLETE BLD COUNT 2020-06-25 10:05:00 [facility] W/AUTO DIFF Balaji ESTIMATED GFR 2020-06-25 10:05:00 [facility] Balaji HEPATITIS B SURFACE ANTIGEN 2020-06-24 20:22:00 [facility] HEPATITIS B SURFACE AB, 2020-06-24 20:22:00 [facility] QUANT[facility]ATIVE HEMODIALYSIS 2020-06-24 19:48:38 [facility] ospital XR CHEST 1 VW PORTABLE 2020-06-24 05:27:43 David Omalley [facility] AMYLASE LEVEL 2020-06-24 03:54:00 Raj Pete [facility] LIPASE LEVEL 2020-06-24 03:54:00 Raj Pete [facility] COMPREHENSIVE METABOLIC 2020-06-24 03:54:00 [facility] PANEL ESTIMATED GFR 2020-06-24 03:54:00 [facility] COVID-19 QUALITATIVE RT-PCR 2020-06-24 01:00:[address] [facility] HC COMPLETE BLD COUNT 2020-06-23 23:09:00 [facility] W/AUTO DIFF PROTHROMBIN TIME WITH INR 2020-06-23 23:09:[address] [facility] PARTIAL THROMBOPLASTIN TIME 2020-06-23 23:09:[address] [facility] (PTT) BASIC METABOLIC PANEL 2020-06-23 23:09:00 [facility] ESTIMATED GFR 2020-06-23 23:09:[address] [facility] ECG 12-LEAD 2020-06-23 23:05:[address] [facility] ECG ED PRELIMINARY 2020-06-23 22:57:05 [facility] INTERPRETATION Plan of Care Planned Activity Planned Date Details Comments Source Future Scheduled 2022-02-23 HEPATITIS B VACCINES (1 [facility] Test 10:19:45 of 3 - 3-dose series) Hospit al [code = HEPATITIS B VACCINES (1 of 3 - 3-dose series)] Future Scheduled 2022-02-23 COVID-19 VACCINE (#1) [facility] 10:19:45 [code = COVID-19 VACCINE Hos pital (#1)] Future Scheduled 2022-02-23 65+ PNEUMOCOCCAL VACCINE [facility] Test 10:19:45 (1 - PCV) [code = 65+ Hospit al PNEUMOCOCCAL VACCINE (1 - PCV)] Future Scheduled 2022-02-23 Hepatitis C screening [facility] Test 10:19:45 (procedure) [code = Hospital [id number]] Future Scheduled 2022-02-23 SHINGLES VACCINES (1 of [facility] Test 10:19:45 2) [code = SHINGLES Hospital VACCINES (1 of 2)] Future Scheduled 2022-02-23 INFLUENZA VACCINE [code [facility] Test 10:19:45 = INFLUENZA VACCINE] Hospita l Future Scheduled 2021-12-20 INFLUENZA VACCINE (#1) [facility] Test 00:00[facility]00 [code = INFLUENZA Medical Ce nter VACCINE (#1)] Future Scheduled 2021-10-08 Pneumococcal 65+ (1 - Ba [facility] Test 11:43:21 PCV) [code = of Medicine Pneumococcal 65+ (1 - PCV)] Future Scheduled 2021-10-08 TETANUS SHOT (ADULT) [facility] Test 11:43:21 [code = TETANUS SHOT of Medi cine (ADULT)] Future Scheduled 2021-10-08 BMI FOLLOW UP PLAN [code [facility] Test 11:43:21 = BMI FOLLOW UP PLAN] of Med icine Future Scheduled 2021-10-08 ZOSTER VACCINE (1 of 2) [facility] Test 11:43:21 [code = ZOSTER VACCINE of Me dicine (1 of 2)] Future Scheduled 2021-10-08 MEDICARE AWV (Initial) B [facility] Test 11:43:21 [code = MEDICARE AWV of Medi cine (Initial)] Future Scheduled 2021-10-08 FALL SCREEN [code = FALL [facility] Test 11:43:21 SCREEN] of Medicine Future Scheduled 2021-10-08 Screening for [facility] Test 11:43:21 osteoporosis (procedure) of Medicine [code = [id number]] Future Scheduled 2021-10-08 COVID-19 Vaccine (3 - Ba [facility] Test 11:43:21 Booster for Moderna of Medic ine series) [code = COVID-19 Vaccine (3 - Booster for Moderna series)] Future Scheduled 2021-10-08 FLU VACCINE > 6 MONTHS B [facility] Test 11:43:21 [code = FLU VACCINE > 6 of M edicine MONTHS] Future Scheduled 2021-10-02 ECHO, COMPLETE [code = Expected: B [facility] Test 00:00:00 [id number]] 10/02/2021, of Medicine Expires: 01/02/2022 Future Scheduled 2021-07-04 TETANUS SHOT (ADULT) [facility] Test 09:48:32 [code = TETANUS SHOT of Medi cine (ADULT)] Future Scheduled 2021-07-04 BMI FOLLOW UP PLAN [code [facility] Test 09:48:32 = BMI FOLLOW UP PLAN] of Med icine Future Scheduled 2021-07-04 ZOSTER VACCINE (1 of 2) [facility] Test 09:48:32 [code = ZOSTER VACCINE of Me dicine (1 of 2)] Future Scheduled 2021-07-04 MEDICARE AWV (Initial) B [facility] Test 09:48:32 [code = MEDICARE AWV of Medi cine (Initial)] Future Scheduled 2021-07-04 FALL SCREEN [code = FALL [facility] Test 09:48:32 SCREEN] of Medicine Future Scheduled 2021-07-04 Screening for [facility] Test 09:48:32 osteoporosis (procedure) of Medicine [code = [id number]] Future Scheduled 2021-07-04 Pneumococcal 65+ (1 of 1 [facility] Test 09:48:32 - PPSV23) [code = of Medicin e Pneumococcal 65+ (1 of 1 - PPSV23)] Future Scheduled 2021-07-04 COVID-19 Vaccine (3 - Ba [facility] Test 09:48:32 Booster for Moderna of Medic ine series) [code = COVID-19 Vaccine (3 - Booster for Moderna series)] Future Scheduled 2021-07-04 FLU VACCINE > 6 MONTHS B [facility] Test 09:48:32 [code = FLU VACCINE > 6 of M edicine MONTHS] Future Scheduled 2021-04-[address] [facility] Test 00:00:00 (12+) [code = DEPRESSION Med [facility] SCREENING (12+)] Future Scheduled 2021-04-21 FALLS RISK SCREENING [facility] Test 00:00:00 [code = FALLS RISK Medical C enter SCREENING] Future Scheduled 2021-03-21 Pneumococcal 65+ (1 of 2 [facility] Test 11:13:21 - PPSV23) [code = of Medicin e Pneumococcal 65+ (1 of 2 - PPSV23)] Future Scheduled 2021-03-21 TETANUS SHOT (ADULT) [facility] Test 11:13:21 [code = TETANUS SHOT of Medi cine (ADULT)] Future Scheduled 2021-03-21 BMI FOLLOW UP PLAN [code [facility] Test 11:13:21 = BMI FOLLOW UP PLAN] of Med icine Future Scheduled 2021-03-21 ZOSTER VACCINE (1 of 2) [facility] Test 11:13:21 [code = ZOSTER VACCINE of Me dicine (1 of 2)] Future Scheduled 2021-03-21 MEDICARE AWV (Initial) B [facility] Test 11:13:21 [code = MEDICARE AWV of Medi cine (Initial)] Future Scheduled 2021-03-21 FALL SCREEN [code = FALL [facility] Test 11:13:21 SCREEN] of Medicine Future Scheduled 2021-03-21 Screening for [facility] Test 11:13:21 osteoporosis (procedure) of Medicine [code = [id number]] Future Scheduled 2021-03-21 FLU VACCINE > 6 MONTHS B [facility] Test 11:13:21 [code = FLU VACCINE > 6 of M edicine MONTHS] Future Scheduled 2021-03-21 COVID-19 Vaccine (3 - Ba [facility] Test 11:13:21 Booster for Moderna of Medic ine series) [code = COVID-19 Vaccine (3 - Booster for Moderna series)] Future Scheduled 2021-03-19 ELECTROCARDIOGRAM [facility] Test 15:02:49 COMPLETE [code = 19144] of M edicine Future Scheduled 2009-10-20 MEDICARE ANNUAL WELLNESS [facility] Test 00:00:00 (YEAR [address] or [address] YEAR if [facility] no IPPE) [code = MEDICARE ANNUAL WELLNESS (YEAR 2 or FIRST YEAR if no IPPE)] Future Scheduled 2008-11-02 PNEUMOCOCCAL 65+ YRS ([address] [facility] Test 00:00:00 - PCV) [code = Medical Cente r PNEUMOCOCCAL 65+ YRS (1 - PCV)] Future Scheduled 1993-11-02 SHINGLES VACCINES ([address] [facility] Test 00:00:00 2) [code = SHINGLES [facility] VACCINES (1 of 2)] Future Scheduled 1962-11-02 DTAP/TDAP/TD VACCINES ([address] [facility] Test 00:00:00 - Tdap) [code = Medical Cent er DTAP/TDAP/TD VACCINES (1 - Tdap)] Future Scheduled [address] [facility] Test 00:00:[address] [facility] (12+) [code = Tobacco Cessation Counseling and Screening (12+)] Future Scheduled 1944-05-05 COVID-19 VACCINE (#1) [facility] 00:00[facility]00 [code = COVID-[address] [facility] (#1)] Future Scheduled 1943 DXA SCAN [code = DXA [facility] Test 00:00:00 SCAN] [facility] Future Scheduled 65+ PNEUMOCOCCAL VACCINE [facility] (1 of 4 - PCV13) [code = Hos pital 65+ PNEUMOCOCCAL VACCINE (1 of 4 - PCV13)] Future Scheduled COVID-19 VACCINE (1) Met [facility]ist Test [code = COVID-19 VACCINE Hos pital (1)] Future Scheduled Hepatitis C screening [facility] Test (procedure) [code = Hospital [id number]] Future Scheduled SHINGLES VACCINES (#1) M ethodist Test [code = SHINGLES Hospital VACCINES (#1)] Future Scheduled INFLUENZA VACCINE [code [facility] Test = INFLUENZA VACCINE] Hospita l Encounters Start End Encounter Admission Attending Care Care Encounter Source Date/Time Date/Time Type Type Clinicians Facility Department ID 2021-05-24 Inpatient MANOJ Small, [facility] [id number] [facility] 08:20:00 Alison 85 [facility] 2021-02-19 Inpatient MANOJ Small [facility] [id number] [facility] 00:04:00 Alison 69 [facility] 2020-12-27 Inpatient MANOJ Li, [facility] [id number] [facility] 11:30:00 Jason 89 [facility] 2021-10-08 2021-10-08 Office Chelmark, BCM 1.2.840.114 [id number] [facility] 10:40:00 11:43:56 Visit Mihail AMBULATOR 350.1.13.21 College Sreedhar Y 0.2.7.2.686 of [id number] [facility] alex 375 e 2021-10-08 2021-10-08 Outpatient [facility] [id number] [facility] 09:11:01 10:01:54 Colleg e of Medicin e 2021-07-02 2021-07-02 Office Chelu, BCM 1.2.840.114 [id number] [facility] 11:40:00 13:37:44 Visit Mihail AMBULATOR 350.1.13.21 College Sreedhar Y 0.2.7.2.686 of [id number] [facility] alex 375 e 2021-03-19 2021-03-20 Office CHELU, BCM 1.2.840.[id number] [place] [address] 13:18:32 12:17:28 Visit MIHAIL AMBULATOR 350.1.13.21 College Y 0.2.7.2.686 [id number] Medi alex 375 e 2021-02-18 2021-03-05 Inpatient UR FORREST CRISOSTOMO Cardiology [id number] [facility] 11:37:00 14:09:00 KARAN 2021-02-19 2021-02-19 [place]patient [place] [id number] [facility] 00:00:00 23:59:00 [facility] 2021-02-18 2021-02-18 [id number] [facility] 11:37:00 23:59:00 [facility] Medicin e 2021-01-25 2021-02-18 Inpatient MANOJ Small [facility] [id number] [facility] 09:30:00 00:00:00 Alison 24 [facility] 2021-01-11 2021-01-16 Inpatient TERRANCE Partida [facility] [id number] [facility] 06:53:00 18:04:00 Edward 26 [facility] 2020-08-19 2020-08-24 [facility] Rufina Hernandez 1.2.840.1 [id number] Methodi 23:35:00 13:57:00 Encounter Jez Norton 47979.1. [address] 3.430.2.7 Hospit a .3.974913 l .8 2020-08-23 2020-08-23 Surgery Jerad 1.2.840.1 [id number] Methodi 10:00:00 11:40:00 Marbin Funk 02952.1.[address] 3.430.2.7 Hospit a .3.408932 l .8 2020-08-23 2020-08-23 Anesthesia Jeni Pham 1.2.840.1 10 [id number] Methodi 10:03:00 11:07:00 Event Tom Longoria 61010.1.[address] 3.430.2.7 Hospit a .3.637989 l .8 2020-08-19 2020-08-19 Travel 1.2.840.1 1.2.937.148 [id number] Methodi 00:00:00 00:00:[address] 3.430.2.7 0.2.7.3.698 Ho spita .3.743658 084.8 l .8 2020-07-12 2020-07-12 Telephone Lita, 1.2.840.1 [id number] Methodi 00:00:00 00:00:[address] 3.430.2.7 Hospit a .3.123571 l .8 2020-06-23 2020-06-26 Emergency Maninder Peterson 1.2.840.1 [id number] Methodi 15:57:00 20:25:00 Raj Pete 82035.1.[address] Diab, Madhu 3.430.2.7 Ho spita Chucky Lind Balaji .3.890157 l Dayron, Iti .8 2020-06-26 2020-06-26 Anesthesia Garett Brady V. 1.2.840.1 [id number] Methodi 09:38:00 11:00:00 Event Jeromenichelle Octavio Christie 06894.1.[address] 3.430.2.7 Hospit a .3.508198 l .8 2020-06-26 2020-06-26 Surgery David Omalley 1.2.840.1 [id number] Methodi 09:00:00 10:05:[address] 3.430.2.7 Hospit a .3.901071 l .8 2020-06-23 2020-06-23 Travel 1.2.840.1 1.2.943.659 [id number] Methodi 00:00:00 00:00:[address] 3.430.2.7 0.2.7.3.698 Ho spita .3.234127 084.8 l .8 2020-05-29 2020-05-29 Outpatient Raju_P [facility] [id number] 021 [place] 01:28:00 01:28:00 0208 [facility] Results Test Description Test Time Test Comments Results Result Comments Source ANTI-MITOCHONDRIAL AB, REFLEX TO TITER 2021-03-05 11:05:20 Test Item Value Reference Range Interpretation Comme nts SCAN RESULT (test code = 3010374) SARS-COV2/RT-PCR (HS & REF LABS)2021-03-05 09:33:41 Test Item Value Reference Range Interpretation Comments SARS-COV2/RT-PCR (test Negative Not Detected, Negative, code = 2822118) See external report for linked test SARS-COV-2 PERFORMING LAB [facility] LISA (test code = 1368993) Negative result for this test determines that SARS-CoV-2 RNA was not present in the specimen above the Limit of Detection (LOD). However, Negative results do not preclude SARS-CoV-2 infection and should not be used as the sole basis for treatment or patient management decisions. Negative results must be combined with clinical observations, patient history, and epidemiological information. A false negative result may occur if a specimen is improperly collected, transported or handled. A false negative result should be considered if patient's recent exposures or clinical presentation indicate that COVID-19 (SARS-CoV-2) is likely and diagnostic tests for other causes of illness are negative. Re-testing should be considered in cases of suspected false negatives.The limit of detection for this assay is 800 copies/mL.This SARS CoV-2 test is a real-time RT-PCR test intended for the qualitative detection of nucleic acid from SARS-CoV-2 in a nasopharyngeal swab specimen collected from individuals suspected of COVID-19 by their healthcare provider.This test has not been Food and Drug Administration (FDA) cleared or approved. This is a modified version of an approved Emergency Use Authorization (EUA) and is in the process of review by the FDA. Once authorized by the FDA, the issued EUA will be effective until the declaration that circumstances exist justifying the authorization of the emergency use ofin vitro diagnostic tests for detection and/or diagnosis of COVID-19 is terminated under Section 564(b)(2) of the Act or the EUA is revoked under Section 564(g) of the Act.Fact Sheet for Healthcare Prov iders:https://www.[employer]/sites/default/files/product/documents/Fact_Sheet_HC _Olorfqlqz_Ehxz_TINM-YwC-2.pdfFact Sheet for Healthcare Patients:https://www.[employer]/sites/default/files/product/docume nts/Gozu_Ocqlb_Tbzlcgps_Ieqx_PCTG-CmE-9.pdfPerforming Laboratory:[facility], [place] [address]GIXZ-ZADINLL METER 2021-03-04 18:39:33 Test Item Value Reference Range Interpretation Comments POC-GLUCOSE METER 83 mg/dL 70-110 : TESTED A T [facility] 6720 (BEAKER) (test code = HADLEY Soriano [facility], 1538) [address]: Transit Operator/Techni magnus ID = [id number] for Hiral jackson Annel POCT-GLUCOSE [id number] 16:06:53 Test Item Value Reference Range Interpretation Comments POC-GLUCOSE METER 80 mg/dL 70-110 : TESTED A T [facility] 6720 (BEAKER) (test code = HADLEY Soriano [facility], 1538) [address]: Transit Operator/Techni magnus ID = [id number] for Berto Arredondoika BASIC METABOLIC [id number] 05:01:01 Test Item Value Reference Range Interpretation Comments SODIUM (BEAKER) 135 meq/L 136-145 L (test code = 381) POTASSIUM (BEAKER) 3.8 meq/L 3.5-5.1 Specimen slightly (test code = 379) hemolyzed CHLORIDE (BEAKER) 102 meq/L 98-107 (test code = 382) CO2 (BEAKER) (test 21 meq/L 22-29 L code = 355) BLOOD UREA NITROGEN 13 mg/dL 7-21 (BEAKER) (test code = 354) CREATININE (BEAKER) 1.96 mg/dL 0.57-1.25 H Specimen slightly (test code = 358) hemolyzed GLUCOSE RANDOM 87 mg/dL 70-105 (BEAKER) (test code = 652) CALCIUM (BEAKER) 8.7 mg/dL 8.4-10.2 (test code = 697) EGFR (BEAKER) (test 25 mL/min/1.73 ESTIMA NICHOLE GFR IS code = 1092) sq m NOT ACCURATE CREATININE CLEARANCE IN PREDICTING GLOMERULAR FILTRATION RATE . ESTIMATED GFR I S NOT APPLICABLE FOR DIALYSIS PATIEN TS. Transit Operator ID - NORBETR WC (HEMOGRAM ONLY)2021-03-04 04:32:58 Test Item Value Reference Range Interpretation Comments WHITE BLOOD CELL COUNT (BEAKER) 6.7 K/ L 3.5-10.5 (test code = 775) RED BLOOD CELL COUNT (BEAKER) 3.20 M/ L 3.93-5.22 L (test code = 761) HEMOGLOBIN (BEAKER) (test code = 8.4 GM/DL 11.2-15.7 L 410) HEMATOCRIT (BEAKER) (test code = 29.0 % 34.1-44.9 L 411) MEAN CORPUSCULAR VOLUME (BEAKER) 90.6 fL 79.4-94.8 (test code = 753) MEAN CORPUSCULAR HEMOGLOBIN 26.3 pg 25.6-32.2 (BEAKER) (test code = 751) MEAN CORPUSCULAR HEMOGLOBIN CONC 29.0 GM/DL 32.2-35.5 L (BEAKER) (test code = 752) RED CELL DISTRIBUTION WIDTH 19.1 % 11.7-14.4 H (BEAKER) (test code = 412) PLATELET COUNT (BEAKER) (test 231 K/CU MM 150-450 code = 756) MEAN PLATELET VOLUME (BEAKER) 10.3 fL 9.4-12.3 (test code = 754) NUCLEATED RED BLOOD CELLS 0 /100 WBC 0-0 (BEAKER) (test code = 413) POCT-GLUCOSE [id number] 07:20:32 Test Item Value Reference Range Interpretation Comments POC-GLUCOSE METER 82 mg/dL 70-110 : TESTED A T [facility] 6720 (BEAKER) (test code = [place]LEY [place], 1538) [address]: Transit Operator/Techni magnus ID = [id number] for Marti Licea BASIC METABOLIC [id number] 05:14:50 Test Item Value Reference Range Interpretation Comments SODIUM (BEAKER) 131 meq/L 136-145 L (test code = 381) POTASSIUM (BEAKER) 4.1 meq/L 3.5-5.1 Specimen slightly (test code = 379) hemolyzed CHLORIDE (BEAKER) 98 meq/L 98-107 (test code = 382) CO2 (BEAKER) (test 25 meq/L 22-29 code = 355) BLOOD UREA NITROGEN 29 mg/dL 7-21 H (BEAKER) (test code = 354) CREATININE (BEAKER) 2.57 mg/dL 0.57-1.25 H Specimen slightly (test code = 358) hemolyzed GLUCOSE RANDOM 86 mg/dL 70-105 (BEAKER) (test code = 652) CALCIUM (BEAKER) 8.7 mg/dL 8.4-10.2 (test code = 697) EGFR (BEAKER) (test 18 mL/min/1.73 ESTIMA NICHOLE GFR IS code = 1092) sq m NOT ACCURATE CREATININE CLEARANCE IN PREDICTING GLOMERULAR FILTRATION RATE . ESTIMATED GFR I S NOT APPLICABLE FOR DIALYSIS PATIEN TS. Transit Operator ID - [id number] (HEMOGRAM ONLY)2021-03-03 04:51:11 Test Item Value Reference Range Interpretation Comments WHITE BLOOD CELL COUNT (BEAKER) 7.1 K/ L 3.5-10.5 (test code = 775) RED BLOOD CELL COUNT (BEAKER) 3.14 M/ L 3.93-5.22 L (test code = 761) HEMOGLOBIN (BEAKER) (test code = 8.4 GM/DL 11.2-15.7 L 410) HEMATOCRIT (BEAKER) (test code = 28.5 % 34.1-44.9 L 411) MEAN CORPUSCULAR VOLUME (BEAKER) 90.8 fL 79.4-94.8 (test code = 753) MEAN CORPUSCULAR HEMOGLOBIN 26.8 pg 25.6-32.2 (BEAKER) (test code = 751) MEAN CORPUSCULAR HEMOGLOBIN CONC 29.5 GM/DL 32.2-35.5 L (BEAKER) (test code = 752) RED CELL DISTRIBUTION WIDTH 19.0 % 11.7-14.4 H (BEAKER) (test code = 412) PLATELET COUNT (BEAKER) (test 214 K/CU MM 150-450 code = 756) MEAN PLATELET VOLUME (BEAKER) 10.4 fL 9.4-12.3 (test code = 754) NUCLEATED RED BLOOD CELLS 0 /100 WBC 0-0 (BEAKER) (test code = 413) BASIC METABOLIC [id number] 05:51:30 Test Item Value Reference Range Interpretation Comments SODIUM (BEAKER) 136 meq/L 136-145 (test code = 381) POTASSIUM (BEAKER) 3.7 meq/L 3.5-5.1 (test code = 379) CHLORIDE (BEAKER) 101 meq/L 98-107 (test code = 382) CO2 (BEAKER) (test 27 meq/L 22-29 code = 355) BLOOD UREA NITROGEN 17 mg/dL 7-21 (BEAKER) (test code = 354) CREATININE (BEAKER) 1.91 mg/dL 0.57-1.25 H (test code = 358) GLUCOSE RANDOM 88 mg/dL 70-105 (BEAKER) (test code = 652) CALCIUM (BEAKER) 9.0 mg/dL 8.4-10.2 (test code = 697) EGFR (BEAKER) (test 25 mL/min/1.73 ESTIMA NICHOLE GFR IS code = 1092) sq m NOT ACCURATE CREATININE CLEARANCE IN PREDICTING GLOMERULAR FILTRATION RATE . ESTIMATED GFR I S NOT APPLICABLE FOR DIALYSIS PATIEN TS. Transit Operator ID - JACINTO [id number] 05:50:23 Test Item Value Reference Range Interpretation Comments MAGNESIUM (BEAKER) (test code = 1.8 mg/dL 1.6-2.6 627) Transit Operator ID - JACINTO [id number] 05:50:23 Test Item Value Reference Range Interpretation Comments PHOSPHORUS (BEAKER) (test code = 2.4 mg/dL 2.3-4.7 604) Transit Operator ID - JACINTO GCBC W/PLT COUNT & AUTO [id number] 05:37:19 Test Item Value Reference Range Interpretation Comments WHITE BLOOD CELL COUNT (BEAKER) 7.5 K/ L 3.5-10.5 (test code = 775) RED BLOOD CELL COUNT (BEAKER) 3.15 M/ L 3.93-5.22 L (test code = 761) HEMOGLOBIN (BEAKER) (test code = 8.3 GM/DL 11.2-15.7 L 410) HEMATOCRIT (BEAKER) (test code = 28.5 % 34.1-44.9 L 411) MEAN CORPUSCULAR VOLUME (BEAKER) 90.5 fL 79.4-94.8 (test code = 753) MEAN CORPUSCULAR HEMOGLOBIN 26.3 pg 25.6-32.2 (BEAKER) (test code = 751) MEAN CORPUSCULAR HEMOGLOBIN CONC 29.1 GM/DL 32.2-35.5 L (BEAKER) (test code = 752) RED CELL DISTRIBUTION WIDTH 19.2 % 11.7-14.4 H (BEAKER) (test code = 412) PLATELET COUNT (BEAKER) (test 215 K/CU MM 150-450 code = 756) MEAN PLATELET VOLUME (BEAKER) 10.6 fL 9.4-12.3 (test code = 754) NUCLEATED RED BLOOD CELLS 0 /100 WBC 0-0 (BEAKER) (test code = 413) NEUTROPHILS RELATIVE PERCENT 72 % (BEAKER) (test code = 429) LYMPHOCYTES RELATIVE PERCENT 11 % (BEAKER) (test code = 430) MONOCYTES RELATIVE PERCENT 14 % (BEAKER) (test code = 431) EOSINOPHILS RELATIVE PERCENT 2 % (BEAKER) (test code = 432) BASOPHILS RELATIVE PERCENT 1 % (BEAKER) (test code = 437) NEUTROPHILS ABSOLUTE COUNT 5.41 K/ L 1.56-6.13 (BEAKER) (test code = 670) LYMPHOCYTES ABSOLUTE COUNT 0.84 K/ L 1.18-3.74 L (BEAKER) (test code = 414) MONOCYTES ABSOLUTE COUNT (BEAKER) 1.03 K/ L 0.24-0.36 H (test code = 415) EOSINOPHILS ABSOLUTE COUNT 0.15 K/ L 0.04-0.36 (BEAKER) (test code = 416) BASOPHILS ABSOLUTE COUNT (BEAKER) 0.06 K/ L 0.01-0.08 (test code = 417) IMMATURE GRANULOCYTES-RELATIVE 1 % 0-1 PERCENT (BEAKER) (test code = 2801) CALCIUM, [id number] 05:20:50 Test Item Value Reference Range Interpretation Comments CALCIUM IONIZED (BEAKER) (test 1.12 mmol/L 1.12-1.27 code = 698) PH, BLOOD (BEAKER) (test code = 7.43 1810) ANG, TUNNELED CATHETER [id number] 13:32:00Reason for Central Line/PICC?->Need for hemodialysis accessReason for exam:->needs permanent accessCHI [facility] VALENC[facility] : 1945 Sex: FFINAL REPORT PROCEDURE: Tunneled dialysis catheter placement Procedural PersonnelAttending physician(s): Michael Mendiola physician(s): NoneResident physician(s): NoneAdvannorth [facility] practice provider(s): None Pre-procedure diagnosis: ESRDPost-procedure diagnosis: SameIndication (QCDR): Performance of hemodialysisAdditional clinical history: None Complications: No immediate complications. IMPRESSION: Insertion of right-sided tunneled dialysis catheter, with tip in the expected locationof the cavoatrial junction. Plan: The catheter may be used immediately. PROCEDURE SUMMARY:- Venous access with ultrasound guidance- Tunneled dialysis catheter insertion with fluoroscopic guidance- Additional procedure(s): None PROCEDURE DETAILS: Pre-procedureConsent: Informed consent for the procedure including risks, benefits and alternatives was obtained and time-out was performed prior to the procedure.Preparation (MIPS): The site wasprepared and draped using all elements of maximal sterile barrier technique including sterile gloves, sterile gown, cap, mask, large sterile sheet, sterile ultrasound probe cover, hand hygiene and cutaneous antisepsis with 2% chlorhexidine. Medical reason for site preparation exception (MIPS): Not applicable Anesthesia/sedationLevel of anesthesia/sedation: Moderate sedation (conscious sedation) 1mg Versed, 50mcg fentanylAnesthesia/sedation administered by: Independent trained observer under attending supervision with continuous monitoring of the patient\X2019\s level of consciousness and physiologic statusTotal intra-service sedation time (minutes): 30 AccessLocal anesthesia was administered. The vessel was sonographically evaluated and determined to be patent. Real time ultrasound was used to visualize needle entry into the vessel and a permanent image was stored.Vein accessed (QCDR): Internal jugular veinInternal jugular vein patency (QCDR): Patent or otherwise accessible on at least one sideAccess technique: Micropuncture set with 21 gauge needle Catheter placementAn incision was made near the venous access site and the catheter was tunneled subcutaneously to the venous access site. The catheter was advanced via a peel-away sheath into the vein under fluoroscopic guidance. Catheter tip location was fluoroscopically verified and a permanent image was stored.Catheter placed: Duraflow 2Catheter cuff-to-tip length (cm): 19Catheter flush: Heparin (1000 units/mL) ClosureA sterile dressing wasapplied.Access site closure technique: Tissue adhesiveCatheter securement technique: Non-absorbable suture Radiation DoseFluoroscopy time (minutes): 0.0 Reference air kerma (mGy): 0.1 Additional DetailsAdditional description of procedure: NoneEquipment details: NoneSpecimens removed: NoneEstimated blood loss (mL): Less than 10Standardized report: [email or web address]_v3 AttestationSigner name: Michael Mathew attest that I was present for the entire procedure. I reviewed the stored images and agree with the report as written. Signed: Michael Magaña MDReport Verified Date/Time: 03/01/2021 13:32:05 COMPREHENSIVE METABOLIC [id number] 06:10:52 Test Item Value Reference Range Interpretation Comments TOTAL PROTEIN 7.0 gm/dL 6.0-8.3 (BEAKER) (test code = 770) ALBUMIN (BEAKER) 2.9 g/dL 3.5-5.0 L (test code = 1145) ALKALINE PHOSPHATASE 391 U/L 40-150 H (BEAKER) (test code = 346) BILIRUBIN TOTAL 2.1 mg/dL 0.2-1.2 H (BEAKER) (test code = 377) SODIUM (BEAKER) (test 133 meq/L 136-145 L code = 381) POTASSIUM (BEAKER) 3.9 meq/L 3.5-5.1 (test code = 379) CHLORIDE (BEAKER) 100 meq/L 98-107 (test code = 382) CO2 (BEAKER) (test 23 meq/L 22-29 code = 355) BLOOD UREA NITROGEN 40 mg/dL 7-21 H (BEAKER) (test code = 354) CREATININE (BEAKER) 2.53 mg/dL 0.57-1.25 H (test code = 358) GLUCOSE RANDOM 99 mg/dL 70-105 (BEAKER) (test code = 652) CALCIUM (BEAKER) 8.8 mg/dL 8.4-10.2 (test code = 697) AST (SGOT) (BEAKER) 25 U/L 5-34 (test code = 353) ALT (SGPT) (BEAKER) 21 U/L 6-55 (test code = 347) EGFR (BEAKER) (test 18 mL/min/1.73 ESTIMA NICHOLE GFR IS code = 1092) sq m NOT ACCURATE CREATININE CLEARANCE IN PREDICTING GLOMERULAR FILTRATION RATE . ESTIMATED GFR I S NOT APPLICABLE FOR DIALYSIS PATIEN TS. Transit Operator ID - JANESSA [id number] 06:08:31 Test Item Value Reference Range Interpretation Comments PHOSPHORUS (BEAKER) (test code = 3.4 mg/dL 2.3-4.7 604) Transit Operator ID - JANESSA [id number] 06:08:29 Test Item Value Reference Range Interpretation Comments MAGNESIUM (BEAKER) (test code = 2.3 mg/dL 1.6-2.6 627) Transit Operator ID - JANESSA [facility] W/PLT COUNT & AUTO [id number] 05:49:12 Test Item Value Reference Range Interpretation Comments WHITE BLOOD CELL COUNT (BEAKER) 8.4 K/ L 3.5-10.5 (test code = 775) RED BLOOD CELL COUNT (BEAKER) 3.26 M/ L 3.93-5.22 L (test code = 761) HEMOGLOBIN (BEAKER) (test code = 8.6 GM/DL 11.2-15.7 L 410) HEMATOCRIT (BEAKER) (test code = 28.7 % 34.1-44.9 L 411) MEAN CORPUSCULAR VOLUME (BEAKER) 88.0 fL 79.4-94.8 (test code = 753) MEAN CORPUSCULAR HEMOGLOBIN 26.4 pg 25.6-32.2 (BEAKER) (test code = 751) MEAN CORPUSCULAR HEMOGLOBIN CONC 30.0 GM/DL 32.2-35.5 L (BEAKER) (test code = 752) RED CELL DISTRIBUTION WIDTH 18.9 % 11.7-14.4 H (BEAKER) (test code = 412) PLATELET COUNT (BEAKER) (test 207 K/CU MM 150-450 code = 756) MEAN PLATELET VOLUME (BEAKER) 10.9 fL 9.4-12.3 (test code = 754) NUCLEATED RED BLOOD CELLS 0 /100 WBC 0-0 (BEAKER) (test code = 413) NEUTROPHILS RELATIVE PERCENT 77 % (BEAKER) (test code = 429) LYMPHOCYTES RELATIVE PERCENT 7 % (BEAKER) (test code = 430) MONOCYTES RELATIVE PERCENT 14 % (BEAKER) (test code = 431) EOSINOPHILS RELATIVE PERCENT 1 % (BEAKER) (test code = 432) BASOPHILS RELATIVE PERCENT 1 % (BEAKER) (test code = 437) NEUTROPHILS ABSOLUTE COUNT 6.47 K/ L 1.56-6.13 H (BEAKER) (test code = 670) LYMPHOCYTES ABSOLUTE COUNT 0.57 K/ L 1.18-3.74 L (BEAKER) (test code = 414) MONOCYTES ABSOLUTE COUNT (BEAKER) 1.16 K/ L 0.24-0.36 H (test code = 415) EOSINOPHILS ABSOLUTE COUNT 0.12 K/ L 0.04-0.36 (BEAKER) (test code = 416) BASOPHILS ABSOLUTE COUNT (BEAKER) 0.04 K/ L 0.01-0.08 (test code = 417) IMMATURE GRANULOCYTES-RELATIVE 1 % 0-1 PERCENT (BEAKER) (test code = 2801) CALCIUM, [id number] 05:44:37 Test Item Value Reference Range Interpretation Comments CALCIUM IONIZED (BEAKER) (test 1.14 mmol/L 1.12-1.27 code = 698) PH, BLOOD (BEAKER) (test code = 7.37 1810) RAD, CHEST, 2 [id number] 01:00:00Should not raise armsReason for exam:- >PPM implnatShould this be performed at the bedside?->No [facility] : 1945 Sex: FFINAL REPORT Chest one view. Clinical history: PPM implant Comparison: Chest radiograph 02/27/2021. Technique: A single frontal view of the chest was obtained. Findings:There is a left-sided pacemaker with leads overlying the right atrium, right ventricle and coronary sinus. There is a right IJ central venous catheter with tip in the right atrium.There is stable enlargement of the cardiac silhouette. There are diffuse bilateral airspace opacities, not significantly changed. Thereare small bilateral pleural effusions. There is no pneumothorax. Signed: [facility] Verified Date/Time: 03/01/2021 01:00:54 POCT-GLUCOSE [id number] 19:32:38 Test Item Value Reference Range Interpretation Comments POC-GLUCOSE METER 105 mg/dL 70-110 : TESTED A T [facility] [address] (JOHN) (test code = HADLEY Soriano [place], 1538) [address]: Transit Operator/Techni magnus ID = [id number] for Bishop (student)Ben B-TYPE NATRIURETIC FACTOR (BNP)2021-02-28 17:10:17 Test Item Value Reference Range Interpretation Comments B-TYPE NATRIURETIC PEPTIDE (BEAKER) 970 pg/mL 0-100 H (test code = 700) Transit Operator ID - BSHEPATIC FUNCTION [id number] 06:54:50 Test Item Value Reference Range Interpretation Comments TOTAL PROTEIN (BEAKER) (test code = 7.2 gm/dL 6.0-8.3 770) ALBUMIN (BEAKER) (test code = 1145) 3.0 g/dL 3.5-5.0 L BILIRUBIN TOTAL (BEAKER) (test code 2.8 mg/dL 0.2-1.2 H = 377) BILIRUBIN DIRECT (BEAKER) (test 2.1 mg/dL 0.1-0.5 H code = 706) ALKALINE PHOSPHATASE (BEAKER) (test 380 U/L 40-150 H code = 346) AST (SGOT) (BEAKER) (test code = 32 U/L 5-34 353) ALT (SGPT) (BEAKER) (test code = 41 U/L 6-55 347) Transit Operator ID - PIAYA [id number] 06:54:49 Test Item Value Reference Range Interpretation Comments PHOSPHORUS (BEAKER) (test code = 2.4 mg/dL 2.3-4.7 604) Transit Operator ID - PIAYA [id number] 06:54:48 Test Item Value Reference Range Interpretation Comments MAGNESIUM (BEAKER) (test code = 1.6 mg/dL 1.6-2.6 627) Transit Operator ID - PIAYA LCOMPREHENSIVE METABOLIC [id number] 06:54:47 Test Item Value Reference Range Interpretation Comments TOTAL PROTEIN 7.2 gm/dL 6.0-8.3 (BEAKER) (test code = 770) ALBUMIN (BEAKER) 3.0 g/dL 3.5-5.0 L (test code = 1145) ALKALINE PHOSPHATASE 380 U/L 40-150 H (BEAKER) (test code = 346) BILIRUBIN TOTAL 2.8 mg/dL 0.2-1.2 H (BEAKER) (test code = 377) SODIUM (BEAKER) (test 135 meq/L 136-145 L code = 381) POTASSIUM (BEAKER) 4.0 meq/L 3.5-5.1 (test code = 379) CHLORIDE (BEAKER) 102 meq/L 98-107 (test code = 382) CO2 (BEAKER) (test 22 meq/L 22-29 code = 355) BLOOD UREA NITROGEN 26 mg/dL 7-21 H (BEAKER) (test code = 354) CREATININE (BEAKER) 1.40 mg/dL 0.57-1.25 H (test code = 358) GLUCOSE RANDOM 84 mg/dL 70-105 (BEAKER) (test code = 652) CALCIUM (BEAKER) 9.6 mg/dL 8.4-10.2 (test code = 697) AST (SGOT) (BEAKER) 32 U/L 5-34 (test code = 353) ALT (SGPT) (BEAKER) 41 U/L 6-55 (test code = 347) EGFR (BEAKER) (test 36 mL/min/1.73 ESTIMA NICHOLE GFR IS code = 1092) sq m NOT ACCURATE CREATININE CLEARANCE IN PREDICTING GLOMERULAR FILTRATION RATE . ESTIMATED GFR I S NOT APPLICABLE FOR DIALYSIS PATIEN TS. Transit Operator ID - PIAYA LCBC W/PLT COUNT & AUTO [id number] 06:03:48 Test Item Value Reference Range Interpretation Comments WHITE BLOOD CELL COUNT (BEAKER) 10.5 K/ L 3.5-10.5 (test code = 775) RED BLOOD CELL COUNT (BEAKER) 3.47 M/ L 3.93-5.22 L (test code = 761) HEMOGLOBIN (BEAKER) (test code = 9.2 GM/DL 11.2-15.7 L 410) HEMATOCRIT (BEAKER) (test code = 30.3 % 34.1-44.9 L 411) MEAN CORPUSCULAR VOLUME (BEAKER) 87.3 fL 79.4-94.8 (test code = 753) MEAN CORPUSCULAR HEMOGLOBIN 26.5 pg 25.6-32.2 (BEAKER) (test code = 751) MEAN CORPUSCULAR HEMOGLOBIN CONC 30.4 GM/DL 32.2-35.5 L (BEAKER) (test code = 752) RED CELL DISTRIBUTION WIDTH 18.7 % 11.7-14.4 H (BEAKER) (test code = 412) PLATELET COUNT (BEAKER) (test 211 K/CU MM 150-450 code = 756) MEAN PLATELET VOLUME (BEAKER) 10.4 fL 9.4-12.3 (test code = 754) NUCLEATED RED BLOOD CELLS 0 /100 WBC 0-0 (BEAKER) (test code = 413) NEUTROPHILS RELATIVE PERCENT 83 % (BEAKER) (test code = 429) LYMPHOCYTES RELATIVE PERCENT 5 % (BEAKER) (test code = 430) MONOCYTES RELATIVE PERCENT 10 % (BEAKER) (test code = 431) EOSINOPHILS RELATIVE PERCENT 0 % (BEAKER) (test code = 432) BASOPHILS RELATIVE PERCENT 1 % (BEAKER) (test code = 437) NEUTROPHILS ABSOLUTE COUNT 8.71 K/ L 1.56-6.13 H (BEAKER) (test code = 670) LYMPHOCYTES ABSOLUTE COUNT 0.51 K/ L 1.18-3.74 L (BEAKER) (test code = 414) MONOCYTES ABSOLUTE COUNT (BEAKER) 1.09 K/ L 0.24-0.36 H (test code = 415) EOSINOPHILS ABSOLUTE COUNT 0.03 K/ L 0.04-0.36 L (BEAKER) (test code = 416) BASOPHILS ABSOLUTE COUNT (BEAKER) 0.07 K/ L 0.01-0.08 (test code = 417) IMMATURE GRANULOCYTES-RELATIVE 1 % 0-1 PERCENT (BEAKER) (test code = 2801) CALCIUM, [id number] 06:01:46 Test Item Value Reference Range Interpretation Comments CALCIUM IONIZED (BEAKER) (test 1.17 mmol/L 1.12-1.27 code = 698) PH, BLOOD (BEAKER) (test code = 7.40 1810) [id number] 00:54:13 Test Item Value Reference Range Interpretation Comments PARTIAL THROMBOPLASTIN TIME 42.7 seconds 22.5-36.0 H (BEAKER) (test code = 760) COMPREHENSIVE METABOLIC [id number] 00:49:39 Test Item Value Reference Range Interpretation Comments TOTAL PROTEIN 6.9 gm/dL 6.0-8.3 (BEAKER) (test code = 770) ALBUMIN (BEAKER) 2.9 g/dL 3.5-5.0 L (test code = 1145) ALKALINE PHOSPHATASE 353 U/L 40-150 H (BEAKER) (test code = 346) BILIRUBIN TOTAL 2.7 mg/dL 0.2-1.2 H (BEAKER) (test code = 377) SODIUM (BEAKER) (test 133 meq/L 136-145 L code = 381) POTASSIUM (BEAKER) 3.7 meq/L 3.5-5.1 (test code = 379) CHLORIDE (BEAKER) 100 meq/L 98-107 (test code = 382) CO2 (BEAKER) (test 22 meq/L 22-29 code = 355) BLOOD UREA NITROGEN 48 mg/dL 7-21 H (BEAKER) (test code = 354) CREATININE (BEAKER) 2.65 mg/dL 0.57-1.25 H (test code = 358) GLUCOSE RANDOM 93 mg/dL 70-105 (BEAKER) (test code = 652) CALCIUM (BEAKER) 8.5 mg/dL 8.4-10.2 (test code = 697) AST (SGOT) (BEAKER) 26 U/L 5-34 (test code = 353) ALT (SGPT) (BEAKER) 40 U/L 6-55 (test code = 347) EGFR (BEAKER) (test 17 mL/min/1.73 ESTIMA NICHOLE GFR IS code = 1092) sq m NOT ACCURATE CREATININE CLEARANCE IN PREDICTING GLOMERULAR FILTRATION RATE . ESTIMATED GFR I S NOT APPLICABLE FOR DIALYSIS PATIEN TS. Transit Operator ID - PIALESHIA [id number] 00:36:07 Test Item Value Reference Range Interpretation Comments PHOSPHORUS (BEAKER) (test code = 4.1 mg/dL 2.3-4.7 604) Transit Operator ID - DEVINALESHIA LLACTIC ACID, [id number] 00:29:50 Test Item Value Reference Range Interpretation Comments LACTATE BLOOD ARTERIAL (2) 0.6 mmol/L 0.5-2.2 (BEAKER) (test code = 2874) Transit Operator ID - PIALESHIA LCALCIUM, [id number] 23:25:35 Test Item Value Reference Range Interpretation Comments CALCIUM IONIZED (BEAKER) (test 1.04 mmol/L 1.12-1.27 L code = 698) PH, BLOOD (BEAKER) (test code = 7.38 1810) GLUCOSE-STAT [id number] 23:25:34 Test Item Value Reference Range Interpretation Comments GLUCOSE RANDOM (BEAKER) (test code = 86 mg/dL 70-110 652) HGB/HCT (H&H) - STAT [id number] 23:25:34 Test Item Value Reference Range Interpretation Comments HEMOGLOBIN (BEAKER) (test code = 9.3 GM/DL 12.0-15.0 L 410) HEMATOCRIT (BEAKER) (test code = 27.0 % 36.0-45.0 L 411) POTASSIUM-STAT [id number] 23:25:33 Test Item Value Reference Range Interpretation Comments POTASSIUM (BEAKER) (test code = 3.5 meq/L 3.6-5.5 L 379) SODIUM NA-STAT [id number] 23:25:32 Test Item Value Reference Range Interpretation Comments SODIUM (BEAKER) (test code = 381) 134 meq/L 136-145 L BLOOD GAS, [id number] 23:25:31 Test Item Value Reference Range Interpretation Comments PH ARTERIAL (BEAKER) (test code = 7.38 7.35-7.45 383) PCO2 ARTERIAL (BEAKER) (test code 41 mm Hg 35-45 = 384) PO2 ARTERIAL (BEAKER) (test code 137 mm Hg 80-90 H = 385) O2 SATURATION ARTERIAL (BEAKER) 98.7 % 96.0-97.0 H (test code = 386) HCO3 ARTERIAL (BEAKER) (test code 24 mmol/L 21-29 = 388) BASE EXCESS ARTERIAL (BEAKER) -1.3 mmol/L -2.0-3.0 (test code = 387) PATIENT TEMPERATURE (BEAKER) 37.0 (test code = 1818) FIO2 (BEAKER) (test code = 1819) 28 RAD, CHEST, 1 VIEW, NON [id number] 21:43:00Reason for exam:->confrim line placementaShould this be performed at the bedside?->Yes [facility] : 1945 Sex: FFINAL REPORT History: Line placement. Comparison: 02/18/2021 Findings: A singleview of the chest is submitted. The examination is limited by low lung volumes and leftward rotation. A right subclavian CVC tip overlies the cavoatrial junction without associated pneumothorax or hematoma. There is stable enlargement of the cardiac silhouette. There is atherosclerotic ulceration of th e aorta. A left subclavian, multilead pacemaker has been placed in the interval. Central vascular engorgement and perihilar interstitial coarsening may be exaggerated by low lung volumes are reflect mild pulmonary edema. Patchy bibasilar opacities are similar to previous and may reflect a combination of atelectasis, scarring and edema. Pneumonitis should be excluded clinically. There is no acute bonyabnormality. A tunneled right IJ dialysis catheter remains in place. Signed: Ernesto Bliss MDReport Verified Date/Time: 02/27/2021 21:43:25 POCT- GLUCOSE [id number] 19:38:27 Test Item Value Reference Range Interpretation Comments POC-GLUCOSE METER 78 mg/dL 70-110 : TESTED A T [facility] (test code = HADLEY Christie [facility], 1538) [address]: Transit Operator/Techni magnus ID = [id number] for Susan Le [id number] 07:11:31 Test Item Value Reference Range Interpretation Comments PHOSPHORUS (BEAKER) 4.4 mg/dL 2.3-4.7 Specimen slightly (test code = 604) hemolyzed Transit Operator ID - JANESSA MCOMPREHENSIVE METABOLIC [id number] 05:07:58 Test Item Value Reference Range Interpretation Comments TOTAL PROTEIN 6.9 gm/dL 6.0-8.3 (BEAKER) (test code = 770) ALBUMIN (BEAKER) 2.9 g/dL 3.5-5.0 L (test code = 1145) ALKALINE PHOSPHATASE 368 U/L 40-150 H (BEAKER) (test code = 346) BILIRUBIN TOTAL 2.5 mg/dL 0.2-1.2 H (BEAKER) (test code = 377) SODIUM (BEAKER) (test 132 meq/L 136-145 L code = 381) POTASSIUM (BEAKER) 4.0 meq/L 3.5-5.1 (test code = 379) CHLORIDE (BEAKER) 97 meq/L 98-107 L (test code = 382) CO2 (BEAKER) (test 25 meq/L 22-29 code = 355) BLOOD UREA NITROGEN 52 mg/dL 7-21 H (BEAKER) (test code = 354) CREATININE (BEAKER) 3.41 mg/dL 0.57-1.25 H (test code = 358) GLUCOSE RANDOM 86 mg/dL 70-105 (BEAKER) (test code = 652) CALCIUM (BEAKER) 9.0 mg/dL 8.4-10.2 (test code = 697) AST (SGOT) (BEAKER) 33 U/L 5-34 (test code = 353) ALT (SGPT) (BEAKER) 62 U/L 6-55 H (test code = 347) EGFR (BEAKER) (test 13 mL/min/1.73 ESTIMA NICHOLE GFR IS code = 1092) sq m NOT ACCURATE CREATININE CLEARANCE IN PREDICTING GLOMERULAR FILTRATION RATE . ESTIMATED GFR I S NOT APPLICABLE FOR DIALYSIS PATIEN TS. Transit Operator ID - JANESSA EPATIC FUNCTION [id number] 04:44:32 Test Item Value Reference Range Interpretation Comments TOTAL PROTEIN (BEAKER) (test code = 6.9 gm/dL 6.0-8.3 770) ALBUMIN (BEAKER) (test code = 1145) 2.9 g/dL 3.5-5.0 L BILIRUBIN TOTAL (BEAKER) (test code 2.5 mg/dL 0.2-1.2 H = 377) BILIRUBIN DIRECT (BEAKER) (test 1.8 mg/dL 0.1-0.5 H code = 706) ALKALINE PHOSPHATASE (BEAKER) (test 368 U/L 40-150 H code = 346) AST (SGOT) (BEAKER) (test code = 33 U/L 5-34 353) ALT (SGPT) (BEAKER) (test code = 62 U/L 6-55 H 347) Transit Operator ID - JANESSA [id number] 04:44:31 Test Item Value Reference Range Interpretation Comments MAGNESIUM (BEAKER) (test code = 1.6 mg/dL 1.6-2.6 627) Transit Operator ID - JANESSA MPROTHROMBIN [id number] 04:27:06 Test Item Value Reference Range Interpretation Comments PROTIME (BEAKER) 13.4 seconds 11.9-14.2 (test code = 759) INR (BEAKER) (test 1.04 See_Comment [Automat ed message] code = 370) The system [employer] generated this result transmitted ref erence range: <=5.90. The reference range was not used to int erpret this result as normal/abnormal . RECOMMENDED COUMADIN/WARFARIN INR THERAPY RANGESSTANDARD DOSE: 2.0 - 3.0 Includes: PROPHYLAXIS for venous thrombosis, systemic embolization; TREATMENT for venous thrombosis and/or pulmonary embolus.HIGH RISK: Target INR is 2.5-3.5 for patients with mechanical heart valves.CALCIUM, [id number] 04:25:06 Test Item Value Reference Range Interpretation Comments CALCIUM IONIZED (BEAKER) (test 1.08 mmol/L 1.12-1.27 L code = 698) PH, BLOOD (BEAKER) (test code = 7.34 1810) CBC W/PLT COUNT & AUTO [id number] 04:24:11 Test Item Value Reference Range Interpretation Comments WHITE BLOOD CELL COUNT (BEAKER) 8.2 K/ L 3.5-10.5 (test code = 775) RED BLOOD CELL COUNT (BEAKER) 3.33 M/ L 3.93-5.22 L (test code = 761) HEMOGLOBIN (BEAKER) (test code = 8.8 GM/DL 11.2-15.7 L 410) HEMATOCRIT (BEAKER) (test code = 28.9 % 34.1-44.9 L 411) MEAN CORPUSCULAR VOLUME (BEAKER) 86.8 fL 79.4-94.8 (test code = 753) MEAN CORPUSCULAR HEMOGLOBIN 26.4 pg 25.6-32.2 (BEAKER) (test code = 751) MEAN CORPUSCULAR HEMOGLOBIN CONC 30.4 GM/DL 32.2-35.5 L (BEAKER) (test code = 752) RED CELL DISTRIBUTION WIDTH 18.6 % 11.7-14.4 H (BEAKER) (test code = 412) PLATELET COUNT (BEAKER) (test 197 K/CU MM 150-450 code = 756) MEAN PLATELET VOLUME (BEAKER) 10.7 fL 9.4-12.3 (test code = 754) NUCLEATED RED BLOOD CELLS 0 /100 WBC 0-0 (BEAKER) (test code = 413) NEUTROPHILS RELATIVE PERCENT 78 % (BEAKER) (test code = 429) LYMPHOCYTES RELATIVE PERCENT 9 % (BEAKER) (test code = 430) MONOCYTES RELATIVE PERCENT 12 % (BEAKER) (test code = 431) EOSINOPHILS RELATIVE PERCENT 1 % (BEAKER) (test code = 432) BASOPHILS RELATIVE PERCENT 0 % (BEAKER) (test code = 437) NEUTROPHILS ABSOLUTE COUNT 6.39 K/ L 1.56-6.13 H (BEAKER) (test code = 670) LYMPHOCYTES ABSOLUTE COUNT 0.73 K/ L 1.18-3.74 L (BEAKER) (test code = 414) MONOCYTES ABSOLUTE COUNT (BEAKER) 1.00 K/ L 0.24-0.36 H (test code = 415) EOSINOPHILS ABSOLUTE COUNT 0.05 K/ L 0.04-0.36 (BEAKER) (test code = 416) BASOPHILS ABSOLUTE COUNT (BEAKER) 0.02 K/ L 0.01-0.08 (test code = 417) IMMATURE GRANULOCYTES-RELATIVE 1 % 0-1 PERCENT (BEAKER) (test code = 2801) [id number] 14:32:03 Test Item Value Reference Range Interpretation Comments PARTIAL THROMBOPLASTIN TIME 46.7 seconds 22.5-36.0 H (BEAKER) (test code = 760) SARS-COV2/RT-PCR ([facility])2021-02-26 10:15:25 Test Item Value Reference Range Interpretation Comments SARS-COV2/RT-PCR (test Negative Not Detected, Negative, code = 7304508) See external report for linked test SARS-COV-2 PERFORMING LAB [facility] (test code = 5426720) Negative result for this test determines that SARS-CoV-2 RNA was not present in the specimen above the Limit of Detection (LOD). However, Negative results do not preclude SARS-CoV-2 infection and should not be used as the sole basis for treatment or patient management decisions. Negative results must be combined with clinical observations, patient history, and epidemiological information. A false negative result may occur if a specimen is improperly collected, transported or handled. A false negative result should be considered if patient's recent exposures or clinical presentation indicate that COVID-19 (SARS-CoV-2) is likely and diagnostic tests for other causes of illness are negative. Re-testing should be considered in cases of suspected false negatives.The limit of detection for this assay is 800 copies/mL.This SARS CoV-2 test is a real-time RT-PCR test intended for the qualitative detection of nucleic acid from SARS-CoV-2 in a nasopharyngeal swab specimen collected from individuals suspected of COVID-19 by their healthcare provider.This test has not been Food and Drug Administration (FDA) cleared or approved. This is a modified version of an approved Emergency Use Authorization (EUA) and is in the process of review by the FDA. Once authorized by the FDA, the issued EUA will be effective until the declaration that circumstances exist justifying the authorization of the emergency use ofin vitro diagnostic tests for detection and/or diagnosis of COVID-19 is terminated under Section 564(b)(2) of the Act or the EUA is revoked under Section 564(g) of the Act.Fact Sheet for Healthcare Prov iders:https://www.[employer]/sites/default/files/product/documents/Fact_Sheet_HC _Gyaueaylr_Bwvj_BJNZ-XpY-4.pdfFact Sheet for Healthcare Patients:https://www.[employer]/sites/default/files/product/docume nts/Jfpn_Mzwad_Bzmmcotd_Gjfv_FNGD-GcL-6.pdfPerforming Laboratory:[facility], [place] [id number] 06:13:12 Test Item Value Reference Range Interpretation Comments PARTIAL THROMBOPLASTIN TIME 107.9 seconds 22.5-36.0 H (BEAKER) (test code = 760) BASIC METABOLIC [id number] 05:24:44 Test Item Value Reference Range Interpretation Comments SODIUM (BEAKER) 131 meq/L 136-145 L (test code = 381) POTASSIUM (BEAKER) 4.1 meq/L 3.5-5.1 (test code = 379) CHLORIDE (BEAKER) 96 meq/L 98-107 L (test code = 382) CO2 (BEAKER) (test 23 meq/L 22-29 code = 355) BLOOD UREA NITROGEN 40 mg/dL 7-21 H (BEAKER) (test code = 354) CREATININE (BEAKER) 3.38 mg/dL 0.57-1.25 H (test code = 358) GLUCOSE RANDOM 92 mg/dL 70-105 (BEAKER) (test code = 652) CALCIUM (BEAKER) 9.5 mg/dL 8.4-10.2 (test code = 697) EGFR (BEAKER) (test 13 mL/min/1.73 ESTIMA NICHOLE GFR IS code = 1092) sq m NOT ACCURATE CREATININE CLEARANCE IN PREDICTING GLOMERULAR FILTRATION RATE . ESTIMATED GFR I S NOT APPLICABLE FOR DIALYSIS PATIEN TS. Transit Operator ID - JANESSA EPATIC FUNCTION [id number] 05:18:53 Test Item Value Reference Range Interpretation Comments TOTAL PROTEIN (BEAKER) (test code = 8.0 gm/dL 6.0-8.3 770) ALBUMIN (BEAKER) (test code = 1145) 3.4 g/dL 3.5-5.0 L BILIRUBIN TOTAL (BEAKER) (test code 2.6 mg/dL 0.2-1.2 H = 377) BILIRUBIN DIRECT (BEAKER) (test 1.8 mg/dL 0.1-0.5 H code = 706) ALKALINE PHOSPHATASE (BEAKER) (test 441 U/L 40-150 H code = 346) AST (SGOT) (BEAKER) (test code = 39 U/L 5-34 H 353) ALT (SGPT) (BEAKER) (test code = 96 U/L 6-55 H 347) Transit Operator ID - JANESSA MPROTHROMBIN TIME/[id number] 04:36:11 Test Item Value Reference Range Interpretation Comments PROTIME (BEAKER) 13.8 seconds 11.9-14.2 (test code = 759) INR (BEAKER) (test 1.08 See_Comment [Automat ed message] code = 370) The system [employer] generated this result transmitted ref erence range: <=5.90. The reference range was not used to int erpret this result as normal/abnormal . RECOMMENDED COUMADIN/WARFARIN INR THERAPY RANGESSTANDARD DOSE: 2.0 - 3.0 Includes: PROPHYLAXIS for venous thrombosis, systemic embolization; TREATMENT for venous thrombosis and/or pulmonary embolus.HIGH RISK: Target INR is 2.5-3.5 for patients with mechanical heart valves.CBC (HEMOGRAM ONLY)2021-02-26 04:31:09 Test Item Value Reference Range Interpretation Comments WHITE BLOOD CELL COUNT (BEAKER) 10.9 K/ L 3.5-10.5 H (test code = 775) RED BLOOD CELL COUNT (BEAKER) 3.80 M/ L 3.93-5.22 L (test code = 761) HEMOGLOBIN (BEAKER) (test code = 9.9 GM/DL 11.2-15.7 L 410) HEMATOCRIT (BEAKER) (test code = 34.6 % 34.1-44.9 411) MEAN CORPUSCULAR VOLUME (BEAKER) 91.1 fL 79.4-94.8 (test code = 753) MEAN CORPUSCULAR HEMOGLOBIN 26.1 pg 25.6-32.2 (BEAKER) (test code = 751) MEAN CORPUSCULAR HEMOGLOBIN CONC 28.6 GM/DL 32.2-35.5 L (BEAKER) (test code = 752) RED CELL DISTRIBUTION WIDTH 18.9 % 11.7-14.4 H (BEAKER) (test code = 412) PLATELET COUNT (BEAKER) (test 224 K/CU MM 150-450 code = 756) MEAN PLATELET VOLUME (BEAKER) 10.9 fL 9.4-12.3 (test code = 754) NUCLEATED RED BLOOD CELLS 0 /100 WBC 0-0 (BEAKER) (test code = 413) [id number] 18:48:59 Test Item Value Reference Range Interpretation Comments PARTIAL THROMBOPLASTIN TIME 74.1 seconds 22.5-36.0 H (BEAKER) (test code = 760) [id number] 08:08:37 Test Item Value Reference Range Interpretation Comments PARTIAL THROMBOPLASTIN TIME 46.9 seconds 22.5-36.0 H (BEAKER) (test code = 760) BASIC METABOLIC [id number] 02:28:58 Test Item Value Reference Range Interpretation Comments SODIUM (BEAKER) 134 meq/L 136-145 L (test code = 381) POTASSIUM (BEAKER) 4.0 meq/L 3.5-5.1 (test code = 379) CHLORIDE (BEAKER) 97 meq/L 98-107 L (test code = 382) CO2 (BEAKER) (test 26 meq/L 22-29 code = 355) BLOOD UREA NITROGEN 24 mg/dL 7-21 H (BEAKER) (test code = 354) CREATININE (BEAKER) 2.87 mg/dL 0.57-1.25 H (test code = 358) GLUCOSE RANDOM 100 mg/dL 70-105 (BEAKER) (test code = 652) CALCIUM (BEAKER) 8.7 mg/dL 8.4-10.2 (test code = 697) EGFR (BEAKER) (test 16 mL/min/1.73 ESTIMA NICHOLE GFR IS code = 1092) sq m NOT ACCURATE CREATININE CLEARANCE IN PREDICTING GLOMERULAR FILTRATION RATE . ESTIMATED GFR I S NOT APPLICABLE FOR DIALYSIS PATIEN TS. Transit Operator ID - PIAYA EPATIC FUNCTION [id number] 02:09:30 Test Item Value Reference Range Interpretation Comments TOTAL PROTEIN (BEAKER) (test code = 7.7 gm/dL 6.0-8.3 770) ALBUMIN (BEAKER) (test code = 1145) 3.3 g/dL 3.5-5.0 L BILIRUBIN TOTAL (BEAKER) (test code 2.6 mg/dL 0.2-1.2 H = 377) BILIRUBIN DIRECT (BEAKER) (test 1.8 mg/dL 0.1-0.5 H code = 706) ALKALINE PHOSPHATASE (BEAKER) (test 436 U/L 40-150 H code = 346) AST (SGOT) (BEAKER) (test code = 42 U/L 5-34 H 353) ALT (SGPT) (BEAKER) (test code = 121 U/L 6-55 H 347) Transit Operator ID - PIAYA [id number] 01:54:32 Test Item Value Reference Range Interpretation Comments PARTIAL THROMBOPLASTIN TIME 64.2 seconds 22.5-36.0 H (BEAKER) (test code = 760) CBC (HEMOGRAM ONLY)2021-02-25 01:33:07 Test Item Value Reference Range Interpretation Comments WHITE BLOOD CELL COUNT (BEAKER) 10.5 K/ L 3.5-10.5 (test code = 775) RED BLOOD CELL COUNT (BEAKER) 3.61 M/ L 3.93-5.22 L (test code = 761) HEMOGLOBIN (BEAKER) (test code = 9.5 GM/DL 11.2-15.7 L 410) HEMATOCRIT (BEAKER) (test code = 32.3 % 34.1-44.9 L 411) MEAN CORPUSCULAR VOLUME (BEAKER) 89.5 fL 79.4-94.8 (test code = 753) MEAN CORPUSCULAR HEMOGLOBIN 26.3 pg 25.6-32.2 (BEAKER) (test code = 751) MEAN CORPUSCULAR HEMOGLOBIN CONC 29.4 GM/DL 32.2-35.5 L (BEAKER) (test code = 752) RED CELL DISTRIBUTION WIDTH 19.3 % 11.7-14.4 H (BEAKER) (test code = 412) PLATELET COUNT (BEAKER) (test 192 K/CU MM 150-450 code = 756) MEAN PLATELET VOLUME (BEAKER) 10.7 fL 9.4-12.3 (test code = 754) NUCLEATED RED BLOOD CELLS 0 /100 WBC 0-0 (BEAKER) (test code = 413) [id number] 18:41:27 Test Item Value Reference Range Interpretation Comments PARTIAL THROMBOPLASTIN TIME 97.4 seconds 22.5-36.0 H (BEAKER) (test code = 760) [id number] 11:41:55 Test Item Value Reference Range Interpretation Comments ALPHA-1 ANTITRYPSIN (BEAKER) 274.30 mg/dL 90.00-200.00 H (test code = 502) Transit Operator JOSHUA MOTTA LALPHA FETOPROTEIN (AFP), TUMOR [id number] 11:18:12 Test Item Value Reference Range Interpretation Comments ALPHA-FETOPROTEIN (BEAKER) (test 9.1 ng/mL <10.0 code = 1094) Transit Operator JOSHUA MOTTA [id number] 10:54:49 Test Item Value Reference Range Interpretation Comments PARTIAL THROMBOPLASTIN TIME 141.7 seconds 22.5-36.0 H (BEAKER) (test code = 760) CALCIUM, [id number] 10:47:24 Test Item Value Reference Range Interpretation Comments CALCIUM IONIZED (BEAKER) (test 1.09 mmol/L 1.12-1.27 L code = 698) PH, BLOOD (BEAKER) (test code = 7.45 1810) HEPATIC FUNCTION [id number] 06:49:09 Test Item Value Reference Range Interpretation Comments TOTAL PROTEIN (BEAKER) (test code = 8.5 gm/dL 6.0-8.3 H 770) ALBUMIN (BEAKER) (test code = 1145) 3.6 g/dL 3.5-5.0 BILIRUBIN TOTAL (BEAKER) (test code 2.7 mg/dL 0.2-1.2 H = 377) BILIRUBIN DIRECT (BEAKER) (test 1.9 mg/dL 0.1-0.5 H code = 706) ALKALINE PHOSPHATASE (BEAKER) (test 482 U/L 40-150 H code = 346) AST (SGOT) (BEAKER) (test code = 53 U/L 5-34 H 353) ALT (SGPT) (BEAKER) (test code = 169 U/L 6-55 H 347) Transit Operator ID - DEVINAYA LSpecimen slightly ictericCOMPREHENSIVE METABOLIC PANEL 2021-02-24 06:49:08 Test Item Value Reference Range Interpretation Comments TOTAL PROTEIN 8.5 gm/dL 6.0-8.3 H (BEAKER) (test code = 770) ALBUMIN (BEAKER) 3.6 g/dL 3.5-5.0 (test code = 1145) ALKALINE PHOSPHATASE 482 U/L 40-150 H (BEAKER) (test code = 346) BILIRUBIN TOTAL 2.7 mg/dL 0.2-1.2 H (BEAKER) (test code = 377) SODIUM (BEAKER) (test 135 meq/L 136-145 L code = 381) POTASSIUM (BEAKER) 3.6 meq/L 3.5-5.1 (test code = 379) CHLORIDE (BEAKER) 101 meq/L 98-107 (test code = 382) CO2 (BEAKER) (test 20 meq/L 22-29 L code = 355) BLOOD UREA NITROGEN 10 mg/dL 7-21 (BEAKER) (test code = 354) CREATININE (BEAKER) 1.23 mg/dL 0.57-1.25 (test code = 358) GLUCOSE RANDOM 102 mg/dL 70-105 (BEAKER) (test code = 652) CALCIUM (BEAKER) 9.4 mg/dL 8.4-10.2 (test code = 697) AST (SGOT) (BEAKER) 53 U/L 5-34 H (test code = 353) ALT (SGPT) (BEAKER) 169 U/L 6-55 H (test code = 347) EGFR (BEAKER) (test 42 mL/min/1.73 ESTIMA NICHOLE GFR IS code = 1092) sq m NOT ACCURATE CREATININE CLEARANCE IN PREDICTING GLOMERULAR FILTRATION RATE . ESTIMATED GFR I S NOT APPLICABLE FOR DIALYSIS PATIEN TS. Transit Operator ID - KALIA LSpecimen slightly [id number] 06:49:07 Test Item Value Reference Range Interpretation Comments MAGNESIUM (BEAKER) (test code = 1.7 mg/dL 1.6-2.6 627) Transit Operator ID - KALIA [id number] 06:49:07 Test Item Value Reference Range Interpretation Comments PHOSPHORUS (BEAKER) (test code = 1.7 mg/dL 2.3-4.7 L 604) Transit Operator ID - KALIA LCBC W/PLT COUNT & AUTO [id number] 06:24:53 Test Item Value Reference Range Interpretation Comments WHITE BLOOD CELL COUNT (BEAKER) 14.0 K/ L 3.5-10.5 H (test code = 775) RED BLOOD CELL COUNT (BEAKER) 4.67 M/ L 3.93-5.22 (test code = 761) HEMOGLOBIN (BEAKER) (test code = 12.1 GM/DL 11.2-15.7 410) HEMATOCRIT (BEAKER) (test code = 41.1 % 34.1-44.9 411) MEAN CORPUSCULAR VOLUME (BEAKER) 88.0 fL 79.4-94.8 (test code = 753) MEAN CORPUSCULAR HEMOGLOBIN 25.9 pg 25.6-32.2 (BEAKER) (test code = 751) MEAN CORPUSCULAR HEMOGLOBIN CONC 29.4 GM/DL 32.2-35.5 L (BEAKER) (test code = 752) RED CELL DISTRIBUTION WIDTH 19.7 % 11.7-14.4 H (BEAKER) (test code = 412) PLATELET COUNT (BEAKER) (test 177 K/CU MM 150-450 code = 756) MEAN PLATELET VOLUME (BEAKER) 11.3 fL 9.4-12.3 (test code = 754) NUCLEATED RED BLOOD CELLS 0 /100 WBC 0-0 (BEAKER) (test code = 413) NEUTROPHILS RELATIVE PERCENT 86 % (BEAKER) (test code = 429) LYMPHOCYTES RELATIVE PERCENT 5 % (BEAKER) (test code = 430) MONOCYTES RELATIVE PERCENT 8 % (BEAKER) (test code = 431) EOSINOPHILS RELATIVE PERCENT 0 % (BEAKER) (test code = 432) BASOPHILS RELATIVE PERCENT 0 % (BEAKER) (test code = 437) NEUTROPHILS ABSOLUTE COUNT 11.99 K/ L 1.56-6.13 H (BEAKER) (test code = 670) LYMPHOCYTES ABSOLUTE COUNT 0.65 K/ L 1.18-3.74 L (BEAKER) (test code = 414) MONOCYTES ABSOLUTE COUNT (BEAKER) 1.18 K/ L 0.24-0.36 H (test code = 415) EOSINOPHILS ABSOLUTE COUNT 0.03 K/ L 0.04-0.36 L (BEAKER) (test code = 416) BASOPHILS ABSOLUTE COUNT (BEAKER) 0.04 K/ L 0.01-0.08 (test code = 417) IMMATURE GRANULOCYTES-RELATIVE 1 % 0-1 PERCENT (BEAKER) (test code = 2801) [id number] 05:49:37 Test Item Value Reference Range Interpretation Comments PARTIAL THROMBOPLASTIN TIME 48.7 seconds 22.5-36.0 H (BEAKER) (test code = 760) MR, ABDOMEN, [id number] 10:29:00Unlisted Reason for Exam - Click Yes and Enter Reason Below->Yes Unlisted Reason for Exam->Concern for biliary obstruction. Elevated liver enzymes. Also asses for underlying cirrhosuis or features of portal hypertension Perform MRI triple phase of liver and also MRCP for biliary obstruction. [facility] : 1945 Sex: FFINAL REPORT TECHNIQUE: MRI of the abdomen and MRCP WITHOUT and WITH intravenous contrast. 3-D volume reconstructions were obtained to evaluate the biliary ductal system. INDICATION: 75-year-old woman with elevated liver enzymes and concern for biliary obstruction. COMPARISON: Abdomen ultrasound 02/19/2021. FINDINGS:Suboptimal evaluation due to motion artifact on postcontrast sequences. LOWER THORAX: Cardiomegaly. Large pericardial effusion contains T1 hyperintense hemorrhagic/proteinaceous debris. Trace bilateral pleural effusions. Bibasilar consolidation opacities, likely atelectasis. LIVER: Questionable subtle nodular liver contour. No hepatic steatosis. No definite liver lesion. BILIARY: Prior cholecystectomy. Intrahepatic and extrahepatic bile ducts are normal in caliber. Apparent narrowing in the mid common duct is likely due to mass effect from adjacent vessels. No filling defect within the biliary system.SPLEEN: Spleen is prominent and measures 13.4 cm in the craniocaudal dimension.PANCREAS: No focal mass or ductal dilatation. ADRENALS: No adrenal nodule.KIDNEYS/URETERS: Heterogeneous T2 signal intensity of both kidneys; the areas of decreased T2 signal intensity appear to have relative cortical thinning. No hydronephrosis. PERITONEUM/RETROPERITONEUM: No free fluid.LYMPH NODES: No lymphadenopathy.VESSELS: Unremarkable. GI TRACT: No distention or wall thickening. BONES AND SOFT TISSUES: Degenerative changes of the visualized spine. Soft tissues are unremarkable. IMPRESSION:Suboptimal evaluation due to motion artifact on postcontrast sequences. Questionable subtle nodular liver contour, for which cirrhosis cannot be excluded. No definite liver lesion. No biliaryductal dilatation or filling defect. Splenomegaly. Heterogeneous signal intensity of both kidneys without discrete mass. Differential considerations include multifocal cortical scarring, pyelonephritis, and deposition disease such as amyloid. Large debris-containing pericardial effusion. Signed: Brian Rivas Verified Date/Time: 02/23/2021 10:29:06 Reading Location: [facility] Diagnostic ImagingReading Room - [place] [address] [id number] 04:28:09 Test Item Value Reference Range Interpretation Comments PARTIAL THROMBOPLASTIN TIME 104.4 seconds 22.5-36.0 H (BEAKER) (test code = 760) BASIC METABOLIC [id number] 03:37:17 Test Item Value Reference Range Interpretation Comments SODIUM (BEAKER) 134 meq/L 136-145 L (test code = 381) POTASSIUM (BEAKER) 3.9 meq/L 3.5-5.1 (test code = 379) CHLORIDE (BEAKER) 100 meq/L 98-107 (test code = 382) CO2 (BEAKER) (test 21 meq/L 22-29 L code = 355) BLOOD UREA NITROGEN 30 mg/dL 7-21 H (BEAKER) (test code = 354) CREATININE (BEAKER) 2.82 mg/dL 0.57-1.25 H (test code = 358) GLUCOSE RANDOM 104 mg/dL 70-105 (BEAKER) (test code = 652) CALCIUM (BEAKER) 8.9 mg/dL 8.4-10.2 (test code = 697) EGFR (BEAKER) (test 16 mL/min/1.73 ESTIMA NICHOLE GFR IS code = 1092) sq m NOT ACCURATE CREATININE CLEARANCE IN PREDICTING GLOMERULAR FILTRATION RATE . ESTIMATED GFR I S NOT APPLICABLE FOR DIALYSIS PATIEN TS. Transit Operator ID Alejandro TOUSSAINT WHEPATIC FUNCTION [id number] 03:30:39 Test Item Value Reference Range Interpretation Comments TOTAL PROTEIN (BEAKER) (test code = 7.4 gm/dL 6.0-8.3 770) ALBUMIN (BEAKER) (test code = 1145) 3.2 g/dL 3.5-5.0 L BILIRUBIN TOTAL (BEAKER) (test code 2.1 mg/dL 0.2-1.2 H = 377) BILIRUBIN DIRECT (BEAKER) (test 1.6 mg/dL 0.1-0.5 H code = 706) ALKALINE PHOSPHATASE (BEAKER) (test 425 U/L 40-150 H code = 346) AST (SGOT) (BEAKER) (test code = 63 U/L 5-34 H 353) ALT (SGPT) (BEAKER) (test code = 213 U/L 6-55 H 347) Transit Operator ID Alejandro TOUSSAINT WCBC (HEMOGRAM ONLY)2021-02-23 03:14:36 Test Item Value Reference Range Interpretation Comments WHITE BLOOD CELL COUNT (BEAKER) 8.3 K/ L 3.5-10.5 (test code = 775) RED BLOOD CELL COUNT (BEAKER) 3.57 M/ L 3.93-5.22 L (test code = 761) HEMOGLOBIN (BEAKER) (test code = 9.5 GM/DL 11.2-15.7 L 410) HEMATOCRIT (BEAKER) (test code = 31.0 % 34.1-44.9 L 411) MEAN CORPUSCULAR VOLUME (BEAKER) 86.8 fL 79.4-94.8 (test code = 753) MEAN CORPUSCULAR HEMOGLOBIN 26.6 pg 25.6-32.2 (BEAKER) (test code = 751) MEAN CORPUSCULAR HEMOGLOBIN CONC 30.6 GM/DL 32.2-35.5 L (BEAKER) (test code = 752) RED CELL DISTRIBUTION WIDTH 18.7 % 11.7-14.4 H (BEAKER) (test code = 412) PLATELET COUNT (BEAKER) (test 135 K/CU MM 150-450 L code = 756) MEAN PLATELET VOLUME (BEAKER) 11.3 fL 9.4-12.3 (test code = 754) NUCLEATED RED BLOOD CELLS 0 /100 WBC 0-0 (BEAKER) (test code = 413) MISCELLANEOUS LAB [id number] 15:19:21 Test Item Value Reference Range Interpretation Comments SCAN RESULT (test code = 6935766) [id number] 14:48:43 Test Item Value Reference Range Interpretation Comments PARTIAL THROMBOPLASTIN TIME 45.1 seconds 22.5-36.0 H (BEAKER) (test code = 760) (CELLAVISION MANUAL DIFF)2021-02-22 07:24:46 Test Item Value Reference Range Interpretation Comments NEUTROPHILS - REL 79 % (CELLAVISION)(BEAKER) (test code = 2816) LYMPHOCYTES - REL 7 % (CELLAVISION)(BEAKER) (test code = 2817) MONOCYTES - REL 12 % (CELLAVISION)(BEAKER) (test code = 2818) EOSINOPHILS - REL 2 % (CELLAVISION)(BEAKER) (test code = 2819) NEUTROPHILS - ABS 8.37 K/ul 1.56-6.13 H (CELLAVISION)(BEAKER) (test code = 2830) LYMPHOCYTES - ABS 0.74 K/ul 1.18-3.74 L (CELLAVISION)(BEAKER) (test code = 2831) MONOCYTES - ABS 1.27 K/uL 0.24-0.36 H (CELLAVISION)(BEAKER) (test code = 2832) EOSINOPHILS - ABS 0.21 K/uL 0.04-0.36 (CELLAVISION)(BEAKER) (test code = 2834) TOTAL COUNTED (BEAKER) (test code = 100 1351) RBC MORPHOLOGY (BEAKER) (test code Normal = 762) WBC MORPHOLOGY (BEAKER) (test code Normal = 487) PLT MORPHOLOGY (BEAKER) (test code Normal = 486) CBC W/PLT COUNT & AUTO [id number] 07:24:44 Test Item Value Reference Range Interpretation Comments WHITE BLOOD CELL COUNT (BEAKER) 10.6 K/ L 3.5-10.5 H (test code = 775) RED BLOOD CELL COUNT (BEAKER) 3.90 M/ L 3.93-5.22 L (test code = 761) HEMOGLOBIN (BEAKER) (test code = 10.3 GM/DL 11.2-15.7 L 410) HEMATOCRIT (BEAKER) (test code = 33.4 % 34.1-44.9 L 411) MEAN CORPUSCULAR VOLUME (BEAKER) 85.6 fL 79.4-94.8 (test code = 753) MEAN CORPUSCULAR HEMOGLOBIN 26.4 pg 25.6-32.2 (BEAKER) (test code = 751) MEAN CORPUSCULAR HEMOGLOBIN CONC 30.8 GM/DL 32.2-35.5 L (BEAKER) (test code = 752) RED CELL DISTRIBUTION WIDTH 19.3 % 11.7-14.4 H (BEAKER) (test code = 412) PLATELET COUNT (BEAKER) (test 124 K/CU MM 150-450 L code = 756) MEAN PLATELET VOLUME (BEAKER) 11.9 fL 9.4-12.3 (test code = 754) NUCLEATED RED BLOOD CELLS 0 /100 WBC 0-0 (BEAKER) (test code = 413) [id number] 07:00:12 Test Item Value Reference Range Interpretation Comments PARTIAL THROMBOPLASTIN TIME 51.8 seconds 22.5-36.0 H (BEAKER) (test code = 760) [id number] 06:10:21 Test Item Value Reference Range Interpretation Comments PARTIAL THROMBOPLASTIN TIME 151.4 seconds 22.5-36.0 HH (BEAKER) (test code = 760) COMPREHENSIVE METABOLIC [id number] 05:53:58 Test Item Value Reference Range Interpretation Comments TOTAL PROTEIN 8.5 gm/dL 6.0-8.3 H (BEAKER) (test code = 770) ALBUMIN (BEAKER) 3.5 g/dL 3.5-5.0 (test code = 1145) ALKALINE PHOSPHATASE 524 U/L 40-150 H (BEAKER) (test code = 346) BILIRUBIN TOTAL 2.4 mg/dL 0.2-1.2 H (BEAKER) (test code = 377) SODIUM (BEAKER) (test 136 meq/L 136-145 code = 381) POTASSIUM (BEAKER) 4.1 meq/L 3.5-5.1 (test code = 379) CHLORIDE (BEAKER) 100 meq/L 98-107 (test code = 382) CO2 (BEAKER) (test 23 meq/L 22-29 code = 355) BLOOD UREA NITROGEN 21 mg/dL 7-21 (BEAKER) (test code = 354) CREATININE (BEAKER) 2.24 mg/dL 0.57-1.25 H (test code = 358) GLUCOSE RANDOM 100 mg/dL 70-105 (BEAKER) (test code = 652) CALCIUM (BEAKER) 9.3 mg/dL 8.4-10.2 (test code = 697) AST (SGOT) (BEAKER) 89 U/L 5-34 H (test code = 353) ALT (SGPT) (BEAKER) 322 U/L 6-55 H (test code = 347) EGFR (BEAKER) (test 21 mL/min/1.73 ESTIMA NICHOLE GFR IS code = 1092) sq m NOT ACCURATE CREATININE CLEARANCE IN PREDICTING GLOMERULAR FILTRATION RATE . ESTIMATED GFR I S NOT APPLICABLE FOR DIALYSIS PATIEN TS. Transit Operator ID - JANESSA EPATIC FUNCTION [id number] 05:43:38 Test Item Value Reference Range Interpretation Comments TOTAL PROTEIN (BEAKER) (test code = 8.5 gm/dL 6.0-8.3 H 770) ALBUMIN (BEAKER) (test code = 1145) 3.5 g/dL 3.5-5.0 BILIRUBIN TOTAL (BEAKER) (test code 2.4 mg/dL 0.2-1.2 H = 377) BILIRUBIN DIRECT (BEAKER) (test 1.8 mg/dL 0.1-0.5 H code = 706) ALKALINE PHOSPHATASE (BEAKER) (test 524 U/L 40-150 H code = 346) AST (SGOT) (BEAKER) (test code = 89 U/L 5-34 H 353) ALT (SGPT) (BEAKER) (test code = 322 U/L 6-55 H 347) Transit Operator ID - JANESSA [id number] 05:43:37 Test Item Value Reference Range Interpretation Comments PHOSPHORUS (BEAKER) (test code = 3.6 mg/dL 2.3-4.7 604) Transit Operator ID - JANESSA [id number] 05:43:36 Test Item Value Reference Range Interpretation Comments MAGNESIUM (BEAKER) (test code = 1.8 mg/dL 1.6-2.6 627) Transit Operator ID - JANESSA MCALCIUM, [id number] 05:33:45 Test Item Value Reference Range Interpretation Comments CALCIUM IONIZED (BEAKER) (test 1.12 mmol/L 1.12-1.27 code = 698) PH, BLOOD (BEAKER) (test code = 7.28 1810) [id number] 05:16:53 Test Item Value Reference Range Interpretation Comments PARTIAL THROMBOPLASTIN TIME 153.6 seconds 22.5-36.0 HH (BEAKER) (test code = 760) POCT-GLUCOSE [id number] 20:38:56 Test Item Value Reference Range Interpretation Comments POC-GLUCOSE METER 80 mg/dL 70-110 : TESTED A T [facility] 67[address] (BEAKER) (test code = [place], 1538) [address]: Transit Operator/Techni magnus ID = [id number] for VERONICA JOSEPH COMPREHENSIVE METABOLIC [id number] 05:16:27 Test Item Value Reference Range Interpretation Comments TOTAL PROTEIN 8.2 gm/dL 6.0-8.3 (BEAKER) (test code = 770) ALBUMIN (BEAKER) 3.5 g/dL 3.5-5.0 (test code = 1145) ALKALINE PHOSPHATASE 558 U/L 40-150 H (BEAKER) (test code = 346) BILIRUBIN TOTAL 2.4 mg/dL 0.2-1.2 H (BEAKER) (test code = 377) SODIUM (BEAKER) (test 134 meq/L 136-145 L code = 381) POTASSIUM (BEAKER) 3.5 meq/L 3.5-5.1 (test code = 379) CHLORIDE (BEAKER) 98 meq/L 98-107 (test code = 382) CO2 (BEAKER) (test 21 meq/L 22-29 L code = 355) BLOOD UREA NITROGEN 30 mg/dL 7-21 H (BEAKER) (test code = 354) CREATININE (BEAKER) 2.61 mg/dL 0.57-1.25 H (test code = 358) GLUCOSE RANDOM 104 mg/dL 70-105 (BEAKER) (test code = 652) CALCIUM (BEAKER) 8.7 mg/dL 8.4-10.2 (test code = 697) AST (SGOT) (BEAKER) 128 U/L 5-34 H (test code = 353) ALT (SGPT) (BEAKER) 435 U/L 6-55 H (test code = 347) EGFR (BEAKER) (test 18 mL/min/1.73 ESTIMA NICHOLE GFR IS code = 1092) sq m NOT ACCURATE CREATININE CLEARANCE IN PREDICTING GLOMERULAR FILTRATION RATE . ESTIMATED GFR I S NOT APPLICABLE FOR DIALYSIS PATIEN TS. Transit Operator ID - JANESSA MCALCIUM, [id number] 05:10:03 Test Item Value Reference Range Interpretation Comments CALCIUM IONIZED (BEAKER) (test 1.03 mmol/L 1.12-1.27 L code = 698) PH, BLOOD (BEAKER) (test code = 7.31 1810) HEPATIC FUNCTION [id number] 05:08:02 Test Item Value Reference Range Interpretation Comments TOTAL PROTEIN (BEAKER) (test code = 8.2 gm/dL 6.0-8.3 770) ALBUMIN (BEAKER) (test code = 1145) 3.5 g/dL 3.5-5.0 BILIRUBIN TOTAL (BEAKER) (test code 2.4 mg/dL 0.2-1.2 H = 377) BILIRUBIN DIRECT (BEAKER) (test 1.9 mg/dL 0.1-0.5 H code = 706) ALKALINE PHOSPHATASE (BEAKER) (test 558 U/L 40-150 H code = 346) AST (SGOT) (BEAKER) (test code = 128 U/L 5-34 H 353) ALT (SGPT) (BEAKER) (test code = 435 U/L 6-55 H 347) Transit Operator ID - JANESSA [id number] 05:08:01 Test Item Value Reference Range Interpretation Comments PHOSPHORUS (BEAKER) (test code = 4.0 mg/dL 2.3-4.7 604) Transit Operator ID - JANESSA [id number] 05:08:00 Test Item Value Reference Range Interpretation Comments MAGNESIUM (BEAKER) (test code = 1.9 mg/dL 1.6-2.6 627) Transit Operator ID - JANESSA [id number] 04:36:18 Test Item Value Reference Range Interpretation Comments PARTIAL THROMBOPLASTIN TIME 77.6 seconds 22.5-36.0 H (BEAKER) (test code = 760) CBC W/PLT COUNT & AUTO [id number] 04:28:59 Test Item Value Reference Range Interpretation Comments WHITE BLOOD CELL COUNT (BEAKER) 10.1 K/ L 3.5-10.5 (test code = 775) RED BLOOD CELL COUNT (BEAKER) 3.91 M/ L 3.93-5.22 L (test code = 761) HEMOGLOBIN (BEAKER) (test code = 10.3 GM/DL 11.2-15.7 L 410) HEMATOCRIT (BEAKER) (test code = 34.5 % 34.1-44.9 411) MEAN CORPUSCULAR VOLUME (BEAKER) 88.2 fL 79.4-94.8 (test code = 753) MEAN CORPUSCULAR HEMOGLOBIN 26.3 pg 25.6-32.2 (BEAKER) (test code = 751) MEAN CORPUSCULAR HEMOGLOBIN CONC 29.9 GM/DL 32.2-35.5 L (BEAKER) (test code = 752) RED CELL DISTRIBUTION WIDTH 19.2 % 11.7-14.4 H (BEAKER) (test code = 412) PLATELET COUNT (BEAKER) (test 118 K/CU MM 150-450 L code = 756) MEAN PLATELET VOLUME (BEAKER) 10.6 fL 9.4-12.3 (test code = 754) NUCLEATED RED BLOOD CELLS 0 /100 WBC 0-0 (BEAKER) (test code = 413) NEUTROPHILS RELATIVE PERCENT 77 % (BEAKER) (test code = 429) LYMPHOCYTES RELATIVE PERCENT 8 % (BEAKER) (test code = 430) MONOCYTES RELATIVE PERCENT 12 % (BEAKER) (test code = 431) EOSINOPHILS RELATIVE PERCENT 3 % (BEAKER) (test code = 432) BASOPHILS RELATIVE PERCENT 0 % (BEAKER) (test code = 437) NEUTROPHILS ABSOLUTE COUNT 7.84 K/ L 1.56-6.13 H (BEAKER) (test code = 670) LYMPHOCYTES ABSOLUTE COUNT 0.77 K/ L 1.18-3.74 L (BEAKER) (test code = 414) MONOCYTES ABSOLUTE COUNT (BEAKER) 1.17 K/ L 0.24-0.36 H (test code = 415) EOSINOPHILS ABSOLUTE COUNT 0.25 K/ L 0.04-0.36 (BEAKER) (test code = 416) BASOPHILS ABSOLUTE COUNT (BEAKER) 0.03 K/ L 0.01-0.08 (test code = 417) IMMATURE GRANULOCYTES-RELATIVE 1 % 0-1 PERCENT (BEAKER) (test code = 2801) COMPREHENSIVE METABOLIC [id number] 07:38:32 Test Item Value Reference Range Interpretation Comments TOTAL PROTEIN 7.9 gm/dL 6.0-8.3 (BEAKER) (test code = 770) ALBUMIN (BEAKER) 3.4 g/dL 3.5-5.0 L (test code = 1145) ALKALINE PHOSPHATASE 587 U/L 40-150 H (BEAKER) (test code = 346) BILIRUBIN TOTAL 2.8 mg/dL 0.2-1.2 H (BEAKER) (test code = 377) SODIUM (BEAKER) (test 134 meq/L 136-145 L code = 381) POTASSIUM (BEAKER) 3.5 meq/L 3.5-5.1 (test code = 379) CHLORIDE (BEAKER) 98 meq/L 98-107 (test code = 382) CO2 (BEAKER) (test 23 meq/L 22-29 code = 355) ANION GAP (BEAKER) 17 meq/L (test code = 345) BLOOD UREA NITROGEN 19 mg/dL 7-21 (BEAKER) (test code = 354) CREATININE (BEAKER) 2.00 mg/dL 0.57-1.25 H (test code = 358) BUN/CREATININE RATIO 9.5 (BEAKER) (test code = 1800) GLUCOSE RANDOM 97 mg/dL 70-105 (BEAKER) (test code = 652) CALCIUM (BEAKER) 7.6 mg/dL 8.4-10.2 L (test code = 697) AST (SGOT) (BEAKER) 208 U/L 5-34 H (test code = 353) ALT (SGPT) (BEAKER) 569 U/L 6-55 H (test code = 347) EGFR (BEAKER) (test 24 mL/min/1.73 ESTIMA NICHOLE GFR IS code = 1092) sq m NOT ACCURATE CREATININE CLEARANCE IN PREDICTING GLOMERULAR FILTRATION RATE . ESTIMATED GFR I S NOT APPLICABLE FOR DIALYSIS PATIEN TS. Transit Operator ID - JANESSA MSpecimen slightly [id number] 07:33:14 Test Item Value Reference Range Interpretation Comments PHOSPHORUS (BEAKER) (test code = 2.4 mg/dL 2.3-4.7 604) Transit Operator ID - JANESSA MHEPATIC FUNCTION [id number] 07:33:14 Test Item Value Reference Range Interpretation Comments TOTAL PROTEIN (BEAKER) (test code = 7.9 gm/dL 6.0-8.3 770) ALBUMIN (BEAKER) (test code = 1145) 3.4 g/dL 3.5-5.0 L BILIRUBIN TOTAL (BEAKER) (test code 2.8 mg/dL 0.2-1.2 H = 377) BILIRUBIN DIRECT (BEAKER) (test 2.2 mg/dL 0.1-0.5 H code = 706) ALKALINE PHOSPHATASE (BEAKER) (test 587 U/L 40-150 H code = 346) AST (SGOT) (BEAKER) (test code = 208 U/L 5-34 H 353) ALT (SGPT) (BEAKER) (test code = 569 U/L 6-55 H 347) Transit Operator ID - JANESSA Fuentesecimen [place] [id number] 07:33:13 Test Item Value Reference Range Interpretation Comments MAGNESIUM (BEAKER) (test code = 1.9 mg/dL 1.6-2.6 627) Transit Operator ID - JANESSA [id number] 05:47:30 Test Item Value Reference Range Interpretation Comments PARTIAL THROMBOPLASTIN TIME 64.9 seconds 22.5-36.0 H (BEAKER) (test code = 760) CBC W/PLT COUNT & AUTO [id number] 05:45:36 Test Item Value Reference Range Interpretation Comments WHITE BLOOD CELL COUNT (BEAKER) 9.3 K/ L 3.5-10.5 (test code = 775) RED BLOOD CELL COUNT (BEAKER) 3.68 M/ L 3.93-5.22 L (test code = 761) HEMOGLOBIN (BEAKER) (test code = 9.7 GM/DL 11.2-15.7 L 410) HEMATOCRIT (BEAKER) (test code = 32.0 % 34.1-44.9 L 411) MEAN CORPUSCULAR VOLUME (BEAKER) 87.0 fL 79.4-94.8 (test code = 753) MEAN CORPUSCULAR HEMOGLOBIN 26.4 pg 25.6-32.2 (BEAKER) (test code = 751) MEAN CORPUSCULAR HEMOGLOBIN CONC 30.3 GM/DL 32.2-35.5 L (BEAKER) (test code = 752) RED CELL DISTRIBUTION WIDTH 18.8 % 11.7-14.4 H (BEAKER) (test code = 412) PLATELET COUNT (BEAKER) (test 139 K/CU MM 150-450 L code = 756) MEAN PLATELET VOLUME (BEAKER) 10.3 fL 9.4-12.3 (test code = 754) NUCLEATED RED BLOOD CELLS 0 /100 WBC 0-0 (BEAKER) (test code = 413) NEUTROPHILS RELATIVE PERCENT 80 % (BEAKER) (test code = 429) LYMPHOCYTES RELATIVE PERCENT 8 % (BEAKER) (test code = 430) MONOCYTES RELATIVE PERCENT 10 % (BEAKER) (test code = 431) EOSINOPHILS RELATIVE PERCENT 2 % (BEAKER) (test code = 432) BASOPHILS RELATIVE PERCENT 0 % (BEAKER) (test code = 437) NEUTROPHILS ABSOLUTE COUNT 7.40 K/ L 1.56-6.13 H (BEAKER) (test code = 670) LYMPHOCYTES ABSOLUTE COUNT 0.71 K/ L 1.18-3.74 L (BEAKER) (test code = 414) MONOCYTES ABSOLUTE COUNT (BEAKER) 0.92 K/ L 0.24-0.36 H (test code = 415) EOSINOPHILS ABSOLUTE COUNT 0.15 K/ L 0.04-0.36 (BEAKER) (test code = 416) BASOPHILS ABSOLUTE COUNT (BEAKER) 0.02 K/ L 0.01-0.08 (test code = 417) IMMATURE GRANULOCYTES-RELATIVE 1 % 0-1 PERCENT (BEAKER) (test code = 2801) CALCIUM, [id number] 05:29:50 Test Item Value Reference Range Interpretation Comments CALCIUM IONIZED (BEAKER) (test 0.91 mmol/L 1.12-1.27 L code = 698) PH, BLOOD (BEAKER) (test code = 7.36 1810) [id number] 20:26:01 Test Item Value Reference Range Interpretation Comments PARTIAL THROMBOPLASTIN TIME 84.6 seconds 22.5-36.0 H (BEAKER) (test code = 760) [id number] 14:48:25 Test Item Value Reference Range Interpretation Comments PARTIAL THROMBOPLASTIN TIME 85.3 seconds 22.5-36.0 H (BEAKER) (test code = 760) SARS-COV2/RT-PCR ([facility])2021-02-19 12:31:15 Test Item Value Reference Range Interpretation Comments SARS-COV2/RT-PCR (test Negative Not Detected, Negative, code = 7525539) See external report for linked test SARS-COV-2 PERFORMING [facility] (test code = 8983014) Negative result for this test determines that SARS-CoV-2 RNA was not present in the specimen above the Limit of Detection (LOD). However, Negative results do not preclude SARS-CoV-2 infection and should not be used as the sole basis for treatment or patient management decisions. Negative results must be combined with clinical observations, patient history, and epidemiological information. A false negative result may occur if a specimen is improperly collected, transported or handled. A false negative result should be considered if patient's recent exposures or clinical presentation indicate that COVID-19 (SARS-CoV-2) is likely and diagnostic tests for other causes of illness are negative. Re-testing should be considered in cases of suspected false negatives.The limit of detection for this assay is 800 copies/mL.This SARS CoV-2 test is a real-time RT-PCR test intended for the qualitative detection of nucleic acid from SARS-CoV-2 in a nasopharyngeal swab specimen collected from individuals suspected of COVID-19 by their healthcare provider.This test has not been Food and Drug Administration (FDA) cleared or approved. This is a modified version of an approved Emergency Use Authorization (EUA) and is in the process of review by the FDA. Once authorized by the FDA, the issued EUA will be effective until the declaration that circumstances exist justifying the authorization of the emergency use ofin vitro diagnostic tests for detection and/or diagnosis of COVID-19 is terminated under Section 564(b)(2) of the Act or the EUA is revoked under Section 564(g) of the Act.Fact Sheet for Healthcare Prov iders:https://www.[employer]/sites/default/files/product/documents/Fact_Sheet_HC _Xbzradsbe_Styp_TIVY-KpA-3.pdfFact Sheet for Healthcare Patients:https://www.[employer]/sites/default/files/product/docume nts/Fpqc_Iatyx_Xnlskmet_Ffoz_VOUK-NvD-2.pdfPerforming Laboratory:[facility], [place] [address]L/S, ABDOMINAL, COMPLETE 2021-02-19 12:31:00Reason for exam:->Evaluate both liver and kidneys [facility] : 1945 Sex: FFINAL REPORT TECHNIQUE: Grayscale ultrasound of the abdomen. INDICATION: Evaluate both liver and kidneys. COMPARISON: None. FINDINGS: MIDLINE VASCULATURE: The visualized inferior vena cava is unremarkable. The maximum visualized aortic diameter is 2 cm. LIVER: There is a questionable nodular liver contour. No focal lesions. The main portal vein is patent and measures 1.1 cm in diameter. BILIARY:Gallbladder: Not visualizedCommon bile duct measures 0.5 cm, within normal limits. No intrahepatic biliary ductal dilatation. PANCREAS: Incompletely visualized due to overlying bowel gas. The partially visualized pancreatic body is normal. SPLEEN: No splenomegaly. The spleen measures 12.8 cm in length. PERITONEUM: No free fluid. KIDNEYS: Normal in size bilaterally. No hydronephrosis. No sonographically evident solid mass lesion. IMPRESSION: 1.The liver contour is questionably nodular. This could be due to cirrhosis. 2.The sonographic appearance of the kidneys is normal. Signed: Isac Floyd Verified Date/Time: 02/19/2021 12:31:19 Electronically signed by: London SAINZ 02/19/2021 12:31 PMANTI-NUCLEAR ANTIBODY (RJ)2021-02-19 09:35:17 Test Item Value Reference Range Interpretation Comments ANTI-NUCLEAR ANTIBODY (RJ) (BEAKER) Negative Negative (test code = 418) Test performed by IFA method.Test performed by IFA method.POCT-GLUCOSE METER 2021-02-19 09:31:24 Test Item Value Reference Range Interpretation Comments POC-GLUCOSE METER 106 mg/dL 70-110 : TESTED A T [facility] [address] (BEAKER) (test code = [place], 1538) [address]: Transit Operator/Techni magnus ID = [id number] for BRENDAN SINGH HEMOGLOBIN [id number] 09:24:34 Test Item Value Reference Range Interpretation Comments HEMOGLOBIN A1C (BEAKER) (test code = 6.1 % 4.3-6.1 368) [id number] 07:45:01 Test Item Value Reference Range Interpretation Comments PARTIAL THROMBOPLASTIN TIME 54.4 seconds 22.5-36.0 H (BEAKER) (test code = 760) HEPATITIS A ANTIBODY, [id number] 07:14:26 Test Item Value Reference Range Interpretation Comments HEPATITIS A IGG ANTIBODY (BEAKER) Reactive Nonreactive A (test code = 2797) Transit Operator ID - DBHEPATIC FUNCTION [id number] 07:03:51 Test Item Value Reference Range Interpretation Comments TOTAL PROTEIN (BEAKER) 8.1 gm/dL 6.0-8.3 Speci men slightly (test code = 770) hemolyzed ALBUMIN (BEAKER) (test 3.5 g/dL 3.5-5.0 Speci men slightly code = 1145) hemolyzed BILIRUBIN TOTAL 3.4 mg/dL 0.2-1.2 H Specimen sli ghtly (BEAKER) (test code = hemoly zed 377) BILIRUBIN DIRECT 2.5 mg/dL 0.1-0.5 H Specimen sl ightly (BEAKER) (test code = hemoly zed 706) ALKALINE PHOSPHATASE 643 U/L 40-150 H (BEAKER) (test code = 346) AST (SGOT) (BEAKER) 355 U/L 5-34 H Specimen slightly (test code = 353) hemolyzed ALT (SGPT) (BEAKER) 739 U/L 6-55 H Specimen slightly (test code = 347) hemolyzed Transit Operator ID - DBSpecimen slightly ictericCOMPREHENSIVE METABOLIC [id number] 06:18:53 Test Item Value Reference Range Interpretation Comments TOTAL PROTEIN 8.1 gm/dL 6.0-8.3 Specimen sligh tly (BEAKER) (test code = hemoly zed 770) ALBUMIN (BEAKER) 3.5 g/dL 3.5-5.0 Specimen sl ightly (test code = 1145) hemolyzed ALKALINE PHOSPHATASE 643 U/L 40-150 H (BEAKER) (test code = 346) BILIRUBIN TOTAL 3.4 mg/dL 0.2-1.2 H Specimen sli ghtly (BEAKER) (test code = hemoly zed 377) SODIUM (BEAKER) (test 133 meq/L 136-145 L code = 381) POTASSIUM (BEAKER) 3.8 meq/L 3.5-5.1 Specimen slightly (test code = 379) hemolyzed CHLORIDE (BEAKER) 97 meq/L 98-107 L (test code = 382) CO2 (BEAKER) (test 24 meq/L 22-29 code = 355) BLOOD UREA NITROGEN 47 mg/dL 7-21 H (BEAKER) (test code = 354) CREATININE (BEAKER) 3.62 mg/dL 0.57-1.25 H Specimen slightly (test code = 358) hemolyzed GLUCOSE RANDOM 108 mg/dL 70-105 H (BEAKER) (test code = 652) CALCIUM (BEAKER) 9.1 mg/dL 8.4-10.2 (test code = 697) AST (SGOT) (BEAKER) 355 U/L 5-34 H Specimen slightly (test code = 353) hemolyzed ALT (SGPT) (BEAKER) 739 U/L 6-55 H Specimen slightly (test code = 347) hemolyzed EGFR (BEAKER) (test 12 mL/min/1.73 ESTIMA NICHOLE GFR IS code = 1092) sq m NOT ACCURATE CREATININE CLEARANCE IN PREDICTING GLOMERULAR FILTRATION RATE . ESTIMATED GFR I S NOT APPLICABLE FOR DIALYSIS PATIEN TS. Transit Operator ID - DBSpecimen slightly ictericHEPATITIS B SURFACE [id number] 06:18:46 Test Item Value Reference Range Interpretation Comments HEPATITIS B SURFACE ANTIBODY < mIU/mL <8.0 (BEAKER) (test code = 647) Transit Operator ID - DBHEPATITIS B CORE ANTIBODY, [id number] 06:04:50 Test Item Value Reference Range Interpretation Comments HEPATITIS B CORE TOTAL ANTIBODY Nonreactive Nonreactive (BEAKER) (test code = 497) Transit Operator ID - DBHEPATITIS C [id number] 06:04:49 Test Item Value Reference Range Interpretation Comments HEPATITIS C ANTIBODY (BEAKER) Nonreactive Nonreactive (test code = 367) Transit Operator ID - DBHEPATITIS B SURFACE [id number] 06:04:48 Test Item Value Reference Range Interpretation Comments HEPATITIS B SURFACE ANTIGEN (2) Nonreactive Nonreactive (BEAKER) (test code = 2585) Specimen is considered negative for HBsAg.HIV-1 ANTIGEN WITH HIV-1/2 ANTIBODY 2021-02-19 05:59:05 Test Item Value Reference Range Interpretation Comments HIV-1 ANTIGEN WITH HIV 1\T\2 Nonreactive Nonreactive ANTIBODY (2) (BEAKER) (test code = 2586) Transit Operator ID - DBC-REACTIVE [id number] 05:54:16 Test Item Value Reference Range Interpretation Comments C-REACTIVE PROTEIN (BEAKER) (test 8.74 mg/dL 0.00-0.50 H code = 676) Transit Operator ID - [id number] 05:54:15 Test Item Value Reference Range Interpretation Comments AMYLASE (BEAKER) (test 114 U/L 25-125 Speci men slightly code = 349) hemolyzed Transit Operator ID - DBSpecimen slightly [id number] 05:54:15 Test Item Value Reference Range Interpretation Comments LIPASE (BEAKER) (test code = 749) 45 U/L 8-78 Transit Operator ID - DBSpecimen slightly [id number] 05:54:14 Test Item Value Reference Range Interpretation Comments MAGNESIUM (BEAKER) 1.9 mg/dL 1.6-2.6 Specimen slightly (test code = 627) hemolyzed Transit Operator ID - [id number] 05:54:14 Test Item Value Reference Range Interpretation Comments PHOSPHORUS (BEAKER) 3.4 mg/dL 2.3-4.7 Specimen slightly (test code = 604) hemolyzed Transit Operator ID - DBCBC W/PLT COUNT & AUTO [id number] 05:19:04 Test Item Value Reference Range Interpretation Comments WHITE BLOOD CELL COUNT (BEAKER) 11.1 K/ L 3.5-10.5 H (test code = 775) RED BLOOD CELL COUNT (BEAKER) 3.58 M/ L 3.93-5.22 L (test code = 761) HEMOGLOBIN (BEAKER) (test code = 9.5 GM/DL 11.2-15.7 L 410) HEMATOCRIT (BEAKER) (test code = 30.7 % 34.1-44.9 L 411) MEAN CORPUSCULAR VOLUME (BEAKER) 85.8 fL 79.4-94.8 (test code = 753) MEAN CORPUSCULAR HEMOGLOBIN 26.5 pg 25.6-32.2 (BEAKER) (test code = 751) MEAN CORPUSCULAR HEMOGLOBIN CONC 30.9 GM/DL 32.2-35.5 L (BEAKER) (test code = 752) RED CELL DISTRIBUTION WIDTH 18.6 % 11.7-14.4 H (BEAKER) (test code = 412) PLATELET COUNT (BEAKER) (test 151 K/CU MM 150-450 code = 756) MEAN PLATELET VOLUME (BEAKER) 10.5 fL 9.4-12.3 (test code = 754) NUCLEATED RED BLOOD CELLS 0 /100 WBC 0-0 (BEAKER) (test code = 413) NEUTROPHILS RELATIVE PERCENT 79 % (BEAKER) (test code = 429) LYMPHOCYTES RELATIVE PERCENT 8 % (BEAKER) (test code = 430) MONOCYTES RELATIVE PERCENT 9 % (BEAKER) (test code = 431) EOSINOPHILS RELATIVE PERCENT 3 % (BEAKER) (test code = 432) BASOPHILS RELATIVE PERCENT 0 % (BEAKER) (test code = 437) NEUTROPHILS ABSOLUTE COUNT 8.79 K/ L 1.56-6.13 H (BEAKER) (test code = 670) LYMPHOCYTES ABSOLUTE COUNT 0.84 K/ L 1.18-3.74 L (BEAKER) (test code = 414) MONOCYTES ABSOLUTE COUNT (BEAKER) 1.03 K/ L 0.24-0.36 H (test code = 415) EOSINOPHILS ABSOLUTE COUNT 0.34 K/ L 0.04-0.36 (BEAKER) (test code = 416) BASOPHILS ABSOLUTE COUNT (BEAKER) 0.02 K/ L 0.01-0.08 (test code = 417) IMMATURE GRANULOCYTES-RELATIVE 1 % 0-1 PERCENT (BEAKER) (test code = 2801) CALCIUM, [id number] 05:16:00 Test Item Value Reference Range Interpretation Comments CALCIUM IONIZED (BEAKER) (test 1.07 mmol/L 1.12-1.27 L code = 698) PH, BLOOD (BEAKER) (test code = 7.33 1810) [id number] 00:56:30 Test Item Value Reference Range Interpretation Comments PARTIAL THROMBOPLASTIN TIME 51.5 seconds 22.5-36.0 H (BEAKER) (test code = 760) HEPATIC FUNCTION [id number] 19:22:51 Test Item Value Reference Range Interpretation Comments TOTAL PROTEIN (BEAKER) (test code = 7.2 gm/dL 6.0-8.3 770) ALBUMIN (BEAKER) (test code = 1145) 3.2 g/dL 3.5-5.0 L BILIRUBIN TOTAL (BEAKER) (test code 4.0 mg/dL 0.2-1.2 H = 377) BILIRUBIN DIRECT (BEAKER) (test 3.1 mg/dL 0.1-0.5 H code = 706) ALKALINE PHOSPHATASE (BEAKER) (test 665 U/L 40-150 H code = 346) AST (SGOT) (BEAKER) (test code = 511 U/L 5-34 H 353) ALT (SGPT) (BEAKER) (test code = 925 U/L 6-55 H 347) Transit Operator ID - ERA WOperator ID - DBSpecimen slightly ictericTSH/FREE T4 IF [id number] 18:47:04 Test Item Value Reference Range Interpretation Comments THYROID STIMULATING HORMONE 3.745 uIU/mL 0.350-4.940 (BEAKER) (test code = 772) Transit Operator ID - ERA WVITAMIN B12 AND [id number] 18:47:04 Test Item Value Reference Range Interpretation Comments VITAMIN B12 1531 pg/mL 213-816 H (BEAKER) (test code = 774) FOLATE (BEAKER) 15.90 ng/mL See_Comment [Automated message] (test code = 362) The system which generated this result transmitted ref erence range: >=7.00. The reference range was not used to interpr et this result as normal/abnormal . Transit Operator ID - ERA [id number] 18:47:03 Test Item Value Reference Range Interpretation Comments FERRITIN (BEAKER) (test code = 488.15 ng/mL 5.00-275.00 H 361) Transit Operator ID - ERA [id number] 18:28:38 Test Item Value Reference Range Interpretation Comments PARTIAL THROMBOPLASTIN TIME 34.1 seconds 22.5-36.0 (BEAKER) (test code = 760) PROTHROMBIN [id number] 18:28:02 Test Item Value Reference Range Interpretation Comments PROTIME (BEAKER) 15.0 seconds 11.9-14.2 H (test code = 759) INR (BEAKER) (test 1.20 See_Comment [Automat ed message] code = 370) The system [employer] generated this result transmitted ref erence range: <=5.90. The reference range was not used to int erpret this result as normal/abnormal . RECOMMENDED COUMADIN/WARFARIN INR THERAPY RANGESSTANDARD DOSE: 2.0 - 3.0 Includes: PROPHYLAXIS for venous thrombosis, systemic embolization; TREATMENT for venous thrombosis and/or pulmonary embolus.HIGH RISK: Target INR is 2.5-3.5 for patients with mechanical heart valves.BASIC METABOLIC [id number] 18:15:05 Test Item Value Reference Range Interpretation Comments SODIUM (BEAKER) 133 meq/L 136-145 L (test code = 381) POTASSIUM (BEAKER) 3.8 meq/L 3.5-5.1 (test code = 379) CHLORIDE (BEAKER) 97 meq/L 98-107 L (test code = 382) CO2 (BEAKER) (test 24 meq/L 22-29 code = 355) BLOOD UREA NITROGEN 44 mg/dL 7-21 H (BEAKER) (test code = 354) CREATININE (BEAKER) 3.42 mg/dL 0.57-1.25 H (test code = 358) GLUCOSE RANDOM 147 mg/dL 70-105 H (BEAKER) (test code = 652) CALCIUM (BEAKER) 8.6 mg/dL 8.4-10.2 (test code = 697) EGFR (BEAKER) (test 13 mL/min/1.73 ESTIMA NICHOLE GFR IS code = 1092) sq m NOT ACCURATE CREATININE CLEARANCE IN PREDICTING GLOMERULAR FILTRATION RATE . ESTIMATED GFR I S NOT APPLICABLE FOR DIALYSIS PATIEN TS. Transit Operator ID - ERA WSpecimen slightly ictericCBC W/PLT COUNT & AUTO [id number] 18:13:04 Test Item Value Reference Range Interpretation Comments WHITE BLOOD CELL COUNT (BEAKER) 10.2 K/ L 3.5-10.5 (test code = 775) RED BLOOD CELL COUNT (BEAKER) 3.27 M/ L 3.93-5.22 L (test code = 761) HEMOGLOBIN (BEAKER) (test code = 8.8 GM/DL 11.2-15.7 L 410) HEMATOCRIT (BEAKER) (test code = 28.1 % 34.1-44.9 L 411) MEAN CORPUSCULAR VOLUME (BEAKER) 85.9 fL 79.4-94.8 (test code = 753) MEAN CORPUSCULAR HEMOGLOBIN 26.9 pg 25.6-32.2 (BEAKER) (test code = 751) MEAN CORPUSCULAR HEMOGLOBIN CONC 31.3 GM/DL 32.2-35.5 L (BEAKER) (test code = 752) RED CELL DISTRIBUTION WIDTH 18.4 % 11.7-14.4 H (BEAKER) (test code = 412) PLATELET COUNT (BEAKER) (test 141 K/CU MM 150-450 L code = 756) MEAN PLATELET VOLUME (BEAKER) 10.1 fL 9.4-12.3 (test code = 754) NUCLEATED RED BLOOD CELLS 0 /100 WBC 0-0 (BEAKER) (test code = 413) NEUTROPHILS RELATIVE PERCENT 83 % (BEAKER) (test code = 429) LYMPHOCYTES RELATIVE PERCENT 6 % (BEAKER) (test code = 430) MONOCYTES RELATIVE PERCENT 7 % (BEAKER) (test code = 431) EOSINOPHILS RELATIVE PERCENT 3 % (BEAKER) (test code = 432) BASOPHILS RELATIVE PERCENT 0 % (BEAKER) (test code = 437) NEUTROPHILS ABSOLUTE COUNT 8.50 K/ L 1.56-6.13 H (BEAKER) (test code = 670) LYMPHOCYTES ABSOLUTE COUNT 0.61 K/ L 1.18-3.74 L (BEAKER) (test code = 414) MONOCYTES ABSOLUTE COUNT (BEAKER) 0.73 K/ L 0.24-0.36 H (test code = 415) EOSINOPHILS ABSOLUTE COUNT 0.26 K/ L 0.04-0.36 (BEAKER) (test code = 416) BASOPHILS ABSOLUTE COUNT (BEAKER) 0.01 K/ L 0.01-0.08 (test code = 417) IMMATURE GRANULOCYTES-RELATIVE 1 % 0-1 PERCENT (BEAKER) (test code = 2801) IRON, TIBC, % SAT. (WITHOUT FERRITIN)2021-02-18 18:11:07 Test Item Value Reference Range Interpretation Comments IRON (BEAKER) (test code = 547) 21.0 ug/dL 40.0-160.0 L TOTAL IRON BINDING CAPACITY 244 ug/dL 250-450 L (BEAKER) (test code = 769) IRON % SATURATION (2) (BEAKER) 9 % 20-55 L (test code = 2590) Transit Operator JOSHUA [id number] 18:11:00 Test Item Value Reference Range Interpretation Comments PHOSPHORUS (BEAKER) (test code = 3.1 mg/dL 2.3-4.7 604) Transit Operator ID - ERA WLIPID [id number] 18:11:00 Test Item Value Reference Range Interpretation Comments TRIGLYCERIDES (BEAKER) (test code = 163 mg/dL 540) CHOLESTEROL (BEAKER) (test code = 132 mg/dL 631) HDL CHOLESTEROL (BEAKER) (test code 11 mg/dL = 976) LDL CHOLESTEROL CALCULATED (BEAKER) 88 mg/dL (test code = 633) Triglyceride Reference Range: Low Risk <150 Borderline 150-199 High Risk 200- 499 Very High Risk >=500Cholesterol Reference Range: Low Risk <200 Borderline 200-239 High Risk >240HDL Cholesterol Reference Range: Low Risk >=60 High Risk <40LDL Cholesterol Reference Range: Optimal <100 Near Optimal 100-129 Borderline 130-159 High 160-189 Very High >=190 Transit Operator ID - ERA WSpecimen slightly [id number] 18:10:59 Test Item Value Reference Range Interpretation Comments MAGNESIUM (BEAKER) (test code = 2.0 mg/dL 1.6-2.6 627) Transit Operator ID - ERA WRAD, CHEST, 1 VIEW, NON [id number] 18:10:00Reason for exam:->chfShould this be performed at the bedside?->Yes [facility] 1945 Sex: FFINAL REPORT TECHNIQUE: One view of the chest. INDICATION: 75-year-old woman with congestive heart failure. COMPARISON: None. FINDINGS: LINES/TUBES: Right subclavian dual lumen catheter terminates over the expected region of the right atrium. LUNGS: Airspace opacities in the left midlung zone and bilateral lower lung zones. PLEURA: Suspected small bilateral pleural effusions. No p neumothorax. HEART AND MEDIASTINUM: Markedly prominent cardiac silhouette. Atherosclerotic calcifications in the thoracic aorta. BONES AND SOFT TISSUES: Unremarkable. IMPRESSION:Markedly prominent cardiac silhouette. Underlying pericardial effusion cannot be excluded. Bilateral airspace opacities may r epresent atelectasis, however pneumonia cannot be excluded. Suspected small bilateral pleural effusions. Signed: Brian Rivaseport Verified Date/Time: 02/18/2021 18:10:08 Reading Location: [address] Transitional Reading Room HIGH SENSITIVITY TROPONIN [id number] 18:08:28 Test Item Value Reference Range Interpretation Comments HIGH SENSITIVITY 8 pg/ml See_Comment [Automated message] TROPONIN I (test code = The system which [id number]) generated this result transmitted ref erence range: <=17. Th e reference range was not used to interpr et this result as normal/abnormal . Transit Operator ID Alejandro GIRARD WThe [employer]OD[employer] STAT High Sensitivity Troponin-I results should be used in conjunction with other diagnostic information such as ECG, clinical observations and information, and patient symptoms to aid in the diagnosis of [place].B-TYPE NATRIURETIC FACTOR (BNP)2021-02-18 18:07:35 Test Item Value Reference Range Interpretation Comments B-TYPE NATRIURETIC PEPTIDE (BEAKER) 590 pg/mL 0-100 H (test code = 700) Transit Operator ID Alejandro GIRARD WBASIC METABOLIC [id number] 10:36:00 Test Item Value Reference Range Interpretation Comments SODIUM (test code = NA) 136 mEq/L 134-147 N POTASSIUM (test code = 4.7 mEq/L 3.4-5.0 N K) CHLORIDE (test code = 100 mEq/L 100-108 N CL) CARBON DIOXIDE (test 25 mEq/l 21-33 N code = CO2) ANION GAP (test code = 16 0-20 N GAP) GLUCOSE (test code = 97 mg/dL 70-110 N GLU) BLOOD UREA NITROGEN 67 mg/dL 7-18 H (test code = BUN) GLOMERULAR FILTRATION 17.8 70-80 L Units of measure = RATE (test code = GFR) ml/mi n/1.73 m2 CREATININE (test code = 2.6 mg/dL 0.6-1.3 H CREAT) CALCIUM (test code = 9.7 mg/dL 8.0-10.5 N CA) Indication for Test: Osteopenia/Bone Dis RiskLIPID PROFILE (CORONARY RISK) 2021-01-25 10:36:00 Test Item Value Reference Range Interpretation Comments TRIGLYCERIDES (test 163 mg/dL 40-150 H code = TRIG) CHOLESTEROL (test 164 mg/dL <200 code = CHOL) CHOLESTEROL/HDL 3.48 RATIO 3.27-4.44 N RISK ASSOCIA NICHOLE WITH RATIO (test code = CHOL/HDL RATIOS: RISK CHOLHDL) MALE FEMALE1/2 AVERAGE 3.43 3.27AVERAG E 4.97 4.442X AVERAGE 9.55 7.053X AVERAGE 23.39 11.04 NOTE THAT THE REFERENCE VALUE IS RELATEDTO RISK LEVELS RECOMMENDED BY THE NATL.HEART, THA G, AND BLOOD INST. HDL CHOLESTEROL 47.1 mg/dL 39-96 N (test code = HDL) LIPOPROTEIN LDL 88.2 mg/dL 0-100 N <100 OPTIMAL 100-129 (test code = LDL) NEAR OPTIM AL/ABOVE [id number] 89 HIGH>VT=064 JOE Y HIGH*Guidelines provided by the National [employer] ter[employer] m Adult Treatment Panel III Indication for Test: Osteopenia/Bone Dis RiskVITAMIN D [id number] 10:36:00 Test Item Value Reference Range Interpretation Comments VITAMIN D 25-HYDROXY (test code = 42.3 ng/mL 30-100 N VITD25) Indication for Test: Osteopenia/Bone Dis [id number] 10:29:00 Test Item Value Reference Range Interpretation Comments HGBA1C% (test code = HGBA1C%) 5.3 %A1C 4.8-6.0 N B-TYPE NATRIURETIC [id number] 11:16:00 Test Item Value Reference Range Interpretation Comments B-TYPE NATRIURETIC PEPTIDE (test 597.0 PG/ML 0-100 H code = BNP) BASIC METABOLIC [id number] 10:58:00 Test Item Value Reference Range Interpretation Comments SODIUM (test code = NA) 136 mEq/L 134-147 N POTASSIUM (test code = 4.3 mEq/L 3.4-5.0 N K) CHLORIDE (test code = 98 mEq/L 100-108 L CL) CARBON DIOXIDE (test 28 mEq/l 21-33 N code = CO2) ANION GAP (test code = 15 0-20 N GAP) GLUCOSE (test code = 100 mg/dL 70-110 N GLU) BLOOD UREA NITROGEN 59 mg/dL 7-18 H (test code = BUN) GLOMERULAR FILTRATION 15.7 70-80 L Units of measure = RATE (test code = GFR) ml/mi n/1.73 m2 CREATININE (test code = 2.9 mg/dL 0.6-1.3 H CREAT) CALCIUM (test code = 10.2 mg/dL 8.0-10.5 N CA) [id number] 10:58:00 Test Item Value Reference Range Interpretation Comments MAGNESIUM (test code = MAG) 2.31 mg/dL 1.80-2.40 N BASIC METABOLIC [id number] 11:31:00 Test Item Value Reference Range Interpretation Comments SODIUM (test code = NA) 136 mEq/L 134-147 N POTASSIUM (test code = 3.2 mEq/L 3.4-5.0 L K) CHLORIDE (test code = 93 mEq/L 100-108 L CL) CARBON DIOXIDE (test 34 mEq/l 21-33 H code = CO2) ANION GAP (test code = 12 0-20 N GAP) GLUCOSE (test code = 126 mg/dL 70-110 H GLU) BLOOD UREA NITROGEN 46 mg/dL 7-18 H (test code = BUN) GLOMERULAR FILTRATION 19.6 70-80 L Units of measure = RATE (test code = GFR) ml/mi n/1.73 m2 CREATININE (test code = 2.4 mg/dL 0.6-1.3 H CREAT) CALCIUM (test code = 9.0 mg/dL 8.0-10.5 N CA) [id number] 11:31:00 Test Item Value Reference Range Interpretation Comments MAGNESIUM (test code = MAG) 1.91 mg/dL 1.80-2.40 N BASIC METABOLIC [id number] 11:31:00 Test Item Value Reference Range Interpretation Comments SODIUM (test code = TEST NOT 134-147 N Amen ded NA) PERFORMED mEq/L report. Disr egard previous result/results* Previously reported result : 136 mEq/LEdited by: PETERG o n 01/16/21: 1120: NA previously reported as: 13 6 mEq/L POTASSIUM (test TEST NOT 3.4-5.0 Amended code = K) PERFORMED mEq/L report. Disr egard previous result/results* Previously reported result : 3.9 mEq/LEdited by: PETERG o n 01/16/21: 1121: K previously reported as: 3. 9 D mEq/L CHLORIDE (test code TEST NOT 100-108 L Amen ded = CL) PERFORMED mEq/L report. Disr egard previous result/results* Previously reported result : 98 mEq/LEdited by: [facility] [place] [facility] on 01/16/21: 1122: CL previously reported as: 98 L mEq/L CARBON DIOXIDE TEST NOT 21-33 N Amended (test code = CO2) PERFORMED mEq/l report. Disregard previous result/results* Previously reported result : 28 mEq/lEdited by: PETERG on 01/16/21: 1122: CO2 previously reported as: 28 mEq/l ANION GAP (test TEST NOT 0-20 N Amended code = GAP) PERFORMED report. Disrega rd previous result/results* Previously reported result : 14 Edited by: [facility] [place] [facility] on 01/16/21: 1123: ANIO N GAP previously reported as: 14 GLUCOSE (test code TEST NOT 70-110 H Amend ed = GLU) PERFORMED mg/dL report. Disr egard previous result/results* Previously reported result : 164 mg/dLEdited by: TROY.G o n 01/16/21: 1124: GLU previously reported as: 16 4 DH mg/dL BLOOD UREA NITROGEN TEST NOT 7-18 H Amen ded (test code = BUN) PERFORMED mg/dL report. Disregard previous result/results* Previously reported result : 24 mg/dLEdited by: AYDE on 01/16/21: 1124: BUN previously reported as: 24 DH mg/dL GLOMERULAR TEST NOT 70-80 L Amended FILTRATION RATE PERFORMED report. Disr egard (test code = GFR) previous result/results* Previously reported result : 43.6 Edited by: AYDE on 01/16/21: 1126: GFR previously reported as: 43 .6 L CREATININE (test TEST NOT 0.6-1.3 Amended code = CREAT) PERFORMED mg/dL report. Dis regard previous result/results* Previously reported result : 1.2 mg/dLEdited by: AYDE o n 01/16/21:696900 1127: CREAT previously reported as: 1. 2 D mg/dL CALCIUM (test code TEST NOT 8.0-10.5 N Amend ed = CA) PERFORMED mg/dL report. Disr egard previous result/results* Previously reported result : 9.3 mg/dLEdited by: AYDE o n 01/16/21: 1128: CA previously reported as: 9. 3 mg/dL ESTIMATED CREAT TEST NOT CLEARANCE (test PERFORMED mL/min code = ECRCL) [id number] 11:31:00 Test Item Value Reference Range Interpretation Comments MAGNESIUM (test TEST NOT PERFORMED 1.80-2.40 N Am ended code = MAG) mg/dL report. Disrega rd previous result/results* Previously reported result : 1.88 mg/dLEdite d by: PETER o n 01/16/21:874557 1129: MAG previously reported as: 1. 88 mg/dL CBC W/AUTO [id number] 08:35:00 Test Item Value Reference Range Interpretation Comments WHITE BLOOD CELL (test code = 8.0 x10 3/uL 4.5-11.0 N WBC) RED BLOOD CELL (test code = 3.75 x10 6/uL 3.54-5.02 N RBC) HEMOGLOBIN (test code = HGB) 10.3 g/dL 11.0-15.0 L HEMATOCRIT (test code = HCT) 34.2 % 33.0-45.0 N MEAN CELL VOLUME (test code = 91.2 fL 81.0-99.0 N MCV) MEAN CELL HGB (test code = MCH) 27.5 pg 27.0-33.0 N MEAN CELL HGB CONCETRATION 30.1 g/dL 33.0-37.0 L (test code = MCHC) RED CELL DISTRIBUTION WIDTH CV 16.1 % 11.5-14.5 H (test code = RDW) PLATELET COUNT (test code = 216 x10 3/uL 150-400 N PLT) NEUTROPHIL % (test code = NT%) 76.9 % 56.0-77.0 N LYMPHOCYTE % (test code = LY%) 10.3 % 14.0-32.0 L NEUTROPHIL # (test code = NT#) 6.17 x10 3/uL 2.0-7.6 N LYMPHOCYTE # (test code = LY#) 0.83 x10 3/uL 1.0-3.8 L MANUAL DIFF REQUIRED (test code NO = MDIFF) RED CELL DISTRIBUTION WIDTH SD 53.5 fL 37.0-54.0 N (test code = RDW-SD) MEAN PLATELET VOLUME (test code 11.2 fL 7.0-9.0 H = MPV) IMMATURE GRANULOCYTE % (test 0.4 % 0.0-2.0 N code = IG%) MONOCYTE % (test code = MO%) 8.7 % 4.8-9.0 N EOSINOPHIL % (test code = EO%) 3.1 % 0.3-3.7 N BASOPHIL % (test code = BA%) 0.6 % 0.0-2.0 N NUCLEATED RBC % (test code = 0.0 % 0-0 N NRBC%) IMMATURE GRANULOCYTE # (test 0.03 x10 3/uL 0.00-0.03 N code = IG#) MONOCYTE # (test code = MO#) 0.70 x10 3/uL 0.1-0.8 N EOSINOPHIL # (test code = EO#) 0.25 x10 3/uL 0.0-0.2 H BASOPHIL # (test code = BA#) 0.05 x10 3/uL 0.0-0.2 N NUCLEATED RBC # (test code = 0.00 x10 3/uL 0.0-0.1 N NRBC#) BASIC METABOLIC [id number] 08:32:00 Test Item Value Reference Range Interpretation Comments SODIUM (test code = NA) 138 mEq/L 134-147 N POTASSIUM (test code = 3.2 mEq/L 3.4-5.0 L K) CHLORIDE (test code = 95 mEq/L 100-108 L CL) CARBON DIOXIDE (test 31 mEq/l 21-33 N code = CO2) ANION GAP (test code = 16 0-20 N GAP) GLUCOSE (test code = 73 mg/dL 70-110 N GLU) BLOOD UREA NITROGEN 41 mg/dL 7-18 H (test code = BUN) GLOMERULAR FILTRATION 21.6 70-80 L Units of measure = RATE (test code = GFR) ml/mi n/1.73 m2 CREATININE (test code = 2.2 mg/dL 0.6-1.3 H CREAT) CALCIUM (test code = 9.4 mg/dL 8.0-10.5 N CA) BASIC METABOLIC [id number] 07:01:00 Test Item Value Reference Range Interpretation Comments SODIUM (test code = NA) 139 mEq/L 134-147 N POTASSIUM (test code = 3.4 mEq/L 3.4-5.0 N K) CHLORIDE (test code = 100 mEq/L 100-108 N CL) CARBON DIOXIDE (test 28 mEq/l 21-33 N code = CO2) ANION GAP (test code = 15 0-20 N GAP) GLUCOSE (test code = 96 mg/dL 70-110 N GLU) BLOOD UREA NITROGEN 31 mg/dL 7-18 H (test code = BUN) GLOMERULAR FILTRATION 24.2 70-80 L Units of measure = RATE (test code = GFR) ml/mi n/1.73 m2 CREATININE (test code = 2.0 mg/dL 0.6-1.3 H CREAT) CALCIUM (test code = 9.1 mg/dL 8.0-10.5 N CA) CBC W/AUTO [id number] 06:41:00 Test Item Value Reference Range Interpretation Comments WHITE BLOOD CELL (test code = 8.4 x10 3/uL 4.5-11.0 N WBC) RED BLOOD CELL (test code = 3.54 x10 6/uL 3.54-5.02 N RBC) HEMOGLOBIN (test code = HGB) 9.7 g/dL 11.0-15.0 L HEMATOCRIT (test code = HCT) 31.8 % 33.0-45.0 L MEAN CELL VOLUME (test code = 89.8 fL 81.0-99.0 N MCV) MEAN CELL HGB (test code = MCH) 27.4 pg 27.0-33.0 N MEAN CELL HGB CONCETRATION 30.5 g/dL 33.0-37.0 L (test code = MCHC) RED CELL DISTRIBUTION WIDTH CV 16.2 % 11.5-14.5 H (test code = RDW) PLATELET COUNT (test code = 198 x10 3/uL 150-400 N PLT) NEUTROPHIL % (test code = NT%) 76.0 % 56.0-77.0 N LYMPHOCYTE % (test code = LY%) 10.5 % 14.0-32.0 L NEUTROPHIL # (test code = NT#) 6.37 x10 3/uL 2.0-7.6 N LYMPHOCYTE # (test code = LY#) 0.88 x10 3/uL 1.0-3.8 L MANUAL DIFF REQUIRED (test code NO = MDIFF) RED CELL DISTRIBUTION WIDTH SD 53.0 fL 37.0-54.0 N (test code = RDW-SD) MEAN PLATELET VOLUME (test code 10.2 fL 7.0-9.0 H = MPV) IMMATURE GRANULOCYTE % (test 0.2 % 0.0-2.0 N code = IG%) MONOCYTE % (test code = MO%) 9.5 % 4.8-9.0 H EOSINOPHIL % (test code = EO%) 3.2 % 0.3-3.7 N BASOPHIL % (test code = BA%) 0.6 % 0.0-2.0 N NUCLEATED RBC % (test code = 0.0 % 0-0 N NRBC%) IMMATURE GRANULOCYTE # (test 0.02 x10 3/uL 0.00-0.03 N code = IG#) MONOCYTE # (test code = MO#) 0.80 x10 3/uL 0.1-0.8 N EOSINOPHIL # (test code = EO#) 0.27 x10 3/uL 0.0-0.2 H BASOPHIL # (test code = BA#) 0.05 x10 3/uL 0.0-0.2 N NUCLEATED RBC # (test code = 0.00 x10 3/uL 0.0-0.1 N NRBC#) BASIC METABOLIC [id number] 08:19:00 Test Item Value Reference Range Interpretation Comments SODIUM (test code = NA) 140 mEq/L 134-147 N POTASSIUM (test code = 3.4 mEq/L 3.4-5.0 N K) CHLORIDE (test code = 104 mEq/L 100-108 N CL) CARBON DIOXIDE (test 23 mEq/l 21-33 N code = CO2) ANION GAP (test code = 16 0-20 N GAP) GLUCOSE (test code = 82 mg/dL 70-110 GLU) BLOOD UREA NITROGEN 31 mg/dL 7-18 H (test code = BUN) GLOMERULAR FILTRATION 22.8 70-80 L Units of measure = RATE (test code = GFR) ml/mi n/1.73 m2 CREATININE (test code = 2.1 mg/dL 0.6-1.3 H CREAT) CALCIUM (test code = 9.1 mg/dL 8.0-10.5 N CA) CBC W/AUTO [id number] 07:24:00 Test Item Value Reference Range Interpretation Comments WHITE BLOOD CELL (test code = 7.8 x10 3/uL 4.5-11.0 N WBC) RED BLOOD CELL (test code = 3.51 x10 6/uL 3.54-5.02 L RBC) HEMOGLOBIN (test code = HGB) 9.9 g/dL 11.0-15.0 L HEMATOCRIT (test code = HCT) 32.1 % 33.0-45.0 L MEAN CELL VOLUME (test code = 91.5 fL 81.0-99.0 N MCV) MEAN CELL HGB (test code = MCH) 28.2 pg 27.0-33.0 N MEAN CELL HGB CONCETRATION 30.8 g/dL 33.0-37.0 L (test code = MCHC) RED CELL DISTRIBUTION WIDTH CV 16.3 % 11.5-14.5 H (test code = RDW) RED CELL DISTRIBUTION WIDTH SD 54.1 fL 37.0-54.0 H (test code = RDW-SD) PLATELET COUNT (test code = 202 x10 3/uL 150-400 N PLT) MEAN PLATELET VOLUME (test code 10.8 fL 7.0-9.0 H = MPV) NEUTROPHIL % (test code = NT%) 71.4 % 56.0-77.0 N IMMATURE GRANULOCYTE % (test 0.4 % 0.0-2.0 N code = IG%) LYMPHOCYTE % (test code = LY%) 12.5 % 14.0-32.0 L MONOCYTE % (test code = MO%) 11.1 % 4.8-9.0 H EOSINOPHIL % (test code = EO%) 3.8 % 0.3-3.7 H BASOPHIL % (test code = BA%) 0.8 % 0.0-2.0 N NUCLEATED RBC % (test code = 0.0 % 0-0 N NRBC%) NEUTROPHIL # (test code = NT#) 5.57 x10 3/uL 2.0-7.6 N IMMATURE GRANULOCYTE # (test 0.03 x10 3/uL 0.00-0.03 N code = IG#) LYMPHOCYTE # (test code = LY#) 0.98 x10 3/uL 1.0-3.8 L MONOCYTE # (test code = MO#) 0.87 x10 3/uL 0.1-0.8 H EOSINOPHIL # (test code = EO#) 0.30 x10 3/uL 0.0-0.2 H BASOPHIL # (test code = BA#) 0.06 x10 3/uL 0.0-0.2 N NUCLEATED RBC # (test code = 0.00 x10 3/uL 0.0-0.1 N NRBC#) MANUAL DIFF REQUIRED (test code NO = MDIFF) BASIC METABOLIC [id number] 13:19:00 Test Item Value Reference Range Interpretation Comments SODIUM (test code = NA) 139 mEq/L 134-147 N POTASSIUM (test code = 3.5 mEq/L 3.4-5.0 N K) CHLORIDE (test code = 103 mEq/L 100-108 N CL) CARBON DIOXIDE (test 25 mEq/l 21-33 N code = CO2) ANION GAP (test code = 15 0-20 N GAP) GLUCOSE (test code = 141 mg/dL 70-110 H GLU) BLOOD UREA NITROGEN 34 mg/dL 7-18 H (test code = BUN) GLOMERULAR FILTRATION 22.8 70-80 L Units of measure = RATE (test code = GFR) ml/mi n/1.73 m2 CREATININE (test code = 2.1 mg/dL 0.6-1.3 H CREAT) CALCIUM (test code = 9.1 mg/dL 8.0-10.5 N CA) [id number] 13:19:00 Test Item Value Reference Range Interpretation Comments MAGNESIUM (test code = MAG) 1.86 mg/dL 1.80-2.40 N CBC W/AUTO [id number] 08:26:00 Test Item Value Reference Range Interpretation Comments WHITE BLOOD CELL (test code = 7.8 x10 3/uL 4.5-11.0 N WBC) RED BLOOD CELL (test code = 3.61 x10 6/uL 3.54-5.02 N RBC) HEMOGLOBIN (test code = HGB) 9.8 g/dL 11.0-15.0 L HEMATOCRIT (test code = HCT) 32.5 % 33.0-45.0 L MEAN CELL VOLUME (test code = 90.0 fL 81.0-99.0 N MCV) MEAN CELL HGB (test code = MCH) 27.1 pg 27.0-33.0 N MEAN CELL HGB CONCETRATION 30.2 g/dL 33.0-37.0 L (test code = MCHC) RED CELL DISTRIBUTION WIDTH CV 16.5 % 11.5-14.5 H (test code = RDW) RED CELL DISTRIBUTION WIDTH SD 53.4 fL 37.0-54.0 N (test code = RDW-SD) PLATELET COUNT (test code = 217 x10 3/uL 150-400 N PLT) MEAN PLATELET VOLUME (test code 10.9 fL 7.0-9.0 H = MPV) NEUTROPHIL % (test code = NT%) 72.1 % 56.0-77.0 N IMMATURE GRANULOCYTE % (test 0.3 % 0.0-2.0 N code = IG%) LYMPHOCYTE % (test code = LY%) 12.4 % 14.0-32.0 L MONOCYTE % (test code = MO%) 9.5 % 4.8-9.0 H EOSINOPHIL % (test code = EO%) 4.9 % 0.3-3.7 H BASOPHIL % (test code = BA%) 0.8 % 0.0-2.0 N NUCLEATED RBC % (test code = 0.0 % 0-0 N NRBC%) NEUTROPHIL # (test code = NT#) 5.60 x10 3/uL 2.0-7.6 N IMMATURE GRANULOCYTE # (test 0.02 x10 3/uL 0.00-0.03 N code = IG#) LYMPHOCYTE # (test code = LY#) 0.96 x10 3/uL 1.0-3.8 L MONOCYTE # (test code = MO#) 0.74 x10 3/uL 0.1-0.8 N EOSINOPHIL # (test code = EO#) 0.38 x10 3/uL 0.0-0.2 H BASOPHIL # (test code = BA#) 0.06 x10 3/uL 0.0-0.2 N NUCLEATED RBC # (test code = 0.00 x10 3/uL 0.0-0.1 N NRBC#) MANUAL DIFF REQUIRED (test code NO = MDIFF) CBC W/AUTO [id number] 08:33:00 Test Item Value Reference Range Interpretation Comments WHITE BLOOD CELL (test code = 10.6 x10 3/uL 4.5-11.0 N WBC) RED BLOOD CELL (test code = 3.96 x10 6/uL 3.54-5.02 N RBC) HEMOGLOBIN (test code = HGB) 11.0 g/dL 11.0-15.0 N HEMATOCRIT (test code = HCT) 35.9 % 33.0-45.0 N MEAN CELL VOLUME (test code = 90.7 fL 81.0-99.0 N MCV) MEAN CELL HGB (test code = MCH) 27.8 pg 27.0-33.0 N MEAN CELL HGB CONCETRATION 30.6 g/dL 33.0-37.0 L (test code = MCHC) RED CELL DISTRIBUTION WIDTH CV 16.0 % 11.5-14.5 H (test code = RDW) RED CELL DISTRIBUTION WIDTH SD 52.3 fL 37.0-54.0 N (test code = RDW-SD) PLATELET COUNT (test code = 244 x10 3/uL 150-400 N PLT) MEAN PLATELET VOLUME (test code 11.1 fL 7.0-9.0 H = MPV) NEUTROPHIL % (test code = NT%) 75.2 % 56.0-77.0 N IMMATURE GRANULOCYTE % (test 0.4 % 0.0-2.0 N code = IG%) LYMPHOCYTE % (test code = LY%) 10.9 % 14.0-32.0 L MONOCYTE % (test code = MO%) 9.3 % 4.8-9.0 H EOSINOPHIL % (test code = EO%) 3.4 % 0.3-3.7 N BASOPHIL % (test code = BA%) 0.8 % 0.0-2.0 N NUCLEATED RBC % (test code = 0.0 % 0-0 N NRBC%) NEUTROPHIL # (test code = NT#) 7.99 x10 3/uL 2.0-7.6 H IMMATURE GRANULOCYTE # (test 0.04 x10 3/uL 0.00-0.03 H code = IG#) LYMPHOCYTE # (test code = LY#) 1.16 x10 3/uL 1.0-3.8 N MONOCYTE # (test code = MO#) 0.99 x10 3/uL 0.1-0.8 H EOSINOPHIL # (test code = EO#) 0.36 x10 3/uL 0.0-0.2 H BASOPHIL # (test code = BA#) 0.08 x10 3/uL 0.0-0.2 N NUCLEATED RBC # (test code = 0.00 x10 3/uL 0.0-0.1 N NRBC#) MANUAL DIFF REQUIRED (test code NO = MDIFF) BASIC METABOLIC [id number] 07:57:00 Test Item Value Reference Range Interpretation Comments SODIUM (test code = NA) 139 mEq/L 134-147 N POTASSIUM (test code = 3.7 mEq/L 3.4-5.0 N K) CHLORIDE (test code = 106 mEq/L 100-108 N CL) CARBON DIOXIDE (test 20 mEq/l 21-33 L code = CO2) ANION GAP (test code = 16 0-20 N GAP) GLUCOSE (test code = 81 mg/dL 70-110 N GLU) BLOOD UREA NITROGEN 30 mg/dL 7-18 H (test code = BUN) GLOMERULAR FILTRATION 24.2 70-80 L Units of measure = RATE (test code = GFR) ml/mi n/1.73 m2 CREATININE (test code = 2.0 mg/dL 0.6-1.3 H CREAT) CALCIUM (test code = 9.4 mg/dL 8.0-10.5 N CA) - XR CHEST 1 [id number] 00:00:00 [facility] : 1945 Sex: F FAX: Edward Remy DO [phone] [place]: St: ADM FAX: Jason Nash MD [phone] FAX: Emelia Jones [phone] Name: TRACY VALENCIA [facility] : 1945 Age/S: 75/F [address] [place] [address] Unit #: [id number] Loc: G.C[address] [place] [address] Phys: Edward Partida DO Acct: [id number] Dis Date: Status: ADM IN PHONE #: [phone] Exam Date: 01/10/20212122 FAX #: [phone]: chf EXAMS: CPT CODE: [id number] XR CHEST 1 V 12516 PROCEDURE INFORMATION: Exam: XR Chest Examdate and time: 01/10/2021 9:12 PM Age: 75 years old Clinical indication: Condition or disease; Lung condition and disease; Other: Chf TECHNIQUE: Imaging protocol: XR of the chest. Views: 1 view. COMPARISON: DX XR CHEST 2 V 06/30/2014 9:34 AM FINDINGS: Lungs: There is increased vascular congestion. Thereare linear densities in the left mid lung and right lower lung. No acute consolidation. Pleural spaces: No pleural effusion. No pneumothorax. Heart/Mediastinum: There is moderate cardiomegaly. Vasculature: Aortic arch calcifications. Bones/joints: No acute abnormality. IMPRESSION: 1. Cardiomegaly andvascular congestion compatible with CHF. 2. Mild atelectasis in left mid lung and right lower lung. at 0559 Reported and signed by: Pedro Luis Dela Cruz M.D. CC: Edward Partida DO; Jason Li MD; Emelia Mehta Technologist: RT Delilah(Christie) Trnscrd Date/Time/By: 01/11/2021 (0559) : By: [email or web address] Orig Print D/T: S: 01/11/2021 (0559) PAGE 1 Signed ReportB-TYPE NATRIURETIC [id number] 17:41:00 Test Item Value Reference Range Interpretation Comments B-TYPE NATRIURETIC PEPTIDE (test 1908.0 PG/ML 0-100 H code = BNP) BASIC METABOLIC [id number] 17:24:00 Test Item Value Reference Range Interpretation Comments SODIUM (test code = NA) 138 mEq/L 134-147 N POTASSIUM (test code = 3.5 mEq/L 3.4-5.0 N K) CHLORIDE (test code = 106 mEq/L 100-108 N CL) CARBON DIOXIDE (test 21 mEq/l 21-33 N code = CO2) ANION GAP (test code = 15 0-20 N GAP) GLUCOSE (test code = 100 mg/dL 70-110 N GLU) BLOOD UREA NITROGEN 34 mg/dL 7-18 H (test code = BUN) GLOMERULAR FILTRATION 24.2 70-80 L Units of measure = RATE (test code = GFR) ml/mi n/1.73 m2 CREATININE (test code = 2.0 mg/dL 0.6-1.3 H CREAT) CALCIUM (test code = 8.8 mg/dL 8.0-10.5 N CA) [id number] 17:24:00 Test Item Value Reference Range Interpretation Comments MAGNESIUM (test code = MAG) 2.01 mg/dL 1.80-2.40 N CBC W/AUTO [id number] 17:16:00 Test Item Value Reference Range Interpretation Comments WHITE BLOOD CELL (test code = 8.6 x10 3/uL 4.5-11.0 N WBC) RED BLOOD CELL (test code = 3.85 x10 6/uL 3.54-5.02 N RBC) HEMOGLOBIN (test code = HGB) 10.8 g/dL 11.0-15.0 L HEMATOCRIT (test code = HCT) 34.7 % 33.0-45.0 N MEAN CELL VOLUME (test code = 90.1 fL 81.0-99.0 N MCV) MEAN CELL HGB (test code = MCH) 28.1 pg 27.0-33.0 N MEAN CELL HGB CONCETRATION 31.1 g/dL 33.0-37.0 L (test code = MCHC) RED CELL DISTRIBUTION WIDTH CV 16.1 % 11.5-14.5 H (test code = RDW) PLATELET COUNT (test code = 245 x10 3/uL 150-400 N PLT) NEUTROPHIL % (test code = NT%) 78.2 % 56.0-77.0 H LYMPHOCYTE % (test code = LY%) 10.4 % 14.0-32.0 L NEUTROPHIL # (test code = NT#) 6.74 x10 3/uL 2.0-7.6 N LYMPHOCYTE # (test code = LY#) 0.90 x10 3/uL 1.0-3.8 L MANUAL DIFF REQUIRED (test code NO = MDIFF) RED CELL DISTRIBUTION WIDTH SD 51.2 fL 37.0-54.0 N (test code = RDW-SD) MEAN PLATELET VOLUME (test code 10.4 fL 7.0-9.0 H = MPV) IMMATURE GRANULOCYTE % (test 0.5 % 0.0-2.0 N code = IG%) MONOCYTE % (test code = MO%) 7.8 % 4.8-9.0 N EOSINOPHIL % (test code = EO%) 2.2 % 0.3-3.7 N BASOPHIL % (test code = BA%) 0.9 % 0.0-2.0 N NUCLEATED RBC % (test code = 0.0 % 0-0 N NRBC%) IMMATURE GRANULOCYTE # (test 0.04 x10 3/uL 0.00-0.03 H code = IG#) MONOCYTE # (test code = MO#) 0.67 x10 3/uL 0.1-0.8 N EOSINOPHIL # (test code = EO#) 0.19 x10 3/uL 0.0-0.2 N BASOPHIL # (test code = BA#) 0.08 x10 3/uL 0.0-0.2 N NUCLEATED RBC # (test code = 0.00 x10 3/uL 0.0-0.1 N NRBC#) Surgical pathology [id number] 17:08:01 Test Item Value Reference Range Interpretation Comments Case number (test code = [id number]) Surgical pathology See link below for report (test code = PDF Lab Report [id number]) Result status (test code This is Final Report = [id number]) for [id number] [facility]2021-05-05 15:51:43Tom Longoria CRNA 08/23/2020 10:52 AMAirway Location: OR Performed by: CAMILA/AAAuthorized by:Jeni Pham MD Urgency: ElectiveDifficult Airway: No Preoxygenated with 100% O2: Yes C-spinePrecautions Maintained Throughout: Yes Mask Ventilation: Not attemptedFinal Airway Type: Endotracheal airwayFinal Endotracheal Airway: ETTCuffed: Yes Technique Used: Direct laryngoscopyDevices/Methods Used in Placement: Intubating styletBlade Type: MillerLaryngoscope Blade/Videolaryngoscope Blade Size: 2ETT Size (mm): 7.0Cuff at minimum occlusion pressure: Yes Measured from: GumsETT to Gums (cm): 20Placement Verified by: CO2 detection, direct visualization and equal breath sounds Laryngoscopic view:Grade I - full view of glottisRapid Sequence Induction (RSI): Yes Modified RSI: No Number of Attempts at Approach: 1VENIPUNC NEED PHYS SKILL,DX OR [id number] 19:03:00Reed Mayers RN 08/21/2020 2:15 PMMidline Insertion Date/Time: 08/21/2020 2:03 PMPerformed by: Reed Mayers, RNAuthorized by: Rufina Hernandez MD Consent: Consent obtained: Written Consentgiven by: Patient Risks discussed: Arterial puncture, incorrect placement, nerve damage, bleeding, in fection, superficial thrombus and deep vein thrombus Alternatives discussed: No treatment and delayed treatmentUniversal protocol: Procedure explained and questions answered to patient or proxy's satisfaction: yes Relevant documents present and [...] epi Route administered: SubcutaneousMidLine Placement Details (Will create an LDA): Extremity Circumference Upper (cm): 36 Extremity Circumference Site: 36 Patient position: Flat Vessel Size (mm): 3 Indication: Poor venous access Location: Left brachial Device Type: Non-valved Catheter Lumen(s): Single lumen Catheter size: 3 Fr Cath eter to vein ratio: 36MidLine Characteristics: Catheter Brand: [employer] External Catheter Length (cm): 0Internal Catheter Length (cm): 12 Total Catheter Length (cm): 12 Catheter Lot Number: [id number] Catheter Expiration Date: 06/18/2021 Micro-Introducer Lot Number: Procedure details: Landmarks identified: yes Ultrasound guidance: yes Sterile ultrasound techniques: Sterile gel and sterile probe covers wereused Number of attempts: 1 Number of MidLine kits used during procedure: 1 Extra guide wire required?: No Purpose of procedure: Midline Placement Patency/Placement: Flushes without difficulty, flushed with 10 mL normal saline, positive blood return, injection cap placed and ultrasound MidLine placed utilizing ultrasound-guided Modified Seldinger Technique: Yes Dressing/Securement: Antimicrobial dressing dry and intact, antimicrobial dressing applied and catheter securement device Blood Loss Amount: Less than 20 mLPost-procedure details: Post-procedure: Dressing applied Patient tolerance of procedure: Tolerated well, no immediate complicationsXR Chest 1 Vw Portable 2020-08-20 12:31:35 Examination: XR CHEST 1 VW PORTABLE Clinical history: pneumonia Comparison: 06/23/2020 IMPRESSION: Lungs are clear and appear unchanged. Right IJ lines have been removed. No pneumothoraces are identified. There are no apparent pleural effusions. The cardiomediastinal silhouette and the remainder of thechest appear essentially unchanged. [id number] Interface, Radiology Results 08/20/2020 7:34 AM CDT Examination: XR CHEST 1 VW PORTABLEClinical history: pneumoniaComparison: 06/23/2020IMPRESSION: Lungs are clear and appear unchanged. Right IJ lines have been removed.No pneumothoraces are identified. There are no apparent pleural effusions.The cardiomediastinal silhouette and the remainder of the chest appear essentially unchanged.[id number] [place] [facility] [id number] 19:51:00EXAMINATION: OR [place] < 1 HOUR CLINICAL HISTORY: Intraoperative fluoroscopy IMPRESSION:Fluoroscopy was provided. No radiologist present. Please see procedure report for discussion of procedure, findings and fluoroscopic time. [facility]-[id number] Interface, Radiology Results 06/26/2020 1:54 PMCST EXAMINATION: OR [place] < 1 HOURCLINICAL HISTORY: Intraoperative fluoroscopyIMPRESSION:Fluoroscopy was provided. No radiologist present. Please see procedure report for discussion of procedure, findings and fluoroscopic time.[facility]-[id number] 16:20:38Octavio Le 06/26/2020 10:20 [address] Location: OR Performed by: SOCIAL INSURANCE ANALYST/AAAnesthesiologist: Garett Brady MDResident/SOCIAL INSURANCE ANALYST/AA: Octavio Le RAuthorized by: Garett Brady MD Urgency: ElectiveDifficult Airway: No Preoxygenated with 100% O2: Yes C-spine Precautions Maintained Throughout: Yes Mask Ventilation: Not attemptedFinal Airway Type: Supraglottic airwayFinal LMA: UniqueLMA Size: 4Number of Attempts at Approach: 1 Soft Tissue Intact, able to ventilate with no leak and minimal peak inspiratory pressuresXR Neck Soft Tissue 2020-06-25 16:15:23EXAMINATION: XR NECK SOFT TISSUE CLINICAL HISTORY: location of the dialysis cath COMPARISON: None IMPRESSION: 2 views were obtained. Right jugular dialysis catheter with tips in the superior vena cava.No prevertebral soft tissue thickening. There is 1 to 2 mm degenerative anterolisthesis of C3 on C4,C4 on C5, and C5 on C6, with mild disc height loss at C4-5 and C5-6 with small anterior endplate osteophytes. [id number] Interface, Radiology Results 06/25/2020 10:18 AM CST [...] C4-5 and C5-6 with small anterior endplate osteophytes.[id number] 12 [id number] 23:45:47 Test Item Value Reference Range Interpretation Comments Ventricular rate (test code = 253) Atrial rate (test code = 255) DC interval (test code = 266) QRSD interval (test code = 260) QT interval (test code = 264) QTC interval (test code = 265) P axis 1 (test code = 267) QRS axis 1 (test code = 268) T wave axis (test code = 270) EKG impression (test Unusual P axis, code = 273) possible ectopic atrial rhythm-Left bundle branch block-No previous ECGs available-Electronica lly Signed By Jere No MD (2024) on 06/23/2020 5:45:46 PM [facility] ED Preliminary Interpretation - Not an [id number] 22:57:05 Test Item Value Reference Range Interpretation Comments STEPHANIE (test code = STEPHANIE) Maninder Peterson III, MD 06/24/2020 1:43 [facility] [place] ED Preliminary Interpretation - Not an OrderPerformed by: Maninder Peterson III, MDAuthorized by: Maninder Peterson III, MD ECG reviewed by ED Physician in the absence of a concrete block layer: yes Interpretation: Interpretation: abnormal Quality: Tracing quality: Limited by artifactRate: ECG rate: 88 ECG rate assessment: normal Rhythm: Rhythm: sinus rhythm Ectopy: Ectopy: none QRS: QRS axis: Normal QRS intervals: WideConduction: Conduction: abnormal Abnormal conduction: complete LBBB ST segments: ST segments: Non-specificT waves: T waves: non-specific Lab Interpretation Abnormal (test code = 18536-9) [facility]
[2022-03-10] MEDS ORDERED: ALBUTEROL 2.5 MG/3 ML NEB SOL ONE (15:46)
[2022-03-10] MEDS ORDERED: IPRATROPIUM BROM 0.5MG/2.5ML ONE (15:46)
--- NOTE | 2022-03-10 16:03 | RAD REPORT ---
EXAM DESCRIPTION: RAD - Chest Single View - 03/10/2022 3:57 pm CLINICAL HISTORY: SOB Chest pain. COMPARISON: Chest Single View dated 02/17/2021; Chest Single View dated 02/17/2021; Chest Single Vie w dated 02/14/2021; Chest Single View dated 02/14/2021 FINDINGS: Portable technique limits examination quality. Moderate bilateral pulmonary opacities are present probably representing pulmonary edema or pneumonia . The heart is mildly to moderately enlarged. Dual lead pacer device is present.
[2022-03-10] MEDS ORDERED: FUROSEMIDE 40 MG/4 ML VIAL ONE (16:26)
[2022-03-10 16:50] LABS: Absolute Lymphocytes (CBC) 0.7 K/uL (0.7-4.9); Hematocrit 34.6 % (36.0-45.0); Lymphocytes % 5.4 % (15.3-44.8); MPV 9.5 fL (7.6-11.3); RBC Red Blood Cell Count 3.85 M/uL (3.86-4.86)
[2022-03-10 16:58] LABS: SARS-COV-2 RT PCR NEGATIVE (NEGATIVE)
[2022-03-10 17:01] LABS: Protime INR 1.28
[2022-03-10 17:33] LABS: Albumin 3.9 g/dL (3.4-5.0); Bilirubin Direct 0.9 mg/dL (0-0.2); Bilirubin Total 1.7 mg/dL (0.2-1.0); Potassium 4.3 mmol/L (3.5-5.1); Troponin High Sensitivity 41.4 pg/mL (<58.9)
[2022-03-10 17:34] LABS: Magnesium 2.7 mg/dL (1.8-2.4)
--- NOTE | 2022-03-10 18:25 | RAD REPORT ---
EXAM DESCRIPTION: US - Liver Only - 03/10/2022 6:18 pm CLINICAL HISTORY: abnormal liver enzymes COMPARISON: Liver Only dated 02/15/2021 FINDINGS: The liver demonstrates a nodular contour most compatible with mild cirrhosisNo focal liver lesion or intrahepatic biliary dilatation.No evidence of portal vein thrombosis. Spleen is normal sized measuring 9 cm. IMPRESSION: Nodular contour of the liver is noted most compatible with mild cirrhosis.
[2022-03-10 18:40] LABS: Urine Blood Trace-intact (Negative); Urine Glucose Negative (Negative); Urine Protein 1+ (Negative); Urine Specific Gravity 1.015 (1.005-1.030); Urine pH 5.5 (5.0-7.0)
[2022-03-10 18:59] LABS: Urine Bacteria <20 /HPF (<20); Urine Mucus Slight /HPF (None Seen)
--- NOTE | 2022-03-10 19:01 | ER ---
Nurse's Notes [facility] Name: Doretha Partida Age: 76 yrs Sex: Female : 1945 Arrival Date: 03/10/2022 Time: 14:58 Bed 14 Private MD: Diagnosis: Acute on chronic combined systolic (congestive) and diastolic (congestive) heart failure;Dyspnea;Hypertensive heart and chronic kidney disease with heart failure and stage 1 through stage 4 chronic kidney disease, or unspecified chronic kidney disease Presentation: 03/10 15:08 Chief complaint: Patient states: Cough, congestion, runny nose, sore throat, headache, ph Spo2 92% in triage, labored breathing noted. Coronavirus screen: Vaccine status: Patient reports receiving the 2nd dose of the covid vaccine. Ebola Screen: No symptoms or risks identified at this time. Initial Sepsis Screen: Does the patient meet any 2 criteria? No. Patient's initial sepsis screen is negative. Does the patient have a suspected source of infection? Yes: Productive cough/pneumonia. Risk Assessment: Do you want to hurt yourself or someone else? Patient reports no desire to harm self or others. 15:08 Method Of Arrival: Wheelchair ph 15:08 Acuity: SLY 2 ph 17:09 Onset of symptoms was March 09, 2022. db Triage Assessment: 15:40 General: Appears distressed, uncomfortable, Behavior is anxious, restless. Respiratory: db Reports shortness of breath. Historical: - Allergies: 16:21 Codeine; db - Home Meds: 17:13 Eliquis 2.5 mg oral tab 1 tab three times a day [Active]; metoprolol succinate 25 mg db oral Tb24 2 tabs once daily [Active]; amiodarone 200 mg Oral tab 1 tab 2 times per day [Active]; omeprazole 40 mg Oral cpDR 1 cap once daily [Active]; levothyroxine 75 mcg cap 1 cap once daily [Active]; gabapentin 600 mg Oral tab 1 tab daily [Active]; furosemide 80 mg Oral tab 1 tab once daily [Active]; Centrum Silver Women 8 mg iron-400 mcg-300 mcg Oral tab daily [Active]; hydralazine 50 mg Oral tab 1 tab three times a day [Active]; - PMHx: 16:21 ESRD; GALLSTONES; Hx of Dialysis but no longer needs dialysis.; Hypertension; Kidney db stones; - Immunization history:: Adult Immunizations unknown. - Social history:: Smoking status: Patient denies any tobacco usage or history of. Screenin:21 Abuse screen: Denies threats or abuse. Denies injuries from another. Nutritional db screening: No deficits noted. Tuberculosis screening: No symptoms or risk factors identified. Fall Risk None identified. No fall in past 12 months (0 pts). No secondary diagnosis (0 pts). No IV (0 pts). Ambulatory Aid- Gait- Normal/Bed Rest/Wheelchair (0 pts) Mental Status- Oriented to own ability (0 pts). Total Long Fall Scale indicates No Risk (0-24 pts). Assessment: 15:20 Reassessment: Patient and/or family updated on plan of care and expected duration. Pain db level reassessed. patient states started with SOB since yesterday. Appears SOB. General: Appears distressed, uncomfortable, Behavior is cooperative, anxious. Pain: Denies pain. Neuro: No deficits noted. Level of Consciousness is awake, alert, obeys commands, Oriented to person, place, time, Moves all extremities. Speech is normal, Facial symmetry appears normal, Pupils are PERRLA. Cardiovascular: No deficits noted. Respiratory: Airway is patent Respiratory effort is even, labored, Respiratory pattern is regular, symmetrical, Breath sounds are coarse bilaterally. Onset: The symptoms/episode began/occurred yesterday. GI: No deficits noted. No signs and/or symptoms were reported involving the gastrointestinal system. : No deficits noted. No signs and/or symptoms were reported regarding the genitourinary system. EENT: No deficits noted. No signs and/or symptoms were reported regarding the EENT system. Derm: No deficits noted. No signs and/or symptoms reported regarding the dermatologic system. Musculoskeletal: No deficits noted. No signs and/or symptoms reported regarding the musculoskeletal system. 15:40 Reassessment: patient assisted to bedside commode. db 16:30 Reassessment: No changes from previously documented assessment. Patient and/or family db updated on plan of care and expected duration. Pain level reassessed. Neuro: No deficits noted. Level of Consciousness is awake, alert, obeys commands. Cardiovascular: Rhythm is ventricular pacer. Respiratory: Reports shortness of breath. 17:02 Reassessment: Patient appears in no apparent distress at this time. patient assisted to db bedside commode. 18:35 Reassessment: Patient appears in no apparent distress at this time. assisted patient db back to bed from bedside commode. urine specimen collected. 19:30 General: Appears distressed, Behavior is cooperative. Pain: Denies pain. Neuro: Level ha1 of Consciousness is awake, alert, obeys commands, Oriented to person, place, time, situation. Cardiovascular: Patient's skin is warm and dry. Respiratory: Airway is patent Trachea midline Respiratory effort is even, labored, Respiratory pattern is tachypnea Breath sounds are coarse bilaterally. GI: No signs and/or symptoms were reported involving the gastrointestinal system. Abdomen is flat, non-distended, Bowel sounds present X 4 quads. : No deficits noted. No signs and/or symptoms were reported regarding the genitourinary system. EENT: No deficits noted. No signs and/or symptoms were reported regarding the EENT system. Derm: Skin is normal. Musculoskeletal: Circulation, motion, and sensation intact. Swelling present in right leg and left leg. Vital Signs: 15:08 BP 189 / 86; Pulse 65; Resp 24; Temp 98.0; Pulse Ox 92% on R/A; ph 15:30 BP 198 / 78; Pulse 95; Resp 32; Pulse Ox 95% on 2 lpm NC; db 16:30 BP 196 / 91; Pulse 81; Resp 28; Pulse Ox 100% on Nebulizer Mask; db 17:00 BP 187 / 73; Pulse 75; Resp 32; Pulse Ox 100% on 2 lpm NC; db 18:30 BP 186 / 71; Pulse 68; Resp 24; Pulse Ox 95% on 2 lpm NC; db 19:30 BP 169 / 83; Pulse 65; Resp 23 S; Pulse Ox 96% on 2 lpm NC; ha1 Vitals: 16:30 Cardiac Rhythm Assessment Paced. ED Course: 14:58 Patient arrived in ED. mr 15:12 Triage completed. ph 15:13 Sony Marquez PA is PHCP. cp 15:13 Sony Figueroa MD is Attending Physician. cp 15:42 Susannah Bangura, RN is Primary Nurse. db 15:59 XRAY Chest (1 view) In Process Unspecified. EDMS 16:19 Missed attempt(s): 20 gauge in right antecubital area. db 16:19 Missed attempt(s): 22 gauge in left antecubital area. db 16:35 Inserted saline lock: 20 gauge in right antecubital area, using aseptic technique. db Blood collected. Sono IV. 17:01 Patient has correct armband on for positive identification. Placed in gown. Bed in low db position. Call light in reach. Side rails up X 1. Client placed on continuous cardiac and pulse oximetry monitoring. NIBP monitoring applied. Warm blanket given. 17:10 Arm band placed on right wrist. db 18:19 Liver Only In Process Unspecified. EDMS 18:59 Denys Mello MD is Hospitalizing Provider. cp 22:23 Primary Nurse role handed off by Susannah Bangura RN 23:20 Christopher Somers RN is Primary Nurse. ke1 Administered Medications: 15:48 Drug: Albuterol - atroVENT (ipratropium) (3:1) (2.5 mg - 0.5 mg) 3 ml Route: Nebulizer; db 17:17 Follow up: Response: No adverse reaction db 16:40 Drug: Lasix (furosemide) 40 mg Route: IVP; Site: right antecubital; db 17:17 Follow up: Response: No adverse reaction db 19:11 Follow up: Response: No adverse reaction db 19:58 Drug: hydrALAZINE 10 mg Route: IVP; Site: right antecubital; ha1 Medication: 16:21 VIS not applicable for this client. db Outcome: 19:00 Decision to Hospitalize by Provider. cp 03/11 08:59 Patient left the ED. tw2 Signatures: Dispatcher [employer] EDMO Swetha Gutierrez Herlinda Velasquez RN RN Sony Bishop PA PA cp Agnes Rice RN RN tw2 Kristyn Araujo Christopher Somers RN RN keMarylou Ayoub RN RN Susannah Tyson RN RN db Corrections: (The following items were deleted from the chart) 03/10 17:03 15:20 Reassessment: Patient and/or family updated on plan of care and expected db duration. Pain level reassessed. Patient is alert, oriented x 3, equal unlabored respirations, skin warm/dry/pink. patient states started with SOB since yesterday. Appears SOB db
--- NOTE | 2022-03-10 19:01 | EDPHYS ---
Physician Documentation [facility] Name: Doretha Partida Age: 76 yrs Sex: Female : 1945 Arrival Date: 03/10/2022 Time: 14:58 Bed 14 Private MD: ED Physician Sony Figueroa HPI: 03/10 15:30 This 76 yrs old Female presents to ER via Wheelchair with complaints of Low cp O2,89, High Blood Pressure, Chest Congestion, Sinus Congestion. 15:30 The patient or guardian reports cough, difficulty breathing, congestion. cp 15:30 Onset: The symptoms/episode began/occurred yesterday. Associated signs and symptoms: cp Pertinent positives: shortness of breath, Pertinent negatives: chest pain, fever, vomiting. Severity of symptoms: in the emergency department the symptoms are unchanged despite home interventions. Historical: - Allergies: 16:21 Codeine; db - Home Meds: 17:13 Eliquis 2.5 mg oral tab 1 tab three times a day [Active]; metoprolol succinate 25 mg db oral Tb24 2 tabs once daily [Active]; amiodarone 200 mg Oral tab 1 tab 2 times per day [Active]; omeprazole 40 mg Oral cpDR 1 cap once daily [Active]; levothyroxine 75 mcg cap 1 cap once daily [Active]; gabapentin 600 mg Oral tab 1 tab daily [Active]; furosemide 80 mg Oral tab 1 tab once daily [Active]; Centrum Silver Women 8 mg iron-400 mcg-300 mcg Oral tab daily [Active]; hydralazine 50 mg Oral tab 1 tab three times a day [Active]; - PMHx: 16:21 ESRD; GALLSTONES; Hx of Dialysis but no longer needs dialysis.; Hypertension; Kidney db stones; - Immunization history:: Adult Immunizations unknown. - Social history:: Smoking status: Patient denies any tobacco usage or history of. ROS: 15:35 Constitutional: Negative for body aches, chills, fever, poor PO intake. cp 15:35 Eyes: Negative for injury, pain, redness, and discharge. cp 15:35 Respiratory: Positive for cough, shortness of breath, chest congestion. cp 15:35 ENT: Negative for drainage from ear(s), ear pain, difficulty swallowing, difficulty cp handling secretions. 15:35 Cardiovascular: Negative for chest pain, edema. 15:35 Abdomen/GI: Negative for abdominal pain, vomiting, diarrhea, constipation. 15:35 Skin: Negative for rash. 15:35 Neuro: Negative for altered mental status, headache, syncope, weakness. 15:35 All other systems are negative. Exam: 15:33 ECG was reviewed by the Attending Physician. cp 15:40 Constitutional: The patient appears in no acute distress, alert, awake, cp non-diaphoretic, non-toxic, well developed, well nourished. 15:40 Head/Face: Normocephalic, atraumatic. cp 15:40 Eyes: Periorbital structures: appear normal, Conjunctiva: normal, no exudate, no injection, Sclera: no appreciated abnormality, Lids and lashes: appear normal, bilaterally. 15:40 ENT: External ear(s): are unremarkable, Ear canal(s): are normal, clear, TM's: dullness, bilaterally, Nose: is normal, Mouth: Lips: moist, Oral mucosa: moist, Posterior pharynx: Airway: no evidence of obstruction, patent. 15:40 Neck: ROM/movement: is normal, is supple, without pain, no range of motions limitations, no meningismus, Lymph nodes: no appreciated lymphadenopathy. 15:40 Chest/axilla: Inspection: normal. 15:40 Cardiovascular: Rate: normal, Rhythm: regular, Edema: ankle edema, that is mild, JVD: is not appreciated. 15:40 Respiratory: the patient does not display signs of respiratory distress, Respirations: normal, no use of accessory muscles, Breath sounds: decreased breath sounds, that are mild, throughout, stridor, is not appreciated, wheezing: is not appreciated. 15:40 Abdomen/GI: Inspection: abdomen appears normal, Bowel sounds: active, all quadrants, Palpation: abdomen is soft and non-tender, in all quadrants. 15:40 Skin: cellulitis, is not appreciated, no rash present. 15:40 Neuro: Orientation: to person, place \T\ time. Mentation: is normal, Motor: moves all fours, strength is normal, Sensation: is normal. 15:40 Back: pain, is absent, ROM is normal. cp Vital Signs: 15:08 BP 189 / 86; Pulse 65; Resp 24; Temp 98.0; Pulse Ox 92% on R/A; ph 15:30 BP 198 / 78; Pulse 95; Resp 32; Pulse Ox 95% on 2 lpm NC; db 16:30 BP 196 / 91; Pulse 81; Resp 28; Pulse Ox 100% on Nebulizer Mask; db 17:00 BP 187 / 73; Pulse 75; Resp 32; Pulse Ox 100% on 2 lpm NC; db 18:30 BP 186 / 71; Pulse 68; Resp 24; Pulse Ox 95% on 2 lpm NC; db 19:30 BP 169 / 83; Pulse 65; Resp 23 S; Pulse Ox 96% on 2 lpm NC; ha1 MDM: 15:13 Patient medically screened. cp 18:33 Data reviewed: vital signs, nurses notes, lab test result(s), EKG, radiologic studies, cp plain films, ultrasound. 18:33 Test interpretation: by ED physician or midlevel provider: ECG, plain radiologic cp studies. Counseling: I had a detailed discussion with the patient and/or guardian regarding: the historical points, exam findings, and any diagnostic results supporting the discharge/admit diagnosis, lab results, radiology results, the need for further work-up and treatment in the hospital. Response to treatment: the patient's symptoms have mildly improved after treatment. 18:45 Physician consultation: Joe PINZON regarding admission, to the telemetry unit. cp patient's condition. 03/10 15:25 Order name: Basic Metabolic Panel; Complete Time: 17:39 03/10 17:40 Interpretation: Normal except: GLUC 127; BUN 50; CRE 2.53; GFR 19. 03/10 15:25 Order name: CBC with Diff; Complete Time: 17:10 03/10 17:10 Interpretation: Normal except: WBC 13.80; RBC 3.85; HGB 11.2; HCT 34.6; PLT 149; JOSE% cp 86.5; LYM% 5.4; NEUT A 11.9. 03/10 15:25 Order name: LFT's; Complete Time: 17:39 03/10 17:40 Interpretation: Normal except: AST 66; ALT 87; ALK 510; BILIT 1.7; BILID 0.9; TP 9.0; cp GLOB 5.1; A/G 0.8. 03/10 15:25 Order name: Magnesium; Complete Time: 17:39 03/10 17:40 Interpretation: Abnormal: MG 2.7. cp 03/10 15:25 Order name: NT PRO-BNP; Complete Time: 17:39 03/10 17:40 Interpretation: Abnormal: NT PRO-BNP 94438. cp 03/10 15:25 Order name: PT-INR; Complete Time: 17:10 03/10 17:41 Interpretation: Abnormal: PT 14.1. 03/10 15:25 Order name: Troponin HS; Complete Time: 17:39 03/10 15:25 Order name: COVID-19/FLU A+B; Complete Time: 17:10 03/10 15:26 Order name: Lactate w/ 2H reflex if indic.; Complete Time: 17:10 03/10 15:26 Order name: Procalcitonin; Complete Time: 17:47 03/10 15:26 Order name: Blood Culture Adult (2) 03/10 18:10 Order name: Urine Microscopic Only; Complete Time: 21:02 03/10 18:41 Order name: Urine Dipstick-Ancillary EDMS 03/10 23:51 Order name: Troponin High Sensitivity; Complete Time: 23:52 EDMS 03/10 15:25 Order name: XRAY Chest (1 view); Complete Time: 16:34 03/10 16:35 Interpretation: Report review. 03/10 15:25 Order name: EKG; Complete Time: 15:26 03/10 15:25 Order name: Cardiac monitoring; Complete Time: 16:23 03/10 15:25 Order name: EKG - Nurse/Tech; Complete Time: 16:23 03/10 15:25 Order name: IV Saline Lock; Complete Time: 17:00 03/10 15:25 Order name: Labs collected and sent; Complete Time: 17:00 03/10 15:25 Order name: O2 Per Protocol; Complete Time: 16:23 03/10 15:25 Order name: O2 Sat Monitoring; Complete Time: 16:23 03/10 18:19 Order name: Liver Only; Complete Time: 18:28 EDMS 03/10 18:29 Interpretation: Report Reviewed. 03/11 02:48 Order name: CBC with Automated Diff EDMS 03/11 03:26 Order name: Comprehensive Metabolic Panel EDMS 03/11 03:26 Order name: Troponin High Sensitivity EDNJ 03/10 17:44 Order name: NPO cp 03/10 18:10 Order name: Urine Dipstick-Ancillary (obtain specimen); Complete Time: 18:54 cp EC:33 Rate is 67 beats/min. Rhythm is regular, Sinus Rhythm with Ventricular paced. GA cp interval is normal. QRS interval is prolonged at 170 msec. QT interval is normal. T waves are Inverted in leads aVL, aVR. Interpreted by me. Reviewed by me. Administered Medications: 15:48 Drug: Albuterol - atroVENT (ipratropium) (3:1) (2.5 mg - 0.5 mg) 3 ml Route: Nebulizer; db 17:17 Follow up: Response: No adverse reaction db 16:40 Drug: Lasix (furosemide) 40 mg Route: IVP; Site: right antecubital; db 17:17 Follow up: Response: No adverse reaction db 19:11 Follow up: Response: No adverse reaction db 19:58 Drug: hydrALAZINE 10 mg Route: IVP; Site: right antecubital; ha1 Disposition Summary: 03/10/22 19:00 Hospitalization Ordered Hospitalization Status: Inpatient Admission cp Provider: Denys Mello cp Condition: Stable cp Problem: an acute exacerbation cp Symptoms: have improved cp Bed/Room Type: Standard cp Location: Telemetry/MedSurg (Inpatient)(03/11/22 06:18) Room Assignment: 219(03/11/22 06:18) Diagnosis - Acute on chronic combined systolic (congestive) and diastolic (congestive) heart cp failure - Dyspnea cp - Hypertensive heart and chronic kidney disease with heart failure and stage 1 cp through stage 4 chronic kidney disease, or unspecified chronic kidney disease Forms: - Medication Reconciliation Form cp - SBAR form cp Addendum: 03/24/2022 07:39 Co-signature as Attending Physician, Sony Figueroa MD I agree with the assessment and c nguyen plan of care. Signatures: Dispatcher [employer] EDNJ Jacque Lopez RN RN mw Anderson, Corey, MD MD cha Attema, Lee, NEON TUBE PUMPER-C NEON TUBE PUMPER-Cla1 Sony Marquez PA PA cp Marylou Reeder RN RN 1 Susannah Bangura RN RN db Corrections: (The following items were deleted from the chart) 03/10 18:19 17:44 Abdomen Limited+US.RAD.BRZ ordered. EDMS EDMS : 19:00 Telemetry/MedSurg (Inpatient) cp mw : 19:00 cp mw 03/11 06:18 03/10 19:39 [facility] ER HOLD mw mw 03/11 06:18 03/10 19:39 ERHOLD- mw mw 03/12 01:50 03/10 15:40 Cardiovascular: Rate: normal, Rhythm: regular, Edema: is not appreciated, cp JVD: is not appreciated, cp
[2022-03-10] MEDS ORDERED: HYDRALAZINE HCL 20 MG/ML VIAL ONE (19:50)
[2022-03-10] MEDS ORDERED: ONDANSETRON 4 MG/2 ML VIAL IV PRN (20:44)
[2022-03-10] MEDS: APIXABAN 2.5 MG TABLET PO SCH (21:00)
[2022-03-10 21:03] VITALS: BMI 32.1
--- NOTE | 2022-03-10 21:12 | P.HP ---
Certification for Inpatient Patient admitted to: Inpatient With expected LOS: >2 Midnights Patient will require the following post-hospital care: None Practitioner: I am a practitioner with admitting privileges, knowledge of patient current condition, hospital course, and medical plan of care. Services: Services provided to patient in accordance with Admission requirements found in Title 42 Section 412.3 of the Code of Federal Regulations <Joe Thurston - Last Filed: 03/10/22 21:07> Patient History Date of Service: 03/10/22 Reason for admission: CHF exacerbation History of Present Illness: 76-year-old female with history of chronic systolic congestive heart failure, CKD 4, atrial fibrillation on chronic anticoagulation, hypertension presents emergency department for shortness of breath. She reports increasing shortness of breath over the course of the last couple days. Patient was evaluated in the emergency department her labs were significant for markedly elevated BNP 28,217 creatinine 2.53 GFR 19 BUN 50 which is similar to patient's baseline, mild elevations in AST, ALT, alk phos, T bili, D bili patient with known fatty liver disease. Patient currently requiring nasal cannula oxygen at 2 L maintain saturations greater than 90% chest x-ray was obtained which revealed moderate bilateral pulmonary opacities are present probably representing pulmonary edema or pneumonia. The heart is mildly to moderately enlarged. Dual-lead pacer device is present. In January 2021 patient was admitted here in the hospital for CHF exacerbation found to have severely depressed left ventricular ejection fraction of 25 to 30% with severe global hypokinesis, small to moderate pericardial effusion. Pulmonary hypertension with right ventricular systolic pressures 55 to 60%. At that time patient was transferred to [facility] in [place] for further management, she had a dual-lead pacemaker inserted and has since been following up with her manager gallery Dr. Li. She reports she has had significant improvement in her heart failure although she cannot tell me why her ejection fraction was most recently her heart doctor has been telling her it is much improved. She was given IV Lasix in the emergency department with some improvement in her dyspnea. ED provider was to admit for further evaluation and management of acute on chronic systolic congestive heart failure. - Past Medical/Surgical History Diabetic: No -: HTN -: CKD, temporarily needed dialysis -: CHF, systolic -: Knee surgery -: Hysterectomy -: HD placement Psychosocial/ Personal History: Patient lives at home with her - Family History Brother -: Heart disease Mother -: Heart disease Sister -: Heart disease - Social History Smoking Status: Never smoker Alcohol use: No CD- Drugs: No Caffeine use: Yes Place of Residence: Home <Jeo Thurston Ashkan - Last Filed: 03/10/22 21:07> Date of Service: 03/11/22 <FunmilayoDenys williamson - Last Filed: 03/11/22 10:37> Allergies codeine Allergy (Verified 05/24/21 06:35) Itching Home Medications: Omeprazole [Prilosec] 40 mg PO DAILY 07/16/20 Multivitamin with Iron [Daily Vitamin + Iron] 1 each PO DAILY #90 tablet 07/18 Levothyroxine Sodium [Unithroid] 75 mcg PO DAILY 08/09/20 Amiodarone HCl [Cordarone Tab] 200 mg PO BID 05/23/21 Apixaban [Eliquis] 2.5 mg PO BID 05/23/21 Diclofenac Sodium [Voltaren Arthritis Pain] 1 geraldo TP PRN PRN 05/23/21 Furosemide [Lasix] 80 mg PO DIRECTED 05/23/21 Furosemide [Lasix] 120 mg PO DIRECTED 05/23/21 Gabapentin [Gralise] 600 mg PO BEDTIME 05/23/21 Metoprolol Succinate 25 mg PO BID 05/23/21 Review of Systems 10-point ROS is otherwise unremarkable Respiratory: Cough, Shortness of Breath <Joe Thurston Whit Luther - Last Filed: 03/10/22 21:07> Physical Examination - Physical Exam General: Alert, In no apparent distress, Oriented x3 HEENT: Atraumatic, PERRLA, Mucous membr. moist/pink, EOMI, Sclerae nonicteric Neck: Supple, 2+ carotid pulse no bruit, No LAD, Without JVD or thyroid abnormality Respiratory: Diminished, Crackles/rales Cardiovascular: Regular rate/rhythm (Paced), Normal S1 S2 Capillary refill: <2 Seconds Gastrointestinal: Normal bowel sounds, No tenderness Musculoskeletal: No tenderness Integumentary: No rashes Neurological: Normal speech, Normal strength at 5/5 x4 extr, Normal tone, Normal affect - Studies Laboratory Data (last 24 hrs) 03/10/22 16:34: PT 14.1 H, INR 1.28 03/10/22 16:34: WBC 13.80 H, Hgb 11.2 L, Hct 34.6 L, Plt Count 149 L 03/10/22 16:34: Sodium 138, Potassium 4.3, BUN 50 H, Creatinine 2.53 H, Glucose 127 H, Magnesium 2.7 H, Total Bilirubin 1.7 H, AST 66 H, ALT 87 H, Alkaline Phosphatase 510 H <Joe Thurston - Last Filed: 03/10/22 21:07> - Studies Laboratory Data (last 24 hrs) 03/10/22 16:34: PT 14.1 H, INR 1.28 03/10/22 16:34: WBC 13.80 H, Hgb 11.2 L, Hct 34.6 L, Plt Count 149 L 03/10/22 16:34: Sodium 138, Potassium 4.3, BUN 50 H, Creatinine 2.53 H, Glucose 127 H, Magnesium 2.7 H, Total Bilirubin 1.7 H, AST 66 H, ALT 87 H, Alkaline P hosphatase 510 H Microbiology Data (last 24 hrs): 03/10/22 18:21 Blood - Blood Anaerobic Blood Culture - Final <Denys Mello - Last Filed: 03/11/22 10:37> Assessment and Plan - Plan Assessment: Dyspnea, hypoxia secondary to acute on chronic decompensated systolic congestive heart failure with pacemaker in place CKD 4 Atrial fibrillation on chronic anticoagulation therapy Hypothyroidism Hypertension Fatty liver Plan: Dyspnea, hypoxia secondary to acute on chronic decompensated systolic congestive heart failure with pacemaker in place: Cardiology and nephrology consulted patient diuresing well with 40 mg of IV Lasix given in the emergency department. She reports her dyspnea has improved slightly she still requiring oxygen 2 L per nasal cannula. We will obtain echocardiogram. Continue diuresis appreciate further input from cardiology and nephrology. CKD 4: Stable, patient has required dialysis in the past no longer has dialysis access in place. Monitor renal function daily, nephrology consulted for assistance with CKD along with need for diuresis. Atrial fibrillation on chronic anticoagulation therapy: Metoprolol and Eliquis continued, patient currently in paced rhythm on monitor. We will monitor on telemetry. Patient reports taking amiodarone although she was unsure of her dose she does have mild elevations in her LFTs, she reports her manager gallery is aware of this. Hypothyroidism: Continue home med Hypertension: Continue home med Fatty liver: Monitor LFTs. DVT PPX: Continue renally dosed Eliquis Code status: Full Discharge Plan: Home Plan to discharge in: 72 Hours - Advance Directives Does patient have a Living Will: No Does patient have a Durable POA for Healthcare: No - Code Status/Comfort Care Code Status Assessed: Yes (Full code) Critical Care: No Time Spent Managing Pts Care (In Minutes): 70 <Joe Thurston - Last Filed: 03/10/22 21:07> Physician Review: Patient Assessed, Agree with Above Assessment and Plan <Denys Mello - Last Filed: 03/11/22 10:37>
[2022-03-10] MEDS ORDERED: APIXABAN 5 MG TABLET ONE (23:22)
[2022-03-11 02:47] LABS: Absolute Lymphocytes (CBC) 0.7 K/uL (0.7-4.9); Lymphocytes % 7.8 % (15.3-44.8); MCV 89.1 fL (80-100); MPV 9.3 fL (7.6-11.3); RBC Red Blood Cell Count 3.36 M/uL (3.86-4.86)
[2022-03-11 03:04] LABS: Albumin 3.3 g/dL (3.4-5.0); Bilirubin Total 1.3 mg/dL (0.2-1.0); Potassium 3.9 mmol/L (3.5-5.1); Protein, Total 7.7 g/dL (6.4-8.2)
[2022-03-11 03:26] LABS: Troponin High Sensitivity 206.4 pg/mL (<58.9)
[2022-03-11] MEDS: METOPROLOL TAR 25 MG TAB PO SCH ×2 (05:42→17:07)
[2022-03-11] MEDS ORDERED: PNEUMOCOCCAL VACCINE 0.5 ML IMVAC ONE (08:00)
[2022-03-11] MEDS ORDERED: INFLUENZA VACCINE (for 6+ mo) 0.5 ML DOSE IMVAC ONE (08:00)
[2022-03-11] MEDS: FUROSEMIDE 40 MG/4 ML VIAL IV SCH ×2 (09:00→17:07)
--- NOTE | 2022-03-11 10:43 | P.PN ---
Subjective Date of Service: 03/11/22 Chief Complaint: CHF exacerbation No acute events overnight. She reports that her shortness of breath is persistent, and worse with lying flat. She denies any chest pain or palpitations. Review of Systems 10-point ROS is otherwise unremarkable Respiratory: Shortness of Breath Cardiovascular: Orthopnea, Edema Physical Examination - Vital Signs Temperature: 98.7 F Blood Pressure: 149/67 Pulse: 62 Respirations: 20 Pulse Ox (%): 95 - Physical Exam General: Alert, In no apparent distress, Oriented x3 HEENT: Atraumatic, PERRLA, Mucous membr. moist/pink, EOMI, Sclerae nonicteric Neck: Supple, JVD distended (minimal) Respiratory: Crackles/rales (bibasilar) Cardiovascular: Normal pulses, Regular rate/rhythm, Normal S1 S2, No gallops, No rubs, No murmurs, Edema (1-2+ BLE) Gastrointestinal: Normal bowel sounds, Soft and benign, Non-distended, No tenderness, No rebound, No guarding Musculoskeletal: No clubbing Integumentary: No rashes Neurological: Normal speech, Cranial nerves 3-12 intact, Normal affect - Studies Laboratory Data (last 24 hrs) 03/10/22 16:34: PT 14.1 H, INR 1.28 03/10/22 16:34: WBC 13.80 H, Hgb 11.2 L, Hct 34.6 L, Plt Count 149 L 03/10/22 16:34: Sodium 138, Potassium 4.3, BUN 50 H, Creatinine 2.53 H, Glucose 127 H, Magnesium 2.7 H, Total Bilirubin 1.7 H, AST 66 H, ALT 87 H, Alkaline Phos phatase 510 H Microbiology Data (last 24 hrs): 03/10/22 18:21 Blood - Blood Anaerobic Blood Culture - Final Assessment And Plan - Plan # Acute on Chronic Decompensated Systolic Congestive Heart Failure with Reduced Ejection Fraction - Consult Cardiology - recommendations appreciated - Ordered transthoracic echocardiogram - TTE (02/15/2021) = "severely depressed left ventricular ejection fraction of 25-30%. severe global hypokinesis. mild tricuspid regurgitation, mild mitral regurgitation. small to moderate pericardial effusion. pulmonary hypertension with right ventricular systolic pressure 55-60% mmHg." - NT-Pro BNP = 28,217 - Chest x-ray = "moderate bilateral pulmonary opacities are present probably representing pulmonary edema or pneumonia. The heart is mildly to moderately enlarged. Dual lead pacer device is present." - Diuresis with IV furosemide for today - Continue home metoprolol - Daily weights - Strict I/O - Cardiac diet, 1.5 L fluid restriction, 2 g Na restriction # Chronic Atrial Fibrillation s/p PPM # Hypertension - Continue home metoprolol, apixaban - Amiodarone held due to mild LFT elevations # Liver Cirrhosis - Unknown etiology - CATALAN vs amiodarone-induced? - Liver ultrasound = "nodular contour of the liver is noted most compatible with mild cirrhosis." - Monitor LFTs # Chronic Kidney Disease Stage IV - Creatinine = 2.53 -> 2.55 (near baseline) - Urinalysis = trace leukocyte esterase, 11-20 RBCs, 1+ protein - Monitor creatinine and urine output - If worsening, obtain renal ultrasound - Renally dose medications # Hypothyroidism - Continue home levothyroxine Denys Mello M.D.
[2022-03-11] MEDS: APIXABAN 2.5 MG TABLET PO SCH ×2 (11:23→21:06)
--- NOTE | 2022-03-11 15:30 | EKG ---
Test Date: 2022-03-10 Test Time: 15:26:41 Offshore Wind Turbine Technician: SHIRLEY MEASUREMENT RESULTS: Intervals: Rate: 67 SC: 146 QRSD: 170 QT: 490 QTc: 517 [place]: P: 63 SC: 146 QRS: -55 T: 109 INTERPRETIVE STATEMENTS: Poor data quality, interpretation may be adversely affected Atrial-sensed ventricular-paced rhythm Abnormal ECG Compared to ECG 02/17/2021 22:00:39 Sinus rhythm no longer present Atrial premature complex(es) no longer present Left-axis deviation no longer present Left bundle-branch block no longer present Electronically Signed On 03-11-22 15:28:19 CEMENT MIXER by Isreal Nielsen
--- NOTE | 2022-03-11 15:30 | EKG ---
Test Date: 2022-03-10 Test Time: 15:27:34 Geodetic Technician: SHIRLEY MEASUREMENT RESULTS: Intervals: Rate: 68 IL: 138 QRSD: 184 QT: 500 QTc: 531 [place]: P: 46 IL: 138 QRS: -51 T: 98 INTERPRETIVE STATEMENTS: Suspect unspecified pacemaker failure Atrial-sensed ventricular-paced rhythm Abnormal ECG Compared to ECG 03/10/2022 15:26:41 No significant changes Electronically Signed On 03-11-22 15:28:16 GRAPHIC DESIGN TEACHER by Isreal Nielsen
--- NOTE | 2022-03-11 19:12 | CON ---
Date of Consultation: 03/11/2022 Reason For Consultation: Congestive heart failure. History Of Present Illness: Ms. Partida is 76. Has had a history of pacemaker, chronic renal disea se. At 1 point, she had dialysis, but not anymore. She has hypertension. She has chronic atrial fi brillation. She has had a pacemaker. She came in with shortness of breath, PND, orthopnea, pedal ed corrina. No palpitation. No syncope. Denied any fever or chills. Denied any chest pain, nausea, vomit ing, diaphoresis. Was found to have a creatinine of 2.53. Troponin is 206. BNP is 28,000. Pacemak er by EKG and chest x-ray shows CHF. She is already feeling better after IV Lasix. Allergies: TO CODEINE. Review of Systems: Negative. Social History: Negative. Family History: Negative. Medications: Include amiodarone, Eliquis, Lasix, metoprolol, Synthroid, and Prilosec. Physical Examination: General: Ms. Partida was in no acute distress. Vital Signs: Stable, afebrile. Paced rhythm. HEENT: Negative. Neck: Supple with no bruit. Chest: Revealed rales both bases. Cardiac: Revealed a pacemaker. No murmurs, gallops, or rubs. Abdomen: Obese. Extremities: Revealed 2+ edema. Diagnostic Data: As stated earlier. Impression And Plan: 1.Acute on chronic diastolic congestive heart failure. 2.Chronic renal disease. 3.History of pacemaker. 4.History of atrial fibrillation, on amiodarone and Eliquis. 5.Hypertension, poorly controlled. 6.Elevated troponin and BNP, secondary to congestive heart failure. We will plan to continue bisi ryan gently. Dr. Keenan follow her from a Nephrology standpoint. Obtain a 2D echoca rdiogram. We will continue to follow. YARI/JEAN PAUL Voice ID: [id number] Report ID: [id number]
[2022-03-12] MEDS: METOPROLOL TAR 25 MG TAB PO SCH (05:36)
[2022-03-12 06:06] LABS: Absolute Lymphocytes (CBC) 0.8 K/uL (0.7-4.9); Hematocrit 30.8 % (36.0-45.0); Lymphocytes % 9.5 % (15.3-44.8); MCV 89.5 fL (80-100); MPV 9.4 fL (7.6-11.3); RBC Red Blood Cell Count 3.45 M/uL (3.86-4.86)
[2022-03-12 06:17] LABS: Albumin 3.3 g/dL (3.4-5.0); Potassium 3.4 mmol/L (3.5-5.1); Protein, Total 7.7 g/dL (6.4-8.2)
[2022-03-12 06:25] VITALS: O2SAT 94
[2022-03-12] MEDS ORDERED: LEVOTHYROXINE SOD 0.075 MG TAB PO SCH (06:30)
--- NOTE | 2022-03-12 08:50 | P.DS ---
Admission Date: 03/10/22 Discharge Date: 03/12/22 Disposition: ROUTINE DISCHARGE Discharge Condition: GOOD Reason for Admission: CHF exacerbation Consultations: 1. Cardiology Hospital Course: DIAGNOSES: # Acute on Chronic Decompensated Systolic Congestive Heart Failure with Reduced Ejection Fraction # Type II Non-ST Segment Elevation Myocardial Infarction (Demand Ischemia) due to above # Chronic Atrial Fibrillation s/p PPM # Hypertension # Liver Cirrhosis # Chronic Kidney Disease Stage IV # Hypothyroidism HOSPITAL COURSE: Ms. Doretha Partida is a pleasant 76 year old female with a past medical history significant for chronic congestive heart failure, chronic atrial fibrillation s/p PPM, chronic kidney disease stage IV, hypertension, liver cirrhosis, hypothyroidism who was admitted to the [facility] on 03/10/2022 for acute on chronic decompensated congestive heart failure. She was admitted to the Medicine service. EKG revealed a paced rhythm. Her troponin trend was 41.4, 186.6, 206.4, 145.5, and 108.1, respectively. Her NT Pro-BNP was 28,217. Her chest x-ray revealed, "moderate bilateral pulmonary opacities are present probably representing pulmonary edema or pneumonia. The heart is mildly to moderately enlarged. Dual lead pacer device is present." Cardiology was consulted and she was evaluated by Dr. Yañez. She was treated with IV diuretics, and over the course of her hospitalization, she developed significant improvement in her symptoms. Dr. Yañez has cleared her for discharge home with an outpatient transthoracic echocardiogram. On 03/12/2022, she was seen on morning rounds and deemed medically stable for discharge. She was discharged with instructions to schedule follow-up appointments with her PCP, with Nephrology (Dr. Keenan) and with Cardiology (Dr. Yañez). She and her family members were given the opportunity to ask questions and reported no further questions. Furthermore, all questions were answered to the best of my ability. A copy of this discharge summary will be sent to the above providers to facilitate continuity of care. Today, I personally spent 20 minutes on her case, of which greater than 50% of the time was spent in patient education, counseling, and coordination of care as described above. - Physical Exam General: Alert, In no apparent distress, Oriented x3 HEENT: Atraumatic, PERRLA, Mucous membr. moist/pink, EOMI, Sclerae nonicteric Neck: Supple, JVD not distended Respiratory: Clear to auscultation bilaterally, without wheezes, rhonchi, or rales Cardiovascular: Normal pulses, Regular rate/rhythm, Normal S1 S2, No gallops, No rubs, No murmurs, Edema (trace-1+ BLE) Gastrointestinal: Normal bowel sounds, Soft and benign, Non-distended, No tenderness, No rebound, No guarding Musculoskeletal: No clubbing Integumentary: No rashes Neurological: Normal speech, Cranial nerves 3-12 intact, Normal affect Vital Signs/Physical Exam: Temp Pulse Resp BP Pulse Ox 98.0 F 54 18 172/65 H 94 03/12/22 08:00 03/12/22 08:00 03/12/22 08:00 03/12/22 08:00 03/12/22 08:00 Laboratory Data at Discharge: WBC 8.60 K/uL (4.3-10.9) 03/12/22 05:11 Hgb 10.3 g/dL (12.0-15.0) L 03/12/22 05:11 Hct 30.8 % (36.0-45.0) L 03/12/22 05:11 Plt Count 127 K/uL (152-406) L 03/12/22 05:11 PT 14.1 SECONDS (9.5-12.5) H 03/10/22 16:34 INR 1.28 03/10/22 16:34 Sodium 140 mmol/L (136-145) 03/12/22 05:11 Potassium 3.4 mmol/L (3.5-5.1) L 03/12/22 05:11 BUN 63 mg/dL (7-18) H 03/12/22 05:11 Creatinine 2.66 mg/dL (0.55-1.3) H 03/12/22 05:11 Glucose 96 mg/dL (74-106) 03/12/22 05:11 Magnesium 2.7 mg/dL (1.8-2.4) H 03/10/22 16:34 Total Bilirubin 1.0 mg/dL (0.2-1.0) 03/12/22 05:11 AST 28 U/L (15-37) 03/12/22 05:11 ALT 53 U/L (12-78) 03/12/22 05:11 Alkaline Phosphatase 360 U/L (45-117) H 03/12/22 05:11 Home Medications: RX: Omeprazole [Prilosec] 40 mg PO DAILY 07/16/20 RX: Multivitamin with Iron [Daily Vitamin + Iron] 1 each PO DAILY #90 tablet 07/18/20 RX: Levothyroxine Sodium [Unithroid] 75 mcg PO DAILY 08/09/20 RX: Amiodarone HCl [Cordarone*] 200 mg PO BID 05/23/21 RX: Apixaban [Eliquis *] 2.5 mg PO BID 05/23/21 RX: Diclofenac Sodium [Voltaren Arthritis Pain] 1 geraldo TP PRN PRN 05/23/21 RX: Furosemide [Lasix*] 120 mg PO DIRECTED 05/23/21 RX: Furosemide [Lasix] 80 mg PO DIRECTED 05/23/21 RX: Gabapentin [Gralise] 600 mg PO BEDTIME 05/23/21 RX: Metoprolol Succinate 25 mg PO BID 05/23/21 Physician Discharge Instructions: 1. Please call and schedule an appointment with your PCP in 3-5 days 2. Please call and schedule an appointment with your Edi Developer (Dr. Yañez) in 3-5 days 3. Please call and schedule an appointment with your Intensive Care Unit Registered Nurse (Dr. Keenan) in 5-7 days Diet: AHA Activity: Ad reji Followup: OOT,OOT [Primary Care Provider] - Jasiel Yañez MD [ACTIVE - CAN ADMIT] - Celso Keenan MD [ACTIVE - CAN ADMIT] - Time spent managing pt's care (in minutes): 20
[2022-03-12 08:55] VITALS: BP 172/65
[2022-03-12] MEDS: APIXABAN 2.5 MG TABLET PO SCH (08:55)
[2022-03-12] MEDS: FUROSEMIDE 40 MG/4 ML VIAL IV SCH (08:55)
[2022-03-12 11:44] VITALS: TEMP 98
--- NOTE | 2022-03-12 15:08 | PN ---
The patient was admitted with chronic renal disease, acute on chronic diastolic congestive heart fail ure history of atrial fibrillation on amiodarone, Eliquis, elevated troponin, history of pacemaker. Echocardiogram which was pending has not been done. Dr. Keenan is following the patient. Case was discussed with Dr. Mello. Her blood pressure remains elevated at 172/65. She is still in a paced r hythm. Creatinine is 2.66, which is slightly worse than when she first came in. Her troponin had tr ended down from 206 to 108. I still think she needs to have an outpatient echocardiogram and probabl y a Lexiscan, but I am comfortable with her going home on her present regimen. I will see her in the office soon. YARI/JEAN PAUL Voice ID: [id number] Report ID: [id number]
== END 2022-03-12 10:30 | disposition home or self-care (01) | DRG 280 ==
LOC: ER 14:55 → ERHOLD 20:29 → 2ND 03-11 07:17
PROVIDERS: ADMIT Internal Medicine; ATTEND Internal Medicine
DX: I13.0 Hypertensive heart and chronic kidney disease with heart failure and stage 1 through stage 4 chronic kidney disease, or unspecified chronic kidney disease (principal); I50.23 Acute on chronic systolic (congestive) heart failure; I21.A1 Myocardial infarction type 2; N18.4 Chronic kidney disease, stage 4 (severe); I48.20 Chronic atrial fibrillation, unspecified; C64.9 Malignant neoplasm of unspecified kidney, except renal pelvis; I27.20 Pulmonary hypertension, unspecified; E03.9 Hypothyroidism, unspecified; K74.60 Unspecified cirrhosis of liver; K76.0 Fatty (change of) liver, not elsewhere classified; R31.29 Other microscopic hematuria; Z88.5 Allergy status to narcotic agent; Z95.0 Presence of cardiac pacemaker; Z79.01 Long term (current) use of anticoagulants; Z79.890 Hormone replacement therapy; Z79.899 Other long term (current) drug therapy; Z90.710 Acquired absence of both cervix and uterus; Z20.822 Contact with and (suspected) exposure to COVID-19
CPT/HCPCS: 0240U; 36415; 71045; 76705; 80048; 80053; 80076; 81003; 81015; 83605; 83735; 83880; 84145; 84484; 85025; 85610; 87040; 93005; 94640; 96374; 96375; 99285; J0360; J1940; J7613; J7644

== ENCOUNTER 2022-06-26 17:09 | Inpatient (IN) | payer OTHER ==
--- OUTSIDE RECORDS SUMMARY | 2022-06-26 17:16 | XMS REPORT | Continuity of Care Document ---
:1945 Author Organization [facility] t Address [address] [facility] [address] [place] [address] Care Team Providers Name Role Phone MATIAS EMELIAHEMALATHA HIGGINBOTHAM Primary Care Physician Unavailable Kelsi Sullivan MD Attending Clinician KELSI SULLIVAN Attending Clinician Unavailable KARAN CRISOSTOMO Attending Clinician Unavailable SABRINA LAW Attending Clinician Unavailable Rufina Hernandez MD Attending Clinician Jez Norton MD Attending Clinician [phone] Marbin Mars MD Attending Clinician Jeni Pham MD Attending Clinician Tom Longoria CRNA Attending Clinician [phone] Sony [place] Attending Clinician Unavailable Nicholas VILLA, Maninder Kearns Attending Clinician Raj Pete MD Attending Clinician Madhu Clements MD Attending Clinician Chucky Lind Attending Clinician Latesha Padgett MD Attending Clinician Garett Brady MD, V. Attending Clinician Octavio Le Attending Clinician David Omalley MD Attending Clinician Carla_Mckayla Attending Clinician Unavailable SABRINA LAW Admitting Clinician Unavailable RUFINA HERNANDEZ Admitting Clinician Unavailable RAJ PETE Admitting Clinician Unavailable Robyn Admitting Clinician Unavailable Payers Payer Name Policy Type Policy Number Effective Date Expiration Date Manuel mckeon MEDICARE A B [id number] 2008 00:00:00 ROMBAUER NILDA BRUNO [id number] 2017 00:00:00 Problems Condition Condition Condition Status Onset Resolution Last Treating Co mments Source Name Details Category Date Date Treatment Clinician Date Acute Acute Disease Active 2020-[address] [facility] [address] decompensa decompensa 0-31 Lyssa kemanuel nichole heart nichole heart 00:00: Medi renea failure failure 00 Center Severe Severe Disease Active Methodi acute acute 08-20 pancreatit pancreatit 00:00: Ho spita is is 00 l Complicati Complicati Disease Active M ethodi on of on of 06-23 vascular vascular 00:00: Hospit a dialysis dialysis 00 l catheter catheter Hyponatrem Hyponatrem Disease Active M ethodi ia ia 06-23 00:00: Hospita 00 l Mechanical Mechanical Disease Active Overview : Methodi complicati complicati 06-[address] on of on of 00:00: g of this Hospita vascular vascular 00 note l dialysis dialysis might be catheter catheter different from the original. Added automatic ally from request for surgery [id number] HARSHAD (acute HARSHAD (acute Disease Active [facility] ESRD (end ESRD (end Disease Active [facility] renal renal Medical disease) disease) Center on on dialysis dialysis Allergies, Adverse Reactions, Alerts Allergy Allergy Status Severity Reaction(s) Onset Inactive Treating Comm ents Source Name Type Date Date Clinician Codeine Propensi Active Itching Method i ty to [address] adverse 00:00: Hospita reaction 00 l s to drug Codeine Propensi Active Itching [facility] ty to [address] adverse 00:00: of reaction 00 Medicin s to e drug NO KNOWN Allergy Active [facility] Social History Social Habit Start Date Stop Date Quantity Comments Source History SDOH [facility] Alcohol Comment Medical C enter History SDOH [facility] Alcohol Std Drinks Hospit al History SDOH [facility] Alcohol Binge Hospital Cigarette 2021-10-08 2021-10-08 [facility] of pack-years 00:00:00 00:00:00 Medicine Tobacco use and 2021-02-18 2021-02-18 Never used HANNAH Monae kes exposure 00:00:00 00:00:00 Medical Center Alcohol intake 2020-08-24 2020-08-24 Lifetime [facility] 00:00:00 00:00:00 non-drinker Hospital (finding) History SDOH 2020-06-23 2020-06-23 1 [facility] Alcohol Frequency 00:00:00 00:00:00 Hospita l Sex Ass[birth year] At [birth year] [facility] 00:00:00 00:00:00 Hospital Smoking Status Start Date Stop Date Source Tobacco smoking consumption unknown [facility] Never smoked tobacco [facility] of Medicine Medications [...] 00:00 of 08 :00 Medicin e metoprolol Yes [id number] 50mg Take 1 [facility] (TOPROL XL) 6-20 Tablet by [facility]ge 50 MG XL 00:00: mouth of tablet 00 every 12 Medicin hours. e hydrALAZINE Yes [id number] 50mg Take 1 [facility] (APRESOLINE 6-20 Tablet by Col lege ) 50 MG 00:00: mouth of tablet 00 every 12 Medicin hours. e furosemide Yes 20mg Take 20 mg [facility] (LASIX) 20 3-14 by mouth Colle ge MG tablet 00:00: two times of 00 daily. Medicin e furosemide Yes 20mg Take 20 mg [facility] (LASIX) 20 3-14 by mouth Colle ge MG tablet 00:00: two times of 00 daily. Medicin e levothyroxi 0 Yes [facility] 3-09 [place] (SYNTHROID) 00:00: of 75 MCG 00 Medicin tablet e levothyroxi 0 Yes [facility] 3-09 [place] (SYNTHROID) 00:00: of 75 MCG 00 Medicin tablet e ELIQUIS 2.5 0 Yes Devan MG TABS 2-21 [place] 00:00: of 00 Medicin e ELIQUIS 2.5 0 Yes [facility] MG TABS 2-21 [place] 00:00: of 00 Medicin e gabapentin 2020-04 Yes 600mg Take 600 [facility] (NEURONTIN) 1-29 mg by [facility] 600 MG 14:06: mouth of tablet 23 daily. Medicin e omeprazole 2020-04 Yes daily. [facility] (PRILOSEC) 1-29 [facility] 40 MG 14:06: of capsule 23 Medicin e ondansetron 2020-04 Yes daily as [facility] (ZOFRAN) 4 - needed. [facility] MG tablet 14:06: of 23 Medicin e gabapentin 2020-04 Yes 600mg Take 600 [facility] (NEURONTIN) 1-29 mg by [place] 600 MG 14:06: mouth of tablet 23 daily. Medicin e omeprazole 2020-04 Yes daily. [facility] (PRILOSEC) 1-29 [facility] 40 MG 14:06: of capsule 23 Medicin e ondansetron 2020-04 Yes daily as [facility] (ZOFRAN) 4 - needed. [facility] MG tablet 14:06: of 23 Medicin e famotidine 2020-04 Yes 20mg QD [facility] ([facility] 20 1-16 tablet (20 Lyssa kes MG tablet 00:00: mg total) Med ical 00 by mouth Center daily. famotidine 2020-04 Yes 20mg QD Take 1 [facility] ([facility]ID) 20 1-16 tablet (20 Lyssa kes MG tablet 00:00: mg total) Med ical 00 by mouth Center daily. famotidine 2020-04 Yes 20mg QD Take 1 [facility] (PEPCID) 20 1-16 tablet (20 Lyssa kes MG tablet 00:00: mg total) Med ical 00 by mouth Center daily. famotidine 2020-04 Yes 20mg QD Take 1 [facility] (PEPCID) 20 1-16 tablet (20 Lyssa kes MG tablet 00:00: mg total) Med ical 00 by mouth Center daily. amiodarone 2020-04- No 400mg QD Take [address] (PACERONE) -16 -16 tablet [facility] 400 MG 00:00: 23:59 (400 mg Medical tablet 00 :00 total) by Center mouth daily. amiodarone 2020-04- No 400mg QD Take [address] (PACERONE) -16 -16 tablet [facility] 400 MG 00:00: 23:59 (400 mg Medical tablet 00 :00 total) by Center mouth daily. amiodarone 2020-04- No 400mg QD Take [address] (PACERONE) -16 -16 tablet [facility] 400 MG 00:00: 23:59 (400 mg Medical tablet 00 :00 total) by Center mouth daily. amiodarone 2020-04- No 400mg QD Take [address] (PACERONE) -16 -16 tablet [facility] 400 MG 00:00: 23:59 (400 mg Medical tablet 00 :00 total) by Center mouth daily. gabapentin 2020-04 Yes 600mg QD Take [address] (NEURONTIN) 1-15 mg by [facility] 600 MG 14:09: mouth Medical tablet 12 daily. [place] levothyroxi 2020-04 Yes 75ug Take [address] ne 1-15 mcg by [facility] (SYNTHROID, 14:09: mouth Medic al LEVOTHROID) 12 Every Center 75 MCG morning on tablet an empty stomach. omeprazole 2020-04 Yes 40mg QD Take [address] (PriLOSEC) 1-15 by mouth [facility] 40 MG 14:09: daily. Medical capsule 12 [place] cetirizine 2020-04 Yes 10mg Take [address] (ZyrTEC) 10 1-15 by mouth Luke s MG tablet 14:09: as needed Med ical 12 for Center Allergies. multivitami 2020-04 Yes 1{capsu QD Take [address] n capsule 1-15 le} capsule by Luke s 14:09: mouth Medical 12 daily. Center gabapentin 2020-04 Yes 600mg QD Take [address] (NEURONTIN) 1-15 mg by [facility] 600 MG 14:09: mouth Medical tablet 12 daily. Center levothyroxi 2020-04 Yes 75ug Take [address] ne 1-15 mcg by [facility] (SYNTHROID, 14:09: mouth Medic al LEVOTHROID) 12 Every Center 75 MCG morning on tablet an empty stomach. omeprazole 2020-04 Yes 40mg QD Take [address] (PriLOSEC) 1-15 by mouth [facility] 40 MG 14:09: daily. Medical capsule 12 Center cetirizine 2020-04 Yes 10mg Take [address] (ZyrTEC) 10 1-15 by mouth Luke s MG tablet 14:09: as needed Med ical 12 for Center Allergies. multivitami 2020-04 Yes 1{capsu QD Take [address] n capsule 1-15 le} capsule by Luke s 14:09: mouth Medical 12 daily. Center gabapentin 2020-04 Yes 600mg QD Take [address] (NEURONTIN) 1-15 mg by [facility] 600 MG 14:09: mouth Medical tablet 12 daily. Center levothyroxi 2020-04 Yes 75ug Take [address] ne 1-15 mcg by [facility] (SYNTHROID, 14:09: mouth Medic al LEVOTHROID) 12 Every Center 75 MCG morning on tablet an empty stomach. omeprazole 2020-04 Yes 40mg QD Take [address] (PriLOSEC) 1-15 by mouth [facility] 40 MG 14:09: daily. Medical capsule 12 Center cetirizine 2020-04 Yes 10mg Take [address] (ZyrTEC) 10 1-15 by mouth Luke s MG tablet 14:09: as needed Med ical 12 for Center Allergies. multivitami 2020-04 Yes 1{capsu QD Take [address] n capsule 1-15 le} capsule by Luke s 14:09: mouth Medical 12 daily. Center gabapentin 2020-04 Yes 600mg QD Take [address] (NEURONTIN) 1-15 mg by [facility] 600 MG 14:09: mouth Medical tablet 12 daily. Center levothyroxi 2020-04 Yes 75ug Take [address] ne 1-15 mcg by [facility] (SYNTHROID, 14:09: mouth Medic al LEVOTHROID) 12 Every Center 75 MCG morning on tablet an empty stomach. omeprazole 2020-04 Yes 40mg QD Take [address] (PriLOSEC) 1-15 by mouth [facility] 40 MG 14:09: daily. Medical capsule 12 Center cetirizine 2020-04 Yes 10mg Take [address] (ZyrTEC) 10 1-15 by mouth Luke s MG tablet 14:09: as needed Med ical 12 for Center Allergies. multivitami 2020-04 Yes 1{capsu QD Take [address] n capsule 1-15 le} capsule by Luke s 14:09: mouth Medical 12 daily. Center hydrocodone 2020-04 Yes daily as [facility] -acetaminop 1-15 needed. [facility]le ge hen (Penemarie K Murphy) 00:00: of 7.5-325 MG 00 Medicin per tablet e amiodarone 2020-04 Yes daily. [facility] (PACERONE) 1-15 [facility] 200 MG 00:00: of tablet 00 Medicin e hydrocodone 2020-04 Yes daily as [facility] -acetaminop 1-15 needed. [facility]le ge hen (Penemarie K Murphy) 00:00: of 7.5-325 MG 00 Medicin per tablet e amiodarone 2020-04 Yes daily. [facility] (PACERONE) 1-15 [facility] 200 MG 00:00: of tablet 00 Medicin e amiodarone 2020-04 Yes daily. [facility] (PACERONE) 1-15 [facility] 200 MG 00:00: of tablet 00 Medicin e hydrocodone 2020-04 Yes daily as [facility] -acetaminop 1-15 needed. [facility]le ge hen (Penemarie K [facility]) 00:00: of 7.5-325 MG 00 Medicin per tablet e metoprolol 2020-04- No 25mg Take 25 mg [facility] (TOPROL-XL) 1-15 11-16 by mouth Col lege 25 MG XL 00:00: 05:59 two times of tablet 00 :00 daily. Medicin e metoprolol 2020-04- No 25mg Take 25 mg [facility] (TOPROL-XL) 1-15 11-16 by mouth Col lege 25 MG XL 00:00: 05:59 two times of tablet 00 :00 daily. Medicin e ferrous 2020-04- No 325mg QD Take [address] sulfate 325 1-15 11-15 tablet [facility] (65 FE) MG 00:00: 23:59 (325 mg Med ical tablet 00 :00 total) by Center mouth daily. metoprolol 2020-04- No 25mg Q.5D Take [address] succinate 1-15 11-15 tablet (25 Rafaela es (TOPROL-XL) 00:00: 23:59 mg total) Medical 25 MG 24 hr 00 :00 by mouth 2 Ce nter tablet (two) times daily. ferrous 2020-04- No 325mg QD Take [address] sulfate 325 1-15 11-15 tablet [facility] (65 FE) MG 00:00: 23:59 (325 mg Med ical tablet 00 :00 total) by Center mouth daily. metoprolol 2020-04- No 25mg Q.5D Take [address] succinate 1-15 11-15 tablet (25 Rafaela es (TOPROL-XL) 00:00: 23:59 mg total) Medical 25 MG 24 hr 00 :00 by mouth 2 Ce nter tablet (two) times daily. ferrous 2020-04 No 325mg QD Take [address] sulfate 325 1-15 11-15 tablet [facility] (65 FE) MG 00:00: 23:59 (325 mg Med ical tablet 00 :00 total) by Center mouth daily. metoprolol 2020-04 No 25mg Q.5D Take [address] succinate 1-15 11-15 tablet (25 Rafaela es (TOPROL-XL) 00:00: 23:59 mg total) Medical 25 MG 24 hr 00 :00 by mouth 2 Ce nter tablet (two) times daily. ferrous 2020-04 No 325mg QD Take [address] sulfate 325 1-15 11-15 tablet [facility] (65 FE) MG 00:00: 23:59 (325 mg Med ical tablet 00 :00 total) by Center mouth daily. metoprolol 2021-1 2022- No 25mg Q.5D Take [address] succinate 1-15 11-15 tablet (25 [facility] (TOPROL-XL) 00:00: 23:59 mg total) Medical 25 MG 24 hr 00 :00 by mouth 2 Ce nter tablet (two) times daily. metoprolol 2020-04 No 25mg Take 25 mg [facility] (TOPROL-XL) 1-15 06-20 by mouth Col lege 25 MG XL 00:00: 00:00 two times of tablet 00 :00 daily. Medicin e Apixaban 2020-04- No 2.5mg Take 2.5 [place] miguel 2.5 MG TABS 1-15 12-16 mg by Colleg e 00:00: 05:59 mouth two of 00 :00 times Medicin daily. e apixaban 2020-04 No 2.5mg Q.5D Take 1 [facility] (ELIQUIS) 1-15 12-15 tablet [facility] 2.5 mg Tab 00:00: 23:59 (2.5 mg Med ical tablet 00 :00 total) by Center mouth 2 (two) times daily for 30 days. HYDROcodone 2020-04 No 1{tbl} Take [address] -acetaminop 1-15 11-25 tablet by Lyssa abreu (NORCO 00:00: 23:59 mouth Medic al 7.5-325) 00 :00 every 6 Center 7.5-325 mg (six) per tablet hours as needed for up to 10 days. Max Daily Amount: 4 tablets levofloxaci 0 Yes daily. [facility] 12-20 [facility]) 00:00: of 250 MG 00 Medicin tablet e levofloxaci 2020-0 Yes daily. [facility] 12-20 [facility]) 00:00: of 250 MG 00 Medicin tablet e levofloxaci 2020-0 2021- No daily. [place] miguel n 12-20 [facility]) 00:00: 00:00 of 250 MG 00 :00 Medicin tablet e levothyroxi 2020-0 Yes 75ug QD Take 75 Met hodi ne 5-[address] (SYNTHROID) 18:57: mouth Hospi ta 75 mcg 26 daily. l tablet omeprazole 2021-0 Yes 40mg QD Take 40 mg M ethodi (PriLOSEC) 5-[address] 40 MG 18:57: daily. Hospita capsule 26 l metoclopram 2020-0 Yes 5mg Q.[id number] Take 5 mg Methodi regino 5-06 [id number] by mouth [address] (REGLAN) 5 18:57: 3D (three) Hosp ajay MG tablet 26 times a l day. meclizine 2020-0 Yes 25mg Q.25D Take 25 mg M ethodi (ANTIVERT) 5-[address] 25 mg 18:57: (four) Hospita tablet 26 times a l day as needed for dizziness. calcitrioL 2020-0 Yes .25ug Q48H Take 0.25 M ethodi (ROCALTROL) 5-[address] 0.25 MCG 18:57: mouth Hospita capsule 26 every l other day. traMADoL 2020-0 Yes [id number] 50mg Q6H Take 50 mg Me thodi (ULTRAM) 50 5-[address] mg tablet 18:57: every 6 Hospi ta 26 (six) l hours as needed for moderate pain .acute pain. promethazin 0 Yes 25mg Q6H Take 25 mg Methodi [...] 13:57: daily. Hospita capsule 26 l metoclopram 2020-0 Yes 5mg Q.[id number] Take 5 mg Methodi regino 5-[id number] mouth [address] (REGLAN) 5 13:57: 3D (three) Hosp ajay MG tablet 26 times a l day. meclizine 2020-0 Yes 25mg Q.25D Take 25 mg M ethodi (ANTIVERT) 5-[address] 25 mg 13:57: (four) Hospita tablet 26 times a l day as needed for dizziness. calcitrioL 2020-0 Yes .25ug Q48H Take 0.25 M ethodi (ROCALTROL) 5-[address] 0.25 MCG 13:57: mouth Hospita capsule 26 every l other day. traMADoL 2020-0 Yes [id number] 50mg Q6H Take 50 mg [facility] (ULTRAM) 50 5-[address] mg tablet 13:57: every 6 Hospi ta 26 (six) l hours as needed for moderate pain .acute pain. promethazin 0 Yes 25mg Q6H Take 25 mg Methodi e 5-[address] (PHENERGAN) 13:57: every 6 Hos agueda 25 MG 26 (six) l tablet hours as needed for nausea or vomiting. hydrALAZINE 0 Yes 100mg Q.5D Take 100 M ethodi (APRESOLINE 5-[address] ) 100 MG 13:57: mouth 2 Hospit a tablet 26 (two) l times a day. levothyroxi 0 Yes 75ug QD Take 75 Met hodi ne 5-[address] (SYNTHROID) 13:57: mouth Hospi ta 75 mcg 26 daily. l tablet omeprazole 0 Yes 40mg QD Take 40 mg M ethodi (PriLOSEC) 5-[address] 40 MG 13:57: daily. Hospita capsule 26 l metoclopram 0 Yes 5mg Q.[id number] Take 5 mg Methodi regino 5-06 [id number] [address] mouth [address] [facility] (REGLAN) 5 13:57: 3D (three) Hosp ajay MG tablet 26 times a l day. meclizine 2020-0 Yes 25mg Q.25D Take 25 mg M ethodi (ANTIVERT) 5-[address] 25 mg 13:57: (four) Hospita tablet 26 times a l day as needed for dizziness. calcitrioL 2020-0 Yes .25ug Q48H Take 0.25 M ethodi (ROCALTROL) 5-[address] 0.25 MCG 13:57: mouth Hospita capsule 26 every l other day. traMADoL 2020-0 Yes [id number] 50mg Q6H Take 50 mg Me thodi [...] as needed for nausea or vomiting. hydrALAZINE 2020-0 Yes 100mg Q.5D Take 100 M ethodi [...] capsule 26 l metoclopram 0 Yes 5mg Q.[id number] Take 5 mg Methodi regino 5-06 [id number] mouth [facility] (REGLAN) 5 13:57: [...] every l other day. traMADoL 2020-0 Yes [id number] 50mg Q6H Take 50 mg Me thodi [...] times a day. tramadol Yes as needed. [place] [facility] (ULTRAM) 50 3-28 [facility] MG tablet 00:00: of 00 Medicin e tramadol Yes as needed. [place] [facility] (ULTRAM) 50 3-28 [facility] MG tablet 00:00: of 00 Medicin e tramadol Yes as needed. [place] [facility] (ULTRAM) 50 3-28 College MG tablet [...] mouth l daily for 30 days. traMADoL 2020- No [id number] 50mg Q8H Take 50 mg M ethodi (ULTRAM) 50 -11 21-[address] mg tablet 23:49: 00:00 every 8 Hosp ajay 18 :00 (eight) l hours as needed for moderate pain .acute pain. amLODIPine 2020- No 5mg QD Take 5 mg M ethodi (NORVASC) 5 06-26-[address] mg tablet 17:50: 00:00 daily. Hospi ta 49 :00 l amoxicillin 2020- No 500mg Q.[id number] Take 500 Methodi (AMOXIL) 06-26-[id number] 500 MG 17:50: 00:00 3D mouth 3 Hospita capsule 49 :00 (three) l times a day. amoxicillin 2020- No 1{tbl} QD Take 1 M ethodi -pot 06-26-[address] clavulanate 17:50: 00:00 mouth Hosp ajay (AUGMENTIN) 49 :00 daily. l 500-125 mg Disp per tablet 06/18/20 18 day supply calcitrioL 2020- No .25ug QD Take 0.25 Methodi (ROCALTROL) [...] 100mg QD Take 100 M ethodi succinate 06-26-[address] XL 17:50: 00:00 mouth Hospita (TOPROL-XL) 49 :00 daily. l 100 mg 24 hr tablet prochlorper No 10mg Q8H Take 10 mg Methodi azine 06-26-[address] (COMPAZINE) 17:50: 00:00 every 8 Ho spita 10 MG 49 :00 (eight) l tablet hours as needed for nausea or vomiting. carvediloL No 25mg Q.5D Take 1 Meth shyam (COREG) 25 06-26-08 tablet (25 st MG tablet 00:00: 04:59 mg total) Ho spita 00 :00 by mouth 2 l (two) times a day with meals for 30 days. traMADoL [id number] 50mg Q8H Take 1 Metho di (ULTRAM) 50 06-26-19 tablet (50 s t mg tablet 00:00: 04:59 mg total) Ho spita 00 :00 by mouth l every 8 (eight) hours as needed for moderate pain for up to 10 days .acute pain. Immunizations Ordered Immunization Filled Immunization Date Status Commen ts Source Name Name Moderna SARS-CoV-2 2020-06-02 Completed [facility] Vaccination 00:00:00 of Medicine Moderna SARS-CoV-2 2020-06-02 Completed [facility] Vaccination 00:00:00 of Medicine Moderna SARS-CoV-2 2020-05-05 Completed [facility] Vaccination 00:00:00 of Medicine Moderna SARS-CoV-2 2020-05-05 Completed [facility] Vaccination 00:00:00 of Medicine Vital Signs Vital Name Observation Time Observation Value Comments Source Systolic blood 2021-10-08 16:22:00 187 mm[Hg] [facility] pressure Medicine Diastolic blood 2021-10-08 16:22:00 80 mm[Hg] [facility] of pressure Medicine Heart rate 2021-10-08 16:20:00 50 /min [facility] Body height 2021-10-08 16:20:00 162.6 cm [facility] Body weight 2021-10-08 16:20:00 82.101 kg [facility] BMI 2021-10-08 16:20:00 31.07 kg/m2 [facility] Oxygen saturation in 2021-10-08 16:20:00 96 /min [facility] of Arterial blood by Medicine Pulse oximetry Diastolic blood 2021-07-02 16:28:00 80 mm[Hg] [facility] of pressure Medicine Heart rate 2021-07-02 16:28:00 54 /min [facility] Systolic blood 2021-07-02 16:28:00 175 mm[Hg] [facility] of pressure Medicine Respiratory rate 2021-07-02 16:27:00 16 /min [facility] Body height 2021-07-02 16:27:00 162.6 cm [facility] Body weight 2021-07-02 16:27:00 72.122 kg [facility] BMI 2021-07-02 16:27:00 27.29 kg/m2 [facility] Oxygen saturation in 2021-07-02 16:27:00 100 /min [facility] of Arterial blood by Medicine Pulse oximetry Systolic blood 2021-03-19 19:57:00 152 mm[Hg] [facility] pressure Medicine Diastolic blood 2021-03-19 19:57:00 81 mm[Hg] [facility] pressure Medicine Heart rate 2021-03-19 19:57:00 69 /min [facility] Respiratory rate 2021-03-19 19:57:00 16 /min [facility] Body height 2021-03-19 19:57:00 162.6 cm [facility] Body weight 2021-03-19 19:57:00 74.844 kg [facility] BMI 2021-03-19 19:57:00 28.32 kg/m2 [facility] Oxygen saturation in 2021-03-19 19:57:00 99 /min [facility] of Arterial blood by Medicine Pulse oximetry [...] Oxygen saturation in 2020-08-24 13:15:00 95 /min [facility] Arterial blood by Pulse oximetry Systolic blood 2020-08-24 12:37:48 146 mm[Hg] [facility] Diastolic blood 2020-08-24 12:37:48 62 mm[Hg] [facility] pressure Heart rate 2020-08-24 12:37:48 92 /[facility] Body [facility] 2020-08-24 12:37:48 36.5 Claudine [facility] Respiratory rate 2020-08-24 12:37:48 16 /min [facility] Body weight 2020-08-24 10:48:00 75.932 kg [facility] BMI 2020-08-24 10:48:00 28.73 kg/m2 [facility] Body height 2020-08-20 05:05:44 162.6 cm [facility] Procedures Procedure Date / Time Performing Clinician Source Performed ELECTROCARDIOGRAM COMPLETE 2021-03-19 21:28:00 Kelsi Sullivan [facility] HC COMPLETE BLD COUNT 2020-08-24 10:35:00 Jerad [facility] W/AUTO DIFF Aziz COMPREHENSIVE METABOLIC 2020-08-24 10:35:00 Jerad [facility] PANEL Aziz ESTIMATED GFR 2020-08-24 10:35:00 Jerad [facility] ospital Aziz BILIRUBIN DIRECT 2020-08-24 10:35:00 [facility] 2020-08-24 10:35:00 Dorys [facility] ospital [place] MAGNESIUM LEVEL 2020-08-24 10:35:00 Dorys Garrett spital [place] SURGICAL PATHOLOGY REQUEST 2020-08-23 17:50:[address] [facility] NM AN ELECTIVE ENDOTRACHEAL 2020-08-23 15:51:43 Tom Longoria [facility] AIRWAY Joey CHOLECYSTECTOMY, 2020-08-23 15:02:00 Jerad [facility] LAPAROSCOPIC Aziz BASIC METABOLIC PANEL 2020-08-23 09:21:00 [facility] HEPATIC FUNCTION PANEL 2020-08-23 09:21:00 [facility] HC COMPLETE BLD COUNT 2020-08-23 09:21:00 [facility] Aziz TYPE AND SCREEN 2020-08-23 09:21:00 Jerad [facility] ospital Aziz ESTIMATED GFR 2020-08-23 09:21:00 Errol [facility] ospital Aly COVID-19 QUALITATIVE RT-PCR 2020-08-23 03:20:00 Jerad [facility] Aziz BASIC METABOLIC PANEL 2020-08-22 09:01:00 Celso Keenan [facility] ESTIMATED GFR 2020-08-22 09:01:00 Celso Keenan Ho spital PHOSPHORUS LEVEL 2020-08-22 09:01:00 Tami, Dorys [facility]spital [place] MAGNESIUM LEVEL 2020-08-22 09:01:00 Tami, Dorys Martinez Ho spital [place] BASIC METABOLIC PANEL 2020-08-21 23:36:00 Tami, Dorys [facility] [place] MAGNESIUM LEVEL 2020-08-21 23:36:00 TamiDorys spital [place] PHOSPHORUS LEVEL 2020-08-21 23:36:00 Tami, Dorys [facility] [place] ALBUMIN LEVEL 2020-08-21 23:36:00 Tami, Dorys Schuster spital [place] IONIZED CALCIUM 2020-08-21 23:36:00 Tami, Dorys Martinez Ho spital [place] ESTIMATED GFR 2020-08-21 23:36:00 Tami, Dorys Schuster spital [place] VENIPUNC NEED PHYS SKILL,DX 2020-08-21 19:03:00 Manuel Mayers [facility] OR RX BASIC METABOLIC PANEL 2020-08-21 09:32:00 Celso Keenan [facility] PHOSPHORUS LEVEL 2020-08-21 09:32:00 Celso Keenan ospital PARATHYROID HORMONE 2020-08-21 09:32:00 [facility] 25 HYDROXY LEVEL 2020-08-21 09:32:00 Celso Keenan [facility] ESTIMATED GFR 2020-08-21 09:32:00 AlroumoCelso quevedo PROTHROMBIN TIME WITH INR 2020-08-21 09:32:00 [facility] 2020-08-21 09:32:00 TamiDorys [facility] XR CHEST 1 VW PORTABLE 2020-08-20 11:21:29 David [facility] COMPREHENSIVE METABOLIC 2020-08-20 09:40:00 David [facility] PANEL HC COMPLETE BLD COUNT 2020-08-20 09:40:00 [facility] DIFF MAGNESIUM LEVEL 2020-08-20 09:40:00 [facility] LIPASE LEVEL 2020-08-20 09:40:00 [facility] AMYLASE LEVEL 2020-08-20 09:40:00 [facility] 2020-08-20 09:40:00 [facility] COMPLETE BLD COUNT 2020-08-20 05:27:00 [facility]AUTO DIFF COMPREHENSIVE METABOLIC 2020-08-20 05:27:00 David [facility] PANEL MAGNESIUM LEVEL 2020-08-20 05:27:00 [facility] AMYLASE LEVEL 2020-08-20 05:27:00 [facility] LIPASE LEVEL 2020-08-20 05:27:00 [facility] LIPID PANEL 2020-08-20 05:27:00 [facility] ESTIMATED GFR 2020-08-20 05:27:00 [facility] HEMOGLOBIN A1C 2020-08-20 05:27:00 [facility] OR [place] < 1 HOUR 2020-06-26 16:36:00 David Omalley NM AN ELECTIVE SUPRAGLOTTIC 2020-06-26 16:20:38 Octavio Le [facility] AIRWAY INSERTION, TUNNELED CENTRAL 2020-06-26 15:37:00 [facility] CATHETER WITH PORT, WITHOUT FLUOROSCOPIC GUIDANCE HEMODIALYSIS 2020-06-26 15:32:43 [facility] WITH INR 2020-06-26 10:26:00 [facility] PARTIAL THROMBOPLASTIN TIME 2020-06-26 10:26:00 [facility] (PTT) BASIC METABOLIC PANEL 2020-06-26 10:26:00 [facility] Balaji HC COMPLETE BLD COUNT 2020-06-26 10:26:00 [facility] W/AUTO DIFF Balaji ABO AND RH CONFIRMATION 2020-06-26 10:26:00 [facility] ESTIMATED GFR 2020-06-26 10:26:00 [facility] Balaji TYPE AND SCREEN 2020-06-25 20:17:00 [facility] NECK SOFT TISSUE 2020-06-25 15:00:00 [facility] BASIC METABOLIC PANEL 2020-06-25 10:05:00 [facility] Balaji HC COMPLETE BLD COUNT 2020-06-25 10:05:00 [facility] W/AUTO DIFF Balaji ESTIMATED GFR 2020-06-25 10:05:00 [facility] Balaji HEPATITIS B SURFACE ANTIGEN 2020-06-24 20:22:00 [facility] HEPATITIS B SURFACE AB, 2020-06-24 20:22:00 [facility] QUANTITATIVE HEMODIALYSIS 2020-06-24 19:48:38 Suri [facility] ospital XR CHEST 1 VW PORTABLE 2020-06-24 05:27:43 Lyssa [facility] AMYLASE LEVEL 2020-06-24 03:54:00 [facility] LIPASE LEVEL 2020-06-24 03:54:00 [facility] COMPREHENSIVE METABOLIC 2020-06-24 03:54:00 [facility] PANEL ESTIMATED GFR 2020-06-24 03:54:00 [facility] COVID-19 QUALITATIVE RT-PCR 2020-06-24 01:00:00 [facility] HC COMPLETE BLD COUNT 2020-06-23 23:09:00 [facility] W/AUTO DIFF PROTHROMBIN TIME WITH INR 2020-06-23 23:09:00 [facility] PARTIAL THROMBOPLASTIN TIME 2020-06-23 23:09:00 [facility] (PTT) BASIC METABOLIC PANEL 2020-06-23 23:09:00 [facility] ESTIMATED GFR 2020-06-23 23:09:00 [facility] ECG 12-LEAD 2020-06-23 23:05:40 [facility] ECG ED PRELIMINARY 2020-06-23 22:57:05 [facility] INTERPRETATION Plan of Care Planned Activity Planned Date Details Comments Source Future Scheduled 2022-05-10 COVID-19 VACCINE (#1) [facility] 09:52:29 [code = COVID-19 VACCINE Hos pital (#1)] Future Scheduled 2022-05-10 65+ PNEUMOCOCCAL VACCINE [facility] Test 09:52:29 (1 - PCV) [code = 65+ Hospit al PNEUMOCOCCAL VACCINE (1 - PCV)] Future Scheduled 2022-05-10 Hepatitis C screening [facility] 09:52:29 (procedure) [code = Hospital [id number]] Future Scheduled 2022-05-10 SHINGLES VACCINES (1 of [facility] Test 09:52:29 2) [code = SHINGLES Hospital VACCINES (1 of 2)] Future Scheduled 2022-05-10 INFLUENZA VACCINE [code [facility] Test 09:52:29 = INFLUENZA VACCINE] Hospita l Future Scheduled 2022-04-[address] [facility] Test 00:00:00 (12+) [code = DEPRESSION Med [facility] SCREENING (12+)] Future Scheduled 2022-04-21 FALLS RISK SCREENING [facility] Test 00:00:00 [code = FALLS RISK Medical C enter SCREENING] Future Scheduled 2022-04-05 COVID-19 VACCINE (#1) [facility] 22:33:07 [code = COVID-19 VACCINE Hos pital (#1)] Future Scheduled 2022-04-05 65+ PNEUMOCOCCAL VACCINE [facility] Test 22:33:07 (1 - PCV) [code = 65+ Hospit al PNEUMOCOCCAL VACCINE (1 - PCV)] Future Scheduled 2022-04-05 Hepatitis C screening [facility] 22:33:07 (procedure) [code = Hospital [id number]] Future Scheduled 2022-04-05 SHINGLES VACCINES (1 of [facility] Test 22:33:07 2) [code = SHINGLES Hospital VACCINES (1 of 2)] Future Scheduled 2022-04-05 INFLUENZA VACCINE [code [facility] Test 22:33:07 = INFLUENZA VACC[facility]] [facility] 2022-02-23 HEPATITIS B VACCINES (1 [facility] Test 10:19:45 of 3 - 3-dose series) Hospit al [code = HEPATITIS B VACCINES (1 of 3 - 3-dose series)] Future Scheduled 2022-02-23 COVID-19 VACCINE (#1) [facility] 10:19:45 [code = COVID-19 VACCINE Hos pital (#1)] Future Scheduled 2022-02-23 65+ PNEUMOCOCCAL VACCINE [facility] Test 10:19:45 (1 - PCV) [code = 65+ Hospit al PNEUMOCOCCAL VACCINE (1 - PCV)] Future Scheduled 2022-02-23 Hepatitis C screening [facility] 10:19:45 (procedure) [code = Hospital [id number]] Future Scheduled 2022-02-23 SHINGLES VACCINES (1 of [facility] Test 10:19:45 2) [code = SHINGLES Hospital VACCINES (1 of 2)] Future Scheduled 2022-02-23 INFLUENZA VACCINE [code [facility] Test 10:19:45 = INFLUENZA VACCINE] Hospita l Future Scheduled 2022-02-[address] [facility] Test 00:00:00 Counseling and Screening [facility] (12+) [code = Tobacco Cessation Counseling and Screening (12+)] Future Scheduled 2022-02-[address] [facility] Test 00:00:00 Counseling and Screening [facility] (12+) [code = Tobacco Cessation Counseling and Screening (12+)] Future Scheduled 2022-02-[address] [facility] Test 00:00:00 Counseling and Screening [facility] (12+) [code = Tobacco Cessation Counseling and Screening (12+)] Future Scheduled 2021-12-20 INFLUENZA VACCINE (#1) [facility] 00:00[facility]00 [code = INFLUENZA Medical Ce nter VACCINE (#1)] Future Scheduled 2021-12-20 INFLUENZA VACCINE (#1) [facility] 00:00:00 [code = INFLUENZA Medical Ce nter VACCINE (#1)] Future Scheduled 2021-12-20 INFLUENZA VACCINE (#1) [facility] 00:00:00 [code = INFLUENZA Medical Ce nter VACCINE (#1)] Future Scheduled 2021-12-20 INFLUENZA VACCINE (#1) [facility] 00:00:00 [code = INFLUENZA Medical Ce nter VACCINE (#1)] Future Scheduled 2021-10-08 Pneumococcal 65+ (1 - Ba [facility] Test 11:43:21 PCV) [code = of Medicine Pneumococcal 65+ (1 - PCV)] Future Scheduled 2021-10-08 TETANUS SHOT (ADULT) [facility] Test 11:43:21 [code = TETANUS SHOT of Medi cine (ADULT)] Future Scheduled 2021-10-08 BMI FOLLOW UP PLAN [code [facility] Test 11:43:21 = BMI FOLLOW UP PLAN] of Med icine Future Scheduled 2021-10-08 ZOSTER VACCINE (1 of 2) [facility] Test 11:43:21 [code = ZOSTER VACCINE of Or dicine (1 of 2)] Future Scheduled 2021-10-08 [facility] 11:43:21 [code = MEDICARE AWV of Medi cine (Initial)] Future Scheduled 2021-10-08 FALL SCREEN [code = FALL [facility] Test 11:43:21 SCREEN] of Medicine Future Scheduled 2021-10-08 Screening for [facility] Test 11:43:21 osteoporosis (procedure) of Medicine [code = [id number]] Future Scheduled 2021-10-08 COVID-19 Vaccine (3 - Ba [facility] Test 11:43:21 Booster for Moderna of Medic ine series) [code = COVID-19 Vaccine (3 - Booster for Moderna series)] Future Scheduled 2021-10-08 FLU VACCINE > 6 MONTHS [employer] Test 11:43:21 [code = FLU VACCINE > 6 of M edicine MONTHS] Future Scheduled 2021-10-02 ECHO, COMPLETE [code = Expected: [facility] [employer] Test 00:00:00 [id number]] 10/02/2021, of Medicine Expires: 01/02/2022 Future Scheduled 2021-07-04 TETANUS SHOT (ADULT) [facility] Test 09:48:32 [code = TETANUS SHOT of Medi cine (ADULT)] Future Scheduled 2021-07-04 BMI FOLLOW UP PLAN [code [facility] Test 09:48:32 = BMI FOLLOW UP PLAN] of Med icine Future Scheduled 2021-07-04 ZOSTER VACCINE (1 of 2) [facility] Test 09:48:32 [code = ZOSTER VACCINE of Me dicine (1 of 2)] Future Scheduled 2021-07-04 MEDICARE AWV (Initial) [facility] Test 09:48:32 [code = MEDICARE AWV of Medi cine (Initial)] Future Scheduled 2021-07-04 FALL SCREEN [code = FALL [facility] Test 09:48:32 SCREEN] of Medicine Future Scheduled 2021-07-04 Screening for [facility] Test 09:48:32 osteoporosis (procedure) of Medicine [code = [id number]] Future Scheduled 2021-07-04 Pneumococcal 65+ (1 of 1 [facility] Test 09:48:32 - PPSV23) [code = of Medicin e Pneumococcal 65+ (1 of 1 - PPSV23)] Future Scheduled 2021-07-04 COVID-19 Vaccine (3 - [facility] Test 09:48:32 Booster for Moderna of Medic ine series) [code = COVID-19 Vaccine (3 - Booster for Moderna series)] Future Scheduled 2021-07-04 FLU VACCINE > 6 MONTHS [employer] Test 09:48:32 [code = FLU VACCINE > 6 of M edicine MONTHS] Future Scheduled 2021-04-[address] [facility] Test 00:00:00 (12+) [code = DEPRESSION Med [facility] SCREENING (12+)] Future Scheduled 2021-04-21 FALLS RISK SCREENING [facility] Test 00:00:00 [code = FALLS RISK Medical C enter SCREENING] Future Scheduled 2021-04-[address] [facility] Test 00:00:00 (12+) [code = DEPRESSION Med ical Center SCREENING (12+)] Future Scheduled 2021-04-21 FALLS RISK SCREENING [facility] Test 00:00:00 [code = FALLS RISK Medical C enter SCREENING] Future Scheduled 2021-04-[address] [facility] Test 00:00:00 (12+) [code = DEPRESSION Med ical Center SCREENING (12+)] Future Scheduled 2021-04-21 FALLS RISK SCREENING [facility] Test 00:00:00 [code = FALLS RISK Medical C enter SCREENING] Future Scheduled 2021-03-21 Pneumococcal 65+ (1 of 2 [facility] Test 11:13:21 - PPSV23) [code = of Medicin e Pneumococcal 65+ (1 of 2 - PPSV23)] Future Scheduled 2021-03-21 TETANUS SHOT (ADULT) [facility] Test 11:13:21 [code = TETANUS SHOT of Medi cine (ADULT)] Future Scheduled 2021-03-21 BMI FOLLOW UP PLAN [code [facility] Test 11:13:21 = BMI FOLLOW UP PLAN] of Med icine Future Scheduled 2021-03-21 ZOSTER VACCINE (1 of 2) [facility] Test 11:13:21 [code = ZOSTER VACCINE of Me dicine (1 of 2)] Future Scheduled 2021-03-21 MEDICARE AWV (Initial) [facility] Test 11:13:21 [code = MEDICARE AWV of Medi cine (Initial)] Future Scheduled 2021-03-21 FALL SCREEN [code = FALL [facility] Test 11:13:21 SCREEN] of Medicine Future Scheduled 2021-03-21 Screening for [facility] Test 11:13:21 osteoporosis (procedure) of Medicine [code = [id number]] Future Scheduled 2021-03-21 FLU VACCINE > 6 MONTHS [facility] 11:13:21 [code = FLU VACCINE > 6 of M edicine MONTHS] Future Scheduled 2021-03-21 COVID-19 Vaccine (3 - [facility] Test 11:13:21 Booster for Moderna of Medic ine series) [code = COVID-19 Vaccine (3 - Booster for Moderna series)] Future Scheduled 2021-03-19 ELECTROCARDIOGRAM [facility] Test 15:02:49 COMPLETE [code = [id number]] of M edicine Future Scheduled 2009-10-20 MED[address]AL WELLNESS [facility] Test 00:00:00 (YEAR 2 or FIRST YEAR if Med ical Center no IPPE) [code = MEDICARE ANNUAL WELLNESS (YEAR 2 or FIRST YEAR if no IPPE)] Future Scheduled 2009-10-[address]NUAL WELLNESS [facility] Test 00:00:00 (YEAR 2 or FIRST YEAR if Med ical Center no IPPE) [code = MEDICARE ANNUAL WELLNESS (YEAR 2 or FIRST YEAR if no IPPE)] Future Scheduled 2009-10-[address]NUAL WELLNESS [facility] Test 00:00:00 (YEAR 2 or FIRST YEAR if Med ical Center no IPPE) [code = MEDICARE ANNUAL WELLNESS (YEAR 2 or FIRST YEAR if no IPPE)] Future Scheduled 2009-10-[address]NUAL WELLNESS [facility] Test 00:00:00 (YEAR 2 or FIRST YEAR if Med ical Center no IPPE) [code = MEDICARE ANNUAL WELLNESS (YEAR 2 or FIRST YEAR if no IPPE)] Future Scheduled 2008-11-02 PNEUMOCOCCAL 65+ YRS ([address] [facility] Test 00:00:00 - PCV) [code = Medical Cente r PNEUMOCOCCAL 65+ YRS (1 - PCV)] Future Scheduled 2008-11-02 PNEUMOCOCCAL 65+ YRS ([address] [facility] Test 00:00:00 - PCV) [code = Medical Cente r PNEUMOCOCCAL 65+ YRS (1 - PCV)] Future Scheduled 2008-11-02 PNEUMOCOCCAL 65+ YRS ([address] [facility] Test 00:00:00 - PCV) [code = Medical Cente r PNEUMOCOCCAL 65+ YRS (1 - PCV)] Future Scheduled 2008-11-02 PNEUMOCOCCAL 65+ YRS ([address] [facility] Test 00:00:00 - PCV) [code = Medical Cente r PNEUMOCOCCAL 65+ YRS (1 - PCV)] Future Scheduled 1993-11-02 SHINGLES VACCINES ([address] [facility] Test 00:00:00 2) [code = SHINGLES Medical Center VACCINES (1 of 2)] Future Scheduled 1993-11-02 SHINGLES VACCINES ([address] [facility] Test 00:00:00 2) [code = SHINGLES Medical Center VACCINES (1 of 2)] Future Scheduled 1993-11-02 SHINGLES VACCINES ([address] [facility] Test 00:00:00 2) [code = SHINGLES Medical Center VACCINES (1 of 2)] Future Scheduled 1993-11-02 SHINGLES VACCINES ([address] [facility] Test 00:00:00 2) [code = SHINGLES Medical Center VACCINES (1 of 2)] Future Scheduled 1962-11-02 DTAP/TDAP/TD VACCINES ([address] [facility] Test 00:00:00 - Tdap) [code = Medical Cent er DTAP/TDAP/TD VACCINES (1 - Tdap)] Future Scheduled 1962-11-02 DTAP/TDAP/TD VACCINES ([address] [facility] Test 00:00:00 - Tdap) [code = Medical Cent er DTAP/TDAP/TD VACCINES (1 - Tdap)] Future Scheduled 1962-11-02 DTAP/TDAP/TD VACCINES ([address] [facility] Test 00:00:00 - Tdap) [code = Medical Cent er DTAP/TDAP/TD VACCINES (1 - Tdap)] Future Scheduled 1962-11-02 DTAP/TDAP/TD VACCINES ([address] [facility] Test 00:00:00 - Tdap) [code = Medical Cent er DTAP/TDAP/TD VACCINES (1 - Tdap)] Future Scheduled [address] [facility] Test 00:00:00 Counseling and Screening Med ical Center (12+) [code = Tobacco Cessation Counseling and Screening (12+)] Future Scheduled 1944-05-05 COVID-19 VACCINE (#1[facility]00 [code = COVID-19 VACCINE Med ical Center (#1)] Future Scheduled 1944-05-05 COVID-19 VACCINE (#1) [facility] 00:00:00 [code = COVID-19 VACCINE Med ical Center (#1)] Future Scheduled 1944-05-05 COVID-19 VACCINE (#1) [facility] 00:00:00 [code = COVID-19 VACCINE Med ical Center (#1)] Future Scheduled 1944-05-05 COVID-19 VACCINE (#1) [facility] 00:00:00 [code = COVID-19 VACCINE Med ical Center (#1)] Future Scheduled 1945 DXA SCAN [code = DXA [facility] Test 00:00:00 SCAN] [facility] Future Scheduled 1945 DXA SCAN [code = DXA [facility] Test 00:00:00 SCAN] [facility] Future Scheduled 1945 DXA SCAN [code = DXA [facility] Test 00:00:00 SCAN] [facility] Future Scheduled 1945 DXA SCAN [code = DXA [facility] Test 00:00:00 SCAN] [facility] Future Scheduled 65+ PNEUMOCOCCAL VACCINE [facility] Test (1 of 4 - PCV13) [code = Hos pital 65+ PNEUMOCOCCAL VACCINE (1 of 4 - PCV13)] Future Scheduled COVID-19 VACCINE (1) Met [facility]ist Test [code = COVID-19 VACCINE Hos pital (1)] Future Scheduled Hepatitis C screening [facility] Test (procedure) [code = Hospital [id number]] Future Scheduled SHINGLES VACCINES (#1) M ethodist Test [code = SHINGLES Hospital VACCINES (#1)] Future Scheduled INFLUENZA VACCINE [code [facility] Test = INFLUENZA VACCINE] Hospita l Encounters Start End Encounter Admission Attending Care Care Encounter Source Date/Time Date/Time Type Type Clinicians Facility Department ID 2021-10-08 2021-10-08 Office KHRIS Sullivan [id number] [facility] 10:40:00 11:43:56 Visit Mihail AMBULATOR 350.1.13.21 College Sreedhar Y 0.2.7.2.686 of [id number] [facility] aelx 375 e 2021-10-08 2021-10-08 Outpatient [facility] [id number] [facility] 09:11:01 10:01:54 Colleg e of Medicin e 2021-07-02 2021-07-02 Office KHRIS Sullivan [id number] [facility] 11:40:00 13:37:44 Visit Mihail AMBULATOR 350.1.13.21 College Sreedhar Y 0.2.7.2.686 of [id number] Medi alex 375 e 2021-03-19 2021-03-20 Office KHRIS SULLIVAN [id number] [facility] 13:18:32 12:17:28 Visit KELSI AMBULATOR 350.1.13.21 College Y 0.2.7.2.686 [id number] Medi alex 375 e 2021-02-18 2021-03-05 [facility] [id number] [facility] 11:37:00 14:09:00 KARAN 2021-02-19 2021-02-19 [facility] [id number] [facility] 00:00:00 23:59:00 Colleg e [facility] Medicin e 2021-02-18 2021-02-18 [facility] [id number] [facility] 11:37:00 23:59:00 Colleg e [facility] Medicin e 2020-08-19 2020-08-24 [facility] DavidRufinabebelupe 1.2.840.1 [id number] Methodi 23:35:00 13:57:00 Encounter Jez Norton 68627.1. [address] 3.430.2.7 Hospit a .3.690997 l .8 2020-08-23 2020-08-23 Surgery Jerad, 1.2.840.1 [id number] Methodi 10:00:00 11:40:00 Marbin Funk 89566.1.[address] 3.430.2.7 Hospit a .3.316901 l .8 2020-08-23 2020-08-23 Anesthesia Jeni Pham. 1.2.840.1 10 [id number] Methodi 10:03:00 11:07:00 Event Von Tom Joey 75606.1.[address] 3.430.2.7 Hospit a .3.128699 l .8 2020-08-19 2020-08-19 Travel 1.2.840.1 1.2.521.704 [id number] Methodi 00:00:00 00:00:[address] 3.430.2.7 0.2.7.3.698 Ho spita .3.673994 084.8 l .8 2020-07-12 2020-07-12 Telephone Lita, 1.2.840.1 [id number] Methodi 00:00:00 00:00:[address] 3.430.2.7 Hospit a .3.640645 l .8 2020-06-23 2020-06-26 Emergency Nicholas Maninder T. 1.2.840.1 [id number] Methodi 15:57:00 20:25:00 [address] [facility] Madhu 3.430.2.7 Ho spita Chucky Linded .3.811963 l Dayron, Iti .8 2020-06-26 2020-06-26 Anesthesia Garett Brady V. 1.2.840.1 [id number] Methodi 09:38:00 11:00:00 Event Octavio Le 52693.1.[address] 3.430.2.7 Hospit a .3.504327 l .8 2020-06-26 2020-06-26 Surgery David Omalley 1.2.840.1 [id number] Methodi 09:00:00 10:05:[address] 3.430.2.7 Hospit a .3.805410 l .8 2020-06-23 2020-06-23 Travel 1.2.840.1 1.2.896.588 [id number] Methodi 00:00:00 00:00:[address] 3.430.2.7 0.2.7.3.698 Ho spita .3.831053 084.8 l .8 2020-05-29 2020-05-29 Outpatient Ángelu_P MMG MMG 72341-1 021 [place] 01:28:00 01:28:00 0208 [facility] Results Test Description Test Time Test Comments Results Result Comments Source ANTI-MITOCHONDRIAL AB, REFLEX TO TITER 2021-03-05 11:05:20 Test Item Value Reference Range Interpretation Comme nts SCAN RESULT (test code = 6563808) SARS-COV2/RT-PCR ([facility])2021-03-05 09:33:41 Test Item Value Reference Range Interpretation Comments SARS-COV2/RT-PCR (test Negative Not Detected, Negative, code = 3997411) See external report for linked test SARS-COV-2 PERFORMING LAB [facility] LISA (test code = 8688083) Negative result for this test determines that [...] of the Act.Fact Sheet for Healthcare Prov iders:https://www.[employer].Zokos/sites/default/files/product/documents/Fact_Sheet_HC _Gbrzuigvv_Ytca_NBWE-ChL-0.pdfFact Sheet for Healthcare Patients:https://www.Mail[employer]/sites/default/files/product/docume nts/Pdgp_Fllqa_Sfrtgdxt_Qzsk_GJLB-QhB-9.pdfPerforming Laboratory:[facility], [place] [address]QLHP-ZKTBTWE METER 2021-03-04 18:39:33 Test Item Value Reference Range Interpretation Comments POC-GLUCOSE METER 83 mg/dL 70-110 : TESTED A T [facility] 6720 (BEAKER) (test code = HADLEY Soriano [facility], 1538) 69598: Radiation / Chemistry Technician/Techni magnus ID = [id number] for Annel Arredondo POCT-GLUCOSE [id number] 16:06:53 Test Item Value Reference Range Interpretation Comments POC-GLUCOSE METER 80 mg/dL 70-110 : TESTED A T [facility] 6720 (BEAKER) (test code = HADLEY Soraino [facility], 1538) 83312: Radiation / Chemistry Technician/Techni magnus ID = [id number] for Annel Arredondo BASIC METABOLIC [id number] 05:01:01 Test Item Value Reference Range Interpretation [...] S NOT APPLICABLE FOR DIALYSIS PATIEN TS. Radiation / Chemistry Technician ID - NORBERT WCBC (HEMOGRAM ONLY)2021-03-04 04:32:58 Test Item Value Reference [...] 0-0 (BEAKER) (test code = 413) POCT-GLUCOSE [id number] 07:20:32 Test Item Value Reference Range Interpretation Comments POC-GLUCOSE METER 82 mg/dL 70-110 : TESTED A T [facility] 6720 (BEAKER) (test code = HADLEY LEMUS [place], 1538) 90420: Radiation / Chemistry Technician/Techni magnus ID = [id number] for Marti Licea BASIC METABOLIC [id number] 05:14:50 Test Item Value Reference Range Interpretation [...] S NOT APPLICABLE FOR DIALYSIS PATIEN TS. Radiation / Chemistry Technician ID - DBCBC (HEMOGRAM ONLY)2021-03-03 04:51:11 Test [...] (BEAKER) (test code = 413) BASIC METABOLIC [id number] 05:51:30 Test Item Value Reference Range Interpretation [...] S NOT APPLICABLE FOR DIALYSIS PATIEN TS. Radiation / Chemistry Technician ID - JACINTO [id number] 05:50:23 Test Item Value Reference Range Interpretation Comments MAGNESIUM (BEAKER) (test code = 1.8 mg/dL 1.6-2.6 627) Radiation / Chemistry Technician ID - JACINTO [id number] 05:50:23 Test Item Value Reference Range Interpretation Comments PHOSPHORUS (BEAKER) (test code = 2.4 mg/dL 2.3-4.7 604) Radiation / Chemistry Technician ID - JACINTO GCBC W/PLT COUNT & AUTO [id number] 05:37:19 Test Item Value Reference Range Interpretation [...] PERCENT (BEAKER) (test code = 2801) CALCIUM, [id number] 05:20:50 Test Item Value Reference Range Interpretation Comments CALCIUM IONIZED (BEAKER) (test 1.12 mmol/L 1.12-1.27 code = 698) PH, BLOOD (BEAKER) (test code = 7.43 1810) ANG, TUNNELED CATHETER [id number] 13:32:00Reason for Central Line/PICC?->Need for hemodialysis accessReason for exam:->[facility]ACY VALENCIA : 1945 Sex: FFINAL REPORT PROCEDURE: Tunneled dialysis catheter placement Procedural PersonnelAttending physician(s): Michael Mendiola physician(s): NoneResident physician(s): NoneAdvanced practice provider(s): None Pre-procedure diagnosis: ESRDPost-procedure diagnosis: [...] MDReport Verified Date/Time: 03/01/2021 13:32:05 COMPREHENSIVE METABOLIC [id number] 06:10:52 Test Item Value Reference Range Interpretation [...] S NOT APPLICABLE FOR DIALYSIS PATIEN TS. Radiation / Chemistry Technician ID - JANESSA [id number] 06:08:31 Test Item Value Reference Range Interpretation Comments PHOSPHORUS (BEAKER) (test code = 3.4 mg/dL 2.3-4.7 604) Radiation / Chemistry Technician ID - JANESSA [id number] 06:08:29 Test Item Value Reference Range Interpretation Comments MAGNESIUM (BEAKER) (test code = 2.3 mg/dL 1.6-2.6 627) Radiation / Chemistry Technician ID - JANESSA [facility] W/PLT COUNT & AUTO [id number] 05:49:12 Test Item Value Reference Range Interpretation [...] PERCENT (BEAKER) (test code = 2801) CALCIUM, [id number] 05:44:37 Test Item Value Reference Range Interpretation Comments CALCIUM IONIZED (BEAKER) (test 1.14 mmol/L 1.12-1.27 code = 698) PH, BLOOD (BEAKER) (test code = 7.37 1810) RAD, CHEST, 2 [id number] 01:00:00Should not raise armsReason for exam:- >PPM implnatShould this be performed at the bedside?->No [facility] 1945 Sex: [...] effusions. There is no pneumothorax. Signed: Drea Osorio Verified Date/Time: 03/01/2021 01:00:54 POCT-GLUCOSE [id number] 19:32:38 Test Item Value Reference Range Interpretation Comments POC-GLUCOSE METER 105 mg/dL 70-110 : TESTED A T [facility]20 ([facility]) (test code = HADLEY Soriano [facility], 1538) [address]: Radiation / Chemistry Technician/Techni magnus ID = [id number] for Bishop (student)Ben B-TYPE NATRIURETIC FACTOR (BNP)2021-02-28 17:10:17 Test Item Value Reference Range Interpretation Comments B-TYPE NATRIURETIC PEPTIDE (BEAKER) 970 pg/mL 0-100 H (test code = 700) Radiation / Chemistry Technician ID - BSHEPATIC FUNCTION [id number] 06:54:50 Test Item Value Reference Range Interpretation [...] (test code = 41 U/L 6-55 347) Radiation / Chemistry Technician ID - KALIA [id number] 06:54:49 Test Item Value Reference Range Interpretation Comments PHOSPHORUS (BEAKER) (test code = 2.4 mg/dL 2.3-4.7 604) Radiation / Chemistry Technician ID - KALIA [id number] 06:54:48 Test Item Value Reference Range Interpretation Comments MAGNESIUM (BEAKER) (test code = 1.6 mg/dL 1.6-2.6 627) Radiation / Chemistry Technician ID - KALIA LCOMPREHENSIVE METABOLIC [id number] 06:54:47 Test Item Value Reference Range Interpretation [...] S NOT APPLICABLE FOR DIALYSIS PATIEN TS. Radiation / Chemistry Technician ID - PIAYA LCBC W/PLT COUNT & AUTO [id number] 06:03:48 Test Item Value Reference Range Interpretation [...] PERCENT (BEAKER) (test code = 2801) CALCIUM, [id number] 06:01:46 Test Item Value Reference Range Interpretation Comments CALCIUM IONIZED (BEAKER) (test 1.17 mmol/L 1.12-1.27 code = 698) PH, BLOOD (BEAKER) (test code = 7.40 1810) [id number] 00:54:13 Test Item Value Reference Range Interpretation Comments PARTIAL THROMBOPLASTIN TIME 42.7 seconds 22.5-36.0 H (BEAKER) (test code = 760) COMPREHENSIVE METABOLIC [id number] 00:49:39 Test Item Value Reference Range Interpretation [...] S NOT APPLICABLE FOR DIALYSIS PATIEN TS. Radiation / Chemistry Technician ID - KALIA [id number] 00:36:07 Test Item Value Reference Range Interpretation Comments PHOSPHORUS (BEAKER) (test code = 4.1 mg/dL 2.3-4.7 604) Radiation / Chemistry Technician ID - KALIA LLACTIC ACID, [id number] 00:29:50 Test Item Value Reference Range Interpretation Comments LACTATE BLOOD ARTERIAL (2) 0.6 mmol/L 0.5-2.2 (BEAKER) (test code = 2874) Radiation / Chemistry Technician ID - KALIA LCALCIUM, [id number] 23:25:35 Test Item Value Reference Range Interpretation Comments CALCIUM IONIZED (BEAKER) (test 1.04 mmol/L 1.12-1.27 L code = 698) PH, BLOOD (BEAKER) (test code = 7.38 1810) GLUCOSE-STAT [id number] 23:25:34 Test Item Value Reference Range Interpretation Comments GLUCOSE RANDOM (BEAKER) (test code = 86 mg/dL 70-110 652) HGB/HCT (H&H) - STAT [id number] 23:25:34 Test Item Value Reference Range Interpretation Comments HEMOGLOBIN (BEAKER) (test code = 9.3 GM/DL 12.0-15.0 L 410) HEMATOCRIT (BEAKER) (test code = 27.0 % 36.0-45.0 L 411) POTASSIUM-STAT [id number] 23:25:33 Test Item Value Reference Range Interpretation Comments POTASSIUM (BEAKER) (test code = 3.5 meq/L 3.6-5.5 L 379) SODIUM NA-STAT [id number] 23:25:32 Test Item Value Reference Range Interpretation Comments SODIUM (BEAKER) (test code = 381) 134 meq/L 136-145 L BLOOD GAS, [id number] 23:25:31 Test Item Value Reference Range Interpretation [...] 1819) 28 RAD, CHEST, 1 VIEW, NON [id number] 21:43:00Reason for exam:->confrim line placementaShould this be performed at the bedside?->Yes [facility] : 1945 Sex: [...] MDReport Verified Date/Time: 02/27/2021 21:43:25 POCT- GLUCOSE [id number] 19:38:27 Test Item Value Reference Range Interpretation Comments POC-GLUCOSE METER 78 mg/dL 70-110 : TESTED A T [facility] [address] (BEAKER) (test code = HADLEY Soriano [facility], 1538) [address]: Radiation / Chemistry Technician/Techni magnus ID = [id number] for Susan Le [id number] 07:11:31 Test Item Value Reference Range Interpretation Comments PHOSPHORUS (BEAKER) 4.4 mg/dL 2.3-4.7 Specimen slightly (test code = 604) hemolyzed Radiation / Chemistry Technician ID - JANESSA MCOMPREHENSIVE METABOLIC [id number] 05:07:58 Test Item Value Reference Range Interpretation [...] S NOT APPLICABLE FOR DIALYSIS PATIEN TS. Radiation / Chemistry Technician ID - JANESSA MHEPATIC FUNCTION [id number] 04:44:32 Test Item Value Reference Range Interpretation [...] code = 62 U/L 6-55 H 347) Radiation / Chemistry Technician ID - JANESSA [id number] 04:44:31 Test Item Value Reference Range Interpretation Comments MAGNESIUM (BEAKER) (test code = 1.6 mg/dL 1.6-2.6 627) Radiation / Chemistry Technician ID - JANESSA MPROTHROMBIN TIME/[id number] 04:27:06 Test Item Value Reference Range Interpretation Comments PROTIME (BEAKER) 13.4 seconds 11.9-14.2 (test code = 759) INR (BEAKER) (test 1.04 See_Comment [Automat ed message] code = 370) The system [employer] generated this result transmitted ref erence range: <=5.90. The reference range was not used to int erpret this result as normal/abnormal . RECOMMENDED COUMADIN/WARFARIN INR THERAPY RANGESSTANDARD DOSE: 2.0 - 3.0 Includes: PROPHYLAXIS for venous thrombosis, systemic embolization; TREATMENT for venous thrombosis and/or pulmonary embolus.HIGH RISK: Target INR is 2.5-3.5 for patients with mechanical heart valves.CALCIUM, [id number] 04:25:06 Test Item Value Reference Range Interpretation Comments CALCIUM IONIZED (BEAKER) (test 1.08 mmol/L 1.12-1.27 L code = 698) PH, BLOOD (BEAKER) (test code = 7.34 1810) CBC W/PLT COUNT & AUTO [id number] 04:24:11 Test Item Value Reference Range Interpretation [...] 0-1 PERCENT (BEAKER) (test code = 2801) [id number] 14:32:03 Test Item Value Reference Range Interpretation Comments PARTIAL THROMBOPLASTIN TIME 46.7 seconds 22.5-36.0 H (BEAKER) (test code = 760) SARS-COV2/RT-PCR ([facility])2021-02-26 10:15:25 Test Item Value Reference Range Interpretation Comments SARS-COV2/RT-PCR (test Negative Not Detected, Negative, code = 7602700) See external report for linked test SARS-COV-2 PERFORMING LAB [facility] (test code = 5848503) Negative result for this test determines that [...] of the Act.Fact Sheet for Healthcare Prov iders:https://www.MailWriter/sites/default/files/product/documents/Fact_Sheet_HC _Jdjyyfipm_Ongy_JGPM-DvV-1.pdfFact Sheet for Healthcare Patients:https://www.MailWriter/sites/default/files/product/docume nts/Wxkc_Xsrir_Rqjfzcyk_Erdl_MHJQ-EyJ-1.pdfPerforming Laboratory:[facility], [place] [id number] 06:13:12 Test Item Value Reference Range Interpretation Comments PARTIAL THROMBOPLASTIN TIME 107.9 seconds 22.5-36.0 H (BEAKER) (test code = 760) BASIC METABOLIC [id number] 05:24:44 Test Item Value Reference Range Interpretation [...] S NOT APPLICABLE FOR DIALYSIS PATIEN TS. Radiation / Chemistry Technician ID - JANESSA MHEPATIC FUNCTION [id number] 05:18:53 Test Item Value Reference Range Interpretation [...] code = 96 U/L 6-55 H 347) Radiation / Chemistry Technician ID Alejandro RIDDLE MPROTHROMBIN TIME/[id number] 04:36:11 Test Item Value Reference Range Interpretation Comments PROTIME (BEAKER) 13.8 seconds 11.9-14.2 (test code = 759) INR (BEAKER) (test 1.08 See_Comment [Automat ed message] code = 370) The system [employer] generated this result transmitted ref erence range: [...] WBC 0-0 (BEAKER) (test code = 413) [id number] 18:48:59 Test Item Value Reference Range Interpretation Comments PARTIAL THROMBOPLASTIN TIME 74.1 seconds 22.5-36.0 H (BEAKER) (test code = 760) [id number] 08:08:37 Test Item Value Reference Range Interpretation Comments PARTIAL THROMBOPLASTIN TIME 46.9 seconds 22.5-36.0 H (BEAKER) (test code = 760) BASIC METABOLIC [id number] 02:28:58 Test Item Value Reference Range Interpretation [...] S NOT APPLICABLE FOR DIALYSIS PATIEN TS. Radiation / Chemistry Technician ID - PIALESHIA EPATIC FUNCTION [id number] 02:09:30 Test Item Value Reference Range Interpretation [...] code = 121 U/L 6-55 H 347) Radiation / Chemistry Technician ID - KALIA [id number] 01:54:32 Test Item Value Reference Range Interpretation [...] WBC 0-0 (BEAKER) (test code = 413) [id number] 18:41:27 Test Item Value Reference Range Interpretation Comments PARTIAL THROMBOPLASTIN TIME 97.4 seconds 22.5-36.0 H (BEAKER) (test code = 760) [id number] 11:41:55 Test Item Value Reference Range Interpretation Comments ALPHA-1 ANTITRYPSIN (BEAKER) 274.30 mg/dL 90.00-200.00 H (test code = 502) Radiation / Chemistry Technician JOSHUA MOTTA LALPHA FETOPROTEIN (AFP), TUMOR [id number] 11:18:12 Test Item Value Reference Range Interpretation Comments ALPHA-FETOPROTEIN (BEAKER) (test 9.1 ng/mL <10.0 code = 1094) Radiation / Chemistry Technician ID Alejandro MOTTA [id number] 10:54:49 Test Item Value Reference Range Interpretation Comments PARTIAL THROMBOPLASTIN TIME 141.7 seconds 22.5-36.0 H (BEAKER) (test code = 760) CALCIUM, [id number] 10:47:24 Test Item Value Reference Range Interpretation Comments CALCIUM IONIZED (BEAKER) (test 1.09 mmol/L 1.12-1.27 L code = 698) PH, BLOOD (BEAKER) (test code = 7.45 1810) HEPATIC FUNCTION [id number] 06:49:09 Test Item Value Reference Range Interpretation [...] code = 169 U/L 6-55 H 347) Radiation / Chemistry Technician ID - PIAYA LSpecimen slightly ictericCOMPREHENSIVE METABOLIC PANEL 2021-02-24 06:49:08 [...] S NOT APPLICABLE FOR DIALYSIS PATIEN TS. Radiation / Chemistry Technician ID - KALIA LSpecimen slightly [id number] 06:49:07 Test Item Value Reference Range Interpretation Comments MAGNESIUM (BEAKER) (test code = 1.7 mg/dL 1.6-2.6 627) Radiation / Chemistry Technician ID - KALIA [id number] 06:49:07 Test Item Value Reference Range Interpretation Comments PHOSPHORUS (BEAKER) (test code = 1.7 mg/dL 2.3-4.7 L 604) Radiation / Chemistry Technician ID - KALIA LCBC W/PLT COUNT & AUTO [id number] 06:24:53 Test Item Value Reference Range Interpretation [...] 0-1 PERCENT (BEAKER) (test code = 2801) [id number] 05:49:37 Test Item Value Reference Range Interpretation Comments PARTIAL THROMBOPLASTIN TIME 48.7 seconds 22.5-36.0 H (BEAKER) (test code = 760) MR, ABDOMEN, [id number] 10:29:00Unlisted Reason for Exam - Click Yes and Enter Reason Below->Yes Unlisted Reason for Exam->Concern for biliary obstruction. Elevated liver enzymes. Also asses for underlying cirrhosuis or features of portal hypertension Perform MRI triple phase of liver and also MRCP for biliary obstruction. [facility] : 1945 Sex: [...] Large debris-containing pericardial effusion. Signed: Brian Rivas MDReport Verified Date/Time: 02/23/2021 10:29:06 Reading Location: [facility] Diagnostic ImagingReading Room - [place] [address] [id number] 04:28:09 Test Item Value Reference Range Interpretation Comments PARTIAL THROMBOPLASTIN TIME 104.4 seconds 22.5-36.0 H (BEAKER) (test code = 760) BASIC METABOLIC [id number] 03:37:17 Test Item Value Reference Range Interpretation [...] S NOT APPLICABLE FOR DIALYSIS PATIEN TS. Radiation / Chemistry Technician JOSHUA TOUSSAINT WHEPATIC FUNCTION [id number] 03:30:39 Test Item Value Reference Range Interpretation [...] code = 213 U/L 6-55 H 347) Radiation / Chemistry Technician JOSHUA TOUSSAINT WCBC (HEMOGRAM ONLY)2021-02-23 03:14:36 Test Item [...] (BEAKER) (test code = 413) MISCELLANEOUS LAB [id number] 15:19:21 Test Item Value Reference Range Interpretation Comments SCAN RESULT (test code = 9080675) [id number] 14:48:43 Test Item Value Reference Range Interpretation [...] = 486) CBC W/PLT COUNT & AUTO [id number] 07:24:44 Test Item Value Reference Range Interpretation [...] WBC 0-0 (BEAKER) (test code = 413) [id number] 07:00:12 Test Item Value Reference Range Interpretation Comments PARTIAL THROMBOPLASTIN TIME 51.8 seconds 22.5-36.0 H (BEAKER) (test code = 760) [id number] 06:10:21 Test Item Value Reference Range Interpretation Comments PARTIAL THROMBOPLASTIN TIME 151.4 seconds 22.5-36.0 HH (BEAKER) (test code = 760) COMPREHENSIVE METABOLIC [id number] 05:53:58 Test Item Value Reference Range Interpretation [...] S NOT APPLICABLE FOR DIALYSIS PATIEN TS. Radiation / Chemistry Technician ID - JANESSA EPATIC FUNCTION [id number] 05:43:38 Test Item Value Reference Range Interpretation [...] code = 322 U/L 6-55 H 347) Radiation / Chemistry Technician ID - JANESSA [id number] 05:43:37 Test Item Value Reference Range Interpretation Comments PHOSPHORUS (BEAKER) (test code = 3.6 mg/dL 2.3-4.7 604) Radiation / Chemistry Technician ID - JANESSA [id number] 05:43:36 Test Item Value Reference Range Interpretation Comments MAGNESIUM (BEAKER) (test code = 1.8 mg/dL 1.6-2.6 627) Radiation / Chemistry Technician ID - JANESSA MCALCIUM, [id number] 05:33:45 Test Item Value Reference Range Interpretation Comments CALCIUM IONIZED (BEAKER) (test 1.12 mmol/L 1.12-1.27 code = 698) PH, BLOOD (BEAKER) (test code = 7.28 1810) [id number] 05:16:53 Test Item Value Reference Range Interpretation Comments PARTIAL THROMBOPLASTIN TIME 153.6 seconds 22.5-36.0 HH (BEAKER) (test code = 760) POCT-GLUCOSE [id number] 20:38:56 Test Item Value Reference Range Interpretation Comments POC-GLUCOSE METER 80 mg/dL 70-110 : TESTED A T [facility] 6720 (BEAKER) (test code = [place], 1538) [address]: Radiation / Chemistry Technician/Techni magnus ID = [id number] for VERONICA JOSEPH COMPREHENSIVE METABOLIC [id number] 05:16:27 Test Item Value Reference Range Interpretation [...] S NOT APPLICABLE FOR DIALYSIS PATIEN TS. Radiation / Chemistry Technician ID - JANESSA MCALCIUM, [id number] 05:10:03 Test Item Value Reference Range Interpretation Comments CALCIUM IONIZED (BEAKER) (test 1.03 mmol/L 1.12-1.27 L code = 698) PH, BLOOD (BEAKER) (test code = 7.31 1810) HEPATIC FUNCTION [id number] 05:08:02 Test Item Value Reference Range Interpretation [...] code = 435 U/L 6-55 H 347) Radiation / Chemistry Technician ID - JANESSA [id number] 05:08:01 Test Item Value Reference Range Interpretation Comments PHOSPHORUS (BEAKER) (test code = 4.0 mg/dL 2.3-4.7 604) Radiation / Chemistry Technician ID - JANESSA [id number] 05:08:00 Test Item Value Reference Range Interpretation Comments MAGNESIUM (BEAKER) (test code = 1.9 mg/dL 1.6-2.6 627) Radiation / Chemistry Technician ID - JANESSA [id number] 04:36:18 Test Item Value Reference Range Interpretation Comments PARTIAL THROMBOPLASTIN TIME 77.6 seconds 22.5-36.0 H (BEAKER) (test code = 760) CBC W/PLT COUNT & AUTO [id number] 04:28:59 Test Item Value Reference Range Interpretation [...] (BEAKER) (test code = 2801) COMPREHENSIVE METABOLIC [id number] 07:38:32 Test Item Value Reference Range Interpretation [...] S NOT APPLICABLE FOR DIALYSIS PATIEN TS. Radiation / Chemistry Technician ID Alejandro RIDDLE MSpecimen slightly [id number] 07:33:14 Test Item Value Reference Range Interpretation Comments PHOSPHORUS (BEAKER) (test code = 2.4 mg/dL 2.3-4.7 604) Radiation / Chemistry Technician ID Alejandro RIDDLE MHEPATIC FUNCTION [id number] 07:33:14 Test Item Value Reference Range Interpretation [...] code = 569 U/L 6-55 H 347) Radiation / Chemistry Technician ID Alejandro RIDDLE MSpecimen slightly [id number] 07:33:13 Test Item Value Reference Range Interpretation Comments MAGNESIUM (BEAKER) (test code = 1.9 mg/dL 1.6-2.6 627) Radiation / Chemistry Technician ID - JANESSA [id number] 05:47:30 Test Item Value Reference Range Interpretation Comments PARTIAL THROMBOPLASTIN TIME 64.9 seconds 22.5-36.0 H (BEAKER) (test code = 760) CBC W/PLT COUNT & AUTO [id number] 05:45:36 Test Item Value Reference Range Interpretation [...] PERCENT (BEAKER) (test code = 2801) CALCIUM, [id number] 05:29:50 Test Item Value Reference Range Interpretation Comments CALCIUM IONIZED (BEAKER) (test 0.91 mmol/L 1.12-1.27 L code = 698) PH, BLOOD (BEAKER) (test code = 7.36 1810) [id number] 20:26:01 Test Item Value Reference Range Interpretation Comments PARTIAL THROMBOPLASTIN TIME 84.6 seconds 22.5-36.0 H (BEAKER) (test code = 760) [id number] 14:48:25 Test Item Value Reference Range Interpretation Comments PARTIAL THROMBOPLASTIN TIME 85.3 seconds 22.5-36.0 H (BEAKER) (test code = 760) SARS-COV2/RT-PCR ([facility])2021-02-19 12:31:15 Test Item Value Reference Range Interpretation Comments SARS-COV2/RT-PCR (test Negative Not Detected, Negative, code = 0827485) See external report for linked test SARS-COV-2 PERFORMING LAB [facility] (test code = 3494864) Negative result for this test determines that [...] of the Act.Fact Sheet for Healthcare Prov iders:https://www.MailWriter/sites/default/files/product/documents/Fact_Sheet_HC _Xzpnhhaxg_Cuqh_EGRO-CbF-5.pdfFact Sheet for Healthcare Patients:https://www.MailWriter/sites/default/files/product/docume nts/Koqg_Vsluj_Blqiiwpv_Xdpv_ASLN-WjJ-5.pdfPerforming Laboratory:[facility], [place] [address]C/S, ABDOMINAL, COMPLETE 2021-02-19 12:31:00Reason for exam:->Evaluate both liver and kidneys [facility] GAVI VALENCIABouchra MENDOZA : 1945 Sex: FFINAL REPORT TECHNIQUE: Grayscale [...] duct measures 0.5 cm, within normal limits. Nointrahepatic biliary ductal dilatation. PANCREAS: Incompletely visualized due to overlying bowel gas. The partially visualized pancreatic body is normal. SPLEEN: No splenomegaly. The spleen measures 12.8 cm in length. PERITONEUM: No free fluid. KIDNEYS: Normal in size bilaterally. No hydronephrosis. No sonographically evident solid mass lesion. IMPRESSION: 1.The liver contour is questionably nodular.This could be due to cirrhosis. 2.The sonographic appearance of the kidneys is normal. Signed: Yuri Floydort Verified Date/Time: 02/19/2021 12:31:19 ANTI-NUCLEAR ANTIBODY (RJ)2021-02-19 09:35:17 Test Item Value Reference Range Interpretation Comments ANTI-NUCLEAR ANTIBODY (RJ) (BEAKER) Negative Negative (test code = 418) Test performed by IFA method.Test performed by IFA method.POCT-GLUCOSE METER 2021-02-19 09:31:24 Test Item Value Reference Range Interpretation Comments POC-GLUCOSE METER 106 mg/dL 70-110 : TESTED A T [facility] 67[address] (BEAKER) (test code = [facility], 1538) [address]: Radiation / Chemistry Technician/Techni magnus ID = [id number] for BRENDAN SINGH HEMOGLOBIN [id number] 09:24:34 Test Item Value Reference Range Interpretation Comments HEMOGLOBIN A1C (BEAKER) (test code = 6.1 % 4.3-6.1 368) [id number] 07:45:01 Test Item Value Reference Range Interpretation Comments PARTIAL THROMBOPLASTIN TIME 54.4 seconds 22.5-36.0 H (BEAKER) (test code = 760) HEPATITIS A ANTIBODY, [id number] 07:14:26 Test Item Value Reference Range Interpretation Comments HEPATITIS A IGG ANTIBODY (BEAKER) Reactive Nonreactive A (test code = 2797) Radiation / Chemistry Technician ID - DBHEPATIC FUNCTION [id number] 07:03:51 Test Item Value Reference Range Interpretation [...] Specimen slightly (test code = 347) hemolyzed Radiation / Chemistry Technician ID - DBSpecimen slightly ictericCOMPREHENSIVE METABOLIC [id number] 06:18:53 Test Item Value Reference Range Interpretation [...] S NOT APPLICABLE FOR DIALYSIS PATIEN TS. Radiation / Chemistry Technician ID - DBSpecimen slightly ictericHEPATITIS B SURFACE [id number] 06:18:46 Test Item Value Reference Range Interpretation Comments HEPATITIS B SURFACE ANTIBODY < mIU/mL <8.0 (BEAKER) (test code = 647) Radiation / Chemistry Technician ID - DBHEPATITIS B CORE ANTIBODY, [id number] 06:04:50 Test Item Value Reference Range Interpretation Comments HEPATITIS B CORE TOTAL ANTIBODY Nonreactive Nonreactive (BEAKER) (test code = 497) Radiation / Chemistry Technician ID - DBHEPATITIS C [id number] 06:04:49 Test Item Value Reference Range Interpretation Comments HEPATITIS C ANTIBODY (BEAKER) Nonreactive Nonreactive (test code = 367) Radiation / Chemistry Technician ID - DBHEPATITIS B SURFACE [id number] 06:04:48 Test Item Value Reference Range Interpretation Comments HEPATITIS B SURFACE ANTIGEN (2) Nonreactive Nonreactive (BEAKER) (test code = 2585) Specimen is considered negative for HBsAg.HIV-1 ANTIGEN WITH HIV-1/2 ANTIBODY 2021-02-19 05:59:05 Test Item Value Reference Range Interpretation Comments HIV-1 ANTIGEN WITH HIV 1\T\2 Nonreactive Nonreactive ANTIBODY (2) (BEAKER) (test code = 2586) Radiation / Chemistry Technician ID - DBC-REACTIVE [id number] 05:54:16 Test Item Value Reference Range Interpretation Comments C-REACTIVE PROTEIN (BEAKER) (test 8.74 mg/dL 0.00-0.50 H code = 676) Radiation / Chemistry Technician ID - [id number] 05:54:15 Test Item Value Reference Range Interpretation Comments AMYLASE (BEAKER) (test 114 U/L 25-125 Speci men slightly code = 349) hemolyzed Radiation / Chemistry Technician ID - DBSpecimen slightly [id number] 05:54:15 Test Item Value Reference Range Interpretation Comments LIPASE (BEAKER) (test code = 749) 45 U/L 8-78 Radiation / Chemistry Technician ID - DBSpecimen slightly [id number] 05:54:14 Test Item Value Reference Range Interpretation Comments MAGNESIUM (BEAKER) 1.9 mg/dL 1.6-2.6 Specimen slightly (test code = 627) hemolyzed Radiation / Chemistry Technician ID - [id number] 05:54:14 Test Item Value Reference Range Interpretation Comments PHOSPHORUS (BEAKER) 3.4 mg/dL 2.3-4.7 Specimen slightly (test code = 604) hemolyzed Radiation / Chemistry Technician ID - DBCBC W/PLT COUNT & AUTO [id number] 05:19:04 Test Item Value Reference Range Interpretation [...] PERCENT (BEAKER) (test code = 2801) CALCIUM, [id number] 05:16:00 Test Item Value Reference Range Interpretation Comments CALCIUM IONIZED (BEAKER) (test 1.07 mmol/L 1.12-1.27 L code = 698) PH, BLOOD (BEAKER) (test code = 7.33 1810) [id number] 00:56:30 Test Item Value Reference Range Interpretation Comments PARTIAL THROMBOPLASTIN TIME 51.5 seconds 22.5-36.0 H (BEAKER) (test code = 760) HEPATIC FUNCTION [id number] 19:22:51 Test Item Value Reference Range Interpretation [...] code = 925 U/L 6-55 H 347) Radiation / Chemistry Technician ID - ERA WOperator ID - DBSpecimen slightly ictericTSH/FREE T4 IF [id number] 18:47:04 Test Item Value Reference Range Interpretation Comments THYROID STIMULATING HORMONE 3.745 uIU/mL 0.350-4.940 (BEAKER) (test code = 772) Radiation / Chemistry Technician ID - ERA WVITAMIN B12 AND [id number] 18:47:04 Test Item Value Reference Range Interpretation Comments VITAMIN B12 1531 pg/mL 213-816 H (BEAKER) (test code = 774) FOLATE (BEAKER) 15.90 ng/mL See_Comment [Automated message] (test code = 362) The system which generated this result transmitted ref erence range: >=7.00. The reference range was not used to interpr et this result as normal/abnormal . Radiation / Chemistry Technician ID - ERA [id number] 18:47:03 Test Item Value Reference Range Interpretation Comments FERRITIN (BEAKER) (test code = 488.15 ng/mL 5.00-275.00 H 361) Radiation / Chemistry Technician ID - ERA [id number] 18:28:38 Test Item Value Reference Range Interpretation Comments PARTIAL THROMBOPLASTIN TIME 34.1 seconds 22.5-36.0 (BEAKER) (test code = 760) PROTHROMBIN TIME/[id number] 18:28:02 Test Item Value Reference Range Interpretation Comments PROTIME (BEAKER) 15.0 seconds 11.9-14.2 H (test code = 759) INR (BEAKER) (test 1.20 See_Comment [Automat ed message] code = 370) The system [employer] generated this result transmitted ref erence range: <=5.90. The reference range was not used to int erpret this result as normal/abnormal . RECOMMENDED COUMADIN/WARFARIN INR THERAPY RANGESSTANDARD DOSE: 2.0 - 3.0 Includes: PROPHYLAXIS for venous thrombosis, systemic embolization; TREATMENT for venous thrombosis and/or pulmonary embolus.HIGH RISK: Target INR is 2.5-3.5 for patients with mechanical heart valves.BASIC METABOLIC [id number] 18:15:05 Test Item Value Reference Range Interpretation [...] S NOT APPLICABLE FOR DIALYSIS PATIEN TS. Radiation / Chemistry Technician ID - ERA CHRISTENSENpecimebouchra slightly ictericCBC W/PLT COUNT & AUTO [id number] 18:13:04 Test Item Value Reference Range Interpretation [...] % 20-55 L (test code = 2590) Radiation / Chemistry Technician ID - ERA [id number] 18:11:00 Test Item Value Reference Range Interpretation Comments PHOSPHORUS (BEAKER) (test code = 3.1 mg/dL 2.3-4.7 604) Radiation / Chemistry Technician ID - ERA WLIPID [id number] 18:11:00 Test Item Value Reference Range Interpretation [...] Borderline 130-159 High 160-189 Very High >=190 Radiation / Chemistry Technician ID - ERA WSpecimen slightly [id number] 18:10:59 Test Item Value Reference Range Interpretation Comments MAGNESIUM (YANDELAKER) (test code = 2.0 mg/dL 1.6-2.6 627) Radiation / Chemistry Technician ID - ERA WRAD, CHEST, 1 VIEW, NON [id number] 18:10:00Reason for exam:->chfShould this be performed at the bedside?->Yes [facility] : 1945 Sex: FFINAL REPORT TECHNIQUE: One [...] Suspected small bilateral pleural effusions. Signed: Brian Rivasepmelida Verified Date/Time: 02/18/2021 18:10:08 Reading Location: [address] Transitional Reading Room HIGH SENSITIVITY TROPONIN [id number] 18:08:28 Test Item Value Reference Range Interpretation Comments HIGH SENSITIVITY 8 pg/ml See_Comment [Automated message] TROPONIN I (test code = The system which [id number]) generated this result transmitted ref erence range: <=17. Th e reference range was not used to interpr et this result as normal/abnormal . Radiation / Chemistry Technician ID - ERA WThe BATT PACKER STAT High Sensitivity Troponin-I results should be used in conjunction with other diagnostic information such as ECG, clinical observations and information, and patient symptoms to aid in the diagnosis of IA.B-TYPE NATRIURETIC FACTOR (BNP)2021-02-18 18:07:35 Test Item Value Reference Range Interpretation Comments B-TYPE NATRIURETIC PEPTIDE (BEAKER) 590 pg/mL 0-100 H (test code = 700) Radiation / Chemistry Technician ID Alejandro GIRARD WSurgical pathology [id number] 17:08:01 Test Item Value Reference Range Interpretation Comments Case number (test code = [id number]) Surgical pathology See link below for report (test code = PDF Lab Report [id number]) Result status (test code This is Final Report = [id number]) for [id number] [id number] 15:51:43Tom Longoria CRNA 08/23/2020 10:52 AMAirway Location: [...] at Approach: 1VENIPUNC NEED PHYS SKILL,DX OR [id number] 19:03:00Reed Mayers RN 08/21/2020 2:15 PMMidline Insertion Date/Time: 08/21/2020 2:03 PMPerformed by: Reed Mayers RNAuthorized by: Rufina Hernandez MD Consent: Consent [...] Lumen(s): Single lumen Catheter size: 3 Fr Cat heter to vein ratio: 36MidLine Characteristics: Catheter Brand: [employer] External Catheter Length (cm): 0 Internal Catheter Length (cm): 12 Total Catheter Length (cm): 12 Catheter Lot Number: [id number] Catheter Expiration Date: 06/18/2021 Micro-Introducer Lot Number: Procedure details: Landmarks identified:yes Ultrasound guidance: yes Sterile ultrasound techniques: Sterile gel and sterile probe covers were used Number of attempts: 1 Number of MidLine kits used during procedure: 1 Extra guide wire required?: No Purpose of procedure: Midline Placement Patency/Placement: Flushes without difficulty, flushedwith 10 mL normal saline, positive blood return, injection cap placed and ultrasound MidLine placed utilizing ultrasound-guided Modified Seldinger Technique: Yes Dressing/Securement: Antimicrobial dressing dry and intact, antimicrobial dressing applied and catheter securement device Blood Loss Amount:Less than 20 mLPost-procedure details: Post-procedure: Dressing applied [...] appear essentially unchanged.[id number] [place] [facility] [id number] 19:51:00EXAMINATION: OR FL < 1 HOUR CLINICAL HISTORY: Intraoperative fluoroscopy IMPRESSION:Fluoroscopy was provided. No radiologist present. Please see procedure report for discussion of procedure, findings and fluoroscopic time. [facility]-[id number] Interface, Radiology Results Incoming 06/26/2020 1:54 PMCST EXAMINATION: OR FL < 1 HOURCLINICAL HISTORY: Intraoperative fluoroscopyIMPRESSION:Fluoroscopy was provided. No radiologist present. Please see procedure report for discussion of procedure, findings and fluoroscopic time.[facility] [place]-[id number] [id number] 16:20:38Octavio Le Christie 06/26/2020 10:20 AMAirway Location: OR Performed by: JAVA ARCHITECT/AAAnesthesiologist: Garett Brady V., MDResident/JAVA ARCHITECT/AA: Octavio Le RAuthorized by: Garett Brady MD [...] C4-5 and C5-6 with small anterior endplate osteophytes.[id number]_PS02[facility] [place] 12 [id number] 23:45:47 Test Item Value Reference Range Interpretation Comments Ventricular rate (test code = 253) Atrial rate (test code = 255) NM interval (test code = 266) QRSD interval [...] No MD (2024) on 06/23/2020 5:45:46 PM [facility] ED Preliminary Interpretation - Not an [id number] 22:57:05 Test Item Value Reference Range Interpretation Comments STEPHANIE (test code = STEPHANIE) Maninder Peterson III, MD 06/24/2020 1:43 [facility] ED Preliminary Interpretation - Not an OrderPerformed by: Maninder Peterson III, MDAuthorized by: Maninder Peterson III, MD ECG reviewed by ED Physician in the absence of a ironer sock: yes Interpretation: Interpretation: abnormal Quality: Tracing quality: Limited by artifactRate: ECG rate: 88 ECG rate assessment: normal Rhythm: Rhythm: sinus rhythm Ectopy: Ectopy: none QRS: QRS axis: Normal QRS intervals: WideConduction: Conduction: abnormal Abnormal conduction: complete LBBB ST segments: ST segments: Non-specificT waves: T waves: non-specific Lab Interpretation Abnormal (test code = 96617-1) [facility]
[2022-06-26] MEDS ORDERED: Levofloxacin500mg IV 500 MG/100 ML BAG IV ONE (18:58)
[2022-06-26 21:47] LABS: Absolute Lymphocytes (CBC) 0.8 K/uL (0.7-4.9); Hematocrit 39.3 % (36.0-45.0); Lymphocytes % 9.3 % (15.3-44.8); MCV 86.7 fL (80-100); MPV 9.9 fL (7.6-11.3); RBC Red Blood Cell Count 4.53 M/uL (3.86-4.86)
[2022-06-26 22:01] LABS: Potassium 3.4 mmol/L (3.5-5.1)
[2022-06-26 23:04] LABS: SARS-CoV-2 Antigen Rapid Res Negative (Negative)
--- NOTE | 2022-06-26 23:17 | P.HP ---
Certification for Inpatient Patient admitted to: Inpatient With expected LOS: >2 Midnights Patient will require the following post-hospital care: None Practitioner: I am a practitioner with admitting privileges, knowledge of patient current condition, hospital course, and medical plan of care. Services: Services provided to patient in accordance with Admission requirements found in Title 42 Section 412.3 of the Code of Federal Regulations Patient History Date of Service: 06/26/22 Reason for admission: Renal Failure, Uremia History of Present Illness: Patient is a 76 year old female with chronic kidney disease, hypothyroidism, systolic CHF, and hypertension who was sent to the emergency department by Dr. Keenan for initiation of dialysis. Patient required HD for 5 months in 2000 after renal failure secondary to septic shock. Additionally, she required HD for 1 month 2 years ago for acute renal failure but was able to come off. Nephrology has been monitoring her renal function every 4 weeks since and now her BUN is 128, cr 5.24, GFR 8. Potassium stable at 3.4. No signs of fluid overload. Patient will be admitted for further management, initiation of dialysis. Allergies codeine Allergy (Verified 05/24/21 06:35) Itching Home medications list reviewed: Yes Home Medications: Omeprazole [Prilosec] 40 mg PO DAILY 07/16/20 Multivitamin with Iron [Daily Vitamin + Iron] 1 each PO DAILY #90 tablet 07/18/20 Levothyroxine Sodium [Unithroid] 75 mcg PO DAILY 08/09/20 Amiodarone HCl [Cordarone*] 200 mg PO BID 05/23/21 Apixaban [Eliquis *] 2.5 mg PO BID 05/23/21 Diclofenac Sodium [Voltaren Arthritis Pain] 1 geraldo TP PRN PRN 05/23/21 Furosemide [Lasix*] 120 mg PO DIRECTED 05/23/21 Furosemide [Lasix] 80 mg PO DIRECTED 05/23/21 Gabapentin [Gralise] 600 mg PO BEDTIME 05/23/21 Metoprolol Succinate 25 mg PO BID 05/23/21 - Past Medical/Surgical History Diabetic: No -: HTN -: CKD5 -: CHF, systolic -: Knee surgery -: Hysterectomy -: HD catheter placement Psychosocial/ Personal History: Patient lives at home with her - Family History Brother -: Heart disease Mother -: Heart disease Sister -: Heart disease - Social History Smoking Status: Never smoker Alcohol use: No CD- Drugs: No Caffeine use: Yes Place of Residence: Home Review of Systems Unremarkable Physical Examination - Vital Signs Temperature: 98.2 F Blood Pressure: 117/69 Pulse: 62 Respirations: 17 Pulse Ox (%): 100 - Physical Exam General: Alert, In no apparent distress HEENT: Atraumatic, PERRLA, EOMI, Sclerae nonicteric Neck: Supple, 2+ carotid pulse no bruit Respiratory: Clear to auscultation bilaterally, Normal air movement Cardiovascular: Regular rate/rhythm, Normal S1 S2 Gastrointestinal: Normal bowel sounds, No tenderness Musculoskeletal: No tenderness Integumentary: No rashes Neurological: Normal speech, Normal affect - Studies Laboratory Data (last 24 hrs) 06/26/22 21:37: Lipase 30 06/26/22 21:37: Sodium 132 L, Potassium 3.4 L, BUN 128 H, Creatinine 5.24 H*, Glucose 143 H 06/26/22 21:37: WBC 8.90, Hgb 13.1, Hct 39.3, Plt Count 164 Assessment and Plan - Problems (Diagnosis) (1) Chronic kidney disease (CKD) Current Visit: Yes Status: Chronic Qualifiers: Chronic kidney disease stage: stage 5, not on chronic dialysis Qualified Code(s): N18.5 - Chronic kidney disease, stage 5 (2) CAD (coronary artery disease) Current Visit: Yes Status: Chronic Qualifiers: Coronary Disease-Associated Artery/Lesion type: kake artery [place] vs. transplanted heart: kake heart Associated angina: without angina Qualified Code(s): I25.10 - Atherosclerotic heart disease of kake coronary artery without angina pectoris (3) GERD (gastroesophageal reflux disease) Current Visit: Yes Status: Chronic Qualifiers: Esophagitis presence: esophagitis presence not specified Qualified Code(s): K21.9 - Gastro-esophageal reflux disease without esophagitis (4) Hypertension Current Visit: Yes Status: Chronic Qualifiers: Hypertension type: primary hypertension Qualified Code(s): I10 - Essential (primary) hypertension (5) Hypothyroidism Current Visit: Yes Status: Chronic Qualifiers: Hypothyroidism type: acquired Qualified Code(s): E03.9 - Hypothyroidism, unspecified (6) Congestive heart failure (CHF) Current Visit: Yes Status: Chronic Qualifiers: Heart failure type: systolic Heart failure chronicity: chronic Qualified Code(s): I50.22 - Chronic systolic (congestive) heart failure - Plan Patient is admitted for initiation of hemodialysis. General surgery consulted for placement of tunneled HD catheter. NPO at midnight. Nephrology consult-Dr. Keenan. Recheck renal function in the morning. Electrolytes stable at this time. 120 mg IV lasix daily per Dr. Keenan. Monitor and replete electrolytes per protocol. Reconcile and continue home medications. Discharge Plan: Home Plan to discharge in: Greater than 2 days - Advance Directives Does patient have a Living Will: No Does patient have a Durable POA for Healthcare: No - Code Status/Comfort Care Code Status Assessed: Yes Code Status: Full Code Physician Review: Patient Assessed, Agree with Above Assessment and Plan Critical Care: No Time Spent Managing Pts Care (In Minutes): 50
[2022-06-27 02:24] LABS: Absolute Lymphocytes (CBC) 0.8 K/uL (0.7-4.9); Hematocrit 39.4 % (36.0-45.0); Lymphocytes % 10.7 % (15.3-44.8); MCV 87.1 fL (80-100); MPV 10.4 fL (7.6-11.3); RBC Red Blood Cell Count 4.52 M/uL (3.86-4.86)
[2022-06-27 02:48] LABS: Albumin 3.9 g/dL (3.4-5.0); Bilirubin Total 0.8 mg/dL (0.2-1.0); Magnesium 2.9 mg/dL (1.6-2.4); Phosphorus 6.8 mg/dL (2.5-4.9); Potassium 3.2 mmol/L (3.5-5.1); Protein, Total 8.8 g/dL (6.4-8.2); Thyroid Stimulating Hormone 0.355 uIU/mL (0.358-3.740)
[2022-06-27] MEDS ORDERED: FUROSEMIDE 100 MG/10 ML VIAL IV ONE (08:14)
[2022-06-27] MEDS ORDERED: FUROSEMIDE 20 MG/ 2ML VIAL ONE (08:15)
[2022-06-27] MEDS: FUROSEMIDE 100 MG/10 ML VIAL IV SCH (09:00)
[2022-06-27 12:37] LABS: Specific Gravity 1.012 (1.005-1.030); Transitional Epithelial <5 /HPF (None Seen); Urine Bacteria <20 /HPF (<20); Urine Bilirubin NEGATIVE (Negative); Urine Blood 3+ (Negative); Urine Clarity Clear (Clear); Urine Color Light-Yellow (Yellow); Urine Glucose NEGATIVE (Negative); Urine Mucus Slight /HPF (None Seen); Urine Protein NEGATIVE (Negative); Urine RBC >50 /HPF (None Seen); Urine Urobilinogen Normal (Normal); Urine WBC Clump Rare /HPF (None Seen); Urine pH 5.5 (5.0-7.0)
[2022-06-27] MEDS: LIDOCAINE 1% MPF 30 ML VIAL ONE ×2 (13:30→14:21)
[2022-06-27] MEDS ORDERED: NA CHLORIDE 0.9% 500 ML ONE ×2 (13:32→14:53)
[2022-06-27] MEDS ORDERED: NA CHLORIDE 0.9% 100 ML ONE (13:48)
[2022-06-27] MEDS ORDERED: NS 0.9% VIAL 10 ML ONE (13:51)
[2022-06-27] MEDS ORDERED: CEFAZOLIN SODIUM 1 GM/VIAL ONE (13:55)
[2022-06-27] MEDS ORDERED: FENTANYL CITR 100 MCG/2 ML ONE (13:56)
[2022-06-27] MEDS ORDERED: propofoL 200 MG/20 ML VIAL IV ONE (13:56)
[2022-06-27] MEDS ORDERED: LIDOCAINE 2% MPF 5 ML VIAL ONE (13:57)
[2022-06-27] MEDS ORDERED: ONDANSETRON 4 MG/2 ML VIAL ONE ×2 (13:57→15:03)
[2022-06-27] MEDS ORDERED: ETOMIDATE 20 MG/10 ML VIAL IV ONE ×2 (14:11)
[2022-06-27] MEDS ORDERED: GLYCOPYRROLATE 0.2 MG/ML SYR ONE (14:13)
[2022-06-27] MEDS: HEPARIN 5000 UNIT/ML 1 ML VIAL ONE ×2 (14:26→14:27)
--- NOTE | 2022-06-27 14:59 | CON ---
Date of Consultation: 06/27/2022 Reason For Consultation: Elevated BUN and creatinine, fluid management. History Of Present Illness: This is a 76-year-old female, well known to me from the office with sign ificant past medical history of hypertension, hyperlipidemia, osteoarthritis, CAD status post PTCA an d ICD placement, complicated with congestive heart failure, PAD, chronic kidney disease advanced stag e 5 status post acute kidney injury required dialysis before, weaned from dialysis back in May 10. The patient lately seen by Cardiology and with ambulatory intravascular measurement monitor incl uding the right heart pressure, found to have elevation in the right heart pressure. For that reason , increment in her diuresis has been happening in the last couple of months. Gradually, her kidney f unction also started declining after that. The patient visited with her car parker last week. Las ix has been increased further to 120 mg and metolazone has been add. The patient came to the office yesterday complaining from fatigue, weakness, nausea without any vomiting. Lab done as outpatient sh owed significant elevation in BUN and creatinine above 5 and BUN 105. For that reason, we referred t he patient to the hospital to initiate on renal replacement therapy. The patient was started on meto lazone by her car parker. Her sodium has dropped to 132. The patient was feeling weak. The patie nt continued to have shortness of breath and orthopnea even though that she would not have significan t leg swelling. Past Medical History: Includes; 1.Hypertension. 2.Hyperlipidemia. 3.CAD complicated with congestive heart failure, status post ICD and PTCA. 4.PAD. 5.Chronic kidney disease, stage 5, mostly progression to end-stage renal disease. 6.Hyperlipidemia. Past Surgical History: Includes; 1.PermCath placement and removal. 2.Cardiac cath. 3.Hysterectomy. 4.Knee surgery. Family History: Positive for CAD and hypertension. Social History: Lives with . Denied smoking. Denied drinking. Denied drugs abuse. Home Medications: Include; 1.Omeprazole. 2.Multivitamin. 3.Levothyroxine. 4.Amiodarone. 5.Eliquis. 6.Lasix 120 mg daily. 7.Metolazone 2.5 daily. 8.Gabapentin. 9.Metoprolol. Review of Systems: Head and Neck: No red eye. No ear pain. GI: No nausea. No vomiting. : No polyuria. No dysuria. No hematuria. 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 Respiratory: Has shortness of breath. Cardiovascular: Has leg swelling. Endocrine: No polydipsia. Skin: No rash. Neuro: Has weakness. Musculoskeletal: Generalized fatigue. Physical Examination: Vital Signs: When I saw the patient; blood pressure 140/62, pulse of 55, afebrile. Chest: Faint rales bilateral base. Heart: S1, S2. Regular. Systolic murmur. Abdomen: Soft, nontender. Extremity: Trace edema. Neurologic: Alert. No focality. Only tremor. Laboratory Data: Sodium 132, potassium 3.2, bicarb 23, BUN 132, creatinine 5.2, calcium 9.3, phospho lenny 6.8, magnesium 2.9. BNP 2154. TSH 0.3, hemoglobin 13.1. Current Medications: The patient on include Tylenol, Lasix 120 daily. Assessment And Plan: 1.Acute kidney injury on advanced chronic kidney disease secondary to cardiorenal, over volume with uremic symptoms. I am going to go ahead and proceed with renal replacement therapy. We will consult Surgery for placement of the dialysis catheter and we will follow up the patient. After replacement of the catheter, I am going to go ahead and arrange for outpatient dialysis and we will initiate yordy lysis. 2.Hypertension. We will continue to utilize blood pressure for more diuresis. 3.Anemia of chronic kidney disease. Hemoglobin above 11. No need for LINDY. 4.Hyponatremia, will be corrected with dialysis. It is dilutional secondary to renal and cardiac fa ilure. 5.Hypokalemia. I am going to hold on supplement. The patient is going to be dialyzed on high potas sium bath and we will follow up for. 6.Diabetes as by primary. 7.Coronary artery disease with congestive heart failure. We will optimize the fluid status with yordy lysis. Time spent examining the patient [id number], reviewing data lab and radiology, placing order, discu ssing the case with the patient, discussing the case with the nursing staff and hospitalist with Morgan montes de oca more than 65 minutes. JESSICA Voice ID: [id number] Report ID: [id number]
[2022-06-27] MEDS: HYDROMORPHONE HCL 1 MG/ML INJ ONE ×2 (15:00→15:05)
--- NOTE | 2022-06-27 15:33 | RAD REPORT ---
EXAM DESCRIPTION: RAD - Chest Single View - 06/27/2022 3:10 pm CLINICAL HISTORY: Status post Tesio catheter Chest pain. COMPARISON: Chest Single View dated 03/10/2022; Chest Single View dated 02/17/2021; Chest Single Vie w dated 02/17/2021; Chest Single View dated 02/14/2021 FINDINGS: Right-sided venous catheter has been placed. Tip is in the superior vena cava. No postproc edure pneumothorax.
--- NOTE | 2022-06-27 15:41 | OP ---
Date of Procedure: 06/27/2022 Surgeon: Howard Khanna MD Preoperative Diagnosis: Acute renal failure. Postoperative Diagnosis: Acute renal failure. Procedure: Placement of right IJ Tesio catheter and interpretation of intraoperative fluoroscopy. Estimated Blood Loss: Minimal. Specimen: None. Findings: Normal anatomy. Anesthesia: General. Complications: None. Disposition: The patient tolerated the procedure in stable condition and taken to Recovery in good g eneral condition. Description Of Procdure: The patient was brought to the OR and placed in supine position. General a nesthesia begun. The patient was prepped and draped in the usual sterile fashion. Lidocaine 1% infi ltrated locally. An 18-gauge needle was used to access the right IJ vein. Guidewire passed and posi tion confirmed with fluoroscopy. Then, 1 cm counter incision made on the right anterior chest. Tunn eling device was used to tunnel the catheter between the 2 wounds and then Seldinger technique used a nd tip of the catheter placed in the distal SVC region under fluoroscopy. Catheter flushed with hepa rin and packed with heparin with good blood flow and then 3-0 chromic used to reapproximate subcutane ous tissue and close the skin and 3-0 nylon used to secure the tube to the chest wall. Sterile dressing applied. The patient was awakened and taken to recovery room in good general condition. /MODL Voice ID: [id number] Report ID: [id number]
--- NOTE | 2022-06-27 16:17 | PREOPCON ---
Date of Consultation: 06/27/2022 Reason: Patient needs dialysis. History Of Present Illness: Patient is a 76-year-old female with multiple medical problems who has b een following Dr. Keenan for kidney disease several years and she did require temporary dialysis in the past and now she is ready for dialysis again with elevated BUN and creatinine. GFR 8. I was co nsulted for tunneled dialysis catheter. Patient is awake, alert. No fever or chills. No sore throa t, runny nose, cough, headaches, or dizziness. No chest pain. Review of Systems: Otherwise unremarkable. Past Medical History: Significant for hypertension; kidney disease, stage 5; CHF, systolic. Past Surgical History: Knee surgery, hysterectomy, and placement of hemodialysis catheter. Allergies: INCLUDE CODEINE. Social History: Patient does not smoke or drink alcohol. Family History: Significant for heart disease. Her vitals are stable. She is currently afebrile. She is awake, alert, and oriented x3. Physical Examination: Head and Neck: No masses. Chest: Clear. Heart: S1, S2. Abdomen: Soft. Extremities: Neurovascularly intact. Neuro: Nonfocal. Laboratory Data: White count is 8.9, H and H are 13.1 and 39.3, platelets are 164. Potassium is 3.4 , BUN is 128, creatinine is 5.24. Assessment: A 76-year-old female with acute renal failure. Plan: N.p.o., IV antibiotic in to the OR for placement of a tunneled dialysis catheter. Patient und erstands the risks, benefits, and alternatives and agrees to procedure. /MODL Voice ID: [id number] Report ID: [id number]
--- NOTE | 2022-06-27 16:20 | EKG ---
Test Date: 2022-06-26 Test Time: 22:01:37 Bead Cutter: MEASUREMENT RESULTS: Intervals: Rate: 51 DC: 94 QRSD: 258 QT: 736 QTc: 678 [place]: P: 67 DC: 94 QRS: -39 T: 92 INTERPRETIVE STATEMENTS: Poor data quality, interpretation may be adversely affected Electronic ventricular pacemaker Compared to ECG 03/10/2022 15:27:34 Atrial-sensed ventricular-paced complex(es) or rhythm no longer present Electronically Signed On 06-27-22 16:19:26 EXECUTIVE ASSOCIATE by Isreal Nielsen
[2022-06-27] MEDS: ACETAMINOPHEN 500 MG TAB PO PRN ×2 (17:22→23:30)
[2022-06-27 18:02] LABS: Hepatitis B Core Ab, Total Nonreactive (Nonreactive); Hepatitis B Surface Ab - Quant 15.93 mIU/mL (<8.0); Hepatitis B surface AG Interp. Nonreactive (Nonreactive)
[2022-06-28] MEDS: MELATONIN 5 MG TABLET PO PRN ×2 (00:28→23:10)
[2022-06-28 03:31] LABS: RBC Red Blood Cell Count 4.23 M/uL (3.86-4.86)
[2022-06-28 04:29] LABS: Albumin 3.5 g/dL (3.4-5.0); Potassium 3.1 mmol/L (3.5-5.1); Thyroid Stimulating Hormone 0.227 uIU/mL (0.358-3.740); Uric Acid 16.5 mg/dL (2.6-6.0)
[2022-06-28] MEDS: FUROSEMIDE 100 MG/10 ML VIAL IV SCH (09:00)
[2022-06-28] MEDS: ONDANSETRON 4 MG/2 ML VIAL IV PRN (12:12)
--- NOTE | 2022-06-28 14:27 | P.PN ---
Subjective Date of Service: 06/28/22 Chief Complaint: Renal Failure, Uremia Subjective: No new changes, Other (Received HD today.) Physical Examination - Vital Signs Temperature: 96.5 F Blood Pressure: 136/65 Pulse: 55 Respirations: 14 Pulse Ox (%): 96 - Physical Exam General: Other (Appears as her stated age) HEENT: Atraumatic, Normocephalic Neck: Supple Respiratory: Other (Symmetric chest expansion) Cardiovascular: No rubs, No murmurs Gastrointestinal: Soft and benign, No guarding Musculoskeletal: No clubbing Integumentary: No warmth Neurological: Normal tone Urinary: Other (No bladder distention) External genitalia: Deferred Rectal: Deferred Assessment And Plan - Plan 1. Acute kidney injury on advanced chronic kidney disease secondary to cardiorenal, over volume with uremic symptoms. HD started today. HD again tomorrow then MWF starting next wk. Outpt HD placement c/o case mngt. 2. Hypertension. We will continue to utilize blood pressure for more diuresis. 3. Anemia of chronic kidney disease. Hemoglobin above 11. No need for LINDY. 4. Hyponatremia, will be corrected with dialysis. It is dilutional secondary to renal and cardiac failure. 5. Hypokalemia. I am going to hold on supplement. The patient is going to be dialyzed on high potassium bath and we will follow up for. 6. DM2. Mngt per primary team. 7. Coronary artery disease with congestive heart failure. We will optimize the fluid status with dialysis. Physician Review: Patient Assessed, Agree with Above Assessment and Plan
[2022-06-28] MEDS: ACETAMINOPHEN 500 MG TAB PO PRN ×2 (14:58→23:10)
[2022-06-29] MEDS: ONDANSETRON 4 MG/2 ML VIAL IV PRN ×2 (00:18→12:19)
[2022-06-29] MEDS ORDERED: PROMETHAZINE 25 MG TABLET PO ONE (01:45)
[2022-06-29] MEDS ORDERED: HYDROCODONE/APAP 7.5/325 MG TAB PO ONE (01:45)
[2022-06-29 03:35] LABS: Albumin 3.5 g/dL (3.4-5.0); Phosphorus 3.8 mg/dL (2.5-4.9); Potassium 3.1 mmol/L (3.5-5.1)
[2022-06-29] MEDS: FUROSEMIDE 100 MG/10 ML VIAL IV SCH (09:00)
[2022-06-29] MEDS: ACETAMINOPHEN 500 MG TAB PO PRN (12:19)
--- NOTE | 2022-06-29 13:15 | P.PN ---
Subjective Date of Service: 06/29/22 Chief Complaint: Renal Failure, Uremia Subjective Pt with CKD , admitted for CHF exacerbation, started on HD for Uremia Today feels better no edema on Exam 2nd HD today Next HD on friday outpatient dialysis arrangement Physical exam General: AAOx3, NAD HEET: no changes in vision, moist mucous membrane neck supple, no elevated JVD CHEST; CTAB, no wheezes or rales HEART : RRR. Normal S1,2 no murmur or rub Abd: soft, Nt Ext: no edema Skin : No rash A/p #Acute kidney injury on chronic kidney disease secondary to cardiorenal, Started on HD for Uremia HD today then MWF starting next wk. Outpt HD placement c/o case mngt. # Hypertension. We will continue to utilize blood pressure for more diuresis. # Anemia of chronic kidney disease. Hemoglobin above 11. No need for LINDY. # Hyponatremia, will be corrected with dialysis. It is dilutional secondary to renal and cardiac failure. #DM2. Mngt per primary team. #CHF euvolemic now cont HD low salt diet Physical Examination - Vital Signs Temperature: 97.0 F Blood Pressure: 169/56 Pulse: 60 Respirations: 16 Pulse Ox (%): 98 Assessment And Plan Physician Review: Patient Assessed, Agree with Above Assessment and Plan
[2022-06-29] MEDS ORDERED: HYDROCODONE/APAP 10/325 TAB PO ONE (17:19)
--- NOTE | 2022-06-29 22:28 | P.PN ---
Subjective Date of Service: 06/27/22 Subjective: No new changes, No C/O voiced, Improving Schedule for hemodialysis access catheter. Then we will go ahead and arrange for outpatient hemodialysis. Review of Systems 10-point ROS is otherwise unremarkable Physical Examination - Vital Signs Temperature: 97.7 F Blood Pressure: 126/62 Pulse: 65 Respirations: 18 Pulse Ox (%): 96 - Physical Exam General: Alert, In no apparent distress, Oriented x3 Respiratory: Clear to auscultation bilaterally, Normal air movement Cardiovascular: Regular rate/rhythm, Normal S1 S2, No murmurs Gastrointestinal: Normal bowel sounds, Soft and benign, Non-distended, No tenderness Musculoskeletal: No clubbing, No swelling, No tenderness Neurological: Sensation intact, Cranial nerves 3-12 intact - Studies Medications List Reviewed: Yes Assessment & Plan - Problems (Diagnosis) (1) ESRD (end stage renal disease) on dialysis Current Visit: No Status: Acute (2) CAD (coronary artery disease) Current Visit: Yes Status: Chronic Qualifiers: Coronary Disease-Associated Artery/Lesion type: [place] artery [place] vs. transplanted heart: [place] heart Associated angina: without angina Qualified Code(s): I25.10 - Atherosclerotic heart disease of [place] coronary artery without angina pectoris (3) Congestive heart failure (CHF) Current Visit: Yes Status: Chronic Qualifiers: Heart failure type: systolic Heart failure chronicity: chronic Qualified Code(s): I50.22 - Chronic systolic (congestive) heart failure (4) GERD (gastroesophageal reflux disease) Current Visit: Yes Status: Chronic Qualifiers: Esophagitis presence: esophagitis presence not specified Qualified Code(s): K21.9 - Gastro-esophageal reflux disease without esophagitis (5) Hypertension Current Visit: Yes Status: Chronic Qualifiers: Hypertension type: primary hypertension Qualified Code(s): I10 - Essential (primary) hypertension (6) Hypothyroidism Current Visit: Yes Status: Chronic Qualifiers: Hypothyroidism type: acquired Qualified Code(s): E03.9 - Hypothyroidism, unspecified - Plan 1. Arrange for hemodialysis access catheter 2. Arrange for outpatient hemodialysis 3. Hepatitis profile pending 4. Appreciate nephrology consultation 5. Gi DVT prophylaxis Discharge Plan: Home Plan to discharge in: Greater than 2 days - Advance Directives Does patient have a Living Will: No Does patient have a Durable POA for Healthcare: No - Code Status/Comfort Care Code Status: Full Code Physician Review: Patient Assessed, Agree with Above Assessment and Plan Critical Care: No Time Spent Managing PTS Care (In Minutes): 35
--- NOTE | 2022-06-29 22:30 | P.PN ---
Date of Service: 06/28/22 Subjective Pt is doing well with no new complaints; clinical symptoms continue to improve Review of Systems 10-point ROS is otherwise unremarkable Physical Examination - Vital Signs reviewed - Physical Exam General: Alert, In no apparent distress, Oriented x3 Respiratory: Clear to auscultation bilaterally, Normal air movement Cardiovascular: Regular rate/rhythm, Normal S1 S2, No murmurs Gastrointestinal: Normal bowel sounds, Soft and benign, Non-distended, No tenderness Musculoskeletal: No clubbing, No swelling, No tenderness Neurological: Sensation intact, Cranial nerves 3-12 intact Assessment & Plan - Problems (Diagnosis) (1) ESRD (end stage renal disease) on dialysis Current Visit: No Status: Acute (2) CAD (coronary artery disease) Current Visit: Yes Status: Chronic Qualifiers: Coronary Disease-Associated Artery/Lesion type: [place] artery [place] vs. transplanted heart: [place] heart Associated angina: without angina Qualified Code(s): I25.10 - Atherosclerotic heart disease of [place] coronary artery without angina pectoris (3) Congestive heart failure (CHF) Current Visit: Yes Status: Chronic Qualifiers: Heart failure type: systolic Heart failure chronicity: chronic Qualified Code(s): I50.22 - Chronic systolic (congestive) heart failure (4) GERD (gastroesophageal reflux disease) Current Visit: Yes Status: Chronic Qualifiers: Esophagitis presence: esophagitis presence not specified Qualified Code(s): K21.9 - Gastro-esophageal reflux disease without esophagitis (5) Hypertension Current Visit: Yes Status: Chronic Qualifiers: Hypertension type: primary hypertension Qualified Code(s): I10 - Essential (primary) hypertension (6) Hypothyroidism Current Visit: Yes Status: Chronic Qualifiers: Hypothyroidism type: acquired Qualified Code(s): E03.9 - Hypothyroidism, unspecified - Plan Cont w/POC as mentioned below: 1. S/p hemodialysis access catheter 2. Arrange for outpatient hemodialysis 3. Hepatitis profile reviewed 4. Appreciate nephrology consultation 5. Gi DVT prophylaxis
--- NOTE | 2022-06-29 22:30 | P.PN ---
Date of Service: 06/29/22 Subjective headache afte HD; feeling tired. O/w no new complaints Review of Systems 10-point ROS is otherwise unremarkable Physical Examination - Vital Signs reviewed - Physical Exam General: Alert, In no apparent distress, Oriented x3 Respiratory: Clear to auscultation bilaterally, Normal air movement Cardiovascular: Regular rate/rhythm, Normal S1 S2, No murmurs Gastrointestinal: Normal bowel sounds, Soft and benign, Non-distended, No tenderness Musculoskeletal: No clubbing, No swelling, No tenderness Neurological: Sensation intact, Cranial nerves 3-12 intact Assessment & Plan - Problems (Diagnosis) (1) ESRD (end stage renal disease) on dialysis Current Visit: No Status: Acute (2) CAD (coronary artery disease) Current Visit: Yes Status: Chronic Qualifiers: Coronary Disease-Associated Artery/Lesion type: [place] artery [place] vs. transplanted heart: [place] heart Associated angina: without angina Qualified Code(s): I25.10 - Atherosclerotic heart disease of [place] coronary artery without angina pectoris (3) Congestive heart failure (CHF) Current Visit: Yes Status: Chronic Qualifiers: Heart failure type: systolic Heart failure chronicity: chronic Qualified Code(s): I50.22 - Chronic systolic (congestive) heart failure (4) GERD (gastroesophageal reflux disease) Current Visit: Yes Status: Chronic Qualifiers: Esophagitis presence: esophagitis presence not specified Qualified Code(s): K21.9 - Gastro-esophageal reflux disease without esophagitis (5) Hypertension Current Visit: Yes Status: Chronic Qualifiers: Hypertension type: primary hypertension Qualified Code(s): I10 - Essential (primary) hypertension (6) Hypothyroidism Current Visit: Yes Status: Chronic Qualifiers: Hypothyroidism type: acquired Qualified Code(s): E03.9 - Hypothyroidism, unspecified - Plan Cont w/POC as mentioned below: 1. S/p hemodialysis access catheter 2. Arrange for outpatient hemodialysis 3. Hepatitis profile reviewed 4. Appreciate nephrology consultation 5. Gi DVT prophylaxis
[2022-06-30] MEDS: ACETAMINOPHEN 500 MG TAB PO PRN (00:09)
[2022-06-30 06:20] LABS: Absolute Lymphocytes (CBC) 1.1 K/uL (0.7-4.9); Hematocrit 40.7 % (36.0-45.0); Lymphocytes % 12.7 % (15.3-44.8); MCV 88.1 fL (80-100); MPV 10.1 fL (7.6-11.3); RBC Red Blood Cell Count 4.62 M/uL (3.86-4.86)
[2022-06-30 06:32] LABS: Albumin 3.8 g/dL (3.4-5.0); Phosphorus 3.4 mg/dL (2.5-4.9); Potassium 3.6 mmol/L (3.5-5.1)
[2022-06-30 06:38] LABS: Albumin 3.9 g/dL (3.4-5.0); Bilirubin Total 0.5 mg/dL (0.2-1.0); Magnesium 2.4 mg/dL (1.6-2.4); Potassium 3.5 mmol/L (3.5-5.1); Protein, Total 8.7 g/dL (6.4-8.2)
[2022-06-30] MEDS: FAMOTIDINE 20 MG TAB PO SCH (08:32)
[2022-06-30] MEDS: LEVOTHYROXINE SOD 0.075 MG TAB PO SCH (08:32)
[2022-06-30] MEDS: METOPROLOL XL 25 MG TAB PO SCH ×2 (08:36→20:57)
[2022-06-30] MEDS: AMIODARONE HCL 200 MG TAB PO SCH (08:37)
[2022-06-30] MEDS ORDERED: AMIODARONE HCL 200 MG TAB PO SCH (09:00)
[2022-06-30] MEDS ORDERED: RIVAROXABAN 15 MG TABLET PO SCH (09:00)
--- NOTE | 2022-06-30 14:45 | P.PN ---
Subjective Date of Service: 06/30/22 Chief Complaint: Renal Failure, Uremia Subjective Pt with CKD , admitted for CHF exacerbation, started on HD for Uremia Today denied nausea, vomiting , diarrhea or constipation no edema on Exam 2nd HD yesterday Next HD on friday outpatient dialysis arrangement Physical exam General: AAOx3, NAD HEET: no changes in vision, moist mucous membrane neck supple, no elevated JVD CHEST; CTAB, no wheezes or rales HEART : RRR. Normal S1,2 no murmur or rub Abd: soft, Nt Ext: no edema Skin : No rash A/p #Acute kidney injury on chronic kidney disease secondary to cardiorenal, Started on HD for Uremia HD today then MWF starting next wk. Outpt HD placement c/o case mngt. # Hypertension. We will continue to utilize blood pressure for more diuresis. # Anemia of chronic kidney disease. Hemoglobin above 11. No need for LINDY. # Hyponatremia, will be corrected with dialysis. It is dilutional secondary to renal and cardiac failure. #DM2. Mngt per primary team. #CHF euvolemic now cont HD low salt diet Physical Examination - Vital Signs Temperature: 97.0 F Blood Pressure: 123/52 Pulse: 68 Respirations: 16 Pulse Ox (%): 99 - Studies Medications List Reviewed: Yes Assessment And Plan Physician Review: Patient Assessed, Agree with Above Assessment and Plan
[2022-06-30] MEDS: GABAPENTIN 300 MG CAP PO SCH (20:57)
[2022-06-30] MEDS: APIXABAN 2.5 MG TABLET PO SCH (20:57)
[2022-07-01] MEDS: ACETAMINOPHEN 500 MG TAB PO PRN (03:40)
[2022-07-01 04:49] VITALS: BMI 32.3
--- NOTE | 2022-07-01 05:32 | P.PN ---
Date of Service: 06/30/22 Subjective Pt is doing well with no new changes; Hopefully we can get discharged after hemodialysis tomorrow. No other complaints voiced. Review of Systems 10-point ROS is otherwise unremarkable Physical Examination - Vital Signs reviewed - Physical Exam General: Alert, In no apparent distress, Oriented x3 Respiratory: Clear to auscultation bilaterally, Normal air movement Cardiovascular: Regular rate/rhythm, Normal S1 S2, No murmurs Gastrointestinal: Normal bowel sounds, Soft and benign, Non-distended, No tenderness Musculoskeletal: No clubbing, No swelling, No tenderness Neurological: Sensation intact, Cranial nerves 3-12 intact Assessment & Plan - Problems (Diagnosis) (1) ESRD (end stage renal disease) on dialysis Current Visit: No Status: Acute (2) CAD (coronary artery disease) Current Visit: Yes Status: Chronic Qualifiers: Coronary Disease-Associated Artery/Lesion type: [place] artery [place] vs. transplanted heart: [place] heart Associated angina: without angina Qualified Code(s): I25.10 - Atherosclerotic heart disease of [place] coronary artery without angina pectoris (3) Congestive heart failure (CHF) Current Visit: Yes Status: Chronic Qualifiers: Heart failure type: systolic Heart failure chronicity: chronic Qualified Code(s): I50.22 - Chronic systolic (congestive) heart failure (4) GERD (gastroesophageal reflux disease) Current Visit: Yes Status: Chronic Qualifiers: Esophagitis presence: esophagitis presence not specified Qualified Code(s): K21.9 - Gastro-esophageal reflux disease without esophagitis (5) Hypertension Current Visit: Yes Status: Chronic Qualifiers: Hypertension type: primary hypertension Qualified Code(s): I10 - Essential (primary) hypertension (6) Hypothyroidism Current Visit: Yes Status: Chronic Qualifiers: Hypothyroidism type: acquired Qualified Code(s): E03.9 - Hypothyroidism, unspecified - Plan Cont w/POC as mentioned below: 1. S/p hemodialysis access catheter 2. Arrange for outpatient hemodialysis 3. Hepatitis profile reviewed 4. Appreciate nephrology consultation 5. Gi DVT prophylaxis
[2022-07-01 06:24] LABS: Albumin 3.7 g/dL (3.4-5.0); Potassium 3.5 mmol/L (3.5-5.1)
[2022-07-01] MEDS: METOPROLOL XL 25 MG TAB PO SCH ×2 (09:48→20:37)
[2022-07-01] MEDS: FAMOTIDINE 20 MG TAB PO SCH (09:49)
[2022-07-01] MEDS: AMIODARONE HCL 200 MG TAB PO SCH (09:49)
[2022-07-01] MEDS: LEVOTHYROXINE SOD 0.075 MG TAB PO SCH (09:49)
[2022-07-01] MEDS: APIXABAN 2.5 MG TABLET PO SCH ×2 (09:49→20:43)
--- NOTE | 2022-07-01 15:34 | P.PN ---
Subjective Date of Service: 07/01/22 Chief Complaint: Renal Failure, Uremia No acute events overnight. She denies any concerns this morning. She is waiting for placement in an outpatient dialysis chair prior to discharge. Plan for hemodialysis today. Review of Systems 10-point ROS is otherwise unremarkable Physical Examination - Vital Signs Temperature: 96.7 F Blood Pressure: 106/55 Pulse: 53 Respirations: 14 Pulse Ox (%): 94 - Physical Exam General: Alert, In no apparent distress, Oriented x3 HEENT: Atraumatic, Mucous membr. moist/pink, EOMI, Sclerae nonicteric Neck: JVD not distended Respiratory: Clear to auscultation bilaterally, Normal air movement Cardiovascular: No edema, Regular rate/rhythm, Normal S1 S2, No gallops, No rubs, No murmurs Gastrointestinal: Normal bowel sounds, Soft and benign, Non-distended, No tenderness, No rebound, No guarding Musculoskeletal: No clubbing Integumentary: No rashes Neurological: Normal speech, Cranial nerves 3-12 intact, Normal affect - Studies Medications List Reviewed: Yes Assessment And Plan - Plan # Chronic Kidney Disease Stage V now progressed to End-Stage Renal Disease recently started on Hemodialysis # Microscopic Hematuria - Nephrology consulted - recommendations appreciated - Initiated on hemodialysis - Appreciate CM with assistance for outpatient dialysis chair - Anticipate discharge once arranged # Hyperthyroidism secondary to Over-supplementation # History of Hypothyroidism - TSH 0.227, Free T4 2.18 - She is asymptomatic - Discontinue home levothyroxine # Escherichia Coli Urinary Tract Infection - Does not meet sepsis criteria - Treat with a 5 day course of cefdinir (renally dosed) # Chronic Atrial Fibrillation - Continue home amiodarone, metoprolol, apixaban # Coronary Artery Disease # Chronic Compensated Systolic Congestive Heart Failure (LVEF 25-30 %) # Pulmonary Hypertension # Hypertension - Continue home metoprolol - Volume status to be managed via hemodialysis # Gastroesophageal Reflux Disease - Continue home famotidine Denys Mello M.D.
[2022-07-01] MEDS ORDERED: CEFDINIR 300 MG CAP PO SCH ×2 (17:00→20:00)
[2022-07-01] MEDS: GABAPENTIN 300 MG CAP PO SCH (20:38)
--- NOTE | 2022-07-02 00:31 | PN ---
Date of Progress Note: 07/01/2022 Chief Complaint: Uremia, chronic kidney disease, congestive heart failure exacerbation, acute kidney injury, and cardiorenal syndrome. Subjective: The patient initiated on dialysis today. She underwent dialysis with ultrafiltration. The patient denies chest pain or palpitations. Nausea and vomiting resolved. Physical Examination: General: Not in acute distress. Lungs: Clear to auscultation bilaterally. Heart: S1, S2. Abdomen: Soft. Extremities: No edema. Impression And Plan: 1.Acute kidney injury on chronic kidney disease secondary to cardiorenal syndrome. The patient was found to have severely elevated azotemia and the patient is started on dialysis. manager infusion [facility] outpatient dialysis set up. 2.Hypertension. Continue blood pressure medication. 3.Anemia of chronic kidney disease. Hemoglobin is above 11. LINDY is on hold. 4.Hyponatremia due to volume overload dilutional secondary to renal and cardiac failure. Continue l ow-sodium diet and p.o. fluid restriction. Continue dialysis to obtain negative fluid balance and to control azotemia. 5.Diabetes mellitus. Continue insulin management per primary team. EB/MODL Voice ID: [id number] Report ID: [id number]
[2022-07-02] MEDS: ACETAMINOPHEN 500 MG TAB PO PRN (00:46)
[2022-07-02] MEDS: MELATONIN 5 MG TABLET PO PRN (00:47)
[2022-07-02 03:59] LABS: Albumin 3.5 g/dL (3.4-5.0); Phosphorus 2.8 mg/dL (2.5-4.9)
[2022-07-02] MEDS: AMIODARONE HCL 200 MG TAB PO SCH (09:00)
[2022-07-02] MEDS: METOPROLOL XL 25 MG TAB PO SCH (09:00)
[2022-07-02] MEDS: FAMOTIDINE 20 MG TAB PO SCH (09:00)
[2022-07-02] MEDS: APIXABAN 2.5 MG TABLET PO SCH (09:00)
[2022-07-02 10:38] VITALS: O2SAT 95
[2022-07-02 12:04] VITALS: BP 121/56; TEMP 96.7
--- NOTE | 2022-07-02 13:34 | P.DS ---
Admission Date: 06/26/22 Discharge Date: 07/02/22 Disposition: ROUTINE DISCHARGE Discharge Condition: GOOD Reason for Admission: Renal Failure, Uremia Consultations: 1. Nephrology 2. General Surgery Procedures: - 06/27/2022 - Tunneled Hemodialysis Catheter Placement Hospital Course: DIAGNOSES: # Chronic Kidney Disease Stage V now progressed to End-Stage Renal Disease recently started on Hemodialysis # Hyperthyroidism secondary to Over-supplementation # History of Hypothyroidism # Escherichia Coli Urinary Tract Infection # Chronic Atrial Fibrillation # Coronary Artery Disease # Chronic Compensated Systolic Congestive Heart Failure (LVEF 25-30 %) # Pulmonary Hypertension # Hypertension # Gastroesophageal Reflux Disease # Microscopic Hematuria HOSPITAL COURSE: Ms. Doretha Partida is a 76 year old female with a past medical history significant for chronic kidney disease stage V, hypothyroidism, chronic atrial fibrillation, coronary artery disease, chronic systolic congestive heart failure with reduced ejection fraction (LVEF 25-30 %), pulmonary hypertension, and hypertension who was admitted to the [facility] on 06/26/2022 for initiation of hemodialysis. She was admitted to the Medicine service. Nephrology was consulted and she was evaluated by Dr. Keenan. He recommended initiation of hemodialysis. General Surgery was consulted and she was evaluated by Dr. Khanna. On 06/27/2022, she underwent placement of a tunneled dialysis catheter. She was initiated on hemod ialysis and did well. She had no issues during her hospitalization. With the assistance of case management, an outpatient dialysis chair was arranged at [facility]. I spoke with Dr. Keenan, who has cleared her for discharge. Incidentally, she was found to have hyperthyroidism on her lab work. This was thought to be secondary to oversupplementation of levothyroxine. This medication was held and she was advised to follow-up with her PCP for repeat thyroid function tests in a couple of weeks. Additionally, she was found to have microscopic hematuria. She was counseled that this may represent an underlying urologic malignancy. She was advised to follow this up with her PCP once her urinary tract infection has resolved in about 1 week. She verbalized understanding and agreed to schedule this appointment. Additionally, her rivaroxaban was switched to apixaban. She was counseled to make this medication change and a new prescription was sent to her pharmacy. On 07/02/2022, she was seen on morning rounds and deemed medically stable for discharge. She was discharged with instructions to schedule follow-up appointments with her PCP (Dr. Mehta) and with Nephrology (Dr. Keenan). She was provided prescriptions for apixaban and cefdinir. She was given the opportunity to ask questions and reported no further questions. Furthermore, all questions were answered to the best of my ability. A copy of this discharge summary will be sent to the above providers to facilitate continuity of care. Today, I personally spent 25 minutes on her case, of which greater than 50% of the time was spent in patient education, counseling, and coordination of care as described above. - Physical Exam General: Alert, In no apparent distress, Oriented x3 HEENT: Atraumatic, Mucous membr. moist/pink, Sclerae nonicteric Neck: JVD not distended Respiratory: Clear to auscultation bilaterally, Normal air movement Cardiovascular: No edema, Regular rate/rhythm, No murmurs Gastrointestinal: Normal bowel sounds, Soft, Non-distended, No tenderness Musculoskeletal: No clubbing Integumentary: No rashes Neurological: Normal speech, Normal affect Vital Signs/Physical Exam: Temp Pulse Resp BP Pulse Ox 96.7 F L 59 16 121/56 L 96 07/02/22 12:00 07/02/22 12:00 07/02/22 12:00 07/02/22 12:00 07/02/22 12:00 Laboratory Data at Discharge: WBC 8.90 K/uL (4.3-10.9) 06/30/22 05:20 Hgb 13.3 g/dL (12.0-15.0) 06/30/22 05:20 Hct 40.7 % (36.0-45.0) 06/30/22 05:20 Plt Count 141 K/uL (152-406) L 06/30/22 05:20 Sodium 129 mmol/L (136-145) L 07/02/22 03:08 Potassium 4.0 mmol/L (3.5-5.1) D 07/02/22 03:08 BUN 40 mg/dL (7-18) H 07/02/22 03:08 Creatinine 4.00 mg/dL (0.55-1.02) H 07/02/22 03:08 Glucose 127 mg/dL (74-106) H 07/02/22 03:08 Uric Acid 16.5 mg/dL (2.6-6.0) H 06/28/22 02:52 Phosphorus 2.8 mg/dL (2.5-4.9) 07/02/22 03:08 Magnesium 2.4 mg/dL (1.6-2.4) 06/30/22 05:20 Total Bilirubin 0.5 mg/dL (0.2-1.0) 06/30/22 05:20 AST 26 U/L (15-37) 06/30/22 05:20 ALT 19 U/L (13-56) 06/30/22 05:20 Alkaline Phosphatase 251 U/L (45-117) H 06/30/22 05:20 Triglycerides 199 mg/dL (<150) H 06/27/22 01:58 Cholesterol 182 mg/dL (<200) 06/27/22 01:58 HDL Cholesterol 51 mg/dL (40-60) 06/27/22 01:58 Cholesterol/HDL Ratio 3.57 06/27/22 01:58 Lipase 30 U/L (13-75) 06/26/22 21:37 Home Medications: Amiodarone HCl [Cordarone*] 200 mg PO BID 05/23/21 Gabapentin [Gralise] 600 mg PO BEDTIME 05/23/21 Metoprolol Succinate 25 mg PO BID 05/23/21 Famotidine 20 mg PO DAILY 06/27/22 Apixaban [Eliquis *] 2.5 mg PO BID #60 tab 07/02/22 Cefdinir [Cefdinir*] 300 mg PO SuMoWeFr@1700 4 Days #2 cap 07/02/22 New Medications: Cefdinir [Cefdinir*] 300 mg PO SuMoWeFr@1700 4 Days #2 cap Apixaban [Eliquis *] 2.5 mg PO BID #60 tab Physician Discharge Instructions: 1. Please call and schedule a follow-up appointment with your PCP (Dr. Mehta) in 3-5 days - Please stop taking rivaroxaban (Xarelto) and start taking apixaban (Eliquis) - Please have your PCP refill these medications - Your thyroid function tests were too high, please discontinue your levothyroxine and have your thyroid levels rechecked with your PCP - There was blood noted on your urine study. Although this can be seen in several conditions, we always want to exclude/evaluate for bladder or kidney cancer. Please discuss this with your PCP and you may be referred to Urology for further evaluation. 2. Please call and schedule a follow-up appointment with your Plating Foreman (Dr. Keenan) in 5-7 days Diet: Renal Activity: Ad reji Followup: Celso Keenan MD [ACTIVE - CAN ADMIT] - Carlos Mehta MD [Primary Care Provider] - Time spent managing pt's care (in minutes): 25
--- NOTE | 2022-07-02 22:04 | PN ---
Date of Progress Note: 07/02/2022 Chief Complaint: [id number] kidney injury secondary to cardiorenal syndrome. Subjective: The patient was admitted with congestive heart failure and uremia. The patient was star nichole on dialysis. She developed severe acute kidney injury due to cardiorenal syndrome and nonoliguri c ATN. The patient underwent dialysis with ultrafiltration to control fluid overload and provide man agement for congestive heart failure. Review of Systems: The patient denies nausea or vomiting. Denies chest pain or palpitations. Physical Examination: Lungs: Clear to auscultation bilaterally. Heart: S1, S2. Abdomen: Soft. Extremities: No edema. Impression And Plan: 1.Acute kidney injury on chronic kidney disease secondary to cardiorenal syndrome. The patient was found to have severely elevated azotemia and the patient is started on hemodialysis. The patient kathleen l continue dialysis 3 times per week. 2.Hypertension. Continue blood pressure medication. 3.Anemia of chronic kidney disease. Hemoglobin is about 11. LINDY is on hold. 4.Hyponatremia, due to volume overload and dilutional and asymptomatic. Continue low-sodium diet an d p.o. fluid restriction and continue dialysis to obtain negative fluid balance. 5.Diabetes mellitus. Continue insulin. Recommendation as per primary team. ROXY/MODL Voice ID: [id number] Report ID: [id number]
== END 2022-07-02 14:35 | disposition home or self-care (01) | DRG 674 ==
LOC: ER 17:09 → ERHOLD 23:36 → 2ND 06-27 10:22
PROVIDERS: ADMIT Hospitalist; ATTEND Internal Medicine
PROC: 02HV33Z Insertion of Infusion Device into Superior Vena Cava, Percutaneous Approach (ICD-10-PCS; 2022-06-27)
PROC: 0JH63XZ Insertion of Tunneled Vascular Access Device into Chest Subcutaneous Tissue and Fascia, Percutaneous Approach (ICD-10-PCS; principal; 2022-06-27 14:00)
PROC: 5A1D70Z Performance of Urinary Filtration, Intermittent, Less than 6 Hours Per Day (ICD-10-PCS; 2022-06-28)
DX: N17.0 Acute kidney failure with tubular necrosis (principal); E87.1 Hypo-osmolality and hyponatremia; I13.2 Hypertensive heart and chronic kidney disease with heart failure and with stage 5 chronic kidney disease, or end stage renal disease; I50.22 Chronic systolic (congestive) heart failure; N39.0 Urinary tract infection, site not specified; I48.20 Chronic atrial fibrillation, unspecified; N18.6 End stage renal disease; D63.1 Anemia in chronic kidney disease; K21.9 Gastro-esophageal reflux disease without esophagitis; E78.5 Hyperlipidemia, unspecified; E87.6 Hypokalemia; E03.9 Hypothyroidism, unspecified; I27.20 Pulmonary hypertension, unspecified; M19.90 Unspecified osteoarthritis, unspecified site; E05.80 Other thyrotoxicosis without thyrotoxic crisis or storm; T38.1X5A Adverse effect of thyroid hormones and substitutes, initial encounter; I25.10 Atherosclerotic heart disease of native coronary artery without angina pectoris; B96.20 Unspecified Escherichia coli [E. coli] as the cause of diseases classified elsewhere; R31.29 Other microscopic hematuria; Z99.2 Dependence on renal dialysis; Z88.5 Allergy status to narcotic agent; Z79.01 Long term (current) use of anticoagulants; Z79.890 Hormone replacement therapy; Z90.710 Acquired absence of both cervix and uterus; Z79.899 Other long term (current) drug therapy; Z95.810 Presence of automatic (implantable) cardiac defibrillator; Z20.822 Contact with and (suspected) exposure to COVID-19
CPT/HCPCS: 36415; 71045; 80048; 80053; 80061; 80069; 81001; 82607; 83540; 83690; 83735; 83880; 83970; 84100; 84439; 84443; 84466; 84550; 85025; 85044; 86704; 86706; 87077; 87086; 87088; 87186; 87340; 87811; 90935; 93005; 94760; 99285; A4216; C1752; J0690; J1170; J1644; J1940; J2001; J2405; J2704; J3010; J7040; Q0169